=== PATIENT | female | born 1950 | race Caucasian/White ===

== ENCOUNTER 2019-07-09 11:56 | Emergency (ER) | payer MEDICARE, OTHER, SELFPAY ==
--- NOTE | ~2019-07-09 | XR_ITS ---
EXAMINATION: XR foot RT min 3V DATE: 07/09/2019 12:21 INDICATION: Injury to the dorsum of the right foot TECHNIQUE: Dorsoplantar, two oblique and lateral views of the right foot were obtained. COMPARISON: None. FINDINGS: Alignment is normal. No fracture. Mild to moderate polyarticular osteoarthritis most prominent at the second and third tarsal metatarsal joints, at the fourth proximal interphalangeal joint, first metat arsophalangeal joint and to lesser degree at the remaining joints in the mid and hindfoot. IMPRESSION: 1. Mild to moderate polyarticular osteoarthritis in the right fore and midfoot. No acute osseous abno rmality. Reviewed, dictated and finalized at location A. IMPRESSION: 1. Mild to moderate polyarticular osteoarthritis in the right fore and midfoot. No acute osseous abnormality.
--- NOTE | 2019-07-09 12:09 | ED.GENADULT ---
HPI - General Adult General Chief complaint: Extremity Injury, Lower Stated complaint: injury right foot Time Seen by Provider: 07/09/19 12:09 Source: patient Mode of arrival: ambulatory Limitations: no limitations History of Present Illness HPI narrative: 68-year-old female patient presents to the [facility] with complaints of right foot pain. Patient states about an hour prior to arrival she accidentally dropped a cast iron skillet onto her right foot. Patient states that she has had a burning pain to the toes. Patient states she is able to walk on it but does limp and states it hurts worse when applying pressure to the great toe. Patient denies taking anything for the pain prior to arrival. Related Data Home Medications Medication Instructions Recorded Confirmed celecoxib [Celebrex] 100 mg PO BID 07/09/19 07/09/19 losartan 25 mg PO DAILY 07/09/19 07/09/19 metformin [Glucophage] 500 mg PO TID 07/09/19 07/09/19 pantoprazole [Protonix] 40 mg PO DAILY 07/09/19 07/09/19 Allergies Allergy/AdvReac Type Severity Reaction Status Date / Time No Known Allergies Allergy Unknown Verified 07/09/19 12:13 Review of Systems Review of Systems: Narrative: CONSTITUTIONAL: Denies fever, chills, or sweats. EYES: Denies visual changes, redness, or discharge. ENT: Denies rhinorrhea, congestion, sore throat, or otalgia. CARDIOVASCULAR: Denies chest pain, palpitations, or edema. RESPIRATORY: Denies cough or dyspnea. GASTROINTESTINAL: Denies abdominal pain, nausea, vomiting, or diarrhea. GENITOURINARY: Denies dysuria or hematuria. SKIN: Denies rash or itching. MUSCULOSKELETAL: Denies back pain, joint pain, or myalgia. Positive right foot pain NEUROLOGIC: Denies headache, numbness, or weakness. PSYCHIATRIC: Denies anxiety or depression. PMFSH Social History Social History Gender identity (if verbalized by the patient): Female Comments At the time of my signature I agree with nursing past medical history, surgical, social, and family history. There is no relevant family history pertinent to the presenting complaint. Exam Narrative: Exam Narrative: GENERAL: Well-appearing, well-nourished, and in no acute distress. HEAD: Normocephalic, atraumatic. EYES: PERRLA and EOMI. ENT: Nares clear, no rhinorrhea or epistaxis. Mucous membranes moist. NECK: Supple. No lymphadenopathy CHEST: Clear to auscultation. No respiratory distress. HEART: Regular rate and rhythm. No murmur heard. Normal peripheral pulses. ABDOMEN: Soft, nontender, nondistended, normal active bowel sounds. EXTREMITIES: Patient able to bear weight and ambulate but has increase in pain to R foot. ecchymosis noted at the base of the first metatarsal, no erythema, lesions, ulcers or break in skin integrity. The R foot is without obvious asymmetry or deformity when compared to the L foot. No bony step-off, tender to palpation over the first metatarsal toes, denies pain to the midfoot or hindfoot or sole. Normal plantar/dorsiflexion, inversion/eversion. Distal motor and neurovascular status are intact SKIN: Warm, dry, no rash. NEURO: No focal deficits. Alert and oriented x3. Course Reevaluation(s) Reevaluation #1: Reevaluated patient after her x-ray had resulted. Notified her that the x-ray does not show any acute fractures of the foot at this time. Discussed with her that it does appear that she just has some soft tissue damage and a contusion to the right foot. Discussed with her that this is going to be painful to walk on for the next couple of days we are good to go ahead and put her in an Ortho shoe to see if this helps take a little bit of the pressure off of her foot while she walks. Discussed with patient she needs to be elevating the foot, applying ice may take Tylenol ibuprofen as needed for the pain. Patient verbalized understanding of this and denies any other questions or concerns at this time. Date: 07/09/19 Time: 12:39
[2019-07-09 12:11] VITALS: BP 156/82; PULSE 86; RESP 16; TEMP 36.9; O2SAT 100
== END 2019-07-09 12:45 | disposition home or self-care (01) ==
PROVIDERS: Emergency Provider Nurse Practitioner Family; PCP Nurse Practitioner Adult Health
DX: S90.111A Contusion of right great toe without damage to nail, initial encounter (principal); M19.071 Primary osteoarthritis, right ankle and foot; Z96.651 Presence of right artificial knee joint; E11.9 Type 2 diabetes mellitus without complications; R03.0 Elevated blood-pressure reading, without diagnosis of hypertension; W20.8XXA Other cause of strike by thrown, projected or falling object, initial encounter; Z79.84 Long term (current) use of oral hypoglycemic drugs
CPT/HCPCS: 73630; 99213; G0463

== ENCOUNTER → 2020-04-10 00:59 | Outpatient (CLI) | payer MEDICARE, SELFPAY ==
[2020-04-10 18:28] LABS: SARS-CoV-2 RNA PCR Negative
== END ==
PROVIDERS: Family Provider Nurse Practitioner Adult Health; PCP Nurse Practitioner Adult Health; Visit Provider Internal Medicine Gastroenterology
DX: Z01.812 Encounter for preprocedural laboratory examination (principal); Z20.822 Contact with and (suspected) exposure to COVID-19
CPT/HCPCS: C9803; U0003; U0005

== ENCOUNTER 2020-04-13 00:54 | Day surgery (SDC) | payer MEDICARE, SELFPAY ==
[2020-03-23 15:10] VITALS: BMI 26.6
--- NOTE | 2020-04-13 09:04 | WPDANESEPPF ---
Anes - Initial Pre Proc Eval Procedure: Operation Date: 04/13/20 10:30 Proposed Procedures p Screening Colonoscopy - Leonel Garcia DO Date/Time: 04/13/20 09:04 Surgeon: Leonel Garcia DO Pre Op Diagnosis: Neoplasm Screening Patient Data Age: 69 Gender: F Height: 1.65 m Weight: 72.7 kg Allergies Allergy/AdvReac Type Severity Reaction Status Date / Time doxycycline AdvReac Vomiting Verified 04/13/20 09:42 Home Medications Medication Instructions Recorded Confirmed Type losartan 25 mg PO DAILY 07/09/19 03/23/20 History metformin [Glucophage] 500 mg PO TID 07/09/19 03/23/20 History pantoprazole [Protonix] 40 mg PO DAILY 07/09/19 03/23/20 History Adult One Daily Multivitamin 1 tablet PO DAILY 03/23/20 03/23/20 History meloxicam [Mobic] 15 mg PO DAILY 03/23/20 03/23/20 History Patient hx anesthesia problems: none Family hx anesthesia problems: none [facility] Past Medical History Medical History (Updated 04/13/20 @ 09:05 by Marin Conner MD) Chronic GERD Diabetes HTN (hypertension) KULDEEP (obstructive sleep apnea) Osteoarthritis Overweight (BMI 25.0-29.9) Social History Social History Smoking status: Never smoker Alcohol use details: rarely Living arrangements: with family Gender identity (if verbalized by the patient): Female Spiritual care concerns: No Anes - Eval Final PreProcedure Day of Procedure 04/13/20 09:04 Patient weight: overweight Heart: regular rate and rhythm Lungs: clear to auscultation and normal air movement Airway: Mallampati scale class II Neurological: alert and oriented Last oral intake: >/= 8 hours ASA classification: III Emergent: no Anesthetic plan: proceed Anesthesia type and monitoring: general GIVS Informed Consent: The patient's anesthetic plan and its attendant risks and benefits were discussed with the patient/family/POA. Questions were solicited and answers provided to the satisfaction of the patient/family/POA.
[2020-04-13 09:43] VITALS: BP 169/65; PULSE 72; TEMP 36.9; O2SAT 99
[2020-04-13] MEDS: LACTATED RINGERS 1,000 ML 150 ML IV CONT (10:02)
--- NOTE | 2020-04-13 11:13 | WPDGICN ---
GI Consult Note Consult date/time: 04/13/20 11:13 HPI: Reason for visit is colonoscopy. This very pleasant lady seen at the request of the primary physician. Impression: Here very pleasant lady that is here for colonoscopy. She has a family history of colon cancer. She also had remote history of colon polyps. GERD well controlled on medication. DM. HTN. KULDEEP. Recommendation: Colonoscopy. History: This very pleasant lady's negative GI review of systems. She has a history reflux disease. She is status post fundoplication and takes pantoprazole. This controls her symptoms. She has a family history of colon cancer and remote history of colon polyps. She is here for colonoscopy. Physical examination: General: very pleasant patient in no acute distress. HEENT: Head was normocephalic sclerae is clear mouth without masses neck was supple. Heart: Rate rhythm regular without S3 or S4. Lungs: CTA. Abdomen: Soft with no guarding or rigidity. Bowel sounds were active. Neurologic: Cranial nerves 2 through 12 intact. No focal defects. No clonus. Musculoskeletal system: Revealed no joint tenderness or swelling no muscle atrophy. Extremities: Reveal no significant edema. Skin: Warm and dry with normal turgor. Mental status: intact. Patient is alert and oriented. Review of Systems Review of Systems: All systems reviewed & are unremarkable except as noted in HPI and below PMFSH Past Medical History Medical History (Updated 04/13/20 @ 09:05 by Marin Conner MD) Chronic GERD Diabetes HTN (hypertension) KULDEEP (obstructive sleep apnea) Osteoarthritis Overweight (BMI 25.0-29.9) Social History Social History Smoking status: Never smoker Alcohol use details: rarely Living arrangements: with family Gender identity (if verbalized by the patient): Female Spiritual care concerns: No Meds Home Medications and Allergies Home Medications Medication Instructions Recorded Confirmed Type losartan 25 mg PO DAILY 07/09/19 03/23/20 History metformin [Glucophage] 500 mg PO TID 07/09/19 03/23/20 History pantoprazole [Protonix] 40 mg PO DAILY 07/09/19 03/23/20 History Adult One Daily Multivitamin 1 tablet PO DAILY 03/23/20 03/23/20 History meloxicam [Mobic] 15 mg PO DAILY 03/23/20 03/23/20 History Allergies Allergy/AdvReac Type Severity Reaction Status Date / Time doxycycline AdvReac Vomiting Verified 04/13/20 09:42 Vital Signs Vital Signs - 24 hr 04/13/20 09:43 Temperature 36.9 C Pulse Rate 72 Blood Pressure 169/65 H Pulse Oximetry 99
[2020-04-13 11:31] VITALS: BP 122/56; PULSE 66; RESP 20; O2SAT 100
[2020-04-13 11:41] VITALS: BP 141/63; PULSE 62; RESP 20; O2SAT 100
[2020-04-13 11:51] VITALS: BP 162/69; PULSE 63; RESP 15; O2SAT 100
== END 2020-04-13 12:01 | disposition home or self-care (01) ==
PROVIDERS: Family Provider Nurse Practitioner Adult Health; PCP Nurse Practitioner Adult Health; Visit Provider Internal Medicine Gastroenterology
PROC: 0DJD8ZZ Inspection of Lower Intestinal Tract, Via Natural or Artificial Opening Endoscopic (ICD-10-PCS; CPT 45378; principal; 2020-04-13 10:30)
DX: Z12.11 Encounter for screening for malignant neoplasm of colon (principal); Z86.010 Personal history of colon polyps; Z80.0 Family history of malignant neoplasm of digestive organs; K21.9 Gastro-esophageal reflux disease without esophagitis; I10 Essential (primary) hypertension; E11.9 Type 2 diabetes mellitus without complications; G47.33 Obstructive sleep apnea (adult) (pediatric); Z79.84 Long term (current) use of oral hypoglycemic drugs
CPT/HCPCS: G0105; J2704; J7120

== ENCOUNTER → 2020-08-11 03:10 | Outpatient (CLI) | payer MEDICARE, SELFPAY ==
[2020-08-11 19:50] LABS: SARS-CoV-2 RNA PCR Negative
== END ==
PROVIDERS: PCP Nurse Practitioner Adult Health; Visit Provider Internal Medicine Gastroenterology
DX: Z01.812 Encounter for preprocedural laboratory examination (principal); Z20.822 Contact with and (suspected) exposure to COVID-19
CPT/HCPCS: C9803; U0003; U0005

== ENCOUNTER 2020-08-14 01:23 | Day surgery (SDC) | payer MEDICARE, SELFPAY ==
[2020-08-01 14:40] VITALS: BMI 25.7
[2020-08-14 07:31] LABS: Glucose Point of Care 131 mg/dl (65-105)
[2020-08-14] MEDS: LACTATED RINGERS 1,000 ML 150 ML IV CONT (07:31)
[2020-08-14 07:32] VITALS: BP 162/66; PULSE 71; RESP 18; TEMP 36.5; O2SAT 100; BMI 27.8
--- NOTE | 2020-08-14 07:58 | WPDANESEPPF ---
Anes - Initial Pre Proc Eval Procedure: Operation Date: 08/14/20 08:30 Proposed Procedures p Esophagogastroduodenoscopy - Leonel Smith MD Date/Time: 08/14/20 07:58 Surgeon: Leonel Smith MD Pre Op Diagnosis: melena Patient Data Age: 69 Gender: F Height: 1.65 m Weight: 75.9 kg Last Vital Signs Temp 36.5 C 08/14/20 07:32 Pulse 71 08/14/20 07:32 Resp 18 08/14/20 07:32 BP 162/66 H 08/14/20 07:32 Pulse Ox 100 08/14/20 07:32 Allergies Allergy/AdvReac Type Severity Reaction Status Date / Time doxycycline AdvReac Vomiting Verified 08/01/20 14:37 Home Medications Medication Instructions Recorded Confirmed Type losartan 25 mg PO DAILY 07/09/19 08/01/20 History metformin [Glucophage] 500 mg PO TID 07/09/19 08/01/20 History pantoprazole [Protonix] 40 mg PO DAILY 07/09/19 08/01/20 History Adult One Daily Multivitamin 1 tablet PO DAILY 03/23/20 08/01/20 History meloxicam [Mobic] 15 mg PO DAILY 03/23/20 08/01/20 History calcium carbonate 1,200 mg PO DAILY 08/01/20 08/01/20 History omega-3 fatty acids-vitamin E 1 cap PO DAILY 08/01/20 08/01/20 History [Fish Oil] Laboratory Tests 08/14/20 07:28 POC Capillary Glucose 131 mg/dl H mg/dl (65-105) Patient hx anesthesia problems: none Family hx anesthesia problems: none PMFSH Past Medical History Medical History (Updated 04/13/20 @ 09:05 by Marin Conner MD) Chronic GERD Diabetes HTN (hypertension) KULDEEP (obstructive sleep apnea) Osteoarthritis Overweight (BMI 25.0-29.9) Social History Social History Smoking status: Never smoker Alcohol use details: SELDOM Living arrangements: with family Gender identity (if verbalized by the patient): Female Spiritual care concerns: No Anes - Eval Final PreProcedure Day of Procedure 08/14/20 07:58 Patient weight: overweight Heart: regular rate and rhythm Lungs: clear to auscultation and normal air movement Airway: Mallampati scale class II Neurological: alert and oriented Last oral intake: >/= 8 hours ASA classification: III Emergent: no Anesthetic plan: proceed Anesthesia type and monitoring: general GIVS and standard monitoring Informed Consent: The patient's anesthetic plan and its attendant risks and benefits were discussed with the patient/family/POA. Questions were solicited and answers provided to the satisfaction of the patient/family/POA.
--- NOTE | 2020-08-14 07:59 | WPDGICN ---
Assessment and Plan Assessment and plan (1) Epigastric abdominal pain: Code(s): R10.13 - Epigastric pain Status: Acute Assessment and Plan: Patient with persistent epigastric pain. Somewhat improved on pantoprazole. Plan is to pursue EGD to evaluate for possible ulcer disease or other etiologies of pain. (2) Melena: Code(s): K92.1 - Melena Status: Acute Assessment and Plan: Patient with dark stools may be attributed to use of Pepto-Bismol. However because of epigastric pain this may represent bleeding will be evaluated at time of EGD. (3) Family history of colon cancer in mother: Code(s): Z80.0 - Family history of malignant neoplasm of digestive organs Status: Acute Assessment and Plan: Patient underwent screening colonoscopy 1 year ago in the 2019 period was unremarkable. Plan is for surveillance colonoscopy at 5 year intervals. GI Consult Note Consult date/time: 08/14/20 07:59 HPI: Diann Lao is a 69 year old female Presents for EGD. She has had upper abdominal pain for the last several months. She has had no help with antacid such as Tums or Rolaids. Recent Gary noted to have black stools. Her reports that she is taking a significant amount of Pepto-Bismol. No obvious bleeding has been encountered. Recently started on pantoprazole she has noticed some improvement in pain but is not improved over last 1 month. Her family history is significant for colon cancer. She underwent a colonoscopy 1 year ago that was unremarkable felt to be normal. Patient presents today for EGD because of abdominal pain history of recent black stools. Review of Systems Review of Systems: All systems reviewed & are unremarkable except as noted in HPI and below PMFSH Past Medical History Medical History Chronic GERD Diabetes HTN (hypertension) KULDEEP (obstructive sleep apnea) Osteoarthritis Overweight (BMI 25.0-29.9) Social History Social History Smoking status: Never smoker Alcohol use details: SELDOM Living arrangements: with family Gender identity (if verbalized by the patient): Female Spiritual care concerns: No Meds Home Medications and Allergies Home Medications Medication Instructions Recorded Confirmed Type losartan 25 mg PO DAILY 07/09/19 08/01/20 History metformin [Glucophage] 500 mg PO TID 07/09/19 08/01/20 History pantoprazole [Protonix] 40 mg PO DAILY 07/09/19 08/01/20 History Adult One Daily Multivitamin 1 tablet PO DAILY 03/23/20 08/01/20 History meloxicam [Mobic] 15 mg PO DAILY 03/23/20 08/01/20 History calcium carbonate 1,200 mg PO DAILY 08/01/20 08/01/20 History omega-3 fatty acids-vitamin E 1 cap PO DAILY 08/01/20 08/01/20 History [Fish Oil] Allergies Allergy/AdvReac Type Severity Reaction Status Date / Time doxycycline AdvReac Vomiting Verified 08/01/20 14:37 Vital Signs Vital Signs - 24 hr 08/14/20 07:32 Temperature 97.7 F Pulse Rate 71 Respiratory Rate 18 Blood Pressure 162/66 H Pulse Oximetry 100 Exam Narrative: Exam Narrative: Physical exam reveals patient be alert. Vital signs stable. HEENT exam is unremarkable. Lungs are clear to auscultation and percussion. Heart is without murmur or extra sounds. Abdominal exam bowel sounds are present soft she has mild epigastric tenderness no masses are encountered. Digital rectal exam is normal.
[2020-08-14] MEDS: SIMETHICONE ORAL SUSPENSION 20 MG/0.3 ML 30 ML BOTTLE 0.6 ML IRRIGATION (08:37)
[2020-08-14 08:43] VITALS: BP 108/52; PULSE 70; RESP 18; O2SAT 100
[2020-08-14 08:53] VITALS: BP 123/67; PULSE 77; RESP 22; O2SAT 99
[2020-08-14 09:03] VITALS: BP 164/76; PULSE 74; RESP 22; O2SAT 100
== END 2020-08-14 09:12 | disposition home or self-care (01) ==
PROVIDERS: PCP Nurse Practitioner Adult Health; Visit Provider Internal Medicine Gastroenterology
PROC: 0DJ08ZZ Inspection of Upper Intestinal Tract, Via Natural or Artificial Opening Endoscopic (ICD-10-PCS; CPT 43235; principal; 2020-08-14 08:30)
DX: R10.13 Epigastric pain (principal); K92.1 Melena; K29.50 Unspecified chronic gastritis without bleeding; Z79.84 Long term (current) use of oral hypoglycemic drugs; K21.9 Gastro-esophageal reflux disease without esophagitis; E11.9 Type 2 diabetes mellitus without complications; I10 Essential (primary) hypertension; G47.33 Obstructive sleep apnea (adult) (pediatric); M19.90 Unspecified osteoarthritis, unspecified site; Z80.0 Family history of malignant neoplasm of digestive organs
CPT/HCPCS: 43239; 82948; 88305; 88342; J2704; J7120

== ENCOUNTER 2020-08-25 18:37 | Emergency (ER) | payer MEDICARE, SELFPAY ==
[2020-08-25 18:46] VITALS: BP 151/67; PULSE 79; RESP 16; TEMP 36.8; O2SAT 99
--- NOTE | 2020-08-25 19:15 | ED.ABDPAIN ---
HPI - Abdominal Pain General Chief Complaint: Urogenital-Female Stated Complaint: UTI Time Seen by Provider: 08/25/20 19:04 Source: patient and RN notes reviewed Mode of arrival: ambulatory Limitations: no limitations History of Present Illness HPI narrative: Patient presents today complaining of periumbilical abdominal pain that radiates to the left flank since yesterday. She also complains of urinary frequency and urgency. Patient states, it feels like my insides are about to fall out. Denies fever, nausea, vomiting, diarrhea, constipation. Currently rates her pain 08/10 and has tried no medication for symptoms prior to arrival. She believes that she has a UTI and came here for evaluation. History of cholecystectomy and appendectomy. Patient had a negative colonoscopy in April, but continues to have some melena, sees GI. Patient had an EGD on 08/14/2020 for some ulcers. MD elicited complaint: abdominal pain and flank pain Related Data Home Medications Medication Instructions Recorded Confirmed losartan 25 mg PO DAILY 07/09/19 08/25/20 metformin [Glucophage] 500 mg PO TID 07/09/19 08/25/20 pantoprazole [Protonix] 40 mg PO DAILY 07/09/19 08/25/20 Adult One Daily Multivitamin 1 tablet PO DAILY 03/23/20 08/25/20 meloxicam [Mobic] 15 mg PO DAILY 03/23/20 08/25/20 calcium carbonate 1,200 mg PO DAILY 08/01/20 08/25/20 aspirin 81 mg PO DAILY 08/25/20 08/25/20 Allergies Allergy/AdvReac Type Severity Reaction Status Date / Time doxycycline AdvReac Vomiting Verified 08/01/20 14:37 Review of Systems Review of Systems: Narrative: CONSTITUTIONAL: Denies body aches, fever, chills, or sweats. EYES: Denies visual changes, redness, or discharge. ENT: Denies rhinorrhea, congestion, sore throat, or otalgia. CARDIOVASCULAR: Denies chest pain, palpitations, or edema. RESPIRATORY: Denies cough or dyspnea. GASTROINTESTINAL: Denies nausea, vomiting, or diarrhea. + Abdominal pain, left flank pain GENITOURINARY: Denies dysuria or hematuria. SKIN: Denies rash, itching, or wounds. MUSCULOSKELETAL: Denies back pain, joint pain, or myalgia. NEUROLOGIC: Denies headache, numbness, tingling, or weakness. PSYCH: Denies depression or anxiety. [facility] Past Medical History Medical History (Updated 08/25/20 @ 19:24 by Alena Ruiz, JARAD, ) Chronic GERD Diabetes HTN (hypertension) KULDEEP (obstructive sleep apnea) Osteoarthritis Overweight (BMI 25.0-29.9) Surgical History Surgical History (Updated 08/25/20 @ 19:24 by Alena Ruiz, JARAD, ) History of appendectomy History of cholecystectomy History of Fifi fundoplication Social History Social History Smoking status: Never smoker Gender identity (if verbalized by the patient): Female Spiritual care concerns: No Comments At time of signature, I have reviewed and agree with nursing past medical, surgical, social and family history unless otherwise noted. Please see nursing chart for further information. There is no relevant family history pertinent to the presenting complaint Exam Narrative: Exam Narrative: GENERAL: Well-appearing, well-nourished, and in no acute distress. Mild pain distress HEAD: Normocephalic, atraumatic. EYES: EOMI. No redness or drainage. Conjunctivae normal. ENT: Mucous membranes pink and moist. NECK: Normal AROM. Supple. No lymphadenopathy. CHEST: No respiratory distress. Clear to auscultation. HEART: Regular rate and rhythm. No murmur appreciated. Normal peripheral pulses. ABDOMEN: Soft, nondistended, normal active bowel sounds. Periumbilical abdominal tenderness without rebound or guarding. Left flank tenderness. No suprapubic tenderness. MUSCULOSKELETAL: No bony tenderness. EXTREMITIES: Normal range of motion. No edema. SKIN: Warm, dry, no rash. Capillary refill normal. Normal skin turgor. NEURO: No focal deficits. Alert and oriented x3. Gait steady. PSYCH: Normal affect. No si
== END 2020-08-25 19:25 | disposition short-term general hospital (02) ==
PROVIDERS: Emergency Provider Nurse Practitioner; PCP Nurse Practitioner Adult Health
DX: R10.33 Periumbilical pain (principal); K21.9 Gastro-esophageal reflux disease without esophagitis; E11.9 Type 2 diabetes mellitus without complications; I10 Essential (primary) hypertension; G47.33 Obstructive sleep apnea (adult) (pediatric); M19.90 Unspecified osteoarthritis, unspecified site; Z79.82 Long term (current) use of aspirin
CPT/HCPCS: 81003; 99212; G0463

== ENCOUNTER 2020-10-09 00:28 | Day surgery (SDC) | payer MEDICARE, SELFPAY ==
[2020-09-26 15:13] VITALS: BMI 27.5
--- NOTE | 2020-10-06 17:41 | WPDANESEPP ---
Anes - Eval Pre Procedure Procedure: Operation Date: 10/09/20 07:30 Proposed Procedures p Esophagogastroduodenoscopy - Leonel Smith MD Date/Time: 10/06/20 17:41 Pre Op Diagnosis: gastric ulcer Patient Data Age: 69 Gender: F Height: 1.65 m Weight: 75 kg Allergies Allergy/AdvReac Type Severity Reaction Status Date / Time doxycycline AdvReac Vomiting Verified 09/26/20 15:09 Home Medications Medication Instructions Recorded Confirmed Type losartan 25 mg PO DAILY 07/09/19 09/26/20 History metformin [Glucophage] 500 mg PO TID 07/09/19 09/26/20 History pantoprazole [Protonix] 40 mg PO DAILY 07/09/19 09/26/20 History Adult One Daily Multivitamin 1 tablet PO DAILY 03/23/20 09/26/20 History calcium carbonate 1,200 mg PO DAILY 08/01/20 09/26/20 History aspirin 81 mg PO DAILY 08/25/20 09/26/20 History Patient hx anesthesia problems: post op nausea/vomiting Family hx anesthesia problems: none PMFSH Past Medical History Medical History (Updated 08/26/20 @ 00:01 by Juan David Verma) Chronic GERD Diabetes HTN (hypertension) KULDEEP (obstructive sleep apnea) Osteoarthritis Overweight (BMI 25.0-29.9) Surgical History Surgical History (Updated 10/06/20 @ 17:41 by Price Simon DO) History of appendectomy History of cholecystectomy History of hysterectomy History of Fifi fundoplication History of total right knee replacement Social History Social History Smoking status: Never smoker Alcohol use details: Seldom Gender identity (if verbalized by the patient): Female Spiritual care concerns: No Exam Day of Procedure 10/06/20 17:41
[2020-10-09 06:25] VITALS: BP 172/67; PULSE 79; RESP 18; TEMP 36.1; O2SAT 99
[2020-10-09] MEDS: LACTATED RINGERS 1,000 ML 150 ML IV CONT (06:28)
--- NOTE | 2020-10-09 06:42 | WPDANESEFPP ---
Anes - Eval Final PreProcedure Day of Procedure 10/09/20 06:42 Patient weight: overweight Heart: regular rate and rhythm Lungs: clear to auscultation Airway: Mallampati scale class II Neurological: alert and oriented Last oral intake: >/= 8 hours ASA classification: III Emergent: no Anesthetic plan: proceed Anesthesia type and monitoring: general GIVS and standard monitoring Informed Consent: The patient's anesthetic plan and its attendant risks and benefits were discussed with the patient/family/POA. Questions were solicited and answers provided to the satisfaction of the patient/family/POA.
[2020-10-09 06:45] LABS: Glucose Point of Care 153 mg/dl (65-105)
--- NOTE | 2020-10-09 07:25 | WPDGICN ---
Assessment and Plan Assessment and plan (1) Gastric ulcer: Code(s): K25.9 - Gastric ulcer, unspecified as acute or chronic, without hemorrhage or perforation Status: Acute Assessment and Plan: Patient with gastric ulcer identified 2 months ago. Plan is for follow-up EGD at this time. Patient currently maintained on pantoprazole 40 mg p.o. daily. Plan to continue to avoid nonsteroidal anti-inflammatory agents. Further recommendations will be given after endoscopy. (2) Family history of colon cancer in mother: Code(s): Z80.0 - Family history of malignant neoplasm of digestive organs Status: Acute Assessment and Plan: Most recent colonoscopy 2019. Plan is for follow-up colonoscopy is a 5 year intervals. GI Consult Note Consult date/time: 10/09/20 07:25 HPI: Diann Lao is a 69 year old female Who was diagnosed with gastric ulcer 2 months ago. Patient has been maintained on pantoprazole 40 mg p.o. daily. She states she is much removed proved. She denies abdominal pain. She has had no bleeding. She eats her diet without any difficulty. She presents today for follow-up EGD. Review of Systems Review of Systems: All systems reviewed & are unremarkable except as noted in HPI and below PMFSH Past Medical History Medical History (Updated 10/09/20 @ 07:26 by Leonel Smith MD) Chronic GERD Diabetes HTN (hypertension) KULDEEP (obstructive sleep apnea) Osteoarthritis Overweight (BMI 25.0-29.9) Surgical History Surgical History (Updated 10/06/20 @ 17:41 by Price Simon DO) History of appendectomy History of cholecystectomy History of hysterectomy History of Fifi fundoplication History of total right knee replacement Social History Social History Smoking status: Never smoker Alcohol use details: Seldom Living arrangements: with family Gender identity (if verbalized by the patient): Female Spiritual care concerns: No Meds Home Medications and Allergies Home Medications Medication Instructions Recorded Confirmed Type losartan 25 mg PO DAILY 07/09/19 10/09/20 History metformin [Glucophage] 500 mg PO TID 07/09/19 10/09/20 History pantoprazole [Protonix] 40 mg PO DAILY 07/09/19 10/09/20 History Adult One Daily Multivitamin 1 tablet PO DAILY 03/23/20 10/09/20 History calcium carbonate 1,200 mg PO DAILY 08/01/20 10/09/20 History aspirin 81 mg PO DAILY 08/25/20 10/09/20 History Allergies Allergy/AdvReac Type Severity Reaction Status Date / Time doxycycline AdvReac Vomiting Verified 10/09/20 06:24 Vital Signs Vital Signs - 24 hr 10/09/20 06:25 Temperature 96.9 F L Pulse Rate 79 Respiratory Rate 18 Blood Pressure 172/67 H Pulse Oximetry 99 Exam Narrative: Physical exam reveals patient to be alert. Vital signs stable. HEENT exam is unremarkable. Patient is anicteric. Lungs are clear to auscultation and percussion. Heart is without murmur or extra sounds. Abdominal exam bowel sounds present soft nontender with no organomegaly.
[2020-10-09 07:36] VITALS: BP 100/49; PULSE 65; RESP 18; O2SAT 100
[2020-10-09 07:46] VITALS: BP 100/49; PULSE 65; RESP 20; O2SAT 99
[2020-10-09 07:56] VITALS: BP 151/72; PULSE 70; RESP 20; O2SAT 100
== END 2020-10-09 08:07 | disposition home or self-care (01) ==
PROVIDERS: PCP Nurse Practitioner Adult Health; Visit Provider Internal Medicine Gastroenterology
PROC: 0DJ08ZZ Inspection of Upper Intestinal Tract, Via Natural or Artificial Opening Endoscopic (ICD-10-PCS; CPT 43235; principal; 2020-10-09 07:30)
DX: K25.9 Gastric ulcer, unspecified as acute or chronic, without hemorrhage or perforation (principal); K21.9 Gastro-esophageal reflux disease without esophagitis; E11.9 Type 2 diabetes mellitus without complications; I10 Essential (primary) hypertension; G47.33 Obstructive sleep apnea (adult) (pediatric); M19.90 Unspecified osteoarthritis, unspecified site; Z80.0 Family history of malignant neoplasm of digestive organs; Z90.49 Acquired absence of other specified parts of digestive tract; Z96.651 Presence of right artificial knee joint
CPT/HCPCS: 43239; 82948; 87081; J2001; J2704; J7120

== ENCOUNTER → 2021-03-14 09:47 | Outpatient (CLI) | payer MEDICARE, SELFPAY ==
[2021-03-14 21:18] LABS: SARS-CoV-2 RNA PCR Negative
== END ==
PROVIDERS: PCP Nurse Practitioner Adult Health; Visit Provider Nurse Practitioner Adult Health
DX: J01.90 Acute sinusitis, unspecified (principal); Z20.822 Contact with and (suspected) exposure to COVID-19
CPT/HCPCS: C9803; U0003; U0005

== ENCOUNTER 2021-09-22 11:03 | Emergency (ER) | payer MEDICARE, SELFPAY ==
--- NOTE | 2021-09-22 11:06 | ED.URI ---
HPI - URI/Sore Throat General Chief Complaint: Ear Stated Complaint: Ear Pain,Sore Throat Time Seen by Provider: 09/22/21 11:06 Source: patient Mode of arrival: ambulatory Limitations: no limitations History of Present Illness HPI Narrative: Ms. Lao is a 70-year-old female patient presenting to the clinic today with complaints of ear pain sore throat, and sinus pressure/pain/congestion x2 weeks. She reports that she had finished azithromycin last week and this did not help her symptoms. She reports that her ear pain is getting worse. Denies any fever or chills. MD elicited complaint: sore throat and nasal congestion Related Data Home Medications Medication Instructions Recorded Confirmed losartan 25 mg tablet 25 mg PO DAILY 07/09/19 09/22/21 metformin 500 mg tablet 500 mg PO TID 07/09/19 09/22/21 (Glucophage) pantoprazole 40 mg tablet,delayed 40 mg PO DAILY 07/09/19 09/22/21 release (Protonix) Adult One Daily Multivitamin 1 tablet PO DAILY 03/23/20 09/22/21 calcium carbonate 600 mg calcium 1,200 mg PO DAILY 08/01/20 09/22/21 (1,500 mg) tablet aspirin 81 mg tablet 81 mg PO DAILY 08/25/20 09/22/21 Allergies Allergy/AdvReac Type Severity Reaction Status Date / Time doxycycline AdvReac Vomiting Verified 09/22/21 11:05 Review of Systems Review of Systems: Pertinent positives per HPI. Patient denies any fever, chills, rash, visual changes, dizziness, cough, shortness of breath, chest pain, palpitations, nausea, vomiting, diarrhea, constipation, abdominal pain, or any urinary issues. [facility] Past Medical History Medical History Chronic GERD Diabetes HTN (hypertension) KULDEEP (obstructive sleep apnea) Osteoarthritis Overweight (BMI 25.0-29.9) Surgical History Surgical History History of appendectomy History of cholecystectomy History of hysterectomy History of Fifi fundoplication History of total right knee replacement Social History Social History Smoking status: Never smoker Alcohol use details: Seldom Gender identity (if verbalized by the patient): Female Spiritual care concerns: No Comments At the time of my signature, I reviewed and agree with the nursing past medical, surgical, social, and family history. There is no relevant family history pertinent to the patient complaint. Exam Narrative: General: Well-developed, well nourished, in no apparent distress Head: Normocephalic, atraumatic Eyes: Pupils equally round and reactive to light bilaterally, EOM intact, sclera and conjunctive clear, no discharge, lids normal Ears: TMs intact, bulging, with mucoid fluid behind TM,ear canals clear, no drainage, grossly hearing normal. Nose: Nares patent, clear nasal discharge, severe inflammation to anterior and posterior turbinates, maxillary sinus tenderness. Mouth: Oral pharynx without lesions or masses, good dentition, MMM. Postnasal drip, oropharynx mildly red Neck: Supple, trachea midline, no enlargement of anterior or posterior cervical nodes, no thyroid masses or goiter palpable. Cardio: Regular rate and rhythm, s1 and s2 normal, no murmur appreciated. Resp: Clear to auscultation bilaterally, no rhonchi, rales, wheezing or rubs Course Course Emergency Course: Portions of this record may have been created with voice recognition software. Level of Care: Express Care Visit Vital Signs Vital signs: Vital Signs Temperature 36.6 C 09/22/21 11:28 Pulse Rate 96 09/22/21 11:28 Respiratory Rate 18 09/22/21 11:28 Blood Pressure 153/81 H 09/22/21 11:28 Pulse Oximetry 99 09/22/21 11:28 Oxygen Delivery Room Air 09/22/21 11:28 Temperature 36.6 C 09/22/21 11:28 Pulse Rate 96 09/22/21 11:28 Respiratory Rate 18 09/22/21 11:28 Blood Pressure 153/81 H 09/22/21 11:28 Pulse
[2021-09-22 11:28] VITALS: BP 153/81; PULSE 96; RESP 18; TEMP 36.6; O2SAT 99
== END 2021-09-22 11:40 | disposition home or self-care (01) ==
PROVIDERS: Emergency Provider Nurse Practitioner Family; PCP Nurse Practitioner Adult Health
DX: J00 Acute nasopharyngitis [common cold] (principal); H69.83 Other specified disorders of Eustachian tube, bilateral; H65.03 Acute serous otitis media, bilateral; E11.9 Type 2 diabetes mellitus without complications; I10 Essential (primary) hypertension; G47.33 Obstructive sleep apnea (adult) (pediatric); M19.90 Unspecified osteoarthritis, unspecified site; K21.9 Gastro-esophageal reflux disease without esophagitis; Z96.651 Presence of right artificial knee joint
CPT/HCPCS: 99213; G0463

== ENCOUNTER → 2021-10-02 00:15 | Outpatient (CLI) | payer MEDICARE, SELFPAY ==
[2021-10-02 11:18] LABS: SARS-CoV-2 RNA PCR Positive
== END ==
PROVIDERS: PCP Nurse Practitioner Adult Health; Visit Provider Nurse Practitioner Adult Health
DX: U07.1 COVID-19 (principal)
CPT/HCPCS: C9803; U0003; U0005

== ENCOUNTER 2022-03-07 13:39 | Outpatient (CLI) | payer MEDICARE, SELFPAY ==
[2022-03-07 14:05] LABS: Hematocrit 36.3 % (37.0-47.0); Hemoglobin 11.4 g/dL (12.0-15.0); Mean Corpuscular HGB Conc 31.4 g/dl (32-36); Mean Corpuscular Hemoglobin 24.7 pg (26-34); Mean Corpuscular Volume 78.6 fl (80-100); Platelet Count Result 384 k/mm3 (150-375); Red Blood Count 4.62 M/mm3 (4.2-5.4); Red Cell Distribution Width 14.3 % (11.5-14.5); White Blood Count 7.6 K/mm3 (4.5-10.0)
[2022-03-07 14:16] LABS: Alanine Aminotransferase 13 U/L (6-35); Albumin Level 4.2 g/dL (3.5-5.1); Alkaline Phosphatase 89 U/L (38-126); Amylase 50 U/L (30-110); Anion Gap 6 mmol/L (8-16); Aspartate Amino Transferase 17 U/L (14-36); Bilirubin,Total 0.2 mg/dL (0.2-1.3); Blood Urea Nitrogen 12 mg/dL (7-17); Calcium 9.2 mg/dL (8.4-10.2); Carbon Dioxide 31 mmol/L (22-30); Chloride 99 mmol/L (98-107); Estimated Glomerular Filt Rate > 60; Glucose 132 mg/dL (65-110); Lipase 57 U/L (23-300); Potassium 4.5 mmol/L (3.4-5.0); Sodium 136 mmol/L (137-145)
== END 2022-03-07 13:40 | disposition home or self-care (01) ==
PROVIDERS: PCP Nurse Practitioner Adult Health; Visit Provider Nurse Practitioner
DX: R10.13 Epigastric pain (principal); Z87.11 Personal history of peptic ulcer disease
CPT/HCPCS: 36415; 80053; 82150; 83690; 85027

== ENCOUNTER 2022-04-01 06:55 | Day surgery (SDC) | payer MEDICARE, SELFPAY ==
[2022-03-08 14:30] VITALS: BMI 26.3
--- NOTE | 2022-04-01 07:12 | P.PNAN_ITS ---
Anes - Initial Pre Proc Eval Procedure: Operation Date: 04/01/22 12:00 Proposed Procedures p Esophagogastroduodenoscopy - Leonel Smith MD Date/Time: 04/01/22 07:12 Surgeon: Leonel Smith MD Pre Op Diagnosis: Dysphagia Patient Data Age: 71 Gender: F Height: 1.65 m Weight: 71.668 kg Allergies Allergy/AdvReac Type Severity Reaction Status Date / Time doxycycline AdvReac Vomiting Verified 04/01/22 10:49 Home Medications Medication Instructions Recorded Confirmed Type losartan 25 mg tablet 25 mg PO DAILY 07/09/19 03/21/22 History metformin 500 mg tablet 500 mg PO TID 07/09/19 03/21/22 History (Glucophage) Adult One Daily Multivitamin 1 tablet PO DAILY 03/23/20 03/21/22 History calcium carbonate 600 mg calcium 1,200 mg PO DAILY 08/01/20 03/21/22 History (1,500 mg) tablet aspirin 81 mg tablet 81 mg PO DAILY 08/25/20 03/21/22 History omeprazole 40 mg capsule,delayed 40 mg PO BID #60 caps 03/07/22 03/21/22 Rx release sucralfate 1 gram tablet 1 g PO QID 03/07/22 03/21/22 History Patient hx anesthesia problems: none Family hx anesthesia problems: none Results Review: All pre-operative results and documents have been reviewed as part of the pre- operative evaluation. [facility] Past Medical History Medical History (Updated 03/07/22 @ 13:05 by Marilou Griffin APRN) Chronic GERD Diabetes HTN (hypertension) Hx of gastric ulcer KULDEEP (obstructive sleep apnea) Osteoarthritis Overweight (BMI 25.0-29.9) Surgical History Surgical History History of appendectomy History of cholecystectomy History of hysterectomy History of Fifi fundoplication History of total right knee replacement Social History Social History Smoking status: Never smoker Alcohol use details: Seldom Substance use type: does not use Living arrangements: with family Gender identity (if verbalized by the patient): Female Spiritual care concerns: No Anes - Eval Final PreProcedure Day of Procedure 04/01/22 07:12 Patient weight: overweight Heart: regular rate and rhythm Lungs: clear to auscultation Airway: Mallampati scale class II Neurological: alert and oriented Last oral intake: >/= 8 hours ASA classification: III Emergent: no Anesthetic plan: proceed Anesthesia type and monitoring: general GIVS and standard monitoring Results Review: All pre-operative results and documents have been reviewed as part of the pre- operative evaluation. Informed Consent: The patient's anesthetic plan and its attendant risks and benefits were discussed with the patient/family/POA. Questions were solicited and answers provided to the satisfaction of the patient/family/POA.
[2022-04-01 10:40] VITALS: BP 158/74; PULSE 90; RESP 20; TEMP 36.7; O2SAT 99
--- NOTE | 2022-04-01 10:55 | WPDHPUPDATE1 ---
History and Physical Update Update Date/Time: 04/01/22 10:55 History and Physical has been reviewed, including an updated exam of the patient. There are NO changes in the patient's condition. Risks, benefits, and alternatives have been discussed and questions answered. Patient agrees to proceed with procedure.
[2022-04-01] MEDS: LACTATED RINGERS 1,000 ML 150 ML IV CONT (10:56)
[2022-04-01 10:57] LABS: Glucose Point of Care 141 mg/dl (65-105)
[2022-04-01 11:47] VITALS: BP 92/53; PULSE 73; RESP 20; O2SAT 100
--- NOTE | 2022-04-01 11:58 | WPDANESPN ---
Anes - Prog Note Post-Op Date/Time: 04/01/22 11:58 Cardiovascular status: normal Respiratory status: normal Airway patency: baseline Mental status: baseline Post-Op hydration status: normal Vital Signs: Last Vital Signs Temp 36.7 C 04/01/22 10:40 Pulse 90 04/01/22 10:40 Resp 20 04/01/22 10:40 BP 158/74 H 04/01/22 10:40 Pulse Ox 99 04/01/22 10:40 O2 Del Method Room Air 04/01/22 10:40 Pain Score (VAS): 0 I/O: Intake & Output 03/31/22 04/01/22 04/01/22 23:59 07:59 15:59 Intake Total 200 Balance 200 04/01/22 10:51 POC Capillary Glucose 141 H Post-procedural complaints: none Patient Feedback: Patient satisfied with anesthetic care. Other Findings: Patient vital signs back to baseline. Patient denies nausea and vomiting. Patient's pain under control. Patient OK for discharge.
[2022-04-01 12:04] VITALS: BP 93/52; PULSE 76; RESP 16; O2SAT 100
[2022-04-01 12:14] VITALS: BP 120/71; PULSE 70; RESP 17; O2SAT 100
== END 2022-04-01 12:30 | disposition home or self-care (01) ==
PROVIDERS: Visit Provider Internal Medicine Gastroenterology
PROC: 0DJ08ZZ Inspection of Upper Intestinal Tract, Via Natural or Artificial Opening Endoscopic (ICD-10-PCS; CPT 43235; principal; 2022-04-01 12:00)
DX: K22.89 Other specified disease of esophagus (principal)
CPT/HCPCS: 43239

== ENCOUNTER 2022-09-16 11:43 | Outpatient (CLI) | payer OTHER, SELFPAY ==
[2022-09-16 13:01] LABS: Iron 19 ug/dL (37-170)
[2022-09-16 13:11] LABS: Percent Iron Saturation 4 % (20-50)
[2022-09-16 13:37] LABS: Ferritin 5.46 ng/mL (11.1-264)
[2022-09-16 13:54] LABS: Folic Acid 10.2 ng/mL (2.76->20)
== END 2022-09-16 11:44 | disposition home or self-care (01) ==
PROVIDERS: PCP Family Medicine; Visit Provider Nurse Practitioner
DX: D50.9 Iron deficiency anemia, unspecified (principal)
CPT/HCPCS: 36415; 82607; 82728; 82746; 83540; 83550

== ENCOUNTER 2022-09-23 13:31 | Outpatient (CLI) | payer OTHER, SELFPAY ==
--- NOTE | 2022-09-23 13:57 | ECG_ITS ---
Measurements Intervals [place] Rate: 74 P: 63 CA: 144 QRS: 76 QRSD: 129 T: 31 QT: 368 QTc: 409 Interpretive Statements SINUS RHYTHM VENTRICULAR COUPLET AND VENTRICULAR PREMATURE COMPLEX RIGHT BUNDLE BRANCH BLOCK ABNORMAL ECG NO PREVIOUS ECG AVAILABLE FOR COMPARISON Electronically Signed On 09-23-2022 14:43:11 CDT by Jason Montague D.O.
[2022-09-23 14:29] LABS: Hematocrit 29.5 % (37.0-47.0); Hemoglobin 8.6 g/dL (12.0-15.0); Mean Corpuscular HGB Conc 29.2 g/dl (32-36); Mean Corpuscular Hemoglobin 22.8 pg (26-34); Mean Platelet Volume 10.8 fl (7.4-10.4); Platelet Count Result 367 k/mm3 (150-375); Red Blood Count 3.78 M/mm3 (4.2-5.4); Red Cell Distribution Width 15.6 % (11.5-14.5); White Blood Count 5.5 K/mm3 (4.5-10.0)
[2022-09-23 14:34] LABS: Alanine Aminotransferase 16 U/L (6-35); Albumin Level 4.2 g/dL (3.5-5.1); Alkaline Phosphatase 86 U/L (38-126); Anion Gap 8 mmol/L (8-16); Aspartate Amino Transferase 21 U/L (14-36); Bilirubin,Total 0.2 mg/dL (0.2-1.3); Blood Urea Nitrogen 16 mg/dL (7-17); CRP < 0.5 mg/dL (<1.0); Calcium 8.9 mg/dL (8.4-10.2); Carbon Dioxide 27 mmol/L (22-30); Chloride 102 mmol/L (98-107); Estimated Glomerular Filt Rate > 60; Glucose 217 mg/dL (65-110); Sodium 137 mmol/L (137-145)
[2022-09-23 15:08] LABS: Erythrocyte Sedimentation Rate 22 mm/hr (0-20)
== END 2022-09-23 13:32 | disposition home or self-care (01) ==
LOC: ANHLAB 13:34
PROVIDERS: PCP Family Medicine; Visit Provider Nurse Practitioner
DX: D50.9 Iron deficiency anemia, unspecified (principal); M54.9 Dorsalgia, unspecified; R09.89 Other specified symptoms and signs involving the circulatory and respiratory systems; R10.13 Epigastric pain; R63.0 Anorexia; R68.81 Early satiety; I49.9 Cardiac arrhythmia, unspecified; I45.10 Unspecified right bundle-branch block
CPT/HCPCS: 36415; 80053; 85027; 85652; 86140; 93005

== ENCOUNTER 2022-10-02 08:47 | Outpatient (CLI) | payer OTHER, SELFPAY ==
--- NOTE | ~2022-10-02 | NM_ITS ---
EXAM: NM gastric emptying study DATE: 10/02/2022 13:19 INDICATION: Anorexia TECHNIQUE: A gastric emptying study was performed using the methodology of Zina ARTHUR, et al. J Nucl Med 2007; 48:568-572. The patient was given a meal consisting of 2 scrambled eggs labeled with 0.966 mCi Tc-99m sulfur colloid, 2 slices of toast, two packages of jam, and approximately 120 mL of water . Simultaneous anterior and posterior 1-min images of the abdomen were obtained with the patient supi ne at multiple time points over a total period of 4 hours. The geometric mean of anterior and posteri or views was determined, and the percentage retention was calculated for each time point. COMPARISON: None. FINDINGS: Gastric retention of the radiotracer-labeled meal was 32%, 10%, and 5% at the 1-hour, 2-hour, and 4-h our time points, respectively. With this technique, apparent rapid gastric emptying is suggested by < 30% gastric retention at 1 hour. Delayed gastric emptying is defined by gastric retention of >90% at 1 hour, >60% retention at 2 hours, or >10% retention at 4 hours. IMPRESSION: 1. Normal gastric emptying. Reviewed, dictated and finalized at location A. IMPRESSION: 1. Normal gastric emptying.
== END 2022-10-02 08:48 | disposition home or self-care (01) ==
LOC: ANHIMG 08:55
PROVIDERS: PCP Family Medicine; Visit Provider Nurse Practitioner
DX: M54.9 Dorsalgia, unspecified (principal); R10.13 Epigastric pain; R63.0 Anorexia; R68.81 Early satiety
CPT/HCPCS: 78264; A9541

== ENCOUNTER 2022-10-07 07:35 | Outpatient (CLI) | payer OTHER, SELFPAY ==
--- NOTE | ~2022-10-07 | CT_ITS ---
CT of the Abdomen: Indication: Postprandial pain Technique: 2.5 mm axial scans were obtained through the abdomen following intravenous administration of 100 cc of Omnipaque 350. Dose reduction technique was used on this scan by utilizing automated ex posure control and iterative reconstruction technique. The dose-length product (DLP) was 286.09 mGy-c m. COMPARISON: 12/23/2012 Findings: Scans through the lung bases are unremarkable. The liver, spleen, pancreas, adrenals and kidneys are within normal limits. Cholecystectomy clips are present. There are atherosclerotic calcifications of the aorta. Celiac axis, SMA, bilateral renal ar teries are widely patent. No lymphadenopathy. Visualized bowel loops are unremarkable. No ascites. Impression: No significant abnormalities seen. Reviewed, dictated and finalized at location . Impression: No significant abnormalities seen.
== END 2022-10-07 07:36 | disposition home or self-care (01) ==
LOC: ANHIMG 07:39
PROVIDERS: PCP Family Medicine; Visit Provider Nurse Practitioner
DX: R09.89 Other specified symptoms and signs involving the circulatory and respiratory systems (principal); R63.0 Anorexia; R68.81 Early satiety; M54.9 Dorsalgia, unspecified; R10.13 Epigastric pain
CPT/HCPCS: 74175; Q9967

== ENCOUNTER 2022-10-25 00:46 | Day surgery (SDC) | payer OTHER, SELFPAY ==
[2022-10-11 13:45] VITALS: BMI 27.0
[2022-10-25] MEDS: AMPICILLIN 2 GM/NS 100 ML 2 GM/100 ML BAG IVPB (07:02)
[2022-10-25] MEDS: LACTATED RINGERS 1,000 ML 150 ML IV CONT (07:07)
[2022-10-25 07:10] VITALS: BP 151/76; PULSE 69; RESP 20; TEMP 36.4; O2SAT 100; BMI 26.8
--- NOTE | 2022-10-25 07:10 | WPDANESEPPF ---
Anes - Initial Pre Proc Eval Procedure: Operation Date: 10/25/22 08:00 Proposed Procedures p Colonoscopy - Leonel Smith MD Date/Time: 10/25/22 07:10 Surgeon: Leonel Smith MD Pre Op Diagnosis: Iron Deficiency Anemia,family hx colon ca Patient Data Age: 72 Gender: F Height: 1.65 m Weight: 73.6 kg Allergies Allergy/AdvReac Type Severity Reaction Status Date / Time doxycycline AdvReac Vomiting Verified 10/25/22 06:45 Home Medications Medication Instructions Recorded Confirmed Type losartan 25 mg tablet 25 mg PO DAILY 07/09/19 10/11/22 History metformin 500 mg tablet 500 mg PO TID 07/09/19 10/11/22 History (Glucophage) Adult One Daily Multivitamin 1 tablet PO DAILY 03/23/20 10/11/22 History calcium carbonate 600 mg calcium 1,200 mg PO DAILY 08/01/20 10/11/22 History (1,500 mg) tablet aspirin 81 mg tablet 81 mg PO DAILY 08/25/20 10/11/22 History omeprazole 40 mg capsule,delayed See Rx Instructions .Route 09/11/22 10/11/22 Rx release .COMPLEX #180 caps ferrous sulfate 324 mg (65 mg 324 mg PO BID #60 tabs 09/17/22 10/25/22 Rx iron) tablet,delayed release dicyclomine 10 mg capsule See Rx Instructions .Route 10/16/22 10/25/22 Rx .COMPLEX #120 caps Patient hx anesthesia problems: none Family hx anesthesia problems: none Results Review: All pre-operative results and documents have been reviewed as part of the pre-operative evaluation. [facility] Past Medical History Medical History Abdominal bruit Chronic GERD Decrease in appetite Diabetes Early satiety Heart murmur HTN (hypertension) Hx of gastric ulcer NIC (iron deficiency anemia) Irregular heart rhythm Mid back pain KULDEEP (obstructive sleep apnea) Osteoarthritis Overweight (BMI 25.0-29.9) Postprandial epigastric pain Right bundle branch block Surgical History Surgical History History of appendectomy History of cholecystectomy History of hysterectomy History of Fifi fundoplication History of total right knee replacement Family History Family History Other Diabetes mellitus Heart disease Hypertension Social History Social History Social History: Smoking packs per day: 1 Smoking cigarettes per day: 20.0 Years smoked: 22 Smoking pack-years: 22.00 Smoking status: Former smoker Tobacco type: cigarettes Second hand tobacco smoke exposure: No Alcohol intake: current Alcohol use details: Occasionally Substance use: never Substance use type: does not use Lack of Transportation: No Lack of Food: Never True Current Housing: I Have Housing Concerned About Future Housing: No Difficulty Paying Gas/Electric Bills: No Difficulty Paying for Meds: No Currently Unemployed: YES Education: Decline to Answer Difficulty w/ Childcare or Family Care: No Living arrangements: with family Occupation/Education: retired Gender identity (if verbalized by the patient): Female Sexual Orientation (if Verbalized by the Patient): Straight or Heterosexual Spiritual care concerns: No Anes - Eval Final PreProcedure Day of Procedure 10/25/22 07:10 Patient weight: overweight Heart: regular rate and rhythm Lungs: clear to auscultation Airway: Mallampati scale class II Neurological: alert and oriented Last oral intake: >/= 8 hours ASA classification: III Emergent: no Anesthetic plan: proceed Anesthesia type and monitoring: general GIVS and standard monitoring Results Review: All pre-operative results and documents have been reviewed as part of the pre-operative evaluation. Informed Consent: The patient's anesthetic plan and its attendant risks and benefits were discussed with the patient/family/POA. Questions were solicited and answers provided to the satisfaction
[2022-10-25 07:11] LABS: Glucose Point of Care 123 mg/dl (65-105)
--- NOTE | 2022-10-25 07:21 | PM.HPGS ---
History of Present Illness History of Present Illness Consent: Risks, benefits, and alternatives have been discussed and questions answered. Patient agrees to proceed with procedure. Chief complaint: Iron Deficiency Anemia,family hx colon ca Narrative: Diann Lao is a 72 year old female Presents for colonoscopy. Patient has a history of epigastric pain. Recently found to have iron deficiency anemia with microcytic anemia. She presents today for colonoscopy. The past she has had peptic ulcer disease follow-up EGD in March 2022 revealed this to be healed. She has a history of Fifi fundoplication past. She also has a history of colon polyps. Most recent colonoscopy 2020. Patient's family history is significant for a maternal uncle having had colon cancer. Because of iron deficiency anemia follow-up he colonoscopy anticipated today. Patient denies any nose bleeds or bruises. She infrequently will have bright red blood per rectum with wiping. Review of Systems Review of Systems: Review of systems noncontributory. [facility] Past Medical History Medical History Abdominal bruit Chronic GERD Decrease in appetite Diabetes Early satiety Heart murmur HTN (hypertension) Hx of gastric ulcer NIC (iron deficiency anemia) Irregular heart rhythm Mid back pain KULDEEP (obstructive sleep apnea) Osteoarthritis Overweight (BMI 25.0-29.9) Postprandial epigastric pain Right bundle branch block Surgical History Surgical History History of appendectomy History of cholecystectomy History of hysterectomy History of Fifi fundoplication History of total right knee replacement Family History Family History Other Diabetes mellitus Heart disease Hypertension Social History Social History Social History: Smoking packs per day: 1 Smoking cigarettes per day: 20.0 Years smoked: 22 Smoking pack-years: 22.00 Smoking status: Former smoker Tobacco type: cigarettes Second hand tobacco smoke exposure: No Alcohol intake: current Alcohol use details: Occasionally Substance use: never Substance use type: does not use Lack of Transportation: No Lack of Food: Never True Current Housing: I Have Housing Concerned About Future Housing: No Difficulty Paying Gas/Electric Bills: No Difficulty Paying for Meds: No Currently Unemployed: YES Education: Decline to Answer Difficulty w/ Childcare or Family Care: No Living arrangements: with family Occupation/Education: retired Gender identity (if verbalized by the patient): Female Sexual Orientation (if Verbalized by the Patient): Straight or Heterosexual Spiritual care concerns: No Meds Home Medications and Allergies Home Medications Medication Instructions Recorded Confirmed Type losartan 25 mg tablet 25 mg PO DAILY 07/09/19 10/11/22 History metformin 500 mg tablet 500 mg PO TID 07/09/19 10/11/22 History (Glucophage) Adult One Daily Multivitamin 1 tablet PO DAILY 03/23/20 10/11/22 History calcium carbonate 600 mg calcium 1,200 mg PO DAILY 08/01/20 10/11/22 History (1,500 mg) tablet aspirin 81 mg tablet 81 mg PO DAILY 08/25/20 10/11/22 History omeprazole 40 mg capsule,delayed See Rx Instructions .Route 09/11/22 10/11/22 Rx release .COMPLEX #180 caps ferrous sulfate 324 mg (65 mg 324 mg PO BID #60 tabs 09/17/22 10/25/22 Rx iron) tablet,delayed release dicyclomine 10 mg capsule See Rx Instructions .Route 10/16/22 10/25/22 Rx .COMPLEX #120 caps Allergies Allergy/AdvReac Type Severity Reaction Status Date / Time doxycycline AdvReac Vomiting Verified 10/25/22 06:45 Vital Signs Vital Signs - 24 hr 10/25/22 07:10 Temperature 97.5 F L Pulse Rate 69 Respiratory Rate 20 Blood Pressure
[2022-10-25 08:17] VITALS: BP 126/57; PULSE 68; RESP 22; O2SAT 100
[2022-10-25 08:27] VITALS: BP 135/72; PULSE 75; RESP 16; O2SAT 100
== END 2022-10-25 08:41 | disposition home or self-care (01) ==
PROVIDERS: PCP Family Medicine; Visit Provider Internal Medicine Gastroenterology
PROC: 0DJD8ZZ Inspection of Lower Intestinal Tract, Via Natural or Artificial Opening Endoscopic (ICD-10-PCS; CPT 45378; principal; 2022-10-25 08:00)
DX: D50.9 Iron deficiency anemia, unspecified (principal); D12.2 Benign neoplasm of ascending colon; K57.30 Diverticulosis of large intestine without perforation or abscess without bleeding; K64.8 Other hemorrhoids; Z80.0 Family history of malignant neoplasm of digestive organs; K21.9 Gastro-esophageal reflux disease without esophagitis; I10 Essential (primary) hypertension; G47.33 Obstructive sleep apnea (adult) (pediatric); I45.10 Unspecified right bundle-branch block; E11.9 Type 2 diabetes mellitus without complications; Z87.11 Personal history of peptic ulcer disease; Z79.84 Long term (current) use of oral hypoglycemic drugs; Z79.82 Long term (current) use of aspirin; Z87.891 Personal history of nicotine dependence
CPT/HCPCS: 45385; 82948; 88305; J0290; J2704; J7120

== ENCOUNTER 2022-11-06 10:10 | Outpatient (CLI) | payer OTHER, SELFPAY ==
[2022-11-06 10:25] LABS: Basophils Absolute Auto 0.1 K/mm3 (0.0-0.1); Basophils Percent Auto 1.5 % (0.2-1.2); Eosinophils Absolute Auto 0.2 K/mm3 (0-0.3); Eosinophils Percent Auto 3.3 % (0-4.4); Hematocrit 36.2 % (37.0-47.0); Hemoglobin 10.8 g/dL (12.0-15.0); Immature Granulocyte Absolute 0.02 K/mm3 (0.00-0.031); Immature Granulocyte Percent A 0.3 % (0-0.5); Lymphocytes Absolute Auto 1.28 K/mm3 (0.9-3.2); Lymphocytes Percent Auto 21.1 % (18.3-44.2); Mean Corpuscular HGB Conc 29.8 g/dl (32-36); Mean Corpuscular Hemoglobin 22.9 pg (26-34); Mean Corpuscular Volume 76.7 fl (80-100); Mean Platelet Volume 10.2 fl (7.4-10.4); Monocytes Absolute Auto 0.5 K/mm3 (0.1-0.6); Monocytes Percent Auto 8.2 % (2.6-8.5); Neutrophils Percent Auto 65.6 % (45.5-73.1); Platelet Count Result 358 k/mm3 (150-375); Red Blood Count 4.72 M/mm3 (4.2-5.4); Red Cell Distribution Width 18.6 % (11.5-14.5); White Blood Count 6.1 K/mm3 (4.5-10.0)
[2022-11-06 10:31] LABS: Platelet Estimate Adequate (Adequate); Schistocytes None Seen (NORMAL)
[2022-11-06 10:32] LABS: Hypochromasia 1+ (NORMAL); Ovalocytes 1+ (NORMAL); Poikilocytosis 2+ (NORMAL); Tear Drop Cells 1+ (NORMAL)
[2022-11-06 12:43] LABS: Iron 60 ug/dL (37-170)
[2022-11-06 12:50] LABS: Alanine Aminotransferase 24 U/L (6-35); Albumin Level 4.5 g/dL (3.5-5.1); Alkaline Phosphatase 83 U/L (38-126); Anion Gap 5 mmol/L (8-16); Aspartate Amino Transferase 32 U/L (14-36); Bilirubin,Total 0.3 mg/dL (0.2-1.3); Blood Urea Nitrogen 14 mg/dL (7-17); Calcium 9.7 mg/dL (8.4-10.2); Carbon Dioxide 29 mmol/L (22-30); Chloride 103 mmol/L (98-107); Estimated Glomerular Filt Rate > 60; Glucose 138 mg/dL (65-110); Potassium 4.7 mmol/L (3.4-5.0); Sodium 137 mmol/L (137-145)
[2022-11-06 12:53] LABS: Percent Iron Saturation 12 % (20-50)
[2022-11-06 13:20] LABS: Ferritin 6.26 ng/mL (11.1-264)
[2022-11-06 13:58] LABS: Folic Acid > 20.0 ng/mL (2.76->20)
== END 2022-11-06 10:11 | disposition home or self-care (01) ==
LOC: ANHLAB 10:12
PROVIDERS: Internal Medicine; PCP Family Medicine; Visit Provider Internal Medicine Hematology & Oncology
DX: D64.9 Anemia, unspecified (principal)
CPT/HCPCS: 36415; 80053; 82607; 82728; 82746; 83540; 83550; 85025

== ENCOUNTER 2022-11-19 08:56 | Outpatient (CLI) | payer OTHER, SELFPAY ==
--- NOTE | ~2022-11-19 | XR_ITS ---
EXAMINATION: XR UGIAC w small bowel DATE: 11/19/2022 12:40 INDICATION: Iron deficiency anemia TECHNIQUE: The patient drank thick barium, gas-producing crystals, and thin barium. Conventional supi ne abdomen radiographs and fluoroscopic spot radiographs of the esophagus, stomach, and proximal smal l bowel were obtained. Additional overhead radiographs were obtained during the transit through the s mall bowel. Spot fluoroscopic images of the small bowel were obtained upon contrast reaching the cec um. A total of 663 fluoroscopic images and 8 overhead radiographs were obtained. Fluoroscopy exposure time was 2.2 minutes. COMPARISON: CT studies dated 10/07/2022, 04/08/2018 and 12/23/2012 FINDINGS: The esophagus is normal without mass or stricture. Esophageal motility is normal. There is no hiatal hernia. There is an abnormal contour at the cardia of the stomach. Review of prior CT suggests is rel ated to what appears to be a Fifi fundoplication. Correlate with surgical history. There was no gas troesophageal reflux with provocative maneuvers. There are couple duodenal diverticula arising from t he third portion of the duodenum which measure 2.3 cm and 2.9 cm. The stomach and proximal small parisa l are otherwise normal. Cholecystectomy clips in right upper quadrant. Transit time from the stomach to proximal colon was ap proximately 2.5 hours. There is normal caliber and mucosal fold pattern throughout the small bowel. Terminal ileum is normal. No tethering or abnormal mass effect observed upon the small bowel with re al-time fluoroscopy. IMPRESSION: 1. Abnormal contour to the gastric cardia with appearance on CT suggesting prior Fifi fundoplicatio n. Correlate with surgical history. 2. A couple duodenal diverticulum arising from the third portion of the duodenum. Otherwise unremarka ble small bowel follow-through. Reviewed, dictated and finalized at location A. IMPRESSION: 1. Abnormal contour to the gastric cardia with appearance on CT suggesting prio r Fifi fundoplication. Correlate with surgical history. 2. A couple duodenal diverticulum arising from the third portion of the duodenu m. Otherwise unremarkable small bowel follow-through.
== END 2022-11-19 08:57 | disposition home or self-care (01) ==
PROVIDERS: PCP Family Medicine; Visit Provider Internal Medicine Gastroenterology
DX: D50.9 Iron deficiency anemia, unspecified (principal); K57.10 Diverticulosis of small intestine without perforation or abscess without bleeding
CPT/HCPCS: 74246; 74248

== ENCOUNTER 2022-12-07 10:41 | Outpatient (CLI) | payer OTHER, SELFPAY ==
--- NOTE | 2022-12-07 10:54 | ECHO_ITS ---
Patient Info Name: Diann Lao Age: 72 years : 1950 Gender: Female Ht: 65 in Wt: 163 lbs BSA: 1.86 m2 HR: 79 bpm BP: 150 / 75 mmHg Heart Rhythm: Sinus Rhythm Technical Quality: Good Exam Date: 12/07/2022 11:11 AM Exam Location: 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 Summary 1. Complete two-dimensional, color flow and Doppler transthoracic echocardiogram is performed. 2. Left ventricular chamber dimension is normal. 3. Left ventricular systolic function is normal, estimated at 60-65%. 4. The left ventricular diastolic function is grade I diastolic dysfunction. 5. E/e' 12 is mildly elevated. 6. Left atrial chamber dimension is mildly enlarged. 7. There is trace tricuspid valve regurgitation. 8. No pulmonary hypertension, estimated pulmonary arterial systolic pressure is 22 mmHg. Left Ventricle E/e' 12 is mildly elevated. Left ventricular chamber dimension is normal. Left ventricular systolic function is normal, estimated at 60-65%. The left ventricular diastolic function is grade I diastolic dysfunction. Right Ventricle Right ventricular systolic function is normal and with normal TAPSE 2.0 cm. Right ventricular chamber dimension is normal. Left Atria Left atrial chamber dimension is mildly enlarged. Right Atria Right atrial chamber dimension is normal. Aortic Valve The aortic valve is trileaflet. There is no aortic valve stenosis. There is no aortic valve regurgitation. Pulmonic Valve There is no pulmonic regurgitation. Mitral Valve There is no mitral valve stenosis. There is no mitral valve regurgitation. Tricuspid Valve There is trace tricuspid valve regurgitation. No pulmonary hypertension, estimated pulmonary arterial systolic pressure is 22 mmHg. Pericardium/Pleural There is no pericardial effusion. Inferior Vena Cava Normal inferior vena cava with >50% collapse upon inspiration consistent with normal right atrial pressure, 5 mmHg. Aorta The aortic root size at the sinus of Valsalva is normal. Left Ventricular Outflow Tract Name Value Normal LVOT 2D LVOT Diameter 1.9 cm LVOT Doppler LVOT Peak Gradient 2 mmHg LVOT Mean Gradient 1 mmHg LVOT VTI 27 cm LVOT VTI/AV VTI Ratio 0.7 LVOT Stroke Volume 73 ml LVOT CO 3.7 l/min LVOT CI 2.0 l/min/m2 Pulmonic Valve Name Value Normal RVOT Doppler RVOT Peak Gradient 2 mmHg
== END 2022-12-07 10:42 | disposition home or self-care (01) ==
PROVIDERS: PCP Family Medicine; Visit Provider Internal Medicine Cardiovascular Disease
DX: I49.3 Ventricular premature depolarization (principal)
CPT/HCPCS: 93306

== ENCOUNTER 2023-02-28 12:28 | Outpatient (CLI) | payer OTHER, SELFPAY ==
[2023-02-28 12:55] LABS: Basophils Absolute Auto 0.1 K/mm3 (0.0-0.1); Basophils Percent Auto 1.5 % (0.2-1.2); Eosinophils Absolute Auto 0.2 K/mm3 (0-0.3); Eosinophils Percent Auto 2.8 % (0-4.4); Hematocrit 38.3 % (37.0-47.0); Hemoglobin 12.4 g/dL (12.0-15.0); Immature Granulocyte Absolute 0.02 K/mm3 (0.00-0.031); Immature Granulocyte Percent A 0.3 % (0-0.5); Lymphocytes Percent Auto 22.3 % (18.3-44.2); Mean Corpuscular HGB Conc 32.4 g/dl (32-36); Mean Corpuscular Hemoglobin 28.2 pg (26-34); Mean Corpuscular Volume 87.2 fl (80-100); Mean Platelet Volume 10.2 fl (7.4-10.4); Monocytes Absolute Auto 0.6 K/mm3 (0.1-0.6); Monocytes Percent Auto 8.2 % (2.6-8.5); Neutrophils Absolute Auto 4.6 K/mm3 (1.3-6.7); Neutrophils Percent Auto 64.9 % (45.5-73.1); Platelet Count Result 301 k/mm3 (150-375); Red Blood Count 4.39 M/mm3 (4.2-5.4); Red Cell Distribution Width 14.4 % (11.5-14.5); White Blood Count 7.2 K/mm3 (4.5-10.0)
[2023-02-28 16:36] LABS: Iron 110 ug/dL (37-170)
[2023-02-28 16:44] LABS: Percent Iron Saturation 27 % (20-50)
[2023-02-28 17:46] LABS: Folic Acid > 20.0 ng/mL (2.76->20)
== END 2023-02-28 12:29 | disposition home or self-care (01) ==
LOC: ANHLAB 12:31
PROVIDERS: PCP Family Medicine; Visit Provider Internal Medicine Hematology & Oncology
DX: D64.9 Anemia, unspecified (principal)
CPT/HCPCS: 36415; 82607; 82728; 82746; 83540; 83550; 85025

== ENCOUNTER 2023-04-29 09:06 | Outpatient (CLI) | payer OTHER, SELFPAY ==
--- NOTE | ~2023-04-29 | MM_ITS ---
EXAMINATION: MM screening zandra BI w fabian HISTORY: Screening TECHNIQUE: Craniocaudal and mediolateral oblique 3-D tomosynthesis images were obtained and synthetic 2-D images were generated. CAD analysis was submitted and interpreted. COMPARISON: 03/31/2014 BREAST PARENCHYMAL COMPOSITION: There are scattered areas of fibroglandular density. FINDINGS: There is no evidence of suspicious mass, calcification, or architectural distortion to sugg est malignancy in either breast. There has been no suspicious interval change. IMPRESSION: 1. No mammographic evidence of malignancy. 2. Recommend routine screening mammography in one year. BI-RADS Category 1: Negative Reviewed, dictated and finalized at location A. ESPONDENCE REPRESENTATIVE
--- NOTE | ~2023-04-29 | DEXA_ITS ---
Bone Density Report Name: GAUTAM DASILVA Age: 72 Sex: Female Ethnicity: White Date of : 1950 Indication: osteopenia; monitoring treatment; height loss; hysterectomy; Referring Provider: GÓMEZ OBRIEN Study: Bone densitometry was performed. Exam Date: April 29, 2023 Accession number: [id number] Bone Density: Region BMD T-score Z-score Classification AP Spine(L1, L2, L4) 0.872 -1.5 0.8 Osteopenia Femoral Neck (Left) 0.772 -0.7 1.3 Normal Total Hip (Left) 0.867 -0.6 1.1 Normal Femoral Neck (Right) 0.784 -0.6 1.4 Normal Total Hip (Right) 0.853 -0.7 1.0 Normal Total Hip Mean 0.860 -0.7 1.1 Normal World Health Organization criteria for BMD impression classify patients as: Normal (T-score at or above -1.0), Osteopenia (T-score between -1.0 and -2.5), or Osteoporosis (T-score at or below -2.5). 10-year Fracture Risk: FRAX not reported because: Treated for osteoporosis Previous Exams: Region Exam Age BMD T-score BMD Change BMD Change Date g/cm2 vs Baseline vs Previous AP Spine (L1-L2,L4) 04/29/2023 72 0.872 -1.5 -0.046 (-5.0%) 0.006 (0.6%)# 03/23/2015 64 0.867 -1.5 -0.051 (-5.6%) -0.051 (-5.6%) 04/15/2011 60 0.918 -1.1 Total Hip(Left) 04/29/2023 72 0.867 -0.6 -0.083 (-8.7%) -0.108 (-11.1% 03/23/2015 64 0.975 0.3 0.026 (2.7%)# 0.026 (2.7%)# 04/15/2011 60 0.950 0.1 Total Hip(Right) 04/29/2023 72 0.853 -0.7 0.000 (0.0%)# -0.079 (-8.5%) 03/23/2015 64 0.933 -0.1 0.079 (9.3%)# 0.079 (9.3%)# 04/15/2011 60 0.854 -0.7 *Denotes significance at 95% confidence level, LSC for AP Spine = 0.022 g/cm2, LSC for Total Hip = 0.027 g/cm2 # Denotes dissimilar scan types or analysis methods Clinical Information Provided by Patient: Is being treated for osteoporosis Has used the following medications: Vitamin D, Calcium Has the following medical conditions: Hysterectomy Patient maximum height was 67 Menopause Age: 39 Drinks caffeinated beverages Onset of menses at age 13 Number of children 3 Impression: The patient has low bone mass, based on the Total Spine T-score. The BMD for the Total Hip(Left) decreased, changing by -11.1% since the last DXA exam. The BMD for the Total Hip(Right) decreased, changing by -8.5% since the last DXA exam. Discussion: SIGNIFICANT BONE LOSS OBSERVED. Adherence to therapy (including calcium and vitamin D intake) should be assessed. If compliance is not a fa
== END 2023-04-29 09:07 | disposition home or self-care (01) ==
PROVIDERS: PCP Family Medicine; Visit Provider Family Medicine
DX: Z12.31 Encounter for screening mammogram for malignant neoplasm of breast (principal); Z78.0 Asymptomatic menopausal state; M85.88 Other specified disorders of bone density and structure, other site
CPT/HCPCS: 77063; 77067; 77080

== ENCOUNTER 2023-05-22 12:13 | Outpatient (CLI) | payer OTHER, SELFPAY ==
[2023-05-22 12:37] LABS: Basophils Absolute Auto 0.1 K/mm3 (0.0-0.1); Basophils Percent Auto 1.3 % (0.2-1.2); Eosinophils Absolute Auto 0.2 K/mm3 (0-0.3); Eosinophils Percent Auto 3.4 % (0-4.4); Hematocrit 38.9 % (37.0-47.0); Hemoglobin 12.7 g/dL (12.0-15.0); Immature Granulocyte Absolute 0.02 K/mm3 (0.00-0.031); Immature Granulocyte Percent A 0.3 % (0-0.5); Lymphocytes Absolute Auto 1.42 K/mm3 (0.9-3.2); Lymphocytes Percent Auto 22.2 % (18.3-44.2); Mean Corpuscular HGB Conc 32.6 g/dl (32-36); Mean Corpuscular Hemoglobin 29.4 pg (26-34); Mean Platelet Volume 10.3 fl (7.4-10.4); Monocytes Absolute Auto 0.6 K/mm3 (0.1-0.6); Monocytes Percent Auto 8.6 % (2.6-8.5); Neutrophils Absolute Auto 4.1 K/mm3 (1.3-6.7); Neutrophils Percent Auto 64.2 % (45.5-73.1); Platelet Count Result 315 k/mm3 (150-375); Red Blood Count 4.32 M/mm3 (4.2-5.4); Red Cell Distribution Width 13.2 % (11.5-14.5); White Blood Count 6.4 K/mm3 (4.5-10.0)
[2023-05-22 17:22] LABS: Iron 72 ug/dL (37-170)
[2023-05-22 17:35] LABS: Percent Iron Saturation 20 % (20-50)
[2023-05-23 00:29] LABS: Folic Acid > 20.0 ng/mL (2.76->20)
== END 2023-05-22 12:14 | disposition home or self-care (01) ==
LOC: ANHLAB 12:16
PROVIDERS: PCP Family Medicine; Visit Provider Internal Medicine Hematology & Oncology
DX: D64.9 Anemia, unspecified (principal)
CPT/HCPCS: 36415; 82607; 82728; 82746; 83540; 83550; 85025

== ENCOUNTER 2023-07-01 09:07 | Outpatient (CLI) | payer OTHER, SELFPAY ==
--- NOTE | ~2023-07-01 | CT_ITS ---
CT of the Abdomen and Pelvis: Indication: Diverticulitis Technique: 2.5 mm axial scans were obtained through the abdomen and pelvis following intravenous adm inistration of 100 cc of Omnipaque 350. Dose reduction technique was used on this scan by utilizing a utomated exposure control and iterative reconstruction technique. The dose-length product (DLP) was 4 99.93 mGy-cm. COMPARISON: 10/07/2022 Findings: Scans through the lung bases are unremarkable. The liver, spleen, pancreas, adrenals and kidneys are within normal limits. Cholecystectomy clips are present. There are atherosclerotic calcifications of the aorta. No lymphadenopathy. Questionable mild wall thickening of the sigmoid colon/rectum. No abscess or free air. No bowel obstr uction. Images through the pelvis were performed. Urinary bladder unremarkable. No adnexal mass seen. Patient status post hysterectomy. No ascites. Impression: Questionable mild wall thickening of the sigmoid colon/rectum. Correlate for infectious/inflammatory colitis versus underdistention. No abscess, free air, or bowel obstruction. Reviewed, dictated and finalized at [facility]. Impression: Questionable mild wall thickening of the sigmoid colon/rectum. Correlate for in fectious/inflammatory colitis versus underdistention. No abscess, free air, or bowel obstruction.
[2023-07-01 09:41] LABS: Estimated Glomerular Filt Rate > 60
== END 2023-07-01 09:08 | disposition home or self-care (01) ==
LOC: ANHIMG 09:09
PROVIDERS: PCP Family Medicine; Visit Provider Physician Assistant
DX: R10.32 Left lower quadrant pain (principal)
CPT/HCPCS: 74177; Q9967

== ENCOUNTER 2023-08-08 09:14 | Outpatient (CLI) | payer OTHER, SELFPAY ==
[2023-08-08 11:45] LABS: Toxigenic C. Diff NEGATIVE (NEGATIVE)
[2023-08-14 17:18] LABS: Pancreatic Elastase, Stool 49 mcg/g
[2023-08-15 19:38] LABS: Calprotectin, Stool 14 mcg/g
== END 2023-08-08 09:15 | disposition home or self-care (01) ==
LOC: ANHLAB 09:15
PROVIDERS: PCP Family Medicine; Visit Provider Nurse Practitioner
DX: K52.9 Noninfective gastroenteritis and colitis, unspecified (principal); R19.8 Other specified symptoms and signs involving the digestive system and abdomen
CPT/HCPCS: 82653; 83993; 87269; 87493

== ENCOUNTER 2023-08-29 01:19 | Day surgery (SDC) | payer OTHER, SELFPAY ==
[2023-08-18 13:22] VITALS: BMI 26.7
[2023-08-29 10:02] LABS: Glucose Point of Care 136 mg/dl (65-105)
[2023-08-29 10:03] VITALS: BP 134/52; PULSE 77; RESP 16; TEMP 36.1; O2SAT 100
[2023-08-29] MEDS: LACTATED RINGERS 1,000 ML 150 ML IV CONT (10:11)
--- NOTE | 2023-08-29 10:12 | WPDANESEPPF ---
Anes - Initial Pre Proc Eval Procedure: Operation Date: 08/29/23 11:00 Proposed Procedures p Flexible Sigmoidoscopy - Ezequiel Duke MD Date/Time: 08/29/23 10:12 Surgeon: Ezequiel Duke MD Pre Op Diagnosis: IBS-D, Diarrhea, Gastroenteritis/colitis, Patient Data Age: 72 Gender: F Height: 1.65 m Weight: 71.8 kg Last Vital Signs Temp 96.9 F L 08/29/23 10:03 Pulse 77 08/29/23 10:03 Resp 16 08/29/23 10:03 BP 134/52 L 08/29/23 10:03 Pulse Ox 100 08/29/23 10:03 O2 Del Method Room Air 08/29/23 10:03 Allergies Allergy/AdvReac Type Severity Reaction Status Date / Time doxycycline AdvReac Vomiting Verified 08/29/23 09:56 Home Medications Medication Instructions Recorded Confirmed Type Adult One Daily Multivitamin 1 tablet PO DAILY 03/23/20 08/29/23 History calcium carbonate 1,200 mg PO DAILY 08/01/20 08/29/23 History aspirin 81 mg tablet 81 mg PO DAILY 08/25/20 08/29/23 History ferrous sulfate 324 mg (65 mg See Rx Instructions .Route 02/14/23 08/29/23 Rx iron) tablet,delayed release .COMPLEX #180 tabs blood sugar diagnostic (OneTouch #100 ea 04/16/23 08/29/23 Rx Ultra Test strips) blood-glucose meter (OneTouch #1 ea 04/16/23 08/29/23 Rx Ultra2 Meter) pantoprazole 20 mg tablet,delayed See Rx Instructions .Route 06/16/23 08/29/23 Rx release .COMPLEX #90 tabs hyoscyamine sulfate 0.375 mg 0.375 mg PO Q12H #60 tabs 08/06/23 08/29/23 Rx tablet,extended release,12 hr (Levbid) [id number] See Rx Instructions PO BID #240 08/15/23 08/29/23 Rx 36,000-114,000-180,000 unit caps capsule,delay rel (Creon) metformin 500 mg tablet 500 mg PO BID 08/18/23 08/29/23 History azelastine 137 mcg (0.1 %) nasal See Rx Instructions .Route 08/22/23 08/29/23 Rx spray aerosol .COMPLEX #30 mL dicyclomine 10 mg capsule See Rx Instructions .Route 08/22/23 08/29/23 Rx .COMPLEX #360 caps irbesartan 150 mg tablet See Rx Instructions .Route 08/25/23 08/29/23 Rx .COMPLEX #90 tabs Laboratory Tests 08/29/23 10:00 POC Capillary Glucose 136 H mg/dl (65-105) Patient hx anesthesia problems: none Family hx anesthesia problems: none Results Review: All pre-operative results and documents have been reviewed as part of the pre-operative evaluation. [facility] Past Medical History Medical History Abdominal bruit Chronic GERD Decrease in appetite Diabetes Early satiety Heart murmur HTN (hypertension) Hx of gastric ulcer NIC (iron deficiency anemia) Irregular heart rhythm Mid back pain KULDEEP (obstructive sleep apnea) Osteoarthritis Overweight (BMI 25.0-29.9) Postprandial epigastric pain Right bundle branch block Surgical History Surgical History History of appendectomy History of cholecystectomy History of hysterectomy History of Fifi fundoplication History of total right knee replacement Family History Family History Other Diabetes mellitus Heart disease Hypertension Social History Social History Social History: Smoking packs per day: 1 Smoking cigarettes per day: 20.0 Years smoked: 22 Smoking pack-years: 22.00 Smoking status: Former smoker Tobacco type: cigarettes Second hand tobacco smoke exposure: No Alcohol intake: never Alcohol use details: Occasionally Substance use: never Substance use type: does not use Do You Feel Safe in your Home?: Yes Lack of Transportation: No Lack of Food: Never True Current Housing: I Have Housing Concerned About Future Housing: No Difficulty Paying Gas/Electric Bills: No Difficulty Paying for Meds: No Currently Unemployed: No Education: High School Diploma/GED Difficulty w/ Childcare or Family C
--- NOTE | 2023-08-29 10:19 | WPDHPUPDATE1 ---
History and Physical Update Update Date/Time: 08/29/23 10:19 History and Physical has been reviewed, including an updated exam of the patient. There are NO changes in the patient's condition. Risks, benefits, and alternatives have been discussed and questions answered. Patient agrees to proceed with procedure.
[2023-08-29 10:30] VITALS: BP 93/48; PULSE 63; RESP 17; O2SAT 100
[2023-08-29 10:40] VITALS: BP 129/61; PULSE 62; RESP 20; O2SAT 100
[2023-08-29 10:50] VITALS: BP 147/58; PULSE 60; RESP 19; O2SAT 100
== END 2023-08-29 11:02 | disposition home or self-care (01) ==
PROVIDERS: PCP Family Medicine; Referring Provider Nurse Practitioner; Visit Provider Internal Medicine Gastroenterology
PROC: 0DJD8ZZ Inspection of Lower Intestinal Tract, Via Natural or Artificial Opening Endoscopic (ICD-10-PCS; CPT 45330; principal; 2023-08-29 11:00)
DX: K57.30 Diverticulosis of large intestine without perforation or abscess without bleeding (principal); K64.8 Other hemorrhoids; R19.7 Diarrhea, unspecified; Z86.010 Personal history of colon polyps; R93.3 Abnormal findings on diagnostic imaging of other parts of digestive tract; K21.9 Gastro-esophageal reflux disease without esophagitis; I10 Essential (primary) hypertension; G47.33 Obstructive sleep apnea (adult) (pediatric)
CPT/HCPCS: 45380; 82948; 88305; J2704; J7120

== ENCOUNTER 2023-12-19 15:28 | Outpatient (CLI) | payer OTHER, SELFPAY ==
[2023-12-19 15:57] LABS: Basophils Absolute Auto 0.1 K/mm3 (0.0-0.1); Basophils Percent Auto 0.6 % (0.2-1.2); Eosinophils Absolute Auto 0.2 K/mm3 (0-0.3); Eosinophils Percent Auto 2.2 % (0-4.4); Hematocrit 41.9 % (37.0-47.0); Hemoglobin 13.6 g/dL (12.0-15.0); Immature Granulocyte Absolute 0.02 K/mm3 (0.00-0.031); Immature Granulocyte Percent A 0.2 % (0-0.5); Lymphocytes Absolute Auto 1.71 K/mm3 (0.9-3.2); Lymphocytes Percent Auto 20.9 % (18.3-44.2); Mean Corpuscular HGB Conc 32.5 g/dl (32-36); Mean Corpuscular Hemoglobin 29.6 pg (26-34); Mean Corpuscular Volume 91.1 fl (80-100); Monocytes Absolute Auto 0.7 K/mm3 (0.1-0.6); Neutrophils Absolute Auto 5.5 K/mm3 (1.3-6.7); Neutrophils Percent Auto 67.1 % (45.5-73.1); Platelet Count Result 291 k/mm3 (150-375); Red Cell Distribution Width 12.2 % (11.5-14.5); White Blood Count 8.2 K/mm3 (4.5-10.0)
[2023-12-19 16:13] LABS: Alanine Aminotransferase 18 U/L (6-35); Albumin Level 4.5 g/dL (3.5-5.1); Alkaline Phosphatase 95 U/L (38-126); Anion Gap 10 mmol/L (4-12); Aspartate Amino Transferase 27 U/L (14-36); Bilirubin,Total 0.4 mg/dL (0.2-1.3); Blood Urea Nitrogen 14 mg/dL (7-17); Calcium 9.9 mg/dL (8.4-10.2); Carbon Dioxide 25 mmol/L (22-30); Chloride 103 mmol/L (98-107); Estimated Glomerular Filt Rate 49; Glucose 137 mg/dL (65-110); Potassium 4.5 mmol/L (3.4-5.0); Sodium 138 mmol/L (137-145)
[2023-12-19 16:32] LABS: Add Urine Microscopic? YES; Appearance Urine Clear (Clear); Bacteria Urine Rare /hpf; Bilirubin Urine Negative (Negative); Blood Urine Negative (Negative); Color Urine Yellow (Yellow); Glucose Urine UA Negative (Negative); Hyaline Casts Urine Present /lpf; Ketones Urine Trace mg/dL (Negative); Leukocyte Esterase Ur Trace LEU/UL (Negative); Nitrate Urine Negative (Negative); Protein Urine Trace mg/dL (Negative); RBC Urine 0-2 /hpf (0-2); Specific Grav Ur 1.016 (1.001-1.035); Squamous Epithelial Cell Urine Occasional /hpf (Few); Urobilinogen Urine 0.2 mg/dL (<2.0); WBC Urine 0-5 /hpf (0-3)
== END 2023-12-19 15:29 | disposition home or self-care (01) ==
PROVIDERS: PCP Family Medicine; Visit Provider Physician Assistant
DX: R53.81 Other malaise (principal); R10.9 Unspecified abdominal pain; R19.7 Diarrhea, unspecified; K25.9 Gastric ulcer, unspecified as acute or chronic, without hemorrhage or perforation
CPT/HCPCS: 36415; 80053; 81001; 85025

== ENCOUNTER 2023-12-22 09:12 | Outpatient (CLI) | payer OTHER, SELFPAY ==
[2023-12-22 10:28] LABS: Toxigenic C. Diff NEGATIVE (NEGATIVE)
== END 2023-12-22 09:13 | disposition home or self-care (01) ==
PROVIDERS: PCP Family Medicine; Visit Provider Family Medicine
DX: R19.7 Diarrhea, unspecified (principal); R53.81 Other malaise
CPT/HCPCS: 87045; 87427; 87449; 87493

== ENCOUNTER 2024-04-19 12:12 | Outpatient (CLI) | payer OTHER, SELFPAY ==
[2024-04-19 13:02] LABS: Influenza A QL RT-PCR Positive (Negative); Influenza B QL RT-PCR Negative (Negative); RSV RNA, RT-PCR Negative (Negative); SARS-CoV-2 RNA PCR Negative (Negative)
--- OUTSIDE RECORDS SUMMARY | 2024-04-19 14:41 | XMS_ITS | Clinical Summary ---
Author Organization [facility] Address [address] [address] [place] [address] Phone Care Team Providers Care Cable Placer Name Role Phone Maty Valladares MD Primary Care Provider [phone] Allergies Active Allergy Reactions Criticality Noted Date Comments Diclofenac-Misoprostol Nausea and Vomiting Low 05/2018 Medications metFORMIN (GLUCOPHAGE) 500 mg tablet Take 500 mg by mouth every 12 hours. Active pantoprazole (PROTONIX) 40 mg Tablet, Delayed Release (E.C.) Take 20 mg by mouth daily. 09/05/2017 Active irbesartan (AVAPRO) 150 mg tablet 300 mg. 02/16/2023 Active hydrALAZINE (APRESOLINE) 10 mg tablet Take 10 mg by mouth daily. 04/10/2023 Active ferrous sulfate 325 mg (65 mg iron) tablet TAKE 1 TABLET BY MOUTH EVERY DAY 90 Tablet 3 02/17/2024 Active Active Problems Problem Noted Date Diagnosed Date Gastroesophageal reflux disease without esophagi tis 12/09/2017 HTN (hypertension), benign 12/09/2017 Mass of upper lobe of left lung 12/09/2017 Encounters Date Type Department Care Team Description 03/25/2024 External Device Data [facility] Provider, Abstract 03/23/2024 External Device Data [facility] Provider, Abstract 03/16/2024 External Device Data [facility] Provider, Abstract 02/17/2024 [facility] [place] [address] [place] [address] Niall Antoine MD from Last 3 Months Family History Medical History Relation Name Comments Heart Disease Brother 1 Diabetes Brother 2 No Known Problems Daughter 1 Cervical Cancer Daughter 2 Diabetes Father Heart Disease Father Other Father Cancer Mother Diabetes Mother Heart Disease Mother Other Mother Breast Cancer Sister 1 Diabetes Sister 1 Heart Disease Sister 2 No Known Problems Son Relation Name Status Comments Brother 1 Alive Brother 2 Alive Daughter 1 Alive Daughter 2 Alive Father Mother Sister 1 Alive Sister 2 Alive Son Alive Social History Tobacco Use Types Packs/Day Years Used Date Smoking Tobacco: Former Cigarettes 1.5 15 1 - 12/10/1999 Smokeless Tobacco: Never Tobacco Cessation:Counseling Given: Not Answered Alcohol Use Standard Drinks/Week Comments No 0 (1 standard drink = 0.6 oz pur e alcohol) Comments Unknown Sex and Gender Information Value Date Recorded Sex Assigned at Not on file Legal Sex Female 12:18 PM CDT Gender Identity Not on file Sexual Orientation Not on file Last Filed Vital Signs Vital Sign Reading Time Taken Comments Blood Pressure 127/68 06/02/2023 10:28 AM CDT Pulse 75 06/02/2023 10:28 AM CDT Temperature 36.7 C (98.1 F) 06/02/2023 10:28 AM CDT Respiratory Rate 18 06/02/2023 10:28 AM CDT Oxygen Saturation 94% 06/02/2023 10:28 AM CDT Inhaled Oxygen Concentration - - Weight 75.9 kg (167 lb 6.4 oz) 06/02/2023 10:28 AM CDT Height 165.1 cm (5' 5 ) 11/06/2022 9:11 AM CDT Body Mass Index 27.86 11/06/2022 9:11 AM CDT Plan of Treatment Health Maintenance Due Date Last Done Comments DIABETES ANNUAL FOOT EXAM 10/21/1967 DIABETES ANNUAL RETINAL EXAM 10/21/1967 DIABETES MICROALBUMIN ANNUAL SCREEN 10/21/1967 LDL CHOLESTEROL ANNUAL 10/21/1967 DTAP/TDAP/TD VACCINES (1 - Tdap) 1968 PNEUMOCOCCAL VACCINE 65+ YEA RS (1 of 2 - PCV) 1968 BREAST CANCER SCREENING 1989 COLORECTAL SCREENING 1994 Colorectal Cancer Screening 1994 FIT-DNA Q 3 years 1994 FIT/FOBT Q 1 year 1994 Flex Sig/CT Colonography Q 5 years 1994 ZOSTER VACCINE (1 of 2) 10/21/1999 DIABETES HBA1C Q 6 MONTHS 06/08/20202019, 08/12/2019, 03/26/2019, Additional history exists INFLUENZA VACCINE (#1) 2023 04/01/2019 COVID-19 Vaccine (3 - 2023-2 5 season) 2023 06/18/2020, 05/21/2020 RSV VACCINE (60+ or ) (1 - 1-dose 75+ series) 2024 OSTEOPOROSIS SCREENING Completed 09/20/2019 Insurance Care Teams Cable Placer Relationship Specialty Start Date End Date Maty Valladares MD PCP - General Family Practice 11/06/22
--- OUTSIDE RECORDS SUMMARY | 2024-04-19 14:41 | XMS_ITS | Clinical Summary ---
Author Organization [facility] Address [address] [place] [address] Care Team Providers Care Press Secretary Name Role Phone Unavailable Primary Care Provider Unavailabl e Social History Tobacco Use Types Packs/Day Years Used Date Smoking Tobacco: Never Assessed Comments Unknown Sex and Gender Information Value Date Recorded Sex Assigned at Not on file Legal Sex Female 7:17 PM CDT Gender Identity Not on file Sexual Orientation Not on file Plan of Treatment Health Maintenance Due Date Last Done Comments Colorectal Cancer Screening Colonoscopy (10 Years) 1950 Hepatitis C 10/21/1967 DTaP, Tdap and Td Vaccines ( 1 - Tdap) 1968 Mammogram Screening 1989 Zoster Vaccines (1 of 2) 10/21/1999 Dexa Scan (General) 2014 Pneumococcal Vaccine: 65+ Ye ars (1 of 1 - PCV) 2014 COVID-19 Vaccine (2023-2 5 season) 2023 Influenza Adult (#1) 2023 RSV Immunization or 60+ Years (1 - 1-dose 75+ series) 2024 Meningococcal B Vaccine Aged Out No l onger eligible based on patient's age to complete this topic Meningococcal Vaccine Aged Out No ludwin renata eligible based on patient's age to complete this topic RSV Immunizations Under 20 Months Aged Out No longer eligible based on patient's age to complete this topic
--- OUTSIDE RECORDS SUMMARY | 2024-04-19 14:42 | XMS_ITS | Clinical Summary ---
Author Organization [facility] Address [address] [place] [address] Care Team Providers Care Asset Protection Assistant Name Role Phone Sylvie Olea NP Primary Care Provider [phone] Allergies Active Allergy Reactions Criticality Noted Date Comments Diclofenac-Misoprostol Nausea only Low 12/03/2018 Medications VITAMIN D2 50,000 unit capsule 8 Active losartan (COZAAR) 25 mg tablet Take 25 mg by mouth. Active metFORMIN (GLUCOPHAGE) 500 mg tablet Take 500 mg by mouth. Active montelukast (SINGULAIR) 10 mg tablet Take 10 mg by mouth. Active pantoprazole DR (PROTONIX) 40 mg EC tablet Take 40 mg by mouth. Active raloxifene (EVISTA) 60 mg tablet Take 60 mg by mouth. Active calcium carbonate (CALCIUM 600) 1,500 mg (600 mg of elemental calcium) tablet Take 1,200 mg by mouth. Active azithromycin (ZITHROMAX) 250 mg tablet azithromycin 250 mg tablet Active fluticasone propionate (FLONASE) 50 mcg/actuation nasal spray daily Active sertraline (ZOLOFT) 50 mg tablet sertraline 50 mg tablet Take 1/2 tablet po daily at bedtime for 1 week, then increase to 1 tablet po daily. Active silver sulfadiazine (SSD) 1 % cream SSD 1 % topical cream APPLY AA BID Active Active Problems Problem Noted Date Diagnosed Date Abdominal distension, gaseous 12/03/2018 Abdominal pain 12/03/2018 Depressive disorder 12/03/2018 Disorder of shoulder 12/03/2018 Epigastric pain 12/03/2018 Fatigue 12/03/2018 Foot pain 12/03/2018 Incomplete tear of rotator cuff 12/03/2018 Lesion of ulnar nerve 12/03/2018 Loose stools 12/03/2018 Arthritis 12/03/2018 Pain in throat 12/03/2018 Posterior rhinorrhea 12/03/2018 Seasonal allergies 12/03/2018 Tenderness over frontal sinus 12/03/2018 Type 2 diabetes mellitus 12/03/2018 Vitamin D deficiency 12/03/2018 Weight gain 12/03/2018 Carpal tunnel syndrome of left wrist 06/09/2018 Gastroesophageal reflux disease without esophagi tis 12/09/2017 HTN (hypertension), benign 12/09/2017 Pulmonary nodule, left 11/06/2017 Pain in wrist 04/26/2015 Chronic infection of sinus 09/11/2010 Surgical History Surgery Date Site/Laterality Comments APPENDECTOMY CARPAL TUNNEL RELEASE PARTIAL HYSTERECTOMY 03/03/1989 - 03/02/1990 TONSILLECTOMY Medical History Medical History Date Comments Type 2 diabetes mellitus (HCC) Vitamin D deficiency Depressive disorder Carpal tunnel syndrome Essential hypertension Pain in throat Sinusitis Seasonal allergies Posterior rhinorrhea Arthritis Back spasm Foot pain Fatigue Abdominal distension (gaseous) Loose stools Abdominal pain Epigastric pain Weight gain History of colonoscopy Pneumonia Osteoporosis Family History Medical History Relation Name Comments Arthritis Father Family history of arthritis - (Added by TW Conv) Diabetes Father Family history of diabetes mellitus - (Added by TW Conv) Heart disease Father Family history of cardiac disorder - (Added by TW Conv) Lung disease Father Family history of lung disease - (Added by TW Conv) Arthritis Mother Family history of arthritis - (Added by TW Conv) Cancer Mother Family history of malignant neoplasm - (Added by TW Conv) Diabetes Mother Family history of diabetes mellitus - (Added by TW Conv) Heart disease Mother Family history of cardiac disorder - (Added by TW Conv) Lung disease Mother Family history of lung disease - (Added by TW Conv) Stroke Mother Family history of cerebrovascular accident (CVA) - (Added by TW Conv) Relation Name Status Comments Father Mother Social History Tobacco Use Types Packs/Day Years Used Date Smoking Tobacco: Former Cigarettes 1 16 0 03/03/1988 - 03/03/2004 Smokeless Tobacco: Former Alcohol Use Standard Drinks/Week Comments Yes 0 (1 standard drink = 0.6 oz pur e alcohol) Rare social Personal Safety Answer Date Recorded Getting School Help Needed Not on file 02/12 Comments Unknown Sex and Gender Information Value Date Recorded Sex Assigned at Not on file Legal Sex Female 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 Gender Identity Female 11/07/2017 10:37 AM CDT Sexual Orientation Straight 07/29/2019 7: 56 AM CDT Obstetrics History Last Filed Vital Signs Vital Sign Reading Time Taken Comments Blood Pressure 158/77 11/25/2018 11:55 AM CDT Pulse 66 11/25/2018 11:55 AM CDT Temperature 36.1 C (97 F) 11/09/2019 9:30 AM CDT Respiratory Rate 18 11/14/2017 9:30 AM CDT Oxygen Saturation 96% 11/25/2018 11:55 AM CDT Inhaled Oxygen Concentration - - Weight 82.6 kg (182 lb) 11/14/2017 9:30 AM CDT Height 165.1 cm (5' 5 ) 11/14/2017 9:30 AM CDT Body Mass Index 30.29 11/14/2017 9:30 AM CDT Plan of Treatment Health Maintenance Due Date Last Done Comments Albumin Creatinine Ratio, Urine 1950 Breast Cancer Screening-Mammogram 1950 Colon Cancer Screening-Colonoscopy 1950 Depression Screening 1950 Fall Risk Assessment 1950 Hemoglobin A1C 1950 Hepatitis C Screening 1950 Osteoporosis Screening-Bone Density Scan 1950 eGFR 1950 Dilated Eye Exam 1950 Foot Exam 1950 Lipid Panel 1950 Pneumococcal vaccine 65+ (1 of 2 - PCV) 10/21/1955 1 04/03/2007 Hepatitis B Screening 10/21/1967 Zoster Vaccine (2 of 3) 11/18/2013 09/23/2013 Well Visit 65+ 2014 Covid-19 Vaccine (3 - 2023- season) 2023, 05/21/2020 Influenza Vaccine (#1) 2023 DTaP/Tdap/Td Vaccine (2 - Td or Tdap) 06/07/202509/[address] [place] [place] [address] CHOICE PLUS MEDICARE MEDICARE [employer] S[employer]IOR SU[employer]MENT Care Teams Asset Protection Assistant Relationship Specialty Start Date End Date Sylvie Olea NP PCP - General Nurse Practitioner 10/31/17
--- OUTSIDE RECORDS SUMMARY | 2024-04-19 14:42 | XMS_ITS | Data Portability ---
Author Organization [place] - [facility] [employer], Main Office Address [address] [place] [address] Care Team Providers Care Litigation Claim Representative Name Role Phone GÓMEZ OBRIEN Primary Care Provider GÓMEZ OBRIEN Referring Provider [phone] Assessment Encounter Date Assessment Date Assessment LastModified by Organization Details LastModified Time 12/09/2022 12/09/2022 HPI: Patient returns. She is here for 1 year follow-up of her left total knee arthroplasty. Overall it is doing well. She states last 4 months she has been getting a little bit of soreness in the knee. And occasionally she will get a crunching type sensation in it. otherwise she has been very happy with her results. Physical exam: 72-year-old female alert pleasant. She has a mild effusion left knee. No redness or warmth. No tenderness. Range motion is from 0-145 degrees. I ranged her knee multiple times and 2 times there was a crunch at the medial border of the patella. Patient did not feel that it was painful. He was audible but I could not feel the crepitus. The patella went smooth through the arc but again to times there was a patella crunch. This happened at about 135 of flexion. Impression: Patient is 1 year out from left total knee arthroplasty. She does have a slight patellar crunch. It is not happening every time and this may have been recently aggravated from daily activities. I advised her to limit the stairs for while as well as bending and squatting to see if this quiets down. This may just be some irritated synovial tissue around the patella since it is not happening every time she flexes and extends the knee. I advised her it is not something that is going to harm her knee replacement. If it does get worse she should call, this may need to be addressed. Hopefully with some rest and avoidance of go away on its own. Otherwise this point plan on seeing her back in 5 years with a routine x-ray surveillance or sooner if she has problems. 20 minutes was spent in treatment the patient more than half of this in eebf-ei-paln conversation Not available 12/09/2022 15:00:01 Plan of Treatment Reminders Order Date Submit Date Provider Last Modified By Organization Details Last Modified Time Details Appointments None record ed. Lab None record ed. Referral None record ed. Procedures None record ed. Surgeries None record ed. Imaging XR, knee 023 12/10/19 23 [email or web address] [facility], [facility] [facility] [address], [place], [address], 15:04:57 Medication Orders None record ed. Patient TargetsNo targets recorded. Patient InstructionsNo instructions recorded. Reason for Referral None Reported. Results Created Date Observation Date Name Description Value Unit Range Abnormal Flag Note LastModifiedBy Organization Detail LastModifiedTime 12/01/19 22 11/30/2021 TYPE AND SCREE N patient ABO group and Rh O positi ve Not Available [facility] (Lab) [address] [place], [address], 11/30/2021 12:39:01 12/01/19 22 11/30/2021 TYPE AND SCREE N patient antibody screen negati ve Not Available [facility] (Lab) [address] [place], [address], 11/30/2021 12:39:01 12/01/19 22 11/30/2021 HEMOG LOBIN A1C HA1C 6.3 % 4.0-6. 0 high Diabe charles Scree tiffany Crite humza: <5.7% Consi stent with absen ce of diabe charles 5.7-6 .4% Consi stent with incre ased risk for diabe charles (pred iabet es) >OR=6 .5% Consi stent with diabe charles REFER ENCE: Diabe charles Care 2016, 39(Foss ppl.1 ):s13 -s22 Not Available [facility] (Lab) [address] [place], [address], 11/30/2021 11:08:52 12/01/1911/30/2021 BASIC METAB OLIC PANEL carbon dioxide 29 mmol/ L - Not Available [facility] (Lab) [address] [place], [address], 11/30/2021 09:58:53 12/01/1911/30/2021 BASIC METAB OLIC PANEL GFR >60 Refer ence Range : [place] ge GFR Healt hy Adult : >60 mL/mi n/1.7 3 m2 Chron ic Kidne y Disea se: 15-60 mL/mi n/1.7 3 m2 Kidne y Failu re: <15/m L/min /1.73 m2 www.n iddk. nih.g ov The MDRD study equat ion has not been valid ated in child cesar <18 years of age; pregn ant women ; the elder ly >85 years of age; or in some racia l or ethni c subgr oups, such as Hispa nics. Outsi de the valid ated crystal eters , estim ated GFR is less accur ate, requi ring clini gulshan judgm ent on a case- by-ca se basis . Clini gulshan inter preta tion for other races and ages must be made by the clini randa. The MDRD study equat ion has not been valid ated for the evalu ation of serum creat inine relat ed to nutri tu l statu s or medic ation usage . For perso ns <18 years of age, a pedia tric GFR calcu lator is avail able on the NK[employer] websi te: https ://jose black.kadie saldana/pr ofess ional s/kdo qi/gf r_cal culat or Not Available [facility] (Lab) [address] [place], [address], 11/30/2021 09:58:53 12/01/192022 BASIC METAB OLIC PANEL calcium 9.9 mg/dL 8.4-10 .2 Not Available [facility] (Lab) [address] [place], [address], 11/30/2021 09:58:53 12/01/19 22 11/30/2021 BASIC METAB OLIC PANEL sodium 137 mmol/ L 137-14 5 Not Available [facility] (Lab) [address] [place], [address], 11/30/2021 09:58:53 12/01/19 22 11/30/2021 BASIC METAB OLIC PANEL potassium 5.1 mmol/ L 3.5-5. 1 Not Available [facility] (Lab) [address] [place], [address], 11/30/2021 09:58:53 12/01/19 22 11/30/2021 BASIC METAB OLIC PANEL chloride 101 mmol/ L 98-107 Not Available [facility] (Lab) [address] [place], [address], 11/30/2021 09:58:53 12/01/19 22 11/30/2021 BASIC METAB OLIC PANEL anion gap 12.1 mmol/ L 14-22 low Not Available [facility] (Lab) [address] [place], [address], 11/30/2021 09:58:53 12/01/19 22 11/30/2021 BASIC METAB OLIC PANEL glucose 154 mg/dL 70-99 high Not Available [facility] (Lab) [address] [place], [address], 11/30/2021 09:58:53 12/01/19 22 11/30/2021 BASIC METAB OLIC PANEL BUN 20 mg/dL 8-19 high Not Available [facility] (Lab) [address] [place], [address], 11/30/2021 09:58:53 09/30/20 22 11/30/2021 BASIC METAB OLIC PANEL creatinine 0.87 mg/dL 0.66-1 .25 Not Available [facility] (Lab) [address] [place], [address], 11/30/2021 09:58:53 12/01/19 22 11/30/2021 CBC/C OMPLE TE BLD COUNT W/DIF F mean red cell volume 88.1 fL 82.0-9 9.0 Not Available [facility] (Lab) [address] [place], [address], 11/30/2021 09:40:37 12/01/19 22 11/30/2021 CBC/C OMPLE TE BLD COUNT W/DIF F white blood cells 5.5 x10'3 /uL 4.2-10 .8 Not Available [facility] (Lab) [address] [place], [address], 11/30/2021 09:40:37 12/01/19 22 11/30/2021 CBC/C OMPLE TE BLD COUNT W/DIF F red blood cells 4.55 x10'6 /uL 3.80-5 .20 Not Available [facility] (Lab) [address] [place], [address], 11/30/2021 09:40:37 12/01/19 22 11/30/2021 CBC/C OMPLE TE BLD COUNT W/DIF F hemoglobin 12.6 g/dL 12.0-1 5.6 Not Available [facility] (Lab) [address] [place], [address], 11/30/2021 09:40:37 12/01/19 22 11/30/2021 CBC/C OMPLE TE BLD COUNT W/DIF F hematocrit 40.1 % 35.7-4 5.7 Not Available [facility] (Lab) [address] [place], [address], 11/30/2021 09:40:37 12/01/19 22 11/30/2021 CBC/C OMPLE TE BLD COUNT W/DIF F mean red cell hemoglobin 27.7 pg 27.0-3 3.0 Not Available [facility] (Lab) [address] [place], [address], 11/30/2021 09:40:37 12/01/19 22 11/30/2021 CBC/C OMPLE TE BLD COUNT W/DIF F mean RBC HGB concentratio n 31.4 g/dL 31.0-3 6.0 Not Available [facility] (Lab) [address] [place], [address], 11/30/2021 09:40:37 12/01/19 22 11/30/2021 CBC/C OMPLE TE BLD COUNT W/DIF F red cell distribution width 13.4 % 11.8-1 5.5 Not Available [facility] (Lab) [address] [place], [address], 11/30/2021 09:40:37 12/01/19 22 11/30/2021 CBC/C OMPLE TE BLD COUNT W/DIF F platelets 318 x10'3 /uL 150-40 0 Not Available [facility] (Lab) [address] [place], [address], 11/30/2021 09:40:37 12/01/19 22 11/30/2021 CBC/C OMPLE TE BLD COUNT W/DIF F mean platelet volume 10.3 fL 9.0-12 .4 Not Available [facility] (Lab) [address] [place], [address], 11/30/2021 09:40:37 12/01/19 22 11/30/2021 CBC/C OMPLE TE BLD COUNT W/DIF F neutrophils 60.6 % 39.0-7 2.0 Not Available [facility] (Lab) [address] [place], [address], 11/30/2021 09:40:37 12/01/19 22 11/30/2021 CBC/C OMPLE TE BLD COUNT W/DIF F lymphocytes 25.7 % 16.0-4 7.0 Not Available [facility] (Lab) [address] [place], [address], 11/30/2021 09:40:37 12/01/19 22 11/30/2021 CBC/C OMPLE TE BLD COUNT W/DIF F immature granulocytes 0.2 % 0.00-0 .50 Not Available [facility] (Lab) [address] [place], [address], 11/30/2021 09:40:37 12/01/19 22 11/30/2021 CBC/C OMPLE TE BLD COUNT W/DIF F monocytes 8.2 % 5.0-12 .0 Not Available [facility] (Lab) [address] [place], [address], 11/30/2021 09:40:37 12/01/19 22 11/30/2021 CBC/C OMPLE TE BLD COUNT W/DIF F eosinophils 4.0 % 1.0-7. 0 Not Available [facility] (Lab) [address] [place], [address], 11/30/2021 09:40:37 12/01/19 22 11/30/2021 CBC/C OMPLE TE BLD COUNT W/DIF F basophils 1.3 % 0.0-2. 0 Not Available [facility] (Lab) [address] [place], [address], 11/30/2021 09:40:37 12/01/19 22 11/30/2021 CBC/C OMPLE TE BLD COUNT W/DIF F neutrophils, absolute count 3.35 x10'3 /uL 1.5-8. 0 Not Available [facility] (Lab) [address] [place], [address], 11/30/2021 09:40:37 12/01/19 22 11/30/2021 CBC/C OMPLE TE BLD COUNT W/DIF F lymphocytes, absolute count 1.42 x10'3 /uL 1.07-3 .43 Not Available [facility] (Lab) [address] [facility] [place], [address], 11/30/2021 09:40:37 12/01/19 22 11/30/2021 CBC/C OMPLE TE BLD COUNT W/DIF F monocytes, absolute count 0.45 x10'3 /uL 0.29-0 .99 Not Available [facility] (Lab) [address] [place], [address], 11/30/2021 09:40:37 12/01/19 22 11/30/2021 CBC/C OMPLE TE BLD COUNT W/DIF F eosinophils, absolute count 0.22 x10'3 /uL 0.02-0 .53 Not Available [facility] (Lab) [address] [place], [address], 11/30/2021 09:40:37 12/01/19 22 11/30/2021 CBC/C OMPLE TE BLD COUNT W/DIF F basophils, absolute count 0.07 x10'3 /uL 0.01-0 .08 Not Available [facility] (Lab) [address] [place], [address], 11/30/2021 09:40:37 12/01/19 22 11/30/2021 CBC/C OMPLE TE BLD COUNT W/DIF F immature granulocytes ,absolute 0.01 x10'3 /uL 0.00-0 .05 Not Available [facility] (Lab) [address] [place], [address], 11/30/2021 09:40:37 12/01/19 22 11/30/2021 CBC/C OMPLE TE BLD COUNT W/DIF F nucleated red blood cells 0.0 % -0 Not Available [facility] (Lab) [address] [place], [address], 11/30/2021 09:40:37 12/01/19 22 11/30/2021 CBC/C OMPLE TE BLD COUNT W/DIF F NRBC# 0.00 x10'3 /uL Not Available [facility] (Lab) [address] [place], [address], 11/30/2021 09:40:37 12/11/19 22 12/10/2021 SARS- COV-2 RNA(C OVID1 9),RT -PCR sars-cov-2 RNA(covid19) ,RT-PCR negati ve This test has been autho rized by the FDA under an Emerg ency Use Autho rizat ion (EUA) for use by autho rized labor atori es. Negat rach resul ts do not precl ude SARS- CoV-2 and shoul d not be used as the sole basis for treat ment or other patie nt manag ement decis ions. Test resul ts shoul d be corre lated with the clini gulshan histo ry, epide miolo gical data, and other data avail able to the clini randa evalu ating the patie nt. Keli mota w the Fact Sheet s for healt h care provi ders and patie nts at the [facility] charles: https ://ww w.fda .gov/ media /1363 12/do wnloa d https ://ww w.fda .gov/ media /1363 13/do wnloa d https ://ww w.fda .gov/ media /1421 92/do wnloa d https ://ww w.fda .gov/ media /1421 91/do wnloa d Metho dolog y: Real- Time RT-PC R Not Available [facility] (Lab) [address] [place], [address], 12/10/2021 11:35:31 10/1112/11/2021 GLUCO SE (POIN T OF CARE) glucose (point of care) 103 mg/dL 74-99 high Not Available [facility] (Lab) [address] [place], [address], 12/11/2021 16:08:49 12/12/19 22 12/11/2021 GLUCO SE (POIN T OF CARE) glucose (point of care) 138 mg/dL 74-99 high Not Available [facility] (Lab) [address] [place], [address], 12/11/2021 09:35:04 12/13/1912/12/2021 BASIC METAB OLIC PANEL chloride 104 mmol/ L 98-107 Not Available [facility] (Lab) [address] [place], [address], 12/12/2021 08:27:46 12/13/1912/12/2021 BASIC METAB OLIC PANEL creatinine 0.71 mg/dL 0.66-1 .25 Not Available [facility] (Lab) [address] [place], [address], 12/12/2021 08:27:46 12/13/1912/12/2021 BASIC METAB OLIC PANEL GFR >60 Refer ence Range : [place] ge GFR Healt hy Adult : >60 mL/mi n/1.7 3 m2 Chron ic Kidne y Disea se: 15-60 mL/mi n/1.7 3 m2 Kidne y Failu re: <15/m L/min /1.73 m2 www.n iddk. nih.g ov The MDRD study equat ion has not been valid ated in child cesar <18 years of age; pregn ant women ; the elder ly >85 years of age; or in some racia l or ethni c subgr oups, such as Hispa nics. Outsi de the valid ated crystal eters , estim ated GFR is less accur ate, requi ring clini gulshan judgm ent on a case- by-ca se basis . Clini gulshan inter preta tion for other races and ages must be made by the clini randa. The MDRD study equat ion has not been valid ated for the evalu ation of serum creat inine relat ed to nutri tu l statu s or medic ation usage . For perso ns <18 years of age, a pedia tric GFR calcu lator is avail able on the F websi te: https ://jose w.no black.o rg/pr ofess ional s/kdo qi/gf r_cal culat or Not Available [facility] (Lab) [address] [place], [address], 12/12/2021 08:27:46 12/13/1912/12/2021 BASIC METAB OLIC PANEL calcium 8.4 mg/dL 8.4-10 .2 Not Available [facility] (Lab) [address] [place], [address], 12/12/2021 08:27:46 12/13/19 22 12/12/2021 BASIC METAB OLIC PANEL sodium 132 mmol/ L 137-14 5 low Not Available [facility] (Lab) [address] [place], [address], 12/12/2021 08:27:46 12/13/19 22 12/12/2021 BASIC METAB OLIC PANEL potassium 4.6 mmol/ L 3.5-5. 1 Not Available [facility] (Lab) [address] [place], [address], 12/12/2021 08:27:46 12/13/19 22 12/12/2021 BASIC METAB OLIC PANEL carbon dioxide 28 mmol/ L 22-30 Not Available [facility] (Lab) [address] [place], [address], 12/12/2021 08:27:46 12/13/19 22 12/12/2021 BASIC METAB OLIC PANEL anion gap 4.6 mmol/ L 14-22 low Not Available [facility] (Lab) [address] [place], [address], 12/12/2021 08:27:46 12/13/1912/12/2021 BASIC METAB OLIC PANEL glucose 198 mg/dL 70-99 high Not Available [facility] (Lab) [address] [place], [address], 12/12/2021 08:27:46 12/13/1912/12/2021 BASIC METAB OLIC PANEL BUN 15 mg/dL 8-19 Not Available [facility] (Lab) [address] [place], [address], 12/12/2021 08:27:46 12/13/1912/12/2021 CBC W/O DIFFE RENTI AL platelets 235 x10'3 /uL 150-40 0 Not Available [facility] (Lab) [address] [place], [address], 12/12/2021 07:51:59 12/13/1912/12/2021 CBC W/O DIFFE RENTI AL white blood cells 6.4 x10'3 /uL 4.2-10 .8 Not Available [facility] (Lab) [address] [place], [address], 12/12/2021 07:51:59 12/13/1912/12/2021 CBC W/O DIFFE RENTI AL red blood cells 3.40 x10'6 /uL 3.80-5 .20 low Not Available [facility] (Lab) [address] [place], [address], 12/12/2021 07:51:59 12/13/1912/12/2021 CBC W/O DIFFE RENTI AL hemoglobin 9.3 g/dL 12.0-1 5.6 low Not Available [facility] (Lab) [address] [place], [address], 12/12/2021 07:51:59 12/13/1912/12/2021 CBC W/O DIFFE RENTI AL hematocrit 30.2 % 35.7-4 5.7 low Not Available [facility] (Lab) [address] [place], [address], 12/12/2021 07:51:59 12/13/1912/12/2021 CBC W/O DIFFE RENTI AL mean red cell volume 88.8 fL 82.0-9 9.0 Not Available [facility] (Lab) [address] [place], [address], 12/12/2021 07:51:59 12/13/1912/12/2021 CBC W/O DIFFE RENTI AL mean red cell hemoglobin 27.4 pg 27.0-3 3.0 Not Available [facility] (Lab) [address] [place], [address], 12/12/2021 07:51:59 12/13/1912/12/2021 CBC W/O DIFFE RENTI AL mean RBC HGB concentratio n 30.8 g/dL 31.0-3 6.0 low Not Available [facility] (Lab) [address] [place], [address], 12/12/2021 07:51:59 12/13/1912/12/2021 CBC W/O DIFFE RENTI AL red cell distribution width 13.3 % 11.8-1 5.5 Not Available [facility] (Lab) [address] [place], [address], 12/12/2021 07:51:59 12/13/1912/12/2021 CBC W/O DIFFE RENTI AL mean platelet volume 11.5 fL 9.0-12 .4 Not Available [facility] (Lab) [address] [place], [address], 12/12/2021 07:51:59 09/30/20 22 11/30/2021 XR, chest , 2 view [facility] [address], [place] [address] Araceli esteban Name: GAUTAM GEORGE Access ion #: [id number] Sex: F : 1950 0 Locati on: PAT Attend ing Physic tee: DEBBIE MARTIN Orderi ng Physic tee: DEBBIE MARTIN Exam Date: 022 8:17 AM Exam Name: XR CHEST 2V Admitt ing Diagno sis(es ): RADIOL OGY REPORT - FINAL EXAM: XR CHEST 2V HISTOR Y: PREOP/ L TKA 71-yea r-old female with preope rative chest x-ray prior to total knee arthro plasty , former smoker . COMPAR MOUNA: Chest x-ray dated 2019; chest CT dated 2017. TECHNI QUE: 2 views of the chest were perfor med. FINDIN GS: There is a stable left suprah ilar noncal cified pulmon wero nodule , which measur ed up to 2 cm axiall y on CT scan from October 2017. No pneumo thorax , pulmon wero edema, or consol idativ e infilt rates. The heart is not enlarg ed. No fractu res are identi fied about the bony thorax . Page 1 of 2 [facility] Araceli t Name: GAUTAM GEORGE Access ion #: [id number] Sex: F : 1950 0 Exam Date: 022 8:17 AM Exam Name: XR CHEST 2V Admitt ing Diagno sis(es ): IMPRES TERI: 1. Left suprah ilar 2 cm noncal cified pulmon wero nodule is simila r to that seen on chest x-ray dated [address] dated 2017, sugges tive of benign ity. Please correl ate with outsid e report of PET-CT report edly perfor med follow ing CT scan of the chest from October 2017. 2. No acute intrat horaci c proces s is otherw ise identi fied here. Create d and electr onical ly signed by: Lev cali MD Signed Date: 8:50 AM (CT) Dictat ed by: Lev cali MD DD: 8:50 AM (CT) DT: 8:50 AM (CT) Page 2 of 2 [id number] [facility] (Imaging) [address] [place], [address], 05/01/2022 03:10:56 12/12/19 22 12/11/2021 XR, knee, 1 or 2 view [facility] [address] [place] [address] [phone] Patien t Name: GAUTAM GEORGE Access ion #: [id number] Sex: F : 1950 8 Locati on: Attend ing Physic tee: DEBBIE MARTIN Orderi Physic tee: DEBBIE MARTIN Exam Date: 2021 8:56 AM Exam Name: XR KNEE LT 2V Admitt ing Diagno sis(es ): RADIOL OGY REPORT - FINAL EXAM: XR KNEE LT 2V HISTOR Y: Lt total knee arthro plasty 71-yea r-old female status post left total knee arthro plasty . COMPAR MOUNA: Radiog raphs dated 2020. TECHNI QUE: AP and latera l views of the left knee were perfor med. FINDIN GS: See below. IMPRES TERI: Postop erativ e change s of left total knee arthro plasty withou t eviden ce of peripr osthet ic fractu re or other compli cation . Page 1 of 2 [facility] Patien t Name: GAUTAM GEORGE Access ion #: [id number] Sex: F : 1950 8 Exam Date: 2021 8:56 AM Exam Name: XR KNEE LT 2V Admitt ing Diagno sis(es ): Create d and electr onical ly signed by: Lev cali MD Signed Date: 2021 4:05 PM (CT) Dictat ed by: Lev cali MD DD: 2021 4:05 PM (CT) DT: 2021 4:05 PM (CT) Page 2 of 2 [id number] [facility] (Imaging) [address] [place], [address], 05/01/2022 03:10:56 12/12/1912/11/2021 XR, knee, 3 view No observ ation record ed. [id number] [facility] Add On Lab Orders [address] [place], [address], 05/01/2022 03:10:56 01/24/20 XR, knee No observ ation record ed. [id number] [facility] [address], [place], [address], 05/01/2022 03:10:56 12/10/19 XR, knee No observ ation record ed. [facility] [address] [facility] [address], [place], [address], 12/09/2022 14:55:58 Result Notes None recorded. Problems Name Problem SNOMED Code Status Onset Date Resolution Date Notes Provider Name and Address Organization Details Recorded Time Acute abdominal pain 581471641 Completed Not Available [facility] 3 02:56:57 Disorder of shoulder 792650273 Completed Not Available [facility] 3 02:56:57 Pain in throat 378266770 Completed Not Available [facility] 3 02:56:58 Partial thickness rotator cuff tear 803392420 Active Not Available [facility] 3 02:56:58 Spasm of back muscles 876090690 Completed Not Available [facility] 3 02:56:58 Abdominal pain 11290550 Completed Not Available [facility] 3 02:56:58 Abdominal distensio n, gaseous 328751746 Completed Not Available [facility] 3 02:56:58 Tendernes s over frontal sinus 167359426 Completed Not Available [facility] 3 02:56:58 Vitamin D deficienc y 29322450 Active Not Available [facility] 3 02:56:58 Depressiv e disorder 05007044 Active Not Available [facility] 3 02:56:58 Lesion of ulnar nerve 068378203 Active Not Available [facility] 3 02:56:58 Sinusitis 83772249 Completed Not Available [facility] 3 02:56:58 Arthritis 0676742 Active Not Available [facility] 3 02:56:59 Disorder of vitamin D 816228099 Completed Not Available [facility] 3 02:56:59 Osteoarth ritis 352270261 Active Not Available [facility] 3 02:56:59 Loose stool 958340573 Completed Not Available [facility] 3 02:56:59 Type 2 diabetes mellitus 38978942 Active Not Available [facility] 3 02:56:59 Seasonal allergy 824462872 Active Not Available [facility] 3 02:56:59 Pain of left knee joint 82516551812 4107 Active 2021 Not Available [facility] 3 02:56:59 Foot pain 55484906 Completed Not Available [facility] 3 02:57:00 Upper respirato ry infection 39551280 Completed Not Available [facility] 3 02:57:00 Carpal tunnel syndrome 80470785 Active Not Available [facility] 3 02:57:00 Essential hypertens ion 87725073 Active Not Available [facility] 3 02:57:00 Diabetes mellitus 52468978 Completed 201608/28/2020 Not Available [facility] 3 02:57:00 Sleep apnea 88432507 Active 2019 Not Available [facility] 3 02:57:00 Posterior rhinorrhe a 70696861 Completed Not Available [facility] 3 02:57:00 Epigastri c pain 38900701 Completed Not Available [facility] 3 02:57:01 Fatigue 14471801 Active Not Available [facility] 3 02:57:01 Weight gain 9901629 Completed Not Available [facility] 3 02:57:01 Problem Notes None recorded. Procedures Surgical History Date Name Laterality Status Provider Name and Address Organization Details Recorded Time 09/18/19 22 bone density scan completed Not Available [facility] 05/01/2022 02:46:36 04/13/19 21 Date of Last Colonoscopy completed Not Available [facility] 05/01/2022 02:46:31 04/13/19 21 Colonoscopy completed Not Available [facility] 05/02/19 23 02:46:36 09/20/19 20 Most Recent Mammogram completed Not Available [facility] 05/01/2022 02:46:31 01/21/20 14 Date of Last Pap Smear completed Not Available [facility] 05/01/2022 02:46:31 03/03/18 90 GEMOLOGIST Surgery completed Not Available [facility] 05/02/19 02:46:36 Imaging Results Imaging Date Name Status LastModified by Organiz ation Details LastModified Time 01/23/2022 XR, knee completed [id number] [id number] [address], [place], [address], 05/01/2022 03:10:56 11/30/2021 XR, chest, 2 view completed [id number] [facility] (Imaging) [address] [place], [address], 05/01/2022 03:10:56 12/11/2021 XR, knee, 1 or 2 view completed [id number] [facility] (Imaging) [address] [place], [address], 05/01/2022 03:10:56 12/11/2021 XR, knee, 3 view completed [id number] [facility] [address], [place], [address], 05/01/2022 03:10:56 12/09/2022 XR, knee completed [facility] [address], [place], [address], 12/09/2022 14:55:58 Procedure Notes None recorded. Medical Equipment None Reported. Allergies Allergen ID Allergen Name Allergen Category Reaction Reaction Severity Criticality Documentation Date Start Date Code Code System Note Provider Name and Address Organization Details Recorded Time 5367 [employer] medicatio n nausea Not available Not available 05/01/2022 64798 UNK Not Available [facility] 03:10:22 Medications Name Sig Start Date Stop Date Status Note LastModified by Organization Details LastModified Time celecoxib 200 mg capsule TAKE 1 CAPSULE BY MOUTH ONCE DAILY active Not Available Not Available No t Available cyclobenz aprine 10 mg tablet Take1/2 or 1 TABLET 3TIMES A DAY by oral route as needed for muscle spasms active Not Available Not Available No t Available metformin 500 mg tablet TAKE 2 TABLETS BY MOUTH EVERY DAY IN THE MORNING AND TAKE 1 TABLET IN THE EVENING active Not Available Not Available No t Available doxycycli ne hyclate 100 mg capsule Take 1 capsule twice a day by oral route for 10 days. active Not Available Not Available No t Available Carafate 100 mg/mL oral suspensio n Take 10 mL 4 times a day by oral route. 02/14 completed Not Available Not Available Not Available ibuprofen 800 mg tablet 02/08 completed Not Available Not Available Not Available Lidocaine Viscous 2 % mucosal solution active Not Available Not Available Not Available meloxicam 15 mg tablet TAKE 1 TABLET BY MOUTH EVERY DAY 10/24 completed Not Available Not Available Not Available sucralfat e 1 gram tablet TAKE 1 TABLET BY MOUTH FOUR TIMES A DAY active Not Available Not Available No t Available bupivacai ne HCl 0.5 % (5 mg/mL) injection solution In office injectio n administ ered by the provider 10/24 completed Not Available Not Available Not Available prednison e 20 mg tablet 10/24 completed Not Available Not Available Not Available Zithromax Z-Braydon 250 mg tablet TAKE 2 TABLETS (500 MG) BY ORAL ROUTE ONCE DAILY FOR 1 DAY THEN 1 TABLET (250 MG) BY ORAL ROUTE ONCE DAILY FOR 4 DAYS active Not Available Not Available No t Available omeprazol e 40 mg capsule,d elayed release TAKE 1 CAPSULE BY MOUTH TWICE A DAY 12/09 completed Not Available Not Available Not Available tramadol 50 mg tablet TAKE 1 TABLET BY MOUTH TWICE A DAY NEEDED KNEE PAIN 02/14 completed Not Available Not Available Not Available acetamino phen 500 mg tablet TAKE 2 TABLETS BY MOUTH EVERY 6 HOURS (MAX 4000 MG APAP PER 24 HOURS) 01/09 completed Not Available Not Available Not Available pantopraz ole 20 mg tablet,de layed release 20 MG ORALLY EVERY MORNING active Not Available Not Available No t Available meloxicam 7.5 mg tablet TAKE ONE TABLET BY MOUTH TWICE DAILY 01/20 completed Not Available Not Available Not Available amoxicill in 875 mg tablet Take 1 tablet every 12 hours by oral route with meals for 10 days. active Not Available Not Available No t Available Kenalog 10 mg/mL suspensio n for injection In office injectio n administ ered by the provider 09/05 completed [facility]: [id number] 06-20 Not Available Not Available Not Available hydrocodo ne 7.5 mg-acetam inophen 325 mg tablet 02/08 completed Not Available Not Available Not Available cephalexi n 500 mg capsule TAKE 1 CAPSULE BY MOUTH EVERY 6 HOURS 01/09 completed Not Available Not Available Not Available pantopraz ole 40 mg tablet,de layed release TAKE 1 TABLET BY MOUTH EVERY DAY active Not Available Not Available No t Available losartan 25 mg tablet TAKE 1 TABLET BY MOUTH EVERY DAY 12/09 completed Not Available Not Available Not Available omeprazol e 20 mg capsule,d elayed release Take 1 capsule every day by oral route for 30 days. active Not Available Not Available No t Available raloxifen e 60 mg tablet Take 1 po daily active Not Available Not Available No t Available simethico ne 125 mg chewable tablet Take 1 tablet as needed by oral route for 30 days. 11/03 completed Not Available Not Available Not Available monteluka st 10 mg tablet TAKE 1 TABLET BY MOUTH EVERY EVENING active Not Available Not Available No t Available irbesarta n 150 mg tablet 150 MG ORALLY DAILY active Not Available Not Available No t Available azelastin e 137 mcg (0.1 %) nasal spray 137 MCG (0.137 ML) INTRANAS ALLY EVERY 12 HOURS ADMINIST ER INTO EACH NOSTRIL active Not Available Not Available No t Available methylpre dnisolone 4 mg tablets in a dose pack TAKE 6 TABLETS ON DAY 1 DIRECTED ON PACKAGE AND DECREASE BY 1 TAB EACH DAY FOR A TOTAL OF 6 DAYS 10/24 completed Not Available Not Available Not Available SSD 1 % topical cream APPLY AA BID active Not Available Not Available No t Available Vitamin D2 1,250 mcg (50,000 unit) capsule TAKE 1 CAPSULE BY MOUTH ONCE A WEEK 12/04 completed Not Available Not Available Not Available celecoxib 100 mg capsule Take 1 capsule twice a day by oral route for 90 days. 09/05 completed Not Available Not Available Not Available cefdinir 300 mg capsule Take 1 capsule every 12 hours by oral route for 10 days. active Not Available Not Available No t Available fluticaso ne propionat e 50 mcg/actua tion nasal spray,carlos pension Inhale 2 sprays every day by intranas al route in the morning for 30 days. active Not Available Not Available No t Available sertralin e 50 mg tablet Take 1/2 tablet po daily at bedtime for 1 week, then increase to 1 tablet po daily. active Not Available Not Available No t Available dicyclomi ne 10 mg capsule TAKE 1 CAPSULE BY MOUTH 4 TIMES A DAY active Not Available Not Available No t Available amoxicill in 875 mg-potass ium clavulana te 125 mg tablet Take 1 tablet every 12 hours by oral route for 10 days. 10/24 completed Not Available Not Available Not Available oxycodone 5 mg tablet TAKE 1 TABLET BY MOUTH EVERY 4 HOURS 01/09 completed Not Available Not Available Not Available aspirin active Not Available Not Avail able Not Available multivita min 1 po qd 12/02 completed Not Available Not Available Not Available [employer] ([employer])Touch Ultra2 Meter kit USE DIRECTED 12/02 completed Not Available Not Available Not Available lidocaine (PF) 10 mg/mL (1 %) injection solution In office injectio n administ ered by the provider 07/12 completed [facility]: 0409-427 6-17 Not Available Not Available Not Available metformin ER 500 mg 24 hr tablet,ex tended release (gastric retention ) take 1 tablet by mouth BID 04/15 completed Not Available Not Available Not Available ferrous sulfate 324 mg (65 mg iron) tablet,de layed release TAKE 1 TABLET BY MOUTH TWICE A DAY active Not Available Not Available No t Available Cholestyr amine Light 4 gram oral powder 4 G ORALLY TWICE A DAY ADMINIST ER W/MEAL AVOID OTHER MEDS WITHIN 1HR BEFORE OR 4-6HR AFTER DOSE active Not Available Not Available No t Available Senexon-S 8.6 mg-50 mg tablet TAKE 2 TABLETS BY MOUTH TWICE A DAY TO PREVENT CONSTIPA TION. HOLD FOR LOOSE STOOLS 01/09 completed Not Available Not Available Not Available OneTouch Delica Lancets 33 gauge TEST D DIRECTED 01/19 completed Not Available Not Available Not Available Vimovo 375 mg-20 mg tablet,im mediate and delay release Take 1 tablet twice a day by oral route as needed. active arthrits in bilatera l feet Not Available Not Available Not Available Purelax 17 gram oral powder packet USE 1 PACKET BY MOUTH ONCE A DAY MIX IN 8 OUNCES OF FLUID HOLD FOR LOOSE STOOLS. 01/09 completed Not Available Not Available Not Available sodium,po tassium,m ag sulfates 17.5 gram-3.13 gram-1.6 gram oral soln TAKE DIRECTED active Not Available Not Available No t Available OneTouch Verio test strips USE DIRECTED . E11.9 10/24 completed Not Available Not Available Not Available Vicodin 5 mg-300 mg tablet TK 1 T PO Q 6 TO 8 H PRN active Not Available Not Available No t Available Eliquis 2.5 mg tablet PLEASE SEE ATTACHED FOR DETAILED DIRECTIO NS 01/09 completed Not Available Not Available Not Available Virtussin AC 10 mg-100 mg/5 mL oral liquid Take 10 mL every 4 hours by oral route as needed. 06/23 completed Not Available Not Available Not Available OneTouch Ultra Blue Test Strip 2020 active Not Available Not Available Not Avai lable OneTouch Verio Reflect Meter 10/24 completed Not Available Not Available Not Available Vitals Date Recorded Body height Body mass index (BMI) Body weight Provider Name and Address Organization Details Last Updated DateTime 12/09/2022 163.83 cm 27.9 kg/m2 23654.74 g Violeta SUJEY [place] 12/09/2022 14:28:20 Date Recorded Body mass index (BMI) Body height Body height Body height Body height Oxygen saturation Oxygen saturation in Arterial blood by Pulse oximetry Heart rate Body temperature Body weight Systolic blood pressure Diastolic blood pressure Provider Name and Address Organization Details Last Updated DateTime 3 27.1 kg/m2 162.56 cm 162.56 cm 162.56 cm 162.56 cm 98 % 98 % 101 /min 97.1 [degF] 75551.5 9 g 148 mm[Hg] 86 mm[Hg] Not Available [facility] 02:52:47 Social History Question Answer Notes LastModified by Organizat ion Details LastModified Time Tobacco Smoking Status Former Smoker [place] Errund [facility] [employer] 12/09/2022 14:09:15 Do You Have An Advance Directive? No [id number] Information not available 05/01/2022 What Is Your Level Of Alcohol Consumption? Occasional [id number] Information not available 05/01/2022 Are You Blind Or Do You Have Difficulty Seeing? No [email or web address] Information not available 12/09/2022 What Is Your Level Of Caffeine Consumption? Moderate [id number] Information not available 05/01/2022 In The 14 Days Before Symptom Onset, Have You Had Close Contact With A Laboratory-confir med COVID-19 While That Case Was Ill? No [email or web address] Information not available 12/09/2022 In The 14 Days Before Symptom Onset, Have You Had Close Contact With A Person Who Is Under Investigation For COVID-19 While That Person Was Ill? No [email or web address] Information not available 12/09/2022 Are You Deaf Or Do You Have Serious Difficulty Hearing? No [email or web address] Information not available 12/09/2022 What Type Of Diet Are You Following? REGULAR [id number] Information not available 05/01/2022 Which Illicit Or Recreational Drugs Have You Used? 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 No [email or web address] Information no t available 12/09/2022 What Is The Fluoride Status Of Your Home? Unknown [email or web address] Information not available 12/09/2022 Do You Use Insect Repellent Routinely? Yes [email or web address] Information not available 12/09/2022 Where Do You Live? SingleLevelHouse [email or web address] Information not available 12/09/2022 Do You Have A Medical Power Of Calliope Player? No [email or web address] Information not available 12/09/2022 What Was The Date Of Your Most Recent Tobacco Screening? 09/04/2021 [email or web address] Information not available 12/09/2022 Do You Use Your Seat Belt Or Car Seat Routinely? Yes [email or web address] Information not available 12/09/2022 Do You Have Smoke And Carbon Monoxide Detectors In Your Home? Yes [email or web address] Information not available 12/09/2022 Do You Feel Stressed (tense, Restless, Nervous, Or Anxious, Or Unable To Sleep At Night)? [id number] [email or web address] Information not available 12/09/2022 Do You Use Sunscreen Routinely? Yes [email or web address] Information not available 12/09/2022 Has Tobacco Cessation Counseling Been Provided? No [email or web address] Information not available 12/09/2022 Do You Have Any Dietary Restrictions? No [email or web address] Information not available 12/09/2022 Do You Or Have You Ever Used Any Other Forms Of Tobacco Or Nicotine? No [email or web address] Information not available 12/09/2022 Sex: Unknown Functional Status Question Answer Note LastModified by Organizat ion Details LastModified Time Do you have difficulty walking or climbing stairs? No [email or web address] Information not available 12/09/2022 Do you have transportation difficulties? No [email or web address] Information not available 12/09/2022 Are you able to walk? YESWOREST [email or web address] Information not available 12/09/2022 Do you have difficulty doing errands alone? No [email or web address] Information not available 12/09/2022 Are you able to care for yourself? Yes [email or web address] Information n ot available 12/09/2022 Do you have difficulty dressing or bathing? No [email or web address] Information not available 12/09/2022 What is your exercise level? Moderate walks [id number] Information not available 05/01/2022 Mental Status Question Answer Note LastModified by Organization D etails LastModified Time Do you have difficulty concentrating, remembering or making decisions? No [email or web address] Information no t available 12/09/2022 Family History Relationship Description Onset Age of this Age Resolved Age Notes LastModified by Organization Details LastModified Time Mother Malignant tumor of cervix [email or web address] Not available 12/09 14:09:14 Mother Heart disease [id number] Not available 05/01/2022 02:46:43 Mother Hypertensive disorder [id number] Not available 05/01/2022 02:46:43 Mother Diabetes mellitus [id number] Not available 05/01/2022 02:46:43 Daughter Malignant tumor of cervix [email or web address] Not available 12/09 14:09:14 Sister Malignant tumor of breast [email or web address] Not available 12/09 14:09:14 Father Heart disease [id number] Not available 05/01/2022 02:46:43 Father Diabetes mellitus [id number] Not available 05/01/2022 02:46:43 Notes:no new Medical History Condition Response BLINDNESS N KIDNEY STONES N MRSA N CARPAL TUNNEL SYNDROME N LUNG DISEASE/DISORDER N HISTORY OF DRUG ABUSE N RADIATION / CHEMOTHERAPY N COPD N SPORTS INJURY N ANKLE PAIN N BLOOD DISEASES N SCHIZOPHRENIA N SHINGLES N BOWEL PROBLEMS N SHOULDER PAIN N DEPRESSION (INCLUDING POST ) N STROKE/TIA N KNEE PAIN N ULCERS Y BENIGN PROSTATIC HYPERPLASIA N OBESITY N GERD/NAUSEA N ANEURYSM N URINARY/BLADDER/KIDNEY PROBLEMS N CORONARY ARTERY DISEASE (CAD) N ADDICTION CONCERNS N USE OF BLOOD THINNERS N SKIN PROBLEMS N EMPHYSEMA N MUSCLE,JOINT OR BONE PROBLEMS N DVT N STOMACH ULCERS N BLOOD CLOTS N USE OF NSAIDS N CONCUSSION OR SPINAL TRAUMA N NEUROPATHY N AIDS/HIV N FRACTURES N ELBOW PAIN N HYPERTENSION Y TOURETTE'S N ANXIETY DISORDER N Metal allergy N BLOOD TRANSFUSION N ANEMIA/BLOOD DISORDER N BIPOLAR DISORDER N BRONCHITIS N OSTEOARTHRITIS N TUBERCULOSIS N FOOT PROBLEM N HEART VALVE DISORDERS N ALLERGIES/HAYFEVER N SOFT TISSUE INJURY N INFECTIOUS DISEASE N HEART ARRHYTHMIA N INSOMNIA N RHEUMATOID ARTHRITIS N HIGH CHOLESTEROL / HYPERLIPIDEMIA N EDEMA N CHRONIC PAIN SYNDROME N CAROTID BLOCKAGE N BACK / NECK PROBLEMS N HAVE YOU BEEN HOSPITALIZED OR SEEN IN [facility] ER IN THE PAST YEAR ? N BURSITIS N HERNIATED DISC N DIALYSIS N FIBROMYALGIA N OSTEOPOROSIS Y ARTHRITIS Y NO SIGNIFICANT PAST MEDICAL HISTORY N PERIPHERAL NEUROPATHY N DIABETES, TYPE Y HEARTBURN / REFLUX N HEPATITIS / LIVER DISEASE N GOUT N SLEEP DISORDER N ALZHEIMER'S DISEASE N HERPES N SEIZURES/EPILEPSY N HEADACHES/MIGRAINES N VASCULAR DISEASE N HIP PAIN N Blood Disorder N DIZZINESS N HEAD TRAUMA OR INJURY N HEART DISEASE/HEART PROBLEMS N MULTIPLE SCLEROSIS N CARDIAC ARRHYTHMIA N CANCER: SPECIFY N ANESTHESIA COMPLICATIONS N ATRIAL FIBRILLATION N AUTOIMMUNE DISEASE N Gynecological History Statement/Question Response Abnormal Pap N Date of Last Mammogram 09/28/2020 Date of Last Colonoscopy 04/13/2020 Date of Last Pap 01/20/2014 Date of Last Pap Smear 01/20/2014 Current Control Method Hysterectom y Age at Menarche 12 Most Recent Mammogram 09/20/2019 Obstetrics History GPAL:G 0 P 0 0 0 0 Immunizations Vaccine Type Date Status Note Provider Nam e and Address Organization Details Recorded Time COVID-19, mRNA, LNP-S, PF, 100 mcg/0.5mL dose or 50 mcg/0.25mL dose 1 completed Not Available [facility] 05/01/2022 03:10:01 COVID-19, mRNA, LNP-S, PF, 100 mcg/0.5mL dose or 50 mcg/0.25mL dose 2 completed Not Available [facility] 05/01/2022 03:10:01 Tdap 9 completed Not Available [facility] 05/01/2022 03:10:01 pneumococcal, unspecified formulation 8 completed Not Available [facility] 05/01/2022 03:10:01 Influenza, high-dose, quadrivalent, PF 1 completed Not Available [facility] 05/01/2022 03:10:01 Influenza, high-dose, trivalent, PF 0 completed Not Available [facility] 05/01/2022 03:10:01 Pneumococcal conjugate PCV 13 0 completed Not Available [facility] 05/01/2022 03:10:02 zoster live 4 completed Not Available [facility] 05/01/2022 03:10:02 Past Encounters Encounter ID Performer Location Encounter Start Date Encounter Closed Date Diagnosis/Indication Diagnosis SNOMED-CT Code Diagnosis ICD10 Code Diagnosis Note [id number] _DANIEL_M IGRATION_ DEFAULT_1 _1 , 05/30/2020 00:00:00 05/30/2020 10:54:49 [id number] [facility] [place] [address] [place] [address] 06/20/2020 00:00:00 06/20/2020 13:49:30 [id number] [facility] [facility] [address] , [place] [address] 09/12/2020 00:00:00 09/12/2020 10:15:47 [id number] [facility] [address] [facility] [address] [place] [address] 09/22/2020 00:00:00 09/22/2020 16:27:24 [id number] [facility] [place] [place] [address], [place] [address] 12/20/2020 00:00:00 12/21/2020 12:54:23 [id number] [facility] [address] [facility] [address] [place] [address] 02/14/2021 00:00:00 02/14/2021 10:16:24 [id number] [facility] [place] [address], [place] [address] 03/12/2021 00:00:00 03/12/2021 08:19:14 [id number] [facility] [address] [address] 07/12/2021 00:00:00 07/12/2021 10:35:49 [id number] [facility] [place] [place] [address], [place] [address] 09/05/2021 00:00:00 09/05/2021 15:14:47 [id number] [facility] [address] [place] [address] 10/24/2021 00:00:00 10/30/2021 16:41:50 [id number] [facility] [address] [place] [address] 12/24/2021 00:00:00 12/24/2021 14:51:46 [id number] [facility] [address] [place] [address] 01/09/2022 00:00:00 01/09/2022 11:39:55 [id number] [facility] [address] [place] [address] 01/23/2022 00:00:00 01/23/2022 12:43:57 [id number] [facility] [address] [place] [address] 03/15/2022 00:00:00 03/15/2022 09:40:53 [id number] MIKHAIL Montez [facility] [address] [place] [address] 12/09/2022 14:06:53 12/09/2022 15:04:56 History of left total knee replacement [id number] Z96.652 Health Concerns Section Related Observation LastModified by Organization Detai ls LastModified Time None Recorded Concern Status LastModified by Organization Details LastModified Time None Recorded Advance Directives Directive N: Payers Encounter Date Sequence Insurance Name Policy Number Policy Deal Covered Member ID Deal Member ID Guarantor Name 12/09/2022 1 [employer] (MEDICARE REPLACEMENT HMO) [id number] Gautam Lao [id number] Gautam Lao OBGyn Episode No OBEpisode recorded.
--- OUTSIDE RECORDS SUMMARY | 2024-04-19 14:42 | XMS_ITS | Referral Summary ---
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
--- OUTSIDE RECORDS SUMMARY | 2024-04-19 14:42 | XMS_ITS | Clinical Summary ---
Author Organization [facility] Address [address] [address] Phone Care Team Providers Care Asset Management Analyst Name Role Phone Sylvie Olea Radha CHRISTENSEN Primary Care Provider [phone] Leonel Garcia DO Unavailable [phone] Allergies No known active allergies Medications losartan (COZAAR) 25 MG Tablet Take 25 mg by mouth daily. Active Multiple Vitamin (MULTI VITAMIN DAILY PO) Take 1 Tab by mouth daily. Active metFORMIN (GLUCOPHAGE) 500 MG Tablet Take 500 mg by mouth 2 times daily (with meals). Active pantoprazole (PROTONIX) 40 MG Tablet Delayed Response Take 40 mg by mouth 2 times daily. Active raloxifene (EVISTA) 60 MG Tablet Take 60 mg by mouth daily. Active meloxicam (MOBIC) 7.5 MG Tablet Take 7.5 mg by mouth daily. Active montelukast (SINGULAIR) 10 MG Tablet Take 10 mg by mouth every evening. Active [place]-3 Fatty Acids (OMEGA-3 FISH OIL PO) Take 1 Tab by mouth 2 times daily. Active calcium 600 MG Tablet Take 1,200 mg by mouth daily. Active Immunizations Immunization Administration Dates Next Due Covid-19, Mrna, Lnp-s, PF, 1 00 mcg/0.5 mL Dose (Moderna) 06/18/2020,05/21/2020,05/14/2020 Family History Medical History Relation Name Comments Cervical Cancer Mother Colon Cancer Other Uncle Breast Cancer Sister Relation Name Status Comments Mother Other Sister Social History Tobacco Use Types Packs/Day Years Used Date Smoking Tobacco: Former Cigarettes 1.5 20 1 04/07/1979 - 02/05/2000 Smokeless Tobacco: Never Alcohol Use Standard Drinks/Week Comments Yes 0 (1 standard drink = 0.6 oz pur e alcohol) Comments Unknown Sex and Gender Information Value Date Recorded Sex Assigned at Not on file Legal Sex Female 10:32 PM CDT Gender Identity Not on file Sexual Orientation Not on file Plan of Treatment Health Maintenance Due Date Last Done Comments DEXA Bone Density 1950 Hepatitis C Virus (HCV) Screening 1950 Mammogram 1989 Cologuard 10/21/1999 Immunochemical Fecal Occult Blood 10/21/1999 Zoster Immunization (2 of 3) 11/18/2013 09/23/2013 Pneumococcal Immunization (50+ years) (2 of 2 - PPSV23) 03/25/2020 03/25/2019, 02/01/2008 Influenza Immunization (#1) 2023 03/25/2019 SARS-COV-2 Immunization ( season) 2023 03/12/2021, 06/18/2020, 05/21/2020, Additional history exists Respiratory Syncytial Virus (RSV) Immunization (Adult) (1 - 1-dose 75+ series) 2024 Colonoscopy 04/13/2025 04/13/2020, 12/26/2011 Colorectal Cancer Screening 04/13/2025 04/13/2020, 12/26/2011 DTaP/Tdap/Td Immunization Discontinued 03/11/2018, 09/2015 TdaP Immunization Completed 03/11/2018, 06/08/2015 Pneumococcal Immunization Combined Discontinued 03/25/2019, 02/01/2008 Hepatitis B Immunization Aged Out No longer eligible based on patient's age to complete this topic Meningococcal Immunization (ACWY) Aged Out No longer eligible based on patient's age to complete this topic Rotavirus Immunization Aged Out No lo nger eligible based on patient's age to complete this topic Procedures Procedure Name Priority Date/Time Associated Diagnosis Comments COLONOSCOPY Routine 04/13/2020 from Last 3 Months or Most Recently Relevant to Health Maintenance Results * COLONOSCOPY (04/13/2020) Leonel Garcia DO PROCEDURE/MINOR SURGICAL ORDERA BLES Final Result from Last 3 Months or Most Recently Relevant to Health Maintenance Insurance MEDICARE [facility] Care Teams Asset Management Analyst Relationship Specialty Start Date End Date Sylvie Olea APRN PCP - General Advanced Practice Nurse 01/22/16 Leonel Garcia DO Gastroenterology 02/05/16
== END 2024-04-19 12:13 | disposition home or self-care (01) ==
LOC: ANHLAB 12:13
PROVIDERS: PCP Family Medicine; Visit Provider Physician Assistant Medical
DX: R53.83 Other fatigue (principal); Z20.822 Contact with and (suspected) exposure to COVID-19
CPT/HCPCS: 87637

== ENCOUNTER 2024-04-28 12:23 | Outpatient (CLI) | payer OTHER, SELFPAY ==
--- NOTE | ~2024-04-28 | XR_ITS ---
CHEST RADIOGRAPH, PA AND LATERAL CLINICAL HISTORY: R05.9 - Cough, unspecified . COMPARISON: Reference is made to a CT examination of the chest dated 04/08/2018 TECHNIQUE: PA and lateral views of the chest. FINDINGS The cardiomediastinal silhouette is unremarkable. Redemonstration of a left upper lobe nodule measuring 17.5 x 16 mm. As per prior history this nodule was previously biopsied yielding benign results. The remainder of the lungs are clear. IMPRESSION: No focal infiltrate or effusion, as detailed above. If clinical suspicion persists, cross-sectional imaging (noncontrast enhanced CT examination of the c hest) is suggested for further evaluation. Reviewed, dictated and finalized at location A. ATOR CONTROL TRAPPER IMPRESSION: No focal infiltrate or effusion, as detailed above. If clinical suspicion persists, cross-sectional imaging (noncontrast enhanced C T examination of the chest) is suggested for further evaluation.
== END 2024-04-28 12:24 | disposition home or self-care (01) ==
PROVIDERS: PCP Family Medicine; Visit Provider Physician Assistant Medical
DX: J10.1 Influenza due to other identified influenza virus with other respiratory manifestations (principal)
CPT/HCPCS: 71046

== ENCOUNTER 2024-06-10 08:27 | Outpatient (CLI) | payer MEDICARE, SELFPAY ==
--- OUTSIDE RECORDS SUMMARY | 2024-06-10 08:31 | XMS_ITS | Clinical Summary ---
Author Organization [facility] Address [address] [facility] [place] [address] Phone Care Team Providers Care Redye Hand Name Role Phone Maty Valladares MD Primary Care Provider [phone] Allergies Active Allergy Reactions Criticality Noted Date [...] Encounters Date Type Department Care Team Description 05/19/2024 External Device Data [facility] ABSTRACTION Provider, Abstract 05/08/2024 External Device Data [facility] ABSTRACTION Provider, Abstract 05/07/2024 External Device Data [facility] ABSTRACTION Provider, Abstract 05/04/2024 External Device Data [facility] ABSTRACTION Provider, Abstract 04/20/2024 External Device Data [facility] AB[facility]CTION Provider, Abstract 03/25/2024 External Device Data [facility] ABSTRACTION Provider, Abstract 03/23/2024 External Device Data [facility] AB[facility]CTION Provider, Abstract 03/16/2024 External Device Data [facility] ABSTRACTION Provider, Abstract from Last 3 Months Family History Medical [...] VACCINES (1 - Tdap) 1968 PNEUMOCOCCAL VACCINE 50+ YEA RS (1 of 2 - PCV) 1968 COLORECTAL SCREENING 1994 Colorectal Cancer Screening 1994 FIT-DNA Q 3 years 1994 FIT/FOBT Q 1 year 1994 Flex Sig/CT Colonography Q 5 years 1994 ZOSTER VACCINE (1 of 2) 10/21/1999 DIABETES HBA1C Q 6 MONTHS 06/08/20202019, 08/12/2019, 03/26/2019, Additional history exists BREAST CANCER SCREENING 09/19/2020 09/20/2019 INFLUENZA VACCINE (#1) 2023 04/01/2019 COVID-19 Vaccine (3 - 2023-2 5 season) 2023 06/18/2020, 05/21/2020 RSV VACCINE (60+ or ) (1 - 1-dose 75+ series) 2024 OSTEOPOROSIS SCREENING Completed 09/20/2019 Insurance Care Teams Redye Hand Relationship Specialty Start Date End Date Maty Valladares MD PCP - General Family Practice 11/06/22
--- OUTSIDE RECORDS SUMMARY | 2024-06-10 08:31 | XMS_ITS | Clinical Summary ---
Author Organization [facility] Address [address] [place] [id number] Care Team Providers Care Grey Goods Marker Name Role Phone Unavailable Primary Care Provider [...] of 1 - PCV) 2014 COVID-19 Vaccine ( - 2023-2 5 season) 2023 RSV Immunization or 60+ Years (1 [...]
--- OUTSIDE RECORDS SUMMARY | 2024-06-10 08:32 | XMS_ITS | CONTINUITY OF CARE DOCUMENT ---
Author Name gustavo gustavo Address Unknown Organization [facility] Address [id number] [place] [address] [address] [place] [address] Phone [phone] Care Team Providers Care Retail Sales Professional Name Role Phone Angy KING, Kenan Unavailable DEBBIE MARCIAL MD Unavailable [phone] DEBBIE MARCIAL MD Unavailable INSURANCE PROVIDERS Payer name Policy type / Coverage type [place] red democrat ID [employer] Commercial insurance compan y [place] MED[place] Medicare [id number]
--- OUTSIDE RECORDS SUMMARY | 2024-06-10 08:32 | XMS_ITS | Clinical Summary ---
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
--- OUTSIDE RECORDS SUMMARY | 2024-06-10 08:32 | XMS_ITS | Referral Summary ---
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 HMO/PPO Address: [address] [address] [place] [address] MEDICARE MEDICARE [employer] SENIOR SUPPLEMENT Care Teams Rn Community Health Relationship Specialty Start Date End Date Sylvie Olea NP PCP - General Nurse Practitioner 10/31/17
--- OUTSIDE RECORDS SUMMARY | 2024-06-10 08:32 | XMS_ITS | Clinical Summary ---
Author Organization [facility] Address [address] [address] Phone Care Team Providers Care Statistical Typist Name Role Phone Sylvie Olea Radha CHRISTENSEN Primary Care Provider [phone] Leonel Garcia DO Unavailable [phone] Allergies No known active allergies Medications [...] 10 mg by mouth every evening. Active [place]-3 Fatty Acids (OMEGA-3 FISH OIL PO) Take [...] Recently Relevant to Health Maintenance Insurance MEDICARE [facility] Care Teams Statistical Typist Relationship Specialty Start Date End Date Sylvie Olea APRN PCP - General Advanced Practice Nurse 01/22/16 Leonel Garcia DO Gastroenterology 02/05/16
--- OUTSIDE RECORDS SUMMARY | 2024-06-10 08:32 | XMS_ITS | Data Portability ---
Author Organization [place] - [facility] [place], Main Office Address [address] [place] [address] Care Team Providers Care Student Services Advisor Name Role Phone GÓMEZ OBRIEN Primary Care Provider GÓMEZ OBRIEN Referring Provider [phone] Assessment Encounter Date Assessment Date Assessment LastModified [...] patient more than half of this in [id number] conversation Not available 12/09/2022 15:00:01 Plan of Treatment Reminders Order Date Submit Date Provider Last Modified By Organization Details Last Modified Time Details Appointments None record ed. Lab None record ed. Referral None record ed. Procedures None record ed. Surgeries None record ed. Imaging XR, knee 023 12/10/19 23 [email or web address] [facility] [place], [facility] [facility] [address], [place], [address], 15:04:57 Medication Orders None record ed. Patient TargetsNo targets recorded. Patient InstructionsNo instructions recorded. Reason for Referral None Reported. Results Created Date Observation Date Name Description Value Unit Range Abnormal Flag Note LastModifiedBy Organization Detail LastModifiedTime 12/01/19 22 11/30/2021 TYPE AND SCREE N patient ABO group and Rh O positi ve Not Available [facility] (Lab) [address] [place], [address], 11/30/2021 12:39:01 12/01/19 22 11/30/2021 TYPE AND SCREE N patient antibody screen negati ve Not Available [facility] (Lab) [address] [place], [address], 11/30/2021 12:39:01 12/01/19 22 11/30/2021 HEMOG LOBIN A1C HA1C 6.3 % 4.0-6. 0 high Diabe charles Scree tiffany Crite humza: <5.7% Consi stent with absen ce of diabe charles 5.7-6 .4% Consi stent with incre ased risk for diabe charles (pred iabet es) >OR=6 .5% Consi stent with diabe charles REFER ENCE: Diabe charles Care 2016, 39(Foss ppl.1 ):s13 -s22 Not Available [facility] (Lab) [address] [place], [address], 11/30/2021 11:08:52 12/01/1911/30/2021 BASIC METAB OLIC PANEL carbon dioxide 29 mmol/ L - Not Available [facility] (Lab) [address] [place], [address], 11/30/2021 09:58:53 12/01/1911/30/2021 BASIC METAB OLIC PANEL GFR >60 Refer ence Range : [place] ge GFR Healt hy Adult : >60 [...] s/kdo qi/gf r_cal culat or Not Available [facility] (Lab) [address] [place], [address], 11/30/2021 09:58:53 12/01/192022 BASIC METAB OLIC PANEL calcium 9.9 mg/dL 8.4-10 .2 Not Available [facility] (Lab) [address] [place], [address], 11/30/2021 09:58:53 12/01/19 22 11/30/2021 BASIC METAB OLIC PANEL sodium 137 mmol/ L 137-14 5 Not Available [facility] (Lab) [address] [place], [address], 11/30/2021 09:58:53 12/01/19 22 11/30/2021 BASIC METAB OLIC PANEL potassium 5.1 mmol/ L 3.5-5. 1 Not Available [facility] (Lab) [address] [place], [address], 11/30/2021 09:58:53 12/01/19 22 11/30/2021 BASIC METAB OLIC PANEL chloride 101 mmol/ L 98-107 Not Available [facility] (Lab) [address] [place], [address], 11/30/2021 09:58:53 12/01/19 22 11/30/2021 BASIC METAB OLIC PANEL anion gap 12.1 mmol/ L 14-22 low Not Available [facility] (Lab) [address] [place], [address], 11/30/2021 09:58:53 12/01/19 22 11/30/2021 BASIC METAB OLIC PANEL glucose 154 mg/dL 70-99 high Not Available [facility] (Lab) [address] [place], [address], 11/30/2021 09:58:53 12/01/19 22 11/30/2021 BASIC METAB OLIC PANEL BUN 20 mg/dL 8-19 high Not Available [facility] (Lab) [address] [place], [address], 11/30/2021 09:58:53 09/30/20 22 11/30/2021 BASIC METAB OLIC PANEL creatinine 0.87 mg/dL 0.66-1 .25 Not Available [facility] (Lab) [address] [place], [address], 11/30/2021 09:58:53 12/01/19 22 11/30/2021 CBC/C OMPLE TE BLD COUNT W/DIF F mean red cell volume 88.1 fL 82.0-9 9.0 Not Available [facility] (Lab) [address] [place], [address], 11/30/2021 09:40:37 12/01/19 22 11/30/2021 CBC/C OMPLE TE BLD COUNT W/DIF F white blood cells 5.5 x10'3 /uL 4.2-10 .8 Not Available [facility] (Lab) [address] [place], [address], 11/30/2021 09:40:37 12/01/19 22 11/30/2021 CBC/C OMPLE TE BLD COUNT W/DIF F red blood cells 4.55 x10'6 /uL 3.80-5 .20 Not Available [facility] (Lab) [address] [place], [address], 11/30/2021 09:40:37 12/01/19 22 11/30/2021 CBC/C OMPLE TE BLD COUNT W/DIF F hemoglobin 12.6 g/dL 12.0-1 5.6 Not Available [facility] (Lab) [address] [place], [address], 11/30/2021 09:40:37 12/01/19 22 11/30/2021 CBC/C OMPLE TE BLD COUNT W/DIF F hematocrit 40.1 % 35.7-4 5.7 Not Available [facility] (Lab) [address] [place], [address], 11/30/2021 09:40:37 12/01/19 22 11/30/2021 CBC/C OMPLE TE BLD COUNT W/DIF F mean red cell hemoglobin 27.7 pg 27.0-3 3.0 Not Available [facility] (Lab) [address] [place], [address], 11/30/2021 09:40:37 12/01/19 22 11/30/2021 CBC/C OMPLE TE BLD COUNT W/DIF F mean RBC HGB concentratio n 31.4 g/dL 31.0-3 6.0 Not Available [facility] (Lab) [address] [place], [address], 11/30/2021 09:40:37 12/01/19 22 11/30/2021 CBC/C OMPLE TE BLD COUNT W/DIF F red cell distribution width 13.4 % 11.8-1 5.5 Not Available [facility] (Lab) [address] [place], [address], 11/30/2021 09:40:37 12/01/19 22 11/30/2021 CBC/C OMPLE TE BLD COUNT W/DIF F platelets 318 x10'3 /uL 150-40 0 Not Available [facility] (Lab) [address] [place], [address], 11/30/2021 09:40:37 12/01/19 22 11/30/2021 CBC/C OMPLE TE BLD COUNT W/DIF F mean platelet volume 10.3 fL 9.0-12 .4 Not Available [facility] (Lab) [address] [place], [address], 11/30/2021 09:40:37 12/01/19 22 11/30/2021 CBC/C OMPLE TE BLD COUNT W/DIF F neutrophils 60.6 % 39.0-7 2.0 Not Available [facility] (Lab) [address] [place], [address], 11/30/2021 09:40:37 12/01/19 22 11/30/2021 CBC/C OMPLE TE BLD COUNT W/DIF F lymphocytes 25.7 % 16.0-4 7.0 Not Available [facility] (Lab) [address] [place], [address], 11/30/2021 09:40:37 12/01/19 22 11/30/2021 CBC/C OMPLE TE BLD COUNT W/DIF F immature granulocytes 0.2 % 0.00-0 .50 Not Available [facility] (Lab) [address] [place], [address], 11/30/2021 09:40:37 12/01/19 22 11/30/2021 CBC/C OMPLE TE BLD COUNT W/DIF F monocytes 8.2 % 5.0-12 .0 Not Available [facility] (Lab) [address] [place], [address], 11/30/2021 09:40:37 12/01/19 22 11/30/2021 CBC/C OMPLE TE BLD COUNT W/DIF F eosinophils 4.0 % 1.0-7. 0 Not Available [facility] (Lab) [address] [place], [address], 11/30/2021 09:40:37 12/01/19 22 11/30/2021 CBC/C OMPLE TE BLD COUNT W/DIF F basophils 1.3 % 0.0-2. 0 Not Available [facility] (Lab) [address] [place], [address], 11/30/2021 09:40:37 12/01/19 22 11/30/2021 CBC/C OMPLE TE BLD COUNT W/DIF F neutrophils, absolute count 3.35 x10'3 /uL 1.5-8. 0 Not Available [facility] (Lab) [address] [place], [address], 11/30/2021 09:40:37 12/01/19 22 11/30/2021 CBC/C OMPLE TE BLD COUNT W/DIF F lymphocytes, absolute count 1.42 x10'3 /uL 1.07-3 .43 Not Available [facility] (Lab) [address] [place], [address], 11/30/2021 09:40:37 12/01/19 22 11/30/2021 CBC/C OMPLE TE BLD COUNT W/DIF F monocytes, absolute count 0.45 x10'3 /uL 0.29-0 .99 Not Available [facility] (Lab) [address] [place], [address], 11/30/2021 09:40:37 12/01/19 22 11/30/2021 CBC/C OMPLE TE BLD COUNT W/DIF F eosinophils, absolute count 0.22 x10'3 /uL 0.02-0 .53 Not Available [facility] (Lab) [address] [place], [address], 11/30/2021 09:40:37 12/01/19 22 11/30/2021 CBC/C OMPLE TE BLD COUNT W/DIF F basophils, absolute count 0.07 x10'3 /uL 0.01-0 .08 Not Available [facility] (Lab) [address] [place], [address], 11/30/2021 09:40:37 12/01/19 22 11/30/2021 CBC/C OMPLE TE BLD COUNT W/DIF F immature granulocytes ,absolute 0.01 x10'3 /uL 0.00-0 .05 Not Available [facility] (Lab) [address] [place], [address], 11/30/2021 09:40:37 12/01/19 22 11/30/2021 CBC/C OMPLE TE BLD COUNT W/DIF F nucleated red blood cells 0.0 % -0 Not Available [facility] (Lab) [address] [place], [address], 11/30/2021 09:40:37 12/01/19 22 11/30/2021 CBC/C OMPLE TE BLD COUNT W/DIF F NRBC# 0.00 x10'3 /uL Not Available [facility] (Lab) [address] [place], [address], 11/30/2021 09:40:37 12/11/19 22 12/10/2021 SARS- COV-2 [...] y: Real- Time RT-PC R Not Available [facility] (Lab) [address] [place], [address], 12/10/2021 11:35:31 10/1112/11/2021 GLUCO SE (POIN T OF CARE) glucose (point of care) 103 mg/dL 74-99 high Not Available [facility] (Lab) [address] [place], [address], 12/11/2021 16:08:49 12/12/19 22 12/11/2021 GLUCO SE (POIN T OF CARE) glucose (point of care) 138 mg/dL 74-99 high Not Available [facility] (Lab) [address] [place], [address], 12/11/2021 09:35:04 12/13/1912/12/2021 BASIC METAB OLIC PANEL chloride 104 mmol/ L 98-107 Not Available [facility] (Lab) [address] [place], [address], 12/12/2021 08:27:46 12/13/1912/12/2021 BASIC METAB OLIC PANEL creatinine 0.71 mg/dL 0.66-1 .25 Not Available [facility] (Lab) [address] [place], [address], 12/12/2021 08:27:46 12/13/1912/12/2021 BASIC METAB OLIC PANEL GFR >60 Refer ence Range : [place] ge GFR Healt hy Adult : >60 [...] s/kdo qi/gf r_cal culat or Not Available [facility] (Lab) [address] [place], [address], 12/12/2021 08:27:46 12/13/1912/12/2021 BASIC METAB OLIC PANEL calcium 8.4 mg/dL 8.4-10 .2 Not Available [facility] (Lab) [address] [place], [address], 12/12/2021 08:27:46 12/13/19 22 12/12/2021 BASIC METAB OLIC PANEL sodium 132 mmol/ L 137-14 5 low Not Available [facility] (Lab) [address] [place], [address], 12/12/2021 08:27:46 12/13/19 22 12/12/2021 BASIC METAB OLIC PANEL potassium 4.6 mmol/ L 3.5-5. 1 Not Available [facility] (Lab) [address] [place], [address], 12/12/2021 08:27:46 12/13/19 22 12/12/2021 BASIC METAB OLIC PANEL carbon dioxide 28 mmol/ L 22-30 Not Available [facility] (Lab) [address] [place], [address], 12/12/2021 08:27:46 12/13/19 22 12/12/2021 BASIC METAB OLIC PANEL anion gap 4.6 mmol/ L 14-22 low Not Available [facility] (Lab) [address] [place], [address], 12/12/2021 08:27:46 12/13/1912/12/2021 BASIC METAB OLIC PANEL glucose 198 mg/dL 70-99 high Not Available [facility] (Lab) [address] [place], [address], 12/12/2021 08:27:46 12/13/1912/12/2021 BASIC METAB OLIC PANEL BUN 15 mg/dL 8-19 Not Available [facility] (Lab) [address] [place], [address], 12/12/2021 08:27:46 12/13/1912/12/2021 CBC W/O DIFFE RENTI AL platelets 235 x10'3 /uL 150-40 0 Not Available [facility] (Lab) [address] [place], [address], 12/12/2021 07:51:59 12/13/1912/12/2021 CBC W/O DIFFE RENTI AL white blood cells 6.4 x10'3 /uL 4.2-10 .8 Not Available [facility] (Lab) [address] [place], [address], 12/12/2021 07:51:59 12/13/1912/12/2021 CBC W/O DIFFE RENTI AL red blood cells 3.40 x10'6 /uL 3.80-5 .20 low Not Available [facility] (Lab) [address] [place], [address], 12/12/2021 07:51:59 12/13/1912/12/2021 CBC W/O DIFFE RENTI AL hemoglobin 9.3 g/dL 12.0-1 5.6 low Not Available [facility] (Lab) [address] [place], [address], 12/12/2021 07:51:59 12/13/1912/12/2021 CBC W/O DIFFE RENTI AL hematocrit 30.2 % 35.7-4 5.7 low Not Available [facility] (Lab) [address] [place], [address], 12/12/2021 07:51:59 12/13/1912/12/2021 CBC W/O DIFFE RENTI AL mean red cell volume 88.8 fL 82.0-9 9.0 Not Available [facility] (Lab) [address] [place], [address], 12/12/2021 07:51:59 12/13/1912/12/2021 CBC W/O DIFFE RENTI AL mean red cell hemoglobin 27.4 pg 27.0-3 3.0 Not Available [facility] (Lab) [address] [place], [address], 12/12/2021 07:51:59 12/13/1912/12/2021 CBC W/O DIFFE RENTI AL mean RBC HGB concentratio n 30.8 g/dL 31.0-3 6.0 low Not Available [facility] (Lab) [address] [place], [address], 12/12/2021 07:51:59 12/13/1912/12/2021 CBC W/O DIFFE RENTI AL red cell distribution width 13.3 % 11.8-1 5.5 Not Available [facility] (Lab) [address] [place], [address], 12/12/2021 07:51:59 12/13/1912/12/2021 CBC W/O DIFFE RENTI AL mean platelet volume 11.5 fL 9.0-12 .4 Not Available [facility] (Lab) [address] [place], [address], 12/12/2021 07:51:59 09/30/20 22 11/30/2021 XR, chest , [facility] [address], [place] [address] Araceli esteban Name: GAUTAM GEOREG Access ion #: [id number] Sex: F : 1950 0 Locati [...] bony thorax . Page 1 of 2 [facility] Araceli t Name: GAUTAM GEORGE Access ion #: [id number] Sex: F : 1950 0 Exam [...] 8:50 AM (CT) Page 2 of 2 [id number] [facility] (Imaging) [address] [place], [address], 05/01/2022 03:10:56 12/12/19 22 12/11/2021 XR, knee, 1 or 2 view [facility] [address] [place] [address] [phone] Patien t Name: GAUTAM GEORGE Access ion #: [id number] Sex: F : 1950 8 Locati [...] compli cation . Page 1 of 2 [facility] Patien t Name: GAUTAM GEORGE Access ion #: [id number] Sex: F : 1950 8 Exam Date: 2021 8:56 AM Exam Name: XR KNEE LT 2V Admitt ing Diagno sis(es ): Create d and electr onical ly signed by: Lev cali MD Signed Date: 2021 4:05 PM (CT) Dictat ed by: Lev cali MD DD: 2021 4:05 PM (CT) DT: 2021 4:05 PM (CT) Page 2 of 2 [id number] [facility] (Imaging) [address] [place], [address], 05/01/2022 03:10:56 12/12/1912/11/2021 XR, knee, 3 view No observ ation record ed. [id number] [facility] Add On Lab Orders [address] [place], [address], 05/01/2022 03:10:56 01/24/20 XR, knee No observ ation record ed. [id number] [facility] [place] [address], [place], [address], 05/01/2022 03:10:56 12/10/19 XR, knee No observ ation record ed. [facility] [place] [address] [facility] [address], [place], [address], 12/09/2022 14:55:58 Result Notes None recorded. Problems Name Problem SNOMED Code Status Onset Date Resolution Date Notes Provider Name and Address Organization Details Recorded Time Acute abdominal pain 845324751 Completed Not Available [facility] 3 02:56:57 Disorder of shoulder 361862710 Completed Not Available [facility] 3 02:56:57 Pain in throat 479281747 Completed Not Available [facility] 3 02:56:58 Partial thickness rotator cuff tear 307395268 Active Not Available [facility] 3 02:56:58 Spasm of back muscles 210984679 Completed Not Available [facility] 3 02:56:58 Abdominal pain 77683354 Completed Not Available [facility] 3 02:56:58 Abdominal distensio n, gaseous 703501857 Completed Not Available [facility] 3 02:56:58 Tendernes s over frontal sinus 025185009 Completed Not Available [facility] 3 02:56:58 Vitamin D deficienc y 84712340 Active Not Available [facility] 3 02:56:58 Depressiv e disorder 25914870 Active Not Available [facility] 3 02:56:58 Lesion of ulnar nerve 765266237 Active Not Available [facility] 3 02:56:58 Sinusitis 84405265 Completed Not Available [facility] 3 02:56:58 Arthritis 5403626 Active Not Available [facility] 3 02:56:59 Disorder of vitamin D 699538786 Completed Not Available [facility] 3 02:56:59 Osteoarth ritis 399015740 Active Not Available [facility] 3 02:56:59 Loose stool 709449578 Completed Not Available [facility] 3 02:56:59 Type 2 diabetes mellitus 43249539 Active Not Available [facility] 3 02:56:59 Seasonal allergy 164121642 Active Not Available [facility] 3 02:56:59 Pain of left knee joint 88197634079 4107 Active 2021 Not Available [facility] 3 02:56:59 Foot pain 47896142 Completed Not Available [facility] 3 02:57:00 Upper respirato ry infection 96681748 Completed Not Available [facility] 3 02:57:00 Carpal tunnel syndrome 85269770 Active Not Available [facility] 3 02:57:00 Essential hypertens ion 28599198 Active Not Available [facility] 3 02:57:00 Diabetes mellitus 91479886 Completed 201608/28/2020 Not Available [facility] 3 02:57:00 Sleep apnea 10240388 Active [address] [facility] 3 02:57:00 Posterior rhinorrhe a 61673618 Completed Not Available [facility] 3 02:57:00 Epigastri c pain 97793112 Completed Not Available [facility] 3 02:57:01 Fatigue 64442580 Active Not Available [facility] 3 02:57:01 Weight gain 4869670 Completed Not Available [facility] 3 02:57:01 Problem Notes None recorded. Procedures Surgical History Date Name Laterality Status Provider Name and Address Organization Details Recorded Time 09/18/19 22 bone density scan completed Not Available [facility] 05/01/2022 02:46:36 04/13/19 21 Date of Last Colonoscopy completed Not Available [facility] 05/01/2022 02:46:31 04/13/19 21 Colonoscopy completed Not Available [facility] 05/02/19 23 02:46:36 09/20/19 20 Most Recent Mammogram completed Not Available [facility] 05/01/2022 02:46:31 01/21/20 14 Date of Last Pap Smear completed Not Available [facility] 05/01/2022 02:46:31 03/03/18 90 BOW MAKER Surgery completed Not Available [facility] 05/02/19 02:46:36 Imaging Results Imaging Date Name Status LastModified by Organiz ation Details LastModified Time 01/23/2022 XR, knee completed [id number] 26 [facility] [place] [address], [place], [address], 05/01/2022 03:10:56 11/30/2021 XR, chest, 2 view completed [id number] [address] [facility] (Imaging) [address] [place], [address], 05/01/2022 03:10:56 12/11/2021 XR, knee, 1 or 2 view completed [id number] [address] [facility] (Imaging) [address] [place], [address], 05/01/2022 03:10:56 12/11/2021 XR, knee, 3 view completed [id number] 26 [facility] Add On Lab Orders [address], [place], [address], 05/01/2022 03:10:56 12/09/2022 XR, knee completed [facility] [address], [place], [address], 12/09/2022 14:55:58 Procedure Notes None recorded. Medical Equipment None Reported. Allergies Allergen ID Allergen Name Allergen Category Reaction Reaction Severity Criticality Documentation Date Start Date Code Code System Note Provider Name and Address Organization Details Recorded Time 5367 Arthrotec medicatio n nausea Not available Not available 05/01/2022 46620 UNK [facility] Available [facility] 03:10:22 Medications Name Sig Start [...] administ ered by the provider 09/05 completed [facility]: [id number] 06-20 Not Available Not Available Not [...] completed Not Available Not Available Not Available Patient Education SystemsTouch Ultra2 Meter kit USE DIRECTED 12/02 completed [...] Updated DateTime 12/09/2022 163.83 cm 27.9 kg/m2 22086.74 g Violeta SUJEY Ibrahim [facility] 12/09/2022 14:28:20 Date Recorded Body mass index (BMI) Body height Oxygen saturation Oxygen saturation in Arterial blood by Pulse oximetry Heart rate Body temperature Body weight Systolic blood pressure Diastolic blood pressure Provider Name and Address Organization Details Last Updated DateTime 3 27.1 kg/m2 162.56 cm 98 % 98 % 101 /min 97.1 [degF] 17214.5 9 g 148 mm[Hg] 86 mm[Hg] Not Available [facility] 3 02:52:47 Date Recorded Body height Provider Name an d Address Organization Details Last Updated DateTime 12/24/2021 162.56 cm Not Available [facility] 3 02:52:50 Date Recorded Body height Provider Name an d Address Organization Details Last Updated DateTime 01/09/2022 162.56 cm Not Available [facility] 3 02:52:50 Date Recorded Body height Provider Name an d Address Organization Details Last Updated DateTime 01/23/2022 162.56 cm Not Available [facility] 3 02:52:50 Social History Question Answer Notes LastModified by Organizat ion Details LastModified Time Tobacco Smoking Status Former [facility] 12/09/2022 14:09:15 Do You Have An Advance Directive? No [id number] Information not available 05/01/2022 What Is Your Level Of Alcohol Consumption? Occasional [id number] Information not available 05/01/2022 Are You Blind Or Do You Have Difficulty Seeing? No [email or web address] Information not available 12/09/2022 What Is Your Level Of Caffeine Consumption? Moderate [id number] Information not available 05/01/2022 In The 14 Days Before Symptom Onset, Have You Had Close Contact With A Laboratory-confir med COVID-19 While That Case Was Ill? No [email or web address] Information not available 12/09/2022 In The 14 Days Before Symptom Onset, Have You Had Close Contact With A Person Who Is Under Investigation For COVID-19 While That Person Was Ill? No Information not available 12/09/2022 Are You Deaf Or Do You Have Serious Difficulty Hearing? No Information not available 12/09/2022 What Type Of Diet Are You Following? REGULAR [id number] Information not available 05/01/2022 Which Illicit Or Recreational Drugs Have You Used? 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 No [email or web address] Information no t available 12/09/2022 What Is The Fluoride Status Of Your Home? Unknown [email or web address] Information not available 12/09/2022 Do You Use Insect Repellent Routinely? Yes [email or web address] Information not available 12/09/2022 Where Do You Live? SingleLevelHouse [email or web address] Information not available 12/09/2022 Do You Have A Medical Power Of Director Of Government Sales? No [email or web address] Information not available 12/09/2022 What Was The Date Of Your Most Recent Tobacco Screening? 09/04/2021 [email or web address] Information not available 12/09/2022 Do You Use Your Seat Belt Or Car Seat Routinely? Yes [email or web address] Information not available 12/09/2022 Do You Have Smoke And Carbon Monoxide Detectors In Your Home? Yes Information not available 12/09/2022 Do You Feel Stressed (tense, Restless, Nervous, Or Anxious, Or Unable To Sleep At Night)? [id number] [email or web address] Information not available 12/09/2022 Do You Use Sunscreen Routinely? Yes [email or web address] Information not available 12/09/2022 Has Tobacco Cessation Counseling Been Provided? No [email or web address] Information not available 12/09/2022 Do You Have Any Dietary Restrictions? No [email or web address] Information not available 12/09/2022 Do You Or Have You Ever Used Any Other Forms Of Tobacco Or Nicotine? No [email or web address] Information not available 12/09/2022 Sex: Unknown Functional Status Question Answer Note LastModified by Organizat ion Details LastModified Time Do you have difficulty walking or climbing stairs? No Information not available 12/09/2022 Do you have transportation difficulties? No [email or web address] Information not available 12/09/2022 Are you able to walk? YESWOREST [email or web address] Information not available 12/09/2022 Do you have difficulty doing errands alone? No [email or web address] Information not available 12/09/2022 Are you able to care for yourself? Yes [email or web address] Information n ot available 12/09/2022 Do you have difficulty dressing or bathing? No [email or web address] Information not available 12/09/2022 What is your exercise level? Moderate walks [id number] Information not available 05/01/2022 Mental Status Question Answer Note LastModified by Organization D etails LastModified Time Do you have difficulty concentrating, remembering or making decisions? No [email or web address] Information no t available 12/09/2022 Family History Relationship Description Onset Age of this Age Resolved Age Notes LastModified by Organization Details LastModified Time Mother Malignant tumor of cervix [email or web address] Not available 12/09 14:09:14 Mother Heart disease [email or web address] [id number] Not available 05/01/2022 02:46:43 Mother Hypertensive disorder [email or web address] [id number] Not available 05/01/2022 02:46:43 Mother Diabetes mellitus [email or web address] [id number] Not available 05/01/2022 02:46:43 Daughter Malignant tumor of cervix [email or web address] Not available 12/09 14:09:14 Sister Malignant tumor of breast [email or web address] Not available 12/09 14:09:14 Father Heart disease [id number] Not available 05/01/2022 02:46:43 Father Diabetes mellitus [email or web address] [id number] Not available 05/01/2022 02:46:43 Notes:no new Medical History Condition Response BLINDNESS N KIDNEY STONES N MRSA N CARPAL TUNNEL SYNDROME N LUNG DISEASE/DISORDER N HISTORY OF DRUG ABUSE N RADIATION / CHEMOTHERAPY N COPD N SPORTS INJURY N ANKLE PAIN N BLOOD DISEASES N SCHIZOPHRENIA N SHINGLES N SHOULDER PAIN N DEPRESSION (INCLUDING POST ) N BOWEL PROBLEMS N STROKE/TIA N ULCERS Y KNEE PAIN N BENIGN PROSTATIC HYPERPLASIA N OBESITY N GERD/NAUSEA N ANEURYSM N URINARY/BLADDER/KIDNEY PROBLEMS N CORONARY ARTERY DISEASE (CAD) N ADDICTION CONCERNS N USE OF BLOOD THINNERS N SKIN PROBLEMS N EMPHYSEMA N MUSCLE,JOINT OR BONE PROBLEMS N DVT N STOMACH ULCERS N BLOOD CLOTS N USE OF NSAIDS N CONCUSSION OR SPINAL TRAUMA N NEUROPATHY N AIDS/HIV N FRACTURES N HYPERTENSION Y ELBOW PAIN N TOURETTE'S N Metal allergy N ANXIETY DISORDER N BLOOD TRANSFUSION N ANEMIA/BLOOD DISORDER N BIPOLAR DISORDER N BRONCHITIS N OSTEOARTHRITIS N TUBERCULOSIS N FOOT PROBLEM N HEART VALVE DISORDERS N ALLERGIES/HAYFEVER N SOFT TISSUE INJURY N INFECTIOUS DISEASE N HEART ARRHYTHMIA N INSOMNIA N HIGH CHOLESTEROL / HYPERLIPIDEMIA N RHEUMATOID ARTHRITIS N EDEMA N CHRONIC PAIN SYNDROME N CAROTID BLOCKAGE N BACK / NECK PROBLEMS N HAVE YOU BEEN HOSPITALIZED OR SEEN IN [facility] IN THE PAST YEAR ? N BURSITIS N HERNIATED DISC N DIALYSIS N FIBROMYALGIA N OSTEOPOROSIS Y ARTHRITIS Y NO SIGNIFICANT PAST MEDICAL HISTORY N PERIPHERAL NEUROPATHY N DIABETES, TYPE Y HEARTBURN / REFLUX N HEPATITIS / LIVER DISEASE N GOUT N ALZHEIMER'S DISEASE N SLEEP DISORDER N HERPES N HEADACHES/MIGRAINES N SEIZURES/EPILEPSY N VASCULAR DISEASE N Blood Disorder N HIP PAIN N DIZZINESS N HEAD TRAUMA OR INJURY N HEART DISEASE/HEART PROBLEMS N MULTIPLE SCLEROSIS N CANCER: SPECIFY N CARDIAC ARRHYTHMIA N ANESTHESIA COMPLICATIONS N ATRIAL FIBRILLATION N [...] 50 mcg/0.25mL dose [address] [facility] 05/01/2022 03:10:01 COVID-19, mRNA, LNP-S, PF, 100 mcg/0.5mL dose or 50 mcg/0.25mL dose [address] [facility] 05/01/2022 03:10:01 Tdap [address] [facility] 05/01/2022 03:10:01 pneumococcal, unspecified formulation [address] [facility] 05/01/2022 03:10:01 Influenza, high-dose, quadrivalent, PF [address] [facility] 05/01/2022 03:10:01 Influenza, high-dose, trivalent, PF [address] [facility] 05/01/2022 03:10:01 Pneumococcal conjugate PCV [address] [facility] 05/01/2022 03:10:02 zoster live [address] [facility] 05/01/2022 03:10:02 Past Encounters Encounter ID Performer Location Encounter Start Date Encounter Closed Date Diagnosis/Indication Diagnosis SNOMED-CT Code Diagnosis ICD10 Code Diagnosis Note [id number] _DANIEL_M IGRATION_ DEFAULT_1 _1 , 05/30/2020 00:00:00 05/30/2020 10:54:49 [id number] [facility] Jose fish [facility] [place] [address] 06/20/2020 00:00:00 06/20/2020 13:49:30 [id number] [facility] Grover abe [facility] [place] [address] [address] 09/12/2020 00:00:00 09/12/2020 10:15:47 [id number] [facility] [address] [place] [address] 09/22/2020 00:00:00 09/22/2020 16:27:24 [id number] [facility] [place] [address] [address] 12/20/2020 00:00:00 12/21/2020 12:54:23 [id number] [facility] [address] [place] [address] 02/14/2021 00:00:00 02/14/2021 10:16:24 [id number] [facility] Jose llkarely [facility] [place] [address] [address] 03/12/2021 00:00:00 03/12/2021 08:19:14 [id number] [facility] [place] [address] [place] [place] [address] 07/12/2021 00:00:00 07/12/2021 10:35:49 [id number] [facility] [address] [facility] y Rojas Sorensen [facility] [address] 09/05/2021 00:00:00 09/05/2021 15:14:47 [id number] [facility] [address] [place] [address] 10/24/2021 00:00:00 10/30/2021 16:41:50 [id number] [facility] [address] [place] [address] 12/24/2021 00:00:00 12/24/2021 14:51:46 [id number] [facility] [place] [address] [facility] [address] [place] [address] 01/09/2022 00:00:00 01/09/2022 11:39:55 [id number] [facility] [place] [address] [facility] [address] [place] [address] 01/23/2022 00:00:00 01/23/2022 12:43:57 [id number] [facility] Primary Care [facility] [address] [place] [address] 03/15/2022 00:00:00 03/15/2022 09:40:53 [id number] MIKHAIL Montez [facility] [address] [facility] [address] [place] [address] 12/09/2022 14:06:53 12/09/2022 15:04:56 History of left total knee replacement [id number] Z96.652 Health Concerns Section Related Observation LastModified by Organization Detai ls LastModified Time None Recorded Concern Status LastModified by Organization Details LastModified Time None Recorded Advance Directives Directive N: Payers Encounter Date Sequence Insurance Name Policy Number Policy Deal Covered Member ID Deal Member ID Guarantor Name 12/09/2022 1 [facility] (MEDICARE REPLACEMENT HMO) [id number] Gautam Lao [id number] Gautam Lao OBGyn Episode No OBEpisode recorded.
--- NOTE | 2024-06-10 08:44 | ECG_ITS ---
Test Date: 2024-06-10 08:53:48 Measurements Intervals [place] Rate: 68 P: 64 ID: [id number] QRS: 68 QRSD: 100 T: 70 QT: 390 QTc: 418 Interpretive Statements SINUS RHYTHM POSSIBLE LEFT ATRIAL ENLARGEMENT INCOMPLETE RIGHT BUNDLE BRANCH BLOCK MINIMAL Q WAVES- ANTEROLATERAL LEADS BASELINE ARTIFACT- V5 BORDERLINE ECG No previous ECG available for comparison Electronically Signed On 06-10-2024 09:51:00 CDT by Jason Montague D.O.
[2024-06-10 09:03] LABS: Hematocrit 42.5 % (37.0-47.0); Hemoglobin 13.6 g/dL (12.0-15.0); Mean Corpuscular Hemoglobin 29.2 pg (26-34); Mean Corpuscular Volume 91.4 fl (80-100); Mean Platelet Volume 10.3 fl (7.4-10.4); Platelet Count Result 334 k/mm3 (150-375); Red Blood Count 4.65 M/mm3 (4.2-5.4); Red Cell Distribution Width 13.2 % (11.5-14.5); White Blood Count 6.4 K/mm3 (4.5-10.0)
[2024-06-10 10:50] LABS: LDL Cholesterol Direct 81 mg/dL
[2024-06-10 11:20] LABS: Alanine Aminotransferase 22 U/L (6-35); Albumin Level 4.4 g/dL (3.5-5.1); Alkaline Phosphatase 80 U/L (38-126); Anion Gap 10 mmol/L (4-12); Aspartate Amino Transferase 24 U/L (14-36); Bilirubin,Total 0.3 mg/dL (0.2-1.3); Blood Urea Nitrogen 16 mg/dL (7-17); Calcium 9.3 mg/dL (8.4-10.2); Carbon Dioxide 27 mmol/L (22-30); Chloride 104 mmol/L (98-107); Cholesterol 185 mg/dL (0-200); Estimated Glomerular Filt Rate > 60; Glucose 149 mg/dL (65-110); HDL Direct 68 mg/dL; Potassium 4.7 mmol/L (3.4-5.0); Sodium 141 mmol/L (137-145); Triglycerides 79 mg/dL (<150)
[2024-06-10 17:52] LABS: Hemoglobin A1C 6.6 % (<5.7)
== END 2024-06-10 08:28 | disposition home or self-care (01) ==
PROVIDERS: PCP Family Medicine; Referring Provider Anesthesiology; Visit Provider Family Medicine
DX: Z01.818 Encounter for other preprocedural examination (principal); I45.10 Unspecified right bundle-branch block; I49.9 Cardiac arrhythmia, unspecified; I10 Essential (primary) hypertension; E11.9 Type 2 diabetes mellitus without complications; K58.0 Irritable bowel syndrome with diarrhea; Z87.891 Personal history of nicotine dependence
CPT/HCPCS: 36415; 80053; 80061; 83036; 84443; 85027; 93005

== ENCOUNTER 2024-06-11 00:51 | Day surgery (SDC) | payer MEDICARE, SELFPAY ==
[2024-06-09 10:17] VITALS: BMI 27.1
--- NOTE | 2024-06-09 10:31 | PC.NURSE ---
Report to the Outpatient Waiting Room, entrance under the green pavilion located off [facility], at time __0600am on date __06/11/24 . Planned Procedure Time: __0730am .? Time changes happen often and if your time is changed the preop area will call you the afternoon before. - You and your visitor will be asked to self-screen and do not enter if you have any COVID symptoms. Please call surgeon if you need to reschedule. - A mask is optional within the hospital at this time. - No food & Liquids after midnight until time of surgery and no smoking, or chewing tobacco (or any form of nicotine). No chewing gum, candy or mints. Take only the following medications with a SIP of water on the morning of surgery: ____Tylenol if needed. DO NOT STOP ANY OF YOUR OTHER PRESCRIPTION MEDICATIONS PRIOR TO SURGERY EXCEPT THE FOLLOWING Hold all vitamins and supplements for 3 days per anesthesiologist. Date to take dose 06/07/24 Medications to discontinue per physician None Date to take last dose None Please no make-up, nail chinese, hairspray, perfume, deodorant, or body powder the day of surgery.? No jewelry (including any body piercings) or valuables the day of surgery, leave them at home.? Please take a shower or bath the night before, or the morning of, surgery with an antibacterial soap.? Wear comfortable, loose fitting clothing.? Children are encouraged to wear pajamas. - Jewelry must be removed prior to entering the operating room.? Rings and piercings that are not removed may be cut off. - The hospital will not accept responsibility for valuables.? - Please leave all valuables, including medications, at home the day of surgery. If you are going home after surgery, a licensed septic pump truck driver must drive you home.? - NO public transportation without another adult if you receive anesthesia. - We recommend that an adult stay with you for 24 hours following discharge. - We also recommend that you do not drive, make important decision, drink alcoholic beverages, or take any drugs that were not prescribed by your health care provider for at least 24 hours after your discharge time. Follow any additional instructions given to you from your surgeon. Telephone instructions given to __Patient and asked if any additional questions and then verbalized understanding. Patient advised to call surgeon office or pre surgery nurse liaison [phone] if any additional questions.
[2024-06-11] VITALS (7 sets, daily range): BP systolic 151–170; BP diastolic 51–65; PULSE 58–74; RESP 16–18; TEMP 36.6–36.8; O2SAT 98–100
--- NOTE | ~2024-06-11 | XR_ITS ---
EXAMINATION: XR surgery orthopedic DATE: 06/11/2024 08:08 INDICATION: Left fifth digit fracture closed reduction and pinning TECHNIQUE: 3 fluoroscopic images of the left fifth digit were obtained during procedure performed by Dr. Booker. Radiologist was not present for the imaging or procedure. The amount of fluoroscopy t milton used during this procedure was 0.8 minutes. Total DAP was 3.37 cGycm^2. COMPARISON: 06/04/2024 FINDINGS: Interval reduction and percutaneous pin fixation of an oblique extra articular diaphyseal fracture of the fifth proximal phalanx which is now in near-anatomic alignment. Fractures fixed with an axially directed pin extending across the head of the fifth metacarpal and through the length of the proximal phalanx. There is a second transversely oriented pin extending across the distal diaphysis. No new f ractures identified. Mild osteoarthritis at the visualized interphalangeal joints. IMPRESSION: 1. Anatomic alignment post reduction and percutaneous pin fixation Reviewed, dictated and finalized at location B.
--- OUTSIDE RECORDS SUMMARY | 2024-06-11 01:02 | XMS_ITS | CONTINUITY OF CARE DOCUMENT ---
Author Name gustavo gustavo Address Unknown Organization [facility] Address [address] [place] [address] [address] [place] [address] Phone [phone] Care Team Providers Care Sports Agent Name Role Phone Angy KNIG, Kenan Unavailable DEBBIE MARCIAL MD Unavailable DEBBIE MARCIAL MD Unavailable INSURANCE PROVIDERS Payer name Policy type / Coverage type [place] red republican ID [id number] Commercial insurance compan y [place] MED[place] [id number]
--- OUTSIDE RECORDS SUMMARY | 2024-06-11 01:02 | XMS_ITS | Clinical Summary ---
Author Organization [facility] Address [address] [facility] [place] [address] Phone Care Team Providers Care Scorer Helper Name Role Phone Maty Valladares MD Primary Care Provider [phone] Allergies Active Allergy Reactions Criticality Noted Date [...] OSTEOPOROSIS SCREENING Completed 09/20/2019 Insurance Care Teams Scorer Helper Relationship Specialty Start Date End Date Maty Valladares MD PCP - General Family Practice 11/06/22
--- OUTSIDE RECORDS SUMMARY | 2024-06-11 01:02 | XMS_ITS | Clinical Summary ---
Author Organization [facility] Address [address] [place] [address] Care Team Providers Care Autographer Name Role Phone Unavailable Primary Care Provider [...]
--- OUTSIDE RECORDS SUMMARY | 2024-06-11 01:02 | XMS_ITS | Clinical Summary ---
Author Organization [facility] Address [address] [address] Phone Care Team Providers Care Senior Credit Officer Name Role Phone Sylvie Olea Radha CHRISTENSEN Primary Care Provider [phone] Leonel Garcia DO Unavailable [phone] Allergies No known active allergies Medications [...] 10 mg by mouth every evening. Active [place]-3 Fatty Acids (OMEGA-3 FISH OIL PO) Take [...] Recently Relevant to Health Maintenance Insurance MEDICARE [facility] Care Teams Senior Credit Officer Relationship Specialty Start Date End Date Sylvie Olea APRN PCP - General Advanced Practice Nurse 01/22/16 Leonel Garcia DO Gastroenterology 02/05/16
--- OUTSIDE RECORDS SUMMARY | 2024-06-11 01:02 | XMS_ITS | Clinical Summary ---
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
--- OUTSIDE RECORDS SUMMARY | 2024-06-11 01:02 | XMS_ITS | Referral Summary ---
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
[2024-06-11] MEDS: LACTATED RINGERS 1,000 ML 30 ML IV CONT (06:25)
[2024-06-11 06:35] LABS: Glucose Point of Care 130 mg/dl (65-105)
--- NOTE | 2024-06-11 07:06 | P.PNAN_ITS ---
Anes - Initial Pre Proc Eval Procedure: Operation Date: 06/11/24 07:30 Proposed Procedures p Left Small Finger Proximal Phalanx Closed Reduction and Pinning - Abdulaziz Booker MD Date/Time: 06/11/24 07:06 Surgeon: Abdulaziz Booker MD Pre Op Diagnosis: Fx proximal phalanx left little finger Patient Data Age: 73 Gender: F Height: 1.65 m Weight: 72.5 kg Last Vital Signs Temp 36.6 C 06/11/24 06:05 Pulse 73 06/11/24 06:05 Resp 18 06/11/24 06:05 BP 152/58 H 06/11/24 06:05 Pulse Ox 98 06/11/24 06:05 O2 Del Method Room Air 06/11/24 06:05 Allergies Allergy/AdvReac Type Severity Reaction Status Date / Time doxycycline AdvReac Vomiting Verified 06/11/24 06:10 Home Medications ?Medication ?Instructions ?Recorded ?Confirmed ?Type Adult One Daily Multivitamin 1 tablet PO DAILY 03/23/20 06/11/24 History calcium carbonate 1,200 mg PO DAILY 08/01/20 06/11/24 History aspirin 81 mg tablet 81 mg PO DAILY 08/25/20 06/11/24 History ferrous sulfate 324 mg (65 mg See Rx Instructions .Route 02/14/23 06/11/24 Rx iron) tablet,delayed release .COMPLEX #180 tabs blood sugar diagnostic (OneTouch #100 ea 04/16/23 06/09/24 Rx Ultra Test strips) blood-glucose meter (OneTouch #1 ea 04/16/23 06/09/24 Rx Ultra2 Meter) metformin 500 mg tablet 500 mg PO BID 08/18/23 06/11/24 History pantoprazole 40 mg tablet,delayed 40 mg PO QAM #90 tabs 10/01/23 06/11/24 Rx release colestipol 1 gram tablet See Rx Instructions .Route 01/30/24 06/11/24 Rx .COMPLEX #180 tabs azelastine 137 mcg (0.1 %) nasal See Rx Instructions .Route 04/20/24 06/11/24 Rx spray .COMPLEX #30 mL irbesartan 300 mg tablet See Rx Instructions .Route 05/25/24 06/11/24 Rx .COMPLEX #90 tabs acetaminophen 500 mg tablet 1,000 mg PO Q6H PRN pain 06/09/24 06/09/24 History (Tylenol Extra Strength) Laboratory Tests 06/11/24 06:28 POC Capillary Glucose 130 H mg/dl (65-105) Patient hx anesthesia problems: none Family hx anesthesia problems: none Results Review: All pre-operative results and documents have been reviewed as part of the pre- operative evaluation. [facility] Past Medical History Medical History Right bundle branch block Heart murmur Abdominal bruit Decrease in appetite Early satiety Mid back pain Postprandial epigastric pain NIC (iron deficiency anemia) Irregular heart rhythm Hx of gastric ulcer Overweight (BMI 25.0-29.9) Diabetes Osteoarthritis Chronic GERD KULDEEP (obstructive sleep apnea) HTN (hypertension) Surgical History Surgical History History of hysterectomy History of total right knee replacement History of Fifi fundoplication History of appendectomy History of cholecystectomy Family History Family History Other Diabetes mellitus Heart disease Hypertension Social History Social History Social History: Smoking packs per day: 1 Smoking cigarettes per day: 20.0 Years smoked: 22 Smoking pack-years: 22.00 Smoking status: Former smoker Tobacco type: cigarettes Second hand tobacco smoke exposure: No Smoking end date: 03/03/99 Alcohol intake: current Alcohol use details: 1 per few months Substance use: never Substance use type: does not use Do You Feel Safe in your Home?: Yes Lack of Transportation: No Lack of Food: Never True Current Housing: I Have Housing Concerned About Future Housing: No Difficulty Paying Gas/Electric Bills: No Difficulty Paying for Meds: No Currently Unemployed: No Education: High School Diploma/GED Difficulty w/ Childcare or Family Care: No Living arrangements: with family Additional living arrangements comments: Occupation/Education: retired Gender identity (if verbalized by the patient): Female Sexual Orientation (if Verbalized by the Patient): Straight or Heterosexual Spiritual care concerns: No Anes - Eval Final PreProcedure Day of Procedure 04/11/25 07:06 Patient weight: overweight Heart: regular rate and rhythm Lungs: clear to auscultation Airway: Mallampati scale class II Neurological: alert and oriented Last oral intake: >/= 8 hours ASA classification: III Emergent: no Anesthetic plan: proceed Anesthesia type and monitoring: general LMA and standard monitoring Results Review: All pre-operative results and documents have been reviewed as part of the pre- operative evaluation. Informed Consent: The patient's anesthetic plan and its attendant risks and benefits were discussed with the patient/family/POA. Questions were solicited and answers provided to the satisfaction of the patient/family/POA.
--- NOTE | 2024-06-11 07:06 | P.HPUP_ITS ---
History and Physical Update Update Date/Time: 06/11/24 07:06 Patient seen and examined in pre-operative holding area. No interval change in medical history or symptoms. Patient recalls previous discussion of benefits and alternatives to procedure. Continues to desire to proceed with left small finger proximal finger closed reduction and pinning . Reviewed procedure, post- op expectations and risks including but not limited to bleeding, infection, injury to tendon/nerve/vessel, decreased hand function, stiffness, RSD, no change or worsening of symptoms, maluniion, nonunion. I discussed the possible use of assistants and their participation in the case. Patient stated understa nding and signed the consent form wishing to proceed.
--- NOTE | 2024-06-11 07:07 | W.PM.PROC2 ---
Procedure Note - Detailed Date of Procedure 06/11/24 Pre-op Diagnosis Fx proximal phalanx left little finger Post-op Diagnosis Same Procedure Performed INFORMED CONSENT: The patient was seen and examined and marked in the pre-op area.? The patient signed the consent form. PROCEDURE IN DETAIL:The patient taken back to OR on the stretcher in supine position. Time out performed with anesthesia, surgeon and staff agreeing on patient's name site and surgery to be performed SCDs were placed on the lower extremities and inflated. A tourniquet was placed on {left} upper extremity and antibiotics given IV After anesthesia administered sedation I injected {7}cc 1%lido and 0.5% marcaine plain at the operative site The?{left upper extremity}?was prepped and draped in sterile fashion the??{left upper extremity} was? exsanguinated with Esmarch bandage and tourniquet inflated to 250mmHg The mini c-arm was draped and brought into the field and fracture evalauted on multiple views. I was able to achieve improved reduction of the proximal phalanx fracture and proceeded with place a 0.045 k-wire inanterograde fashion down the fracture site and then a 0.035 k-wire in a radial to ulnar direction across the two fragements. This second k-wire was brought out of the skin on the ulnar aspect. Multiple views of fluoro verified pin placement and reasonable reduction of the fracture. There was no scissoring of the digit and normal resting cascade. the extensor tendons were not restricted on range of motion. The pins were shortened appropriately. A betadine soaked alcohol swab was placed around pins followed by 4x4, desirae, and ulnar gutter splint secured with an christine bandage after the tourniquet was let down noting the hand was warm and well perfused. The patient was then awaken from anesthesia and transferred to the recovery room in stable condition.? Complications - none EBL- 0cc Disposition - home in stable conditions Surgeon Abdulaziz Booker MD Anesthesia MAC Description of Procedure crpp left small finger p1 fx [facility]G Billing Surgery - Charge Forward: Surgery Billing ([id number])
[2024-06-11] MEDS: ceFAZolin 2 GM/D5W 50 ML 2 GM/50 ML BAG IVPB (07:28)
[2024-06-11] MEDS: BUPivacaine HCL 0.5% 10 ML AMP INFILTRATE (07:45)
[2024-06-11] MEDS: LIDOCAINE 1% LOCAL INJ 10 ML VIAL INFILTRATE (07:46)
[2024-06-11 08:33] LABS: Glucose Point of Care 138 mg/dl (65-105)
== END 2024-06-11 09:33 | disposition home or self-care (01) ==
PROVIDERS: PCP Family Medicine; Visit Provider Plastic Surgery
PROC: (CPT 26608; principal; 2024-06-11 07:30)
DX: S62.617A Displaced fracture of proximal phalanx of left little finger, initial encounter for closed fracture (principal); I10 Essential (primary) hypertension; E11.9 Type 2 diabetes mellitus without complications; D50.9 Iron deficiency anemia, unspecified; K21.9 Gastro-esophageal reflux disease without esophagitis; G47.33 Obstructive sleep apnea (adult) (pediatric); R01.1 Cardiac murmur, unspecified; I45.10 Unspecified right bundle-branch block; I49.9 Cardiac arrhythmia, unspecified; M19.90 Unspecified osteoarthritis, unspecified site; W22.8XXA Striking against or struck by other objects, initial encounter; Z79.82 Long term (current) use of aspirin; Z79.84 Long term (current) use of oral hypoglycemic drugs; Z98.890 Other specified postprocedural states; Z90.49 Acquired absence of other specified parts of digestive tract; Z87.891 Personal history of nicotine dependence; Z87.11 Personal history of peptic ulcer disease; Z82.49 Family history of ischemic heart disease and other diseases of the circulatory system
CPT/HCPCS: 26608; 82948; 99199; A9270; C1713; J0690; J1100; J2003; J2004; J2405; J2704; J3010; J7120

== ENCOUNTER 2024-06-14 08:45 | Outpatient (CLI) | payer MEDICARE, SELFPAY ==
--- NOTE | ~2024-06-14 | MM_ITS ---
EXAMINATION: MM screening zandra BI w fabian HISTORY: Screening TECHNIQUE: Craniocaudal and mediolateral oblique 3-D tomosynthesis images were obtained and synthetic 2-D images were generated. CAD analysis was submitted and interpreted. COMPARISON: Comparison to multiple prior studies sequentially, with oldest reviewed study dated 03/31. BREAST PARENCHYMAL COMPOSITION: Not dense: There are scattered areas of fibroglandular density. FINDINGS: There is no evidence of suspicious mass, calcification, or architectural distortion to sugg est malignancy in either breast. There has been no suspicious interval change. IMPRESSION: 1. No mammographic evidence of malignancy. 2. Recommend routine screening mammography in one year. BI-RADS Category 1: Negative Reviewed, dictated and finalized at location B.
--- OUTSIDE RECORDS SUMMARY | 2024-06-14 09:06 | XMS_ITS | Clinical Summary ---
Author Organization [facility] Address [address] [place] [address] Care Team Providers Care Ear Flap Binder Name Role Phone Unavailable Primary Care Provider [...] 10/21/1999 Dexa Scan (General) 2014 Pneumococcal Vaccine: 50+ Ye ars (1 of 1 - PCV) [...]
--- OUTSIDE RECORDS SUMMARY | 2024-06-14 09:07 | XMS_ITS | CONTINUITY OF CARE DOCUMENT ---
Author Name gustavo gustavo Address Unknown Organization [facility] Address [address] [place] [address] [address] [place] [address] Phone [phone] Care Team Providers Care Plisse Machine Operator Helper Name Role Phone Angy KING, Kenan Unavailable DEBBIE MARCIAL MD Unavailable DEBBIE MARCIAL MD Unavailable INSURANCE PROVIDERS Payer name Policy type / Coverage type [place] red green party ID [employer] [employer] Commercial insurance compan y [place] MED[place] [id number]
--- OUTSIDE RECORDS SUMMARY | 2024-06-14 09:07 | XMS_ITS | Data Portability ---
Author Organization [place] [facility] [employer], Main Office Address [address] [place] [address] Care Team Providers Care Cable Engineer Name Role Phone GÓMEZ OBRIEN Primary Care Provider GÓMEZ OBRIEN Referring Provider Assessment Encounter Date Assessment Date Assessment LastModified [...] patient more than half of this in elgu-ox-keuf conversation Not available 12/09/2022 15:00:01 Plan of Treatment Reminders Order Date Submit Date Provider Last Modified By Organization Details Last Modified Time Details Appointments None record ed. Lab None record ed. Referral None record ed. Procedures None record ed. Surgeries None record ed. Imaging XR, knee 023 12/10/19 23 [email or web address] [facility] [place] [facility] [address], [place], [address], 15:04:57 Medication Orders None record ed. Patient TargetsNo targets recorded. Patient InstructionsNo instructions recorded. Reason for Referral None Reported. Results Created Date Observation Date Name Description Value Unit Range Abnormal Flag Note LastModifiedBy Organization Detail LastModifiedTime 12/01/19 22 11/30/2021 TYPE AND SCREE N patient ABO group and Rh O positi ve Not Available [facility] (Lab) [address] [place], [address], 11/30/2021 12:39:01 12/01/19 22 11/30/2021 TYPE AND SCREE N patient antibody screen negati ve Not Available [facility] (Lab) [address] [place], [address], 11/30/2021 12:39:01 12/01/19 22 11/30/2021 HEMOG LOBIN A1C HA1C 6.3 % 4.0-6. 0 high Diabe charles Scree tiffany Crite humza: <5.7% Consi stent with absen ce of diabe charles 5.7-6 .4% Consi stent with incre ased risk for diabe charles (pred iabet es) >OR=6 .5% Consi stent with diabe charles REFER ENCE: Diabe charles Care 2016, 39(Foss ppl.1 ):s13 -s22 Not Available [facility] (Lab) [address] [place], [address], 11/30/2021 11:08:52 12/01/1911/30/2021 BASIC METAB OLIC PANEL carbon dioxide 29 mmol/ L - Not Available [facility] (Lab) [address] [place], [address], 11/30/2021 09:58:53 12/01/1911/30/2021 BASIC METAB OLIC PANEL GFR >60 Refer ence Range : Downey ge GFR Healt hy Adult : >60 [...] s/kdo qi/gf r_cal culat or Not Available [facility] (Lab) [address] [place], [address], 11/30/2021 09:58:53 12/01/192022 BASIC METAB OLIC PANEL calcium 9.9 mg/dL 8.4-10 .2 Not Available [facility] (Lab) [address] [place], [address], 11/30/2021 09:58:53 12/01/19 22 11/30/2021 BASIC METAB OLIC PANEL sodium 137 mmol/ L 137-14 5 Not Available [facility] (Lab) [address] [place], [address], 11/30/2021 09:58:53 12/01/19 22 11/30/2021 BASIC METAB OLIC PANEL potassium 5.1 mmol/ L 3.5-5. 1 Not Available [facility] (Lab) [address] [place], [address], 11/30/2021 09:58:53 12/01/19 22 11/30/2021 BASIC METAB OLIC PANEL chloride 101 mmol/ L 98-107 Not Available [facility] (Lab) [address] [place], [address], 11/30/2021 09:58:53 12/01/19 22 11/30/2021 BASIC METAB OLIC PANEL anion gap 12.1 mmol/ L 14-22 low Not Available [facility] (Lab) [address] [place], [address], 11/30/2021 09:58:53 12/01/19 22 11/30/2021 BASIC METAB OLIC PANEL glucose 154 mg/dL 70-99 high Not Available [facility] (Lab) [address] [place], [address], 11/30/2021 09:58:53 12/01/19 22 11/30/2021 BASIC METAB OLIC PANEL BUN 20 mg/dL 8-19 high Not Available [facility] (Lab) [address] [place], [address], 11/30/2021 09:58:53 09/30/20 22 11/30/2021 BASIC METAB OLIC PANEL creatinine 0.87 mg/dL 0.66-1 .25 Not Available [facility] (Lab) [address] [place], [address], 11/30/2021 09:58:53 12/01/19 22 11/30/2021 CBC/C OMPLE TE BLD COUNT W/DIF F mean red cell volume 88.1 fL 82.0-9 9.0 Not Available [facility] (Lab) [address] [place], [address], 11/30/2021 09:40:37 12/01/19 22 11/30/2021 CBC/C OMPLE TE BLD COUNT W/DIF F white blood cells 5.5 x10'3 /uL 4.2-10 .8 Not Available [facility] (Lab) [address] [place], [address], 11/30/2021 09:40:37 12/01/19 22 11/30/2021 CBC/C OMPLE TE BLD COUNT W/DIF F red blood cells 4.55 x10'6 /uL 3.80-5 .20 Not Available [facility] (Lab) [address] [place], [address], 11/30/2021 09:40:37 12/01/19 22 11/30/2021 CBC/C OMPLE TE BLD COUNT W/DIF F hemoglobin 12.6 g/dL 12.0-1 5.6 Not Available [facility] (Lab) [address] [place], [address], 11/30/2021 09:40:37 12/01/19 22 11/30/2021 CBC/C OMPLE TE BLD COUNT W/DIF F hematocrit 40.1 % 35.7-4 5.7 Not Available [facility] (Lab) [address] [place], [address], 11/30/2021 09:40:37 12/01/19 22 11/30/2021 CBC/C OMPLE TE BLD COUNT W/DIF F mean red cell hemoglobin 27.7 pg 27.0-3 3.0 Not Available [facility] (Lab) [address] [place], [address], 11/30/2021 09:40:37 12/01/19 22 11/30/2021 CBC/C OMPLE TE BLD COUNT W/DIF F mean RBC HGB concentratio n 31.4 g/dL 31.0-3 6.0 Not Available [facility] (Lab) [address] [place], [address], 11/30/2021 09:40:37 12/01/19 22 11/30/2021 CBC/C OMPLE TE BLD COUNT W/DIF F red cell distribution width 13.4 % 11.8-1 5.5 Not Available [facility] (Lab) [address] [place], [address], 11/30/2021 09:40:37 12/01/19 22 11/30/2021 CBC/C OMPLE TE BLD COUNT W/DIF F platelets 318 x10'3 /uL 150-40 0 Not Available [facility] (Lab) [address] [place], [address], 11/30/2021 09:40:37 12/01/19 22 11/30/2021 CBC/C OMPLE TE BLD COUNT W/DIF F mean platelet volume 10.3 fL 9.0-12 .4 Not Available [facility] (Lab) [address] [place], [address], 11/30/2021 09:40:37 12/01/19 22 11/30/2021 CBC/C OMPLE TE BLD COUNT W/DIF F neutrophils 60.6 % 39.0-7 2.0 Not Available [facility] (Lab) [address] [place], [address], 11/30/2021 09:40:37 12/01/19 22 11/30/2021 CBC/C OMPLE TE BLD COUNT W/DIF F lymphocytes 25.7 % 16.0-4 7.0 Not Available [facility] (Lab) [address] [place], [address], 11/30/2021 09:40:37 12/01/19 22 11/30/2021 CBC/C OMPLE TE BLD COUNT W/DIF F immature granulocytes 0.2 % 0.00-0 .50 Not Available [facility] (Lab) [address] [place], [address], 11/30/2021 09:40:37 12/01/19 22 11/30/2021 CBC/C OMPLE TE BLD COUNT W/DIF F monocytes 8.2 % 5.0-12 .0 Not Available [facility] (Lab) [address] [place], [address], 11/30/2021 09:40:37 12/01/19 22 11/30/2021 CBC/C OMPLE TE BLD COUNT W/DIF F eosinophils 4.0 % 1.0-7. 0 Not Available [facility] (Lab) [address] [place], [address], 11/30/2021 09:40:37 12/01/19 22 11/30/2021 CBC/C OMPLE TE BLD COUNT W/DIF F basophils 1.3 % 0.0-2. 0 Not Available [facility] (Lab) [address] [place], [address], 11/30/2021 09:40:37 12/01/19 22 11/30/2021 CBC/C OMPLE TE BLD COUNT W/DIF F neutrophils, absolute count 3.35 x10'3 /uL 1.5-8. 0 Not Available [facility] (Lab) [address] [place], [address], 11/30/2021 09:40:37 12/01/19 22 11/30/2021 CBC/C OMPLE TE BLD COUNT W/DIF F lymphocytes, absolute count 1.42 x10'3 /uL 1.07-3 .43 Not Available [facility] (Lab) [address] [facility] [place] [place], [address], 11/30/2021 09:40:37 12/01/19 22 11/30/2021 CBC/C OMPLE TE BLD COUNT W/DIF F monocytes, absolute count 0.45 x10'3 /uL 0.29-0 .99 Not Available [facility] (Lab) [address] [place], [address], 11/30/2021 09:40:37 12/01/19 22 11/30/2021 CBC/C OMPLE TE BLD COUNT W/DIF F eosinophils, absolute count 0.22 x10'3 /uL 0.02-0 .53 Not Available [facility] (Lab) [address] [place], [address], 11/30/2021 09:40:37 12/01/19 22 11/30/2021 CBC/C OMPLE TE BLD COUNT W/DIF F basophils, absolute count 0.07 x10'3 /uL 0.01-0 .08 Not Available [facility] (Lab) [address] [place], [address], 11/30/2021 09:40:37 12/01/19 22 11/30/2021 CBC/C OMPLE TE BLD COUNT W/DIF F immature granulocytes ,absolute 0.01 x10'3 /uL 0.00-0 .05 Not Available [facility] (Lab) [address] [place], [address], 11/30/2021 09:40:37 12/01/19 22 11/30/2021 CBC/C OMPLE TE BLD COUNT W/DIF F nucleated red blood cells 0.0 % -0 Not Available [facility] (Lab) [address] [place], [address], 11/30/2021 09:40:37 12/01/19 22 11/30/2021 CBC/C OMPLE TE BLD COUNT W/DIF F NRBC# 0.00 x10'3 /uL Not Available [facility] (Lab) [address] [place], [address], 11/30/2021 09:40:37 12/11/19 22 12/10/2021 SARS- COV-2 [...] provi ders and patie nts at the [facility] charles: https ://ww w.fda .gov/ media /1363 12/do wnloa d https ://ww w.fda .gov/ media /1363 13/do wnloa d https ://ww w.fda .gov/ media /1421 92/do wnloa d https ://ww w.fda .gov/ media /1421 91/do wnloa d Metho dolog y: Real- Time RT-PC R Not Available [facility] (Lab) [address] [place], [address], 12/10/2021 11:35:31 10/1112/11/2021 GLUCO SE (POIN T OF CARE) glucose (point of care) 103 mg/dL 74-99 high Not Available [facility] (Lab) [address] [place], [address], 12/11/2021 16:08:49 12/12/19 22 12/11/2021 GLUCO SE (POIN T OF CARE) glucose (point of care) 138 mg/dL 74-99 high Not Available [facility] (Lab) [address] [place], [address], 12/11/2021 09:35:04 12/13/1912/12/2021 BASIC METAB OLIC PANEL chloride 104 mmol/ L 98-107 Not Available [facility] (Lab) [address] [place], [address], 12/12/2021 08:27:46 12/13/1912/12/2021 BASIC METAB OLIC PANEL creatinine 0.71 mg/dL 0.66-1 .25 Not Available [facility] (Lab) [address] [place], [address], 12/12/2021 08:27:46 12/13/1912/12/2021 BASIC METAB OLIC PANEL GFR >60 Refer ence Range : Downey ge GFR Healt hy Adult : >60 [...] s/kdo qi/gf r_cal culat or Not Available [facility] (Lab) [address] [place], [address], 12/12/2021 08:27:46 12/13/1912/12/2021 BASIC METAB OLIC PANEL calcium 8.4 mg/dL 8.4-10 .2 Not Available [facility] (Lab) [address] [place], [address], 12/12/2021 08:27:46 12/13/19 22 12/12/2021 BASIC METAB OLIC PANEL sodium 132 mmol/ L 137-14 5 low Not Available [facility] (Lab) [address] [place], [address], 12/12/2021 08:27:46 12/13/19 22 12/12/2021 BASIC METAB OLIC PANEL potassium 4.6 mmol/ L 3.5-5. 1 Not Available [facility] (Lab) [address] [place], [address], 12/12/2021 08:27:46 12/13/19 22 12/12/2021 BASIC METAB OLIC PANEL carbon dioxide 28 mmol/ L 22-30 Not Available [facility] (Lab) [address] [place], [address], 12/12/2021 08:27:46 12/13/19 22 12/12/2021 BASIC METAB OLIC PANEL anion gap 4.6 mmol/ L 14-22 low Not Available [facility] (Lab) [address] [place], [address], 12/12/2021 08:27:46 12/13/1912/12/2021 BASIC METAB OLIC PANEL glucose 198 mg/dL 70-99 high Not Available [facility] (Lab) [address] [place], [address], 12/12/2021 08:27:46 12/13/1912/12/2021 BASIC METAB OLIC PANEL BUN 15 mg/dL 8-19 Not Available [facility] (Lab) [address] [place], [address], 12/12/2021 08:27:46 12/13/1912/12/2021 CBC W/O DIFFE RENTI AL platelets 235 x10'3 /uL 150-40 0 Not Available [facility] (Lab) [address] [place], [address], 12/12/2021 07:51:59 12/13/1912/12/2021 CBC W/O DIFFE RENTI AL white blood cells 6.4 x10'3 /uL 4.2-10 .8 Not Available [facility] (Lab) [address] [place], [address], 12/12/2021 07:51:59 12/13/1912/12/2021 CBC W/O DIFFE RENTI AL red blood cells 3.40 x10'6 /uL 3.80-5 .20 low Not Available [facility] (Lab) [address] [place], [address], 12/12/2021 07:51:59 12/13/1912/12/2021 CBC W/O DIFFE RENTI AL hemoglobin 9.3 g/dL 12.0-1 5.6 low Not Available [facility] (Lab) [address] [place], [address], 12/12/2021 07:51:59 12/13/1912/12/2021 CBC W/O DIFFE RENTI AL hematocrit 30.2 % 35.7-4 5.7 low Not Available [facility] (Lab) [address] [place], [address], 12/12/2021 07:51:59 12/13/1912/12/2021 CBC W/O DIFFE RENTI AL mean red cell volume 88.8 fL 82.0-9 9.0 Not Available [facility] (Lab) [address] [place], [address], 12/12/2021 07:51:59 12/13/1912/12/2021 CBC W/O DIFFE RENTI AL mean red cell hemoglobin 27.4 pg 27.0-3 3.0 Not Available [facility] (Lab) [address] [place], [address], 12/12/2021 07:51:59 12/13/1912/12/2021 CBC W/O DIFFE RENTI AL mean RBC HGB concentratio n 30.8 g/dL 31.0-3 6.0 low Not Available [facility] (Lab) [address] [place], [address], 12/12/2021 07:51:59 12/13/1912/12/2021 CBC W/O DIFFE RENTI AL red cell distribution width 13.3 % 11.8-1 5.5 Not Available [facility] (Lab) [address] [place], [address], 12/12/2021 07:51:59 12/13/1912/12/2021 CBC W/O DIFFE RENTI AL mean platelet volume 11.5 fL 9.0-12 .4 Not Available [facility] (Lab) [address] [place], [address], 12/12/2021 07:51:59 09/30/20 22 11/30/2021 XR, chest , [facility] [address], [place] [address] Araceli esteban Name: GAUTAM GEORGE Access ion #: [id number] Sex: F : 1950 0 Locati [...] bony thorax . Page 1 of 2 [facility] Araceli t Name: GAUTAM GEORGE Access ion #: [id number] Sex: F : 1950 0 Exam [...] 8:50 AM (CT) Page 2 of 2 [id number] [facility] (Imaging) [address] [place], [address], 05/01/2022 03:10:56 12/12/19 22 12/11/2021 XR, knee, 1 or 2 view [facility] [address] [place] [address] [phone] Patien t Name: GAUTAM GEORGE Access ion #: [id number] Sex: F : 1950 8 Locati [...] compli cation . Page 1 of 2 [facility] Patien t Name: GAUTAM GEORGE Access ion #: [id number] Sex: F : 1950 8 Exam Date: 2021 8:56 AM Exam Name: XR KNEE LT 2V Admitt ing Diagno sis(es ): Create d and electr onical ly signed by: Lev cali MD Signed Date: 2021 4:05 PM (CT) Dictat ed by: Lev cali MD DD: 2021 4:05 PM (CT) DT: 2021 4:05 PM (CT) Page 2 of 2 [id number] [facility] (Imaging) [address] [place], [address], 05/01/2022 03:10:56 12/12/1912/11/2021 XR, knee, 3 view No observ ation record ed. [id number] [facility] Add On Lab Orders [address] [place], [address], 05/01/2022 03:10:56 01/24/20 XR, knee No observ ation record ed. [id number] [facility] [place] [address], [place], [address], 05/01/2022 03:10:56 12/10/19 XR, knee No observ ation record ed. [facility] [place] [address], [place], [address], 12/09/2022 14:55:58 Result Notes None recorded. Problems Name Problem SNOMED Code Status Onset Date Resolution Date Notes Provider Name and Address Organization Details Recorded Time Acute abdominal pain 791633547 Completed Not Available [facility] 3 02:56:57 Disorder of shoulder 623708840 Completed Not Available [facility] 3 02:56:57 Pain in throat 588995563 Completed Not Available [facility] 3 02:56:58 Partial thickness rotator cuff tear 176862159 Active Not Available [facility] 3 02:56:58 Spasm of back muscles 952607988 Completed Not Available [facility] 3 02:56:58 Abdominal pain 21428609 Completed Not Available [facility] 3 02:56:58 Abdominal distensio n, gaseous 165489765 Completed Not Available [facility] 3 02:56:58 Tendernes s over frontal sinus 060513470 Completed Not Available [facility] 3 02:56:58 Vitamin D deficienc y 84198738 Active Not Available [facility] 3 02:56:58 Depressiv e disorder 27438162 Active Not Available [facility] 3 02:56:58 Lesion of ulnar nerve 902920898 Active Not Available [facility] 3 02:56:58 Sinusitis 19123345 Completed Not Available [facility] 3 02:56:58 Arthritis 6532848 Active Not Available [facility] 3 02:56:59 Disorder of vitamin D 015093878 Completed Not Available [facility] 3 02:56:59 Osteoarth ritis 284658100 Active Not Available [facility] 3 02:56:59 Loose stool 291194557 Completed Not Available [facility] 3 02:56:59 Type 2 diabetes mellitus 08976746 Active Not Available [facility] 3 02:56:59 Seasonal allergy 977518169 Active Not Available [facility] 3 02:56:59 Pain of left knee joint 32225402706 4107 Active 2021 Not Available [facility] 3 02:56:59 Foot pain 97874185 Completed Not Available [facility] 3 02:57:00 Upper respirato ry infection 30583539 Completed Not Available [facility] 3 02:57:00 Carpal tunnel syndrome 28475539 Active Not Available [facility] 3 02:57:00 Essential hypertens ion 61547315 Active Not Available [facility] 3 02:57:00 Diabetes mellitus 15119476 Completed 201608/28/2020 Not [address] [facility] 3 02:57:00 Sleep apnea 62895681 Active 2019 Not Available [facility] 3 02:57:00 Posterior rhinorrhe a 01903239 Completed Not Available [facility] 3 02:57:00 Epigastri c pain 53123177 Completed Not Available [facility] 3 02:57:01 Fatigue 66075343 Active Not Available [facility] 3 02:57:01 Weight gain 5150705 Completed Not Available [facility] 3 02:57:01 Problem Notes None recorded. Procedures Surgical History Date Name Laterality Status Provider Name and Address Organization Details Recorded Time 09/18/19 22 bone density scan completed Not Available [facility] 05/01/2022 02:46:36 04/13/19 21 Date of Last Colonoscopy completed Not Available [facility] 05/01/2022 02:46:31 04/13/19 21 Colonoscopy completed Not Available [facility] 05/02/19 23 02:46:36 09/20/19 20 Most Recent Mammogram completed Not Available [facility] 05/01/2022 02:46:31 01/21/20 14 Date of Last Pap Smear completed Not Available [facility] 05/01/2022 02:46:31 03/03/18 90 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, [place], [address], 05/01/2022 03:10:56 11/30/2021 XR, chest, 2 view completed [id number] [facility] (Imaging) [address] [place], [address], 05/01/2022 03:10:56 12/11/2021 XR, knee, 1 or 2 view completed [id number] [facility] (Imaging) [address] [place], [address], 05/01/2022 03:10:56 12/11/2021 XR, knee, 3 view completed [id number] [facility] On Lab Orders [address], [place], [address], 05/01/2022 03:10:56 12/09/2022 XR, knee completed [facility] [place] [address], [place], [address], 12/09/2022 14:55:58 Procedure Notes None recorded. Medical Equipment None Reported. Allergies Allergen ID Allergen Name Allergen Category Reaction Reaction Severity Criticality Documentation Date Start Date Code Code System Note Provider Name and Address Organization Details Recorded Time 5367 Arthrotec medicatio n nausea Not available Not available 05/01/2022 73394 UNK Not Available [facility] 03:10:22 Medications Name Sig Start Date Stop [...] administ ered by the provider 09/05 completed [facility]: [id number] 06-20 Not Available Not Available Not [...] completed Not Available Not Available Not Available [employer] Ultra2 Meter kit USE DIRECTED 12/02 completed [...] Updated DateTime 12/09/2022 163.83 cm 27.9 kg/m2 47246.74 g Violeta SUJEY Ibrahim [facility] [employer] [facility] 12/09/2022 14:28:20 Date Recorded Body mass index (BMI) Body height Oxygen saturation Oxygen saturation in Arterial blood by Pulse oximetry Heart rate Body temperature Body weight Systolic blood pressure Diastolic blood pressure Provider Name and Address Organization Details Last Updated DateTime 3 27.1 kg/m2 162.56 cm 98 % 98 % 101 /min 97.1 [degF] 08493.5 9 g 148 mm[Hg] 86 mm[Hg] Not Available [facility] 3 02:52:47 Date Recorded Body height Provider Name an d Address Organization Details Last Updated DateTime 12/24/2021 162.56 cm Not Available [facility] 3 02:52:50 Date Recorded Body height Provider Name an d Address Organization Details Last Updated DateTime 01/09/2022 162.56 cm Not Available [facility] 3 02:52:50 Date Recorded Body height Provider Name an d Address Organization Details Last Updated DateTime 01/23/2022 162.56 cm Not Available [facility] 3 02:52:50 Social History Question Answer Notes LastModified by Organizat ion Details LastModified Time Tobacco Smoking Status [facility] [employer] [facility] 12/09/2022 14:09:15 Do You Have An Advance Directive? No [id number] Information not available 05/01/2022 What Is Your Level Of Alcohol Consumption? Occasional [id number] Information not available 05/01/2022 Are You Blind Or Do You Have Difficulty Seeing? No [email or web address] Information not available 12/09/2022 What Is Your Level Of Caffeine Consumption? Moderate [id number] Information not available 05/01/2022 In The 14 Days Before Symptom Onset, Have You Had Close Contact With A Laboratory-confir med COVID-19 While That Case Was Ill? No [email or web address] Information not available 12/09/2022 In The 14 Days Before Symptom Onset, Have You Had Close Contact With A Person Who Is Under Investigation For COVID-19 While That Person Was Ill? No [email or web address] Information not available 12/09/2022 Are You Deaf Or Do You Have Serious Difficulty Hearing? No [email or web address] Information not available 12/09/2022 What Type Of Diet Are You Following? REGULAR [id number] Information not available 05/01/2022 Which Illicit Or Recreational Drugs Have You Used? 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 No [email or web address] Information no t available 12/09/2022 What Is The Fluoride Status Of Your Home? Unknown [email or web address] Information not available 12/09/2022 Do You Use Insect Repellent Routinely? Yes [email or web address] Information not available 12/09/2022 Where Do You Live? SingleLevelHouse [email or web address] Information not available 12/09/2022 Do You Have A Medical Power Of Precipitator? No [email or web address] Information not available 12/09/2022 What Was The Date Of Your Most Recent Tobacco Screening? 09/04/2021 [email or web address] Information not available 12/09/2022 Do You Use Your Seat Belt Or Car Seat Routinely? Yes [email or web address] Information not available 12/09/2022 Do You Have Smoke And Carbon Monoxide Detectors In Your Home? Yes [email or web address] Information not available 12/09/2022 Do You Feel Stressed (tense, Restless, Nervous, Or Anxious, Or Unable To Sleep At Night)? [id number] [email or web address] Information not available 12/09/2022 Do You Use Sunscreen Routinely? Yes [email or web address] Information not available 12/09/2022 Has Tobacco Cessation Counseling Been Provided? No Information not available 12/09/2022 Do You Have Any Dietary Restrictions? No [email or web address] Information not available 12/09/2022 Do You Or Have You Ever Used Any Other Forms Of Tobacco Or Nicotine? No [email or web address] Information not available 12/09/2022 Sex: Unknown Functional Status Question Answer Note LastModified by Organizat ion Details LastModified Time Do you have difficulty walking or climbing stairs? No [email or web address] Information not available 12/09/2022 Do you have transportation difficulties? No [email or web address] Information not available 12/09/2022 Are you able to walk? YESWOREST [email or web address] Information not available 12/09/2022 Do you have difficulty doing errands alone? No [email or web address] Information not available 12/09/2022 Are you able to care for yourself? Yes Information n ot available 12/09/2022 Do you have difficulty dressing or bathing? No Information not available 12/09/2022 What is your exercise level? Moderate walks [id number] Information not available 05/01/2022 Mental Status Question Answer Note LastModified by Organization D etails LastModified Time Do you have difficulty concentrating, remembering or making decisions? No [email or web address] Information no t available 12/09/2022 Family History Relationship Description Onset Age of this Age Resolved Age Notes LastModified by Organization Details LastModified Time Mother Malignant tumor of cervix Not available 12/09 14:09:14 Mother Heart disease [id number] Not available 05/01/2022 02:46:43 Mother Hypertensive disorder [id number].401 [id number] Not available 05/01/2022 02:46:43 Mother Diabetes mellitus [id number].732 [id number] Not available 05/01/2022 02:46:43 Daughter Malignant tumor of cervix [email or web address] Not available 12/09 14:09:14 Sister Malignant tumor of breast Not available 12/09 14:09:14 Father Heart disease MIGRATION.156 [id number] Not available 05/01/2022 02:46:43 Father Diabetes mellitus [id number].710 [id number] Not available 05/01/2022 02:46:43 Notes:no new Medical History Condition Response BLINDNESS N KIDNEY STONES N MRSA N CARPAL TUNNEL SYNDROME N LUNG DISEASE/DISORDER N HISTORY OF DRUG ABUSE N RADIATION / CHEMOTHERAPY N COPD N SPORTS INJURY N ANKLE PAIN N BLOOD DISEASES N SCHIZOPHRENIA N SHINGLES N SHOULDER PAIN N BOWEL PROBLEMS N DEPRESSION (INCLUDING POST ) N STROKE/TIA N ULCERS Y KNEE PAIN [...] HAVE YOU BEEN HOSPITALIZED OR SEEN IN [place] IN THE PAST YEAR ? N BURSITIS [...] 50 mcg/0.25mL dose 1 completed Not Available [facility] 05/01/2022 03:10:01 COVID-19, mRNA, LNP-S, PF, 100 mcg/0.5mL dose or 50 mcg/0.25mL dose 2 completed Not Available [facility] 05/01/2022 03:10:01 Tdap 9 completed Not Available [facility] 05/01/2022 03:10:01 pneumococcal, unspecified formulation 8 completed Not Available [facility] 05/01/2022 03:10:01 Influenza, high-dose, quadrivalent, PF 1 completed Not Available [facility] 05/01/2022 03:10:01 Influenza, high-dose, trivalent, PF 0 completed Not Available [facility] 05/01/2022 03:10:01 Pneumococcal conjugate PCV 13 0 completed Not Available [facility] 05/01/2022 03:10:02 zoster live 4 completed Not Available [facility] 05/01/2022 03:10:02 Past Encounters Encounter ID Performer Location Encounter Start Date Encounter Closed Date Diagnosis/Indication Diagnosis SNOMED-CT Code Diagnosis ICD10 Code Diagnosis Note [id number] _DANIEL_M IGRATION_ DEFAULT_1 _1 , 05/30/2020 00:00:00 05/30/2020 10:54:49 [id number] [facility] [place] [address] 06/20/2020 00:00:00 06/20/2020 13:49:30 [id number] [facility] Grover abe [facility] [place] [address] [address] [address] 09/12/2020 00:00:00 09/12/2020 10:15:47 [id number] [facility] [place] [address] [place] [address] 09/22/2020 00:00:00 09/22/2020 16:27:24 [id number] [facility] [place] [address] [place] [address] 12/20/2020 00:00:00 12/21/2020 12:54:23 [id number] [facility] [place] [address] [place] [address] 02/14/2021 00:00:00 02/14/2021 10:16:24 [id number] [facility] Jose llkarely [facility] [place] [address] [address] [address] 03/12/2021 00:00:00 03/12/2021 08:19:14 [id number] [facility] [place] [address] [place] [address] 07/12/2021 00:00:00 07/12/2021 10:35:49 [id number] [facility] [address] [facility] y Rojas Sorensen [place] [address] 09/05/2021 00:00:00 09/05/2021 15:14:47 [id number] [facility] [place] [address] [place] [address] 10/24/2021 00:00:00 10/30/2021 16:41:50 [id number] [facility] [place] [address] [place] [address] 12/24/2021 00:00:00 12/24/2021 14:51:46 [id number] [facility] [place] [address] [facility] [address] [place] [address] 01/09/2022 00:00:00 01/09/2022 11:39:55 [id number] [facility] [place] [address] [facility] [address] [place] [address] 01/23/2022 00:00:00 01/23/2022 12:43:57 [id number] [facility] [address] [place] [address] 03/15/2022 00:00:00 03/15/2022 09:40:53 [id number] MIKHAIL Montez [facility] [place] [address] [facility] [address] [place] [address] 12/09/2022 14:06:53 12/09/2022 15:04:56 History of left total knee replacement [id number] Z96.652 Health Concerns Section Related Observation LastModified by Organization Detai ls LastModified Time None Recorded Concern Status LastModified by Organization Details LastModified Time None Recorded Advance Directives Directive N: Payers Encounter Date Sequence Insurance Name Policy Number Policy Deal Covered Member ID Deal Member ID Guarantor Name 12/09/2022 1 [facility] (MEDICARE REPLACEMENT HMO) [id number] Gautam Lao [id number] Gautam Lao OBGyn Episode No OBEpisode recorded.
--- OUTSIDE RECORDS SUMMARY | 2024-06-14 09:07 | XMS_ITS | Referral Summary ---
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
--- OUTSIDE RECORDS SUMMARY | 2024-06-14 09:07 | XMS_ITS | Clinical Summary ---
Author Organization [facility] Address [address] [address] Phone Care Team Providers Care Press Manager Name Role Phone Sylvie Olea Radha CHRISTENSEN Primary Care Provider [phone] Leonel Garcia DO Unavailable [phone] Allergies No known active allergies Medications [...] 10 mg by mouth every evening. Active [place]-3 Fatty Acids (OMEGA-3 FISH OIL PO) Take [...] Recently Relevant to Health Maintenance Insurance MEDICARE [facility] Care Teams Press Manager Relationship Specialty Start Date End Date Sylvie Olae APRN PCP - General Advanced Practice Nurse 01/22/16 Leonel Garcia DO Gastroenterology 02/05/16
--- OUTSIDE RECORDS SUMMARY | 2024-06-14 09:07 | XMS_ITS | Clinical Summary ---
Author Organization [facility] Address [address] [facility] [place] [address] Phone Care Team Providers Care Tool Setter Apprentice Name Role Phone Maty Valladares MD Primary Care Provider [phone] Allergies Active Allergy Reactions Criticality Noted Date [...] OSTEOPOROSIS SCREENING Completed 09/20/2019 Insurance Care Teams Tool Setter Apprentice Relationship Specialty Start Date End Date Maty Valladares MD PCP - General Family Practice 11/06/22
--- OUTSIDE RECORDS SUMMARY | 2024-06-14 09:07 | XMS_ITS | Clinical Summary ---
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
== END 2024-06-14 08:46 | disposition home or self-care (01) ==
LOC: ANHIMG 08:46
PROVIDERS: PCP Family Medicine; Visit Provider Family Medicine
DX: Z12.31 Encounter for screening mammogram for malignant neoplasm of breast (principal)
CPT/HCPCS: 77063; 77067

== ENCOUNTER 2024-06-22 15:00 | Outpatient (CLI) | payer MEDICARE, SELFPAY ==
--- NOTE | ~2024-06-22 | XR_ITS ---
Left Hand Technique: PA, oblique, and lateral views were obtained. Clinical History: Fracture COMPARISON: 06/04/2024 Findings: Status post orthopedic fixation of fracture of the fifth proximal phalanx with [address] Cast overlying the ulnar aspect of the hand obscures fine bony detail. Probable advan marko degenerative change of the first CMC joint. Probable prior trapezium resection. Soft tissues are unremarkable. Impression: Status post interval orthopedic fixation of fifth proximal phalangeal fracture, as detailed above. Reviewed, dictated and finalized at location M. Impression: Status post interval orthopedic fixation of fifth proximal phalangeal fracture, as detailed above.
--- OUTSIDE RECORDS SUMMARY | 2024-06-22 13:53 | XMS_ITS | Clinical Summary ---
Author Organization [facility] Address [address] [place] [address] Care Team Providers Care Office Aide Name Role Phone Unavailable Primary Care Provider [...] 1 - Tdap) 1968 Mammogram Screening 1989 Pneumococcal Vaccine: 50+ Ye ars (1 of 1 - PCV) 10/21/1999 Zoster Vaccines (1 of 2) 10/21/1999 Dexa Scan (General) 2014 COVID-19 Vaccine ( - 2023-2 5 [...]
--- OUTSIDE RECORDS SUMMARY | 2024-06-22 13:53 | XMS_ITS | Clinical Summary ---
Author Organization [facility] Address [address] [facility] [place] [address] Phone Care Team Providers Care Plasma Table Operator Name Role Phone Maty Valladares MD Primary Care Provider [phone] Allergies Active Allergy Reactions Criticality Noted Date [...] - 2023-2 5 season) 2023 06/18/2020, 05/21/2020 OSTEOPOROSIS SCREENING 09/19/2024 09/20/2019 RSV VACCINE (60+ or ) (1 - 1-dose 75+ series) 2024 Insurance Care Teams Plasma Table Operator Relationship Specialty Start Date End Date Maty Valladares MD PCP - General Family Practice 11/06/22
--- OUTSIDE RECORDS SUMMARY | 2024-06-22 13:53 | XMS_ITS | CONTINUITY OF CARE DOCUMENT ---
Author Name gustavo gustavo Address Unknown Organization [facility] Address [address] [place] [address] [address] [place] [address] Phone [phone] Care Team Providers Care Signal Inspector Name Role Phone Angy KING, Kenan Unavailable DEBBIE MARCIAL MD Unavailable DEBBIE MARCIAL MD Unavailable INSURANCE PROVIDERS Payer name Policy type / Coverage type [place] red republican ID [employer] Commercial insurance compan y [place] Medicare [id number]
--- OUTSIDE RECORDS SUMMARY | 2024-06-22 13:54 | XMS_ITS | Clinical Summary ---
Author Organization [facility] Address [address] [address] Phone Care Team Providers Care Coil Repair Technician Name Role Phone Sylvei Olea Radha CHRISTENSEN Primary Care Provider [phone] Leonel Garcia DO Unavailable [phone] Allergies No known active allergies Medications [...] 10 mg by mouth every evening. Active [place]-3 Fatty Acids (OMEGA-3 FISH OIL PO) Take [...] Recently Relevant to Health Maintenance Insurance MEDICARE [facility] [address] Care Teams Coil Repair Technician Relationship Specialty Start Date End Date Sylvie Olea APRN PCP - General Advanced Practice Nurse 01/22/16 Leonel Garcia DO Gastroenterology 02/05/16
--- OUTSIDE RECORDS SUMMARY | 2024-06-22 13:54 | XMS_ITS | Clinical Summary ---
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
--- OUTSIDE RECORDS SUMMARY | 2024-06-22 13:54 | XMS_ITS | Referral Summary ---
Author Organization [facility] Address [address] [place] [address] Care Team Providers Care Partner Cco Name Role Phone Sylvie Olea NP Primary Care Provider [phone] Allergies Active Allergy Reactions Criticality Noted Date [...] on file Legal Sex Female 3:[address] Gender Identity Female 11/07/2017 10:37 AM CDT [...] MEDICARE MEDICARE AETNA SENIOR SUPPLEMENT Care Teams Partner Cco Relationship Specialty Start Date End Date Sylvie Olea NP PCP - General Nurse Practitioner 10/31/17
[2024-06-22 16:07] LABS: Toxigenic C. Diff NEGATIVE (NEGATIVE)
--- OUTSIDE RECORDS SUMMARY | 2024-06-22 17:17 | XMS_ITS | Clinical Summary ---
Author Organization [facility] Address [address] [facility] [place] [address] Phone Care Team Providers Care Licensed Tax Consultant Name Role Phone Maty Valladares MD Primary Care Provider [phone] Allergies Active Allergy Reactions Criticality Noted Date [...] 1-dose 75+ series) 2024 Insurance Care Teams Licensed Tax Consultant Relationship Specialty Start Date End Date Maty Valladares MD PCP - General Family Practice 11/06/22
--- OUTSIDE RECORDS SUMMARY | 2024-06-22 17:17 | XMS_ITS | Clinical Summary ---
Author Organization [facility] Address [address] [place] [address] Care Team Providers Care Ball Rolling Machine Operator Name Role Phone Unavailable Primary Care Provider [...]
--- OUTSIDE RECORDS SUMMARY | 2024-06-22 17:18 | XMS_ITS | Clinical Summary ---
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
--- OUTSIDE RECORDS SUMMARY | 2024-06-22 17:18 | XMS_ITS | Clinical Summary ---
Author Organization [facility] Address [address] [address] Phone Care Team Providers Care Real Estate Legal Secretary Name Role Phone Sylvie Olea Radha CHRISTENSEN Primary Care Provider [phone] Leonel Garcia DO Unavailable [phone] Allergies No known active allergies Medications [...] 10 mg by mouth every evening. Active [place]-3 Fatty Acids (OMEGA-3 FISH OIL PO) Take [...] Recently Relevant to Health Maintenance Insurance MEDICARE [facility] Care Teams Real Estate Legal Secretary Relationship Specialty Start Date End Date Sylvie Olea APRN PCP - General Advanced Practice Nurse 01/22/16 Leonel Garcia DO Gastroenterology 02/05/16
--- OUTSIDE RECORDS SUMMARY | 2024-06-22 17:18 | XMS_ITS | Referral Summary ---
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
--- OUTSIDE RECORDS SUMMARY | 2024-06-22 17:18 | XMS_ITS | CONTINUITY OF CARE DOCUMENT ---
Author Name gustavo gustavo Address Unknown Organization [facility] Address [address] [place] [address] [address] [place] [address] Phone [phone] Care Team Providers Care Extrusion Press Supervisor Name Role Phone Angy KING, Kenan Unavailable DEBBIE MARCIAL MD Unavailable [phone] DEBBIE MARCIAL MD Unavailable INSURANCE PROVIDERS Payer name Policy type / Coverage type [place] red democrat ID [id number] Commercial insurance compan y [place] MED[place] Medicare [id number]
== END 2024-06-22 15:01 | disposition home or self-care (01) ==
PROVIDERS: Nurse Practitioner; PCP Family Medicine; Visit Provider Physician Assistant Surgical
DX: S62.617A Displaced fracture of proximal phalanx of left little finger, initial encounter for closed fracture (principal); K58.0 Irritable bowel syndrome with diarrhea; Z98.890 Other specified postprocedural states; X58.XXXA Exposure to other specified factors, initial encounter
CPT/HCPCS: 73130; 87493

== ENCOUNTER 2024-07-10 12:43 | Emergency (ER) | payer MEDICARE, SELFPAY ==
[2024-07-10 12:54] VITALS: BP 148/117; PULSE 82; RESP 20; TEMP 36.6; O2SAT 96
--- NOTE | 2024-07-10 12:54 | ED_ITS ---
HPI - URI/Sore Throat General Chief Complaint: Upper Respiratory Infection Stated Complaint: Sinus Source: patient, RN notes reviewed and old records reviewed Mode of arrival: ambulatory Limitations: no limitations History of Present Illness HPI Narrative: 73-year-old female presents to the [facility] with 3-4 day history of sinus congestion, nose be last night. Reports that she has had a cough. Reports a nose bleed last night. Fever of 101 last night. Has taken Alla D with no improvement Related Data Home Medications ?Medication ?Instructions ?Recorded ?Confirmed ?Last Taken ?Type Adult One Daily Multivitamin 1 tablet PO DAILY 03/23/20 06/22/24 06/08/24 History calcium carbonate 1,200 mg PO DAILY 08/01/20 06/22/24 06/08/24 History aspirin 81 mg tablet 81 mg PO DAILY 08/25/20 06/22/24 06/10/24 History metformin 500 mg tablet 500 mg PO BID 08/18/23 06/22/24 06/10/24 History acetaminophen 500 mg tablet 1,000 mg PO Q6H PRN pain 06/09/24 06/22/24 Unknown History (Tylenol Extra Strength) ferrous sulfate 325 mg (65 mg mg 07/10/24 Unknown History iron) tablet Allergies Allergy/AdvReac Type Severity Reaction Status Date / Time doxycycline AdvReac Vomiting Verified 07/10/24 12:44 Review of Systems Review of Systems: All systems reviewed & are unremarkable except as noted in HPI and below Constitutional: Constitutional: Reports no additional constitutional complaints ENT: Reports as per HPI Cardiovascular: Cardiovascular: Reports no additional cardiovascular c omplaints, Denies chest pain and Denies dyspnea Respiratory: Respiratory: Reports as per HPI, Denies chest congestion, Reports cough and Denies dyspnea Musculoskeletal: Musculoskeletal: Reports no additional musculoskeletal complaints Integumentary/Breasts: Skin/Breast: Reports system reviewed and no additional complaints, except as docu PMFSH Past Medical History Medical History Right bundle branch block Heart murmur Abdominal bruit Decrease in appetite Early satiety Mid back pain Postprandial epigastric pain NIC (iron deficiency anemia) Irregular heart rhythm Hx of gastric ulcer Overweight (BMI 25.0-29.9) Diabetes Osteoarthritis Chronic GERD KULDEEP (obstructive sleep apnea) HTN (hypertension) Surgical History Surgical History History of hysterectomy History of total right knee replacement History of Fifi fundoplication History of appendectomy History of cholecystectomy Family History Family History Other Diabetes mellitus Heart disease Hypertension Social History Social History Social History: Smoking packs per day: 1 Smoking cigarettes per day: 20.0 Years smoked: 22 Smoking pack-years: 22.00 Smoking status: Former smoker Tobacco type: cigarettes Second hand tobacco smoke exposure: No Smoking end date: 03/03/99 Alcohol intake: current Alcohol use details: 1 per few months Substance use: never Substance use type: does not use Do You Feel Safe in your Home?: Yes Lack of Transportation: No Lack of Food: Never True Current Housing: I Have Housing Concerned About Future Housing: No Difficulty Paying Gas/Electric Bills: No Difficulty Paying for Meds: No Currently Unemployed: No Education: High School Diploma/GED Difficulty w/ Childcare or Family Care: No Living arrangements: with family Additional living arrangements comments: Occupation/Education: retired Gender identity (if verbalized by the patient): Female Sexual Orientation (if Verbalized by the Patient): Straight or Heterosexual Spiritual care concerns: No Comments At the time of my signature, I reviewed and agree with the nursing past medical, surgical, social, and family history. There is no relevant family history pertinent to the patient complaint. Exam Const: General: cooperative, healthy appearing, comfortable, no acute distress, well developed, alert and well nourished Nutritional Appearance: well nourished Orientation/consciousness: patient oriented x3 Limitations: no limitations HENMT: Head: normal to inspection Ears: hearing grossly normal bilaterally, external ears normal, TM's normal bilaterally, EAC's normal, mastoids normal and no periauricular adenopathy Face/Nose/Sinus: Normal external nose present, No nasal discharge present, face symmetric and Facial tenderness on exam of face and sinuses Face and sinus: normal facial exam, face symmetric and sinus tenderness Mouth: Yes Normal oral and palatal mucosa present, Yes lip normal, Yes tongue normal and Yes moist mucous membranes Throat: posterior oropharynx normal, uvula midline and no uvular edema Eyes: General: appearance normal, both eyes and all related structures Alignment and Position: alignment normal Neck: Neck: normal visual inspection, full ROM, no lymphadenopathy and no meningeal signs Chest: Chest palpation & inspection: normal inspection of the chest Resp: Effort & Inspection: normal respiratory effort and able to speak in complete sentences Auscultation: clear to auscultation bilaterally, no crackles, no rales, no rhonchi and no wheezes Cardio: Rate: regular rate Skin: General skin exam: normal color and no rashes or lesions noted Neuro: General: patient oriented x3, gait normal, moves all extremities and no meningeal signs Cognition (Neuro): normal cognition Speech: normal speech Gait exam (Neuro): Normal gait present Extrem: General: normal to inspection, full ROM, capillary refill normal and normal gait Psych: Appearance: grossly normal and well kempt Mental Status: mental status grossly normal Speech and movement: Normal speech and movement present and Clear speech present Affect: normal affect Attitude: cooperative Course Course Level of Care: Express Care Visit Vital Signs Vital signs: Vital Signs Temperature 97.8 F 07/10/24 12:54 Pulse Rate 82 07/10/24 12:54 Respiratory Rate 20 07/10/24 12:54 Blood Pressure 148/117 H 07/10/24 12:54 Pulse Oximetry 96 07/10/24 12:54 Oxygen Delivery Room Air 07/10/24 12:54 Temperature 97.8 F 07/10/24 12:54 Pulse Rate 82 07/10/24 12:54 Respiratory Rate 20 07/10/24 12:54 Blood Pressure 148/117 H 07/10/24 12:54 Pulse Oximetry 96 07/10/24 12:54 Oxygen Delivery Room Air 07/10/24 12:54 Reviewed MDM - URI/Sore Throat MDM Narrative Medical decision making narrative: Patient sitting in exam room. Nontoxic, vitals stable. Patient with concerns for a sinus infection, cough, congestion. Due to patient's age, past medical history will cover with an antibiotic but most likely viral, attempted to explain this to patient. Patient appropriate for outpatient treatment with close follow-up Patient's flu and COVID negative Discharge instructions reviewed with patient, as well as provided in writing per nursing staff. The instructions also include specific and strict return/GO TO THE ER as well as f/u information. All questions have been answered, and the patient deny any further questions with discharge and discharge plan. Some parts of this dictation were generated by voice recognition software and may contain typographical and/or grammatical inaccuracies. Differential Diagnosis Differential diagnosis: Likely upper respiratory infection, otitis media, sinusitis, viral infection, bronchitis, influenza and pharyngitis Lab Data Labs: Lab Results 07/10/24 Range/Units 13:00 POC Influenza A Ag Negative (Negative) POC Influenza B Ag Negative (Negative) POC SARS CoV-2 Ag Negative (Negative) Reviewed Critical Care Time Critical Care Time Critical Care Time: No Discharge Plan Discharge Clinical Impression: Sinusitis Qualifiers: Sinusitis location: pansinusitis Chronicity: acute Recurrence: not specified as recurrent Qualified Code(s): J01.40 - Acute pansinusitis, unspecified Patient Disposition: Home Condition: Stable Instructions: Antibiotic Form, Sinusitis (ED) Additional Instructions: Your rapid COVID test were negative Your rapid flu test was negative Typically viral infections last 7-10 days, can linger for couple of weeks. It is very important to treat your symptoms. Drink plenty of water, Gatorade, Pedialyte, ice pops or Jell-O. -Alternate Tylenol and Motrin per package directions for fever or pain. You can alternate every 4 hours -Antihistamine medication such as Zyrtec/Claritin/Alla during the day can help improve symptoms. -doing daily nasal irrigations can help relieve pressure your sinuses. Things like a Neti pot -Use Flonase twice a day for 5 days then daily to help reduce the inflammation and dry up your sinuses. -You can also use Coricidin HBP or Mucinex. Be sure to drink plenty of water with this medication at least 8 ounces with every dose and it is important to drink 8 to 10 glasses of water per day. Water is a natural decongestant -Eat and drink things that are easy to swallow, like tea or soup, or popsicles. -Oral rinses such as: Salt water gargles and/or may use topical anesthetic (eg. Chloraseptic spray) or lozenges to relieve dryness or throat pain). -Frequent hand washing or hand improvement coordinator is one of the best ways to prevent spread of infection. -Using a vaporizer or humidifier at night will also help thin secretions and help with coughing up phlegm. -Follow up with primary care provider in 7-10 days if condition is not improving - For new or worsening symptoms go directly to the nearest ER Patient Language: Iraqi Prescriptions: New amoxicillin-pot clavulanate 875-125 mg tablet 1 tablet PO Q12H Qty: 14 0RF No Action ferrous sulfate 325 mg (65 mg iron) tablet aspirin 81 mg Tablet 81 mg PO DAILY pantoprazole 40 mg tablet,delayed release (DR/EC) 40 mg PO QAM Qty: 90 3RF acetaminophen [Tylenol Extra Strength] 500 mg tablet 1,000 mg PO Q6H PRN (Reason: pain) oxycodone-acetaminophen 5-325 mg tablet 1 tablet PO Q6H PRN (Reason: pain) Qty: 10 0RF Adult One Daily Multivitamin 1 tablet PO DAILY calcium carbonate 600 mg calcium (1,500 mg) Tablet 1,200 mg PO DAILY metformin 500 mg tablet 500 mg PO BID (DME) blood-glucose meter [OneTouch Ultra2 Meter] [facility] See Rx Instructions .Route Qty: 1 0RF Rx Instructions: use to check blood sugar once a day (DME) OneTouch Ultra Test Strip See Rx Instructions .Route Qty: 100 0RF Rx Instructions: use to check blood sugar once a day colestipol 1 gram tablet See Rx Instructions .ROUTE .COMPLEX Qty: 180 1RF Dose Instruction: TAKE 1 TABLET BY MOUTH TWICE DAILY Rx Instructions: TAKE 1 TABLET BY MOUTH TWICE DAILY azelastine 137 mcg (0.1 %) spray,non-aerosol See Rx Instructions .ROUTE .COMPLEX Qty: 30 2RF Dose Instruction: ADMINISTER 1 SPRAY IN EACH NOSTRIL EVERY 12 HOURS DIRECTED Rx Instructions: ADMINISTER 1 SPRAY IN EACH NOSTRIL EVERY 12 HOURS DIRECTED irbesartan 300 mg tablet See Rx Instructions .ROUTE .COMPLEX Qty: 90 2RF Dose Instruction: TAKE 1 TABLET BY MOUTH EVERY DAY Rx Instructions: TAKE 1 TABLET BY MOUTH EVERY DAY Follow-up/Referrals: Stefano Ortega MD [Primary Care Provider[facility]148[facility]117[facility] Time of Disposition: 13:16
[2024-07-10 13:27] LABS: EDCOVIDSCREEN Negative (Negative); EDINFLUASCREEN Negative (Negative); EDINFLUBSCREEN Negative (Negative)
== END 2024-07-10 13:30 | disposition home or self-care (01) ==
PROVIDERS: Emergency Provider Nurse Practitioner; PCP Family Medicine
DX: J01.40 Acute pansinusitis, unspecified (principal); Z20.822 Contact with and (suspected) exposure to COVID-19; Z87.891 Personal history of nicotine dependence; R01.1 Cardiac murmur, unspecified; E11.9 Type 2 diabetes mellitus without complications; Z79.84 Long term (current) use of oral hypoglycemic drugs; M19.90 Unspecified osteoarthritis, unspecified site; K21.9 Gastro-esophageal reflux disease without esophagitis; I10 Essential (primary) hypertension; Z96.651 Presence of right artificial knee joint; Z79.82 Long term (current) use of aspirin
CPT/HCPCS: 87426; 87804; 99213; G0463

== ENCOUNTER 2024-07-14 11:49 | Outpatient (CLI) | payer MEDICARE, SELFPAY ==
--- NOTE | ~2024-07-14 | XR_ITS ---
XR hand LT min 3V Ordering provider: Jany Montoya PA-C History: . S62.617A - Displaced fracture of proximal phalanx of left... . Comparison: July 14, 2024 FINDINGS/impression: BONES: Fracture in the proximal phalanx of the left little finger with no change in alignment. Status post removal of the cast and K wires. Other appearances are unchanged. Proximal and distal interphalangeal joints osteoarthritic changes with osteoarthritic changes of the first carpometacarpal joint. 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 Reviewed, dictated and finalized at location A.
--- OUTSIDE RECORDS SUMMARY | 2024-07-14 11:53 | XMS_ITS | Clinical Summary ---
Author Organization [facility] Address [address] [address] Phone Care Team Providers Care Petroleum Sampler Name Role Phone Sylvie Olea Radha CHRISTENSEN Primary Care Provider [phone] Leonel Garcia DO Unavailable [phone] Allergies No known active allergies Medications losartan [...] 10 mg by mouth every evening. Active Homeland-3 Fatty Acids (OMEGA-3 FISH OIL PO) Take [...] Recently Relevant to Health Maintenance Results * [facility] COLONOSCOPY (04/13/2020) Leonel Garcia DO PROCEDURE/MINOR SURGICAL ORDERA BLES Final Result from Last 3 Months or Most Recently Relevant to Health Maintenance Insurance MEDICARE [facility] [place] [id number] [facility] Care Teams Petroleum Sampler Relationship Specialty Start Date End Date Sylvie Olea APRN PCP - General Advanced Practice Nurse 01/22/16 Leonel Garcia DO Gastroenterology 02/05/16
--- OUTSIDE RECORDS SUMMARY | 2024-07-14 11:53 | XMS_ITS | Clinical Summary ---
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
--- OUTSIDE RECORDS SUMMARY | 2024-07-14 11:53 | XMS_ITS | Clinical Summary ---
Author Organization [facility] Address [address] [place] [id number] Care Team Providers Care Muck Miner Blasting Name Role Phone Unavailable Primary Care Provider [...]
--- OUTSIDE RECORDS SUMMARY | 2024-07-14 11:53 | XMS_ITS | Referral Summary ---
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
--- OUTSIDE RECORDS SUMMARY | 2024-07-14 11:53 | XMS_ITS | Clinical Summary ---
Author Organization [facility] Address [address] [facility] [place] [address] Phone Care Team Providers Care Sheet Metal Worker Name Role Phone Maty Valladares MD Primary Care Provider [phone] Allergies Active Allergy Reactions Criticality Noted Date [...] 1-dose 75+ series) 2024 Insurance Care Teams Sheet Metal Worker Relationship Specialty Start Date End Date Maty Valladares MD PCP - General Family Practice 11/06/22
--- OUTSIDE RECORDS SUMMARY | 2024-07-14 11:53 | XMS_ITS | CONTINUITY OF CARE DOCUMENT ---
Author Name gustavo gustavo Address Unknown Organization [facility] Address [address] [place] [address] [address] [place] [address] Phone [phone] Care Team Providers Care Honing Machine Set Up Operator Name Role Phone Angy KING, Kenan Unavailable DEBBIE MARCIAL MD Unavailable [phone] DEBBIE MARCIAL MD Unavailable INSURANCE PROVIDERS Payer name Policy type / Coverage type [place] [employer] party ID [employer] Commercial insurance compan y [place] [id number]
--- OUTSIDE RECORDS SUMMARY | 2024-07-14 11:53 | XMS_ITS | Data Portability ---
Author Organization [place] [facility], Main Office Address [address] [place] [address] Care Team Providers Care Photographic Process Attendant Name Role Phone GÓMEZ OBRIEN Primary Care Provider GÓMEZ OBRIEN Referring Provider [phone] Assessment Encounter Date Assessment Date Assessment LastModified [...] patient more than half of this in sctm-[id number] conversation Not available 12/09/2022 15:00:01 Plan of Treatment Reminders Order Date Submit Date Provider Last Modified By Organization Details Last Modified Time Details Appointments None record ed. Lab None record ed. Referral None record ed. Procedures None record ed. Surgeries None record ed. Imaging XR, knee 023 12/10/19 23 [email or web address] [facility] [place], [facility] [facility] [address], [place], [address], 15:04:57 Medication Orders None record ed. Patient TargetsNo targets recorded. Patient InstructionsNo instructions recorded. Reason for Referral None Reported. Results Created Date Observation Date Name Description Value Unit Range Abnormal Flag Note LastModifiedBy Organization Detail LastModifiedTime 12/01/19 22 11/30/2021 TYPE AND SCREE N patient ABO group and Rh O positi ve Not Available [facility] (Lab) [address] [place], [address], 11/30/2021 12:39:01 12/01/19 22 11/30/2021 TYPE AND SCREE N patient antibody screen negati ve Not Available [facility] (Lab) [address] [place], [address], 11/30/2021 12:39:01 12/01/19 22 11/30/2021 HEMOG LOBIN A1C HA1C 6.3 % 4.0-6. 0 high Diabe charles Scree tiffany Crite humza: <5.7% Consi stent with absen ce of diabe charles 5.7-6 .4% Consi stent with incre ased risk for diabe charles (pred iabet es) >OR=6 .5% Consi stent with diabe charles REFER ENCE: Diabe charles Care 2016, 39(Foss ppl.1 ):s13 -s22 Not Available [facility] (Lab) [address] [place], [address], 11/30/2021 11:08:52 12/01/1911/30/2021 BASIC METAB OLIC PANEL carbon dioxide 29 mmol/ L Not Available [facility] (Lab) [address] [place], [address], 11/30/2021 09:58:53 12/01/1911/30/2021 BASIC METAB OLIC PANEL GFR >60 Refer ence Range : Low [place] ge GFR Healt hy Adult : >60 [...] or ethni c subgr oups, such as Hismo nics. Outsi de the valid ated crystal [...] s/kdo qi/gf r_cal culat or Not Available [facility] (Lab) [address] [place], [address], 11/30/2021 09:58:53 12/01/1911/3011/30/2021 BASIC METAB OLIC PANEL calcium 9.9 mg/dL 8.4-10 .2 Not Available [facility] (Lab) [address] [place], [address], 11/30/2021 09:58:53 12/01/19 22 11/30/2021 BASIC METAB OLIC PANEL sodium 137 mmol/ L 137-14 5 Not Available [facility] (Lab) [address] [place], [address], 11/30/2021 09:58:53 12/01/19 22 11/30/2021 BASIC METAB OLIC PANEL potassium 5.1 mmol/ L 3.5-5. 1 Not Available [facility] (Lab) [address] [place], [address], 11/30/2021 09:58:53 12/01/19 22 11/30/2021 BASIC METAB OLIC PANEL chloride 101 mmol/ L 98-107 Not Available [facility] (Lab) [address] [place], [address], 11/30/2021 09:58:53 12/01/19 22 11/30/2021 BASIC METAB OLIC PANEL anion gap 12.1 mmol/ L 14-22 low Not Available [facility] (Lab) [address] [place], [address], 11/30/2021 09:58:53 12/01/19 22 11/30/2021 BASIC METAB OLIC PANEL glucose 154 mg/dL 70-99 high Not Available [facility] (Lab) [address] [place], [address], 11/30/2021 09:58:53 12/01/19 22 11/30/2021 BASIC METAB OLIC PANEL BUN 20 mg/dL 8-19 high Not Available [facility] (Lab) [address] [place], [address], 11/30/2021 09:58:53 12/01/19 22 11/30/2021 BASIC METAB OLIC PANEL creatinine 0.87 mg/dL 0.66-1 .25 Not Available [facility] (Lab) [address] [place], [address], 11/30/2021 09:58:53 12/01/19 22 11/30/2021 CBC/C OMPLE TE BLD COUNT W/DIF F mean red cell volume 88.1 fL 82.0-9 9.0 Not Available [facility] (Lab) [address] [place], [address], 11/30/2021 09:40:37 12/01/19 22 11/30/2021 CBC/C OMPLE TE BLD COUNT W/DIF F white blood cells 5.5 x10'3 /uL 4.2-10 .8 Not Available [facility] (Lab) [address] [place], [address], 11/30/2021 09:40:37 12/01/19 22 11/30/2021 CBC/C OMPLE TE BLD COUNT W/DIF F red blood cells 4.55 x10'6 /uL 3.80-5 .20 Not Available [facility] (Lab) [address] [place], [address], 11/30/2021 09:40:37 12/01/19 22 11/30/2021 CBC/C OMPLE TE BLD COUNT W/DIF F hemoglobin 12.6 g/dL 12.0-1 5.6 Not Available [facility] (Lab) [address] [place], [address], 11/30/2021 09:40:37 12/01/19 22 11/30/2021 CBC/C OMPLE TE BLD COUNT W/DIF F hematocrit 40.1 % 35.7-4 5.7 Not Available [facility] (Lab) [address] [place], [address], 11/30/2021 09:40:37 12/01/19 22 11/30/2021 CBC/C OMPLE TE BLD COUNT W/DIF F mean red cell hemoglobin 27.7 pg 27.0-3 3.0 Not Available [facility] (Lab) [address] [place], [address], 11/30/2021 09:40:37 12/01/19 22 11/30/2021 CBC/C OMPLE TE BLD COUNT W/DIF F mean RBC HGB concentratio n 31.4 g/dL 31.0-3 6.0 Not Available [facility] (Lab) [address] [place], [address], 11/30/2021 09:40:37 12/01/19 22 11/30/2021 CBC/C OMPLE TE BLD COUNT W/DIF F red cell distribution width 13.4 % 11.8-1 5.5 Not Available [facility] (Lab) [address] [place], [address], 11/30/2021 09:40:37 12/01/19 22 11/30/2021 CBC/C OMPLE TE BLD COUNT W/DIF F platelets 318 x10'3 /uL 150-40 0 Not Available [facility] (Lab) [address] [place], [address], 11/30/2021 09:40:37 12/01/19 22 11/30/2021 CBC/C OMPLE TE BLD COUNT W/DIF F mean platelet volume 10.3 fL 9.0-12 .4 Not Available [facility] (Lab) [address] [place], [address], 11/30/2021 09:40:37 12/01/19 22 11/30/2021 CBC/C OMPLE TE BLD COUNT W/DIF F neutrophils 60.6 % 39.0-7 2.0 Not Available [facility] (Lab) [address] [place], [address], 11/30/2021 09:40:37 12/01/19 22 11/30/2021 CBC/C OMPLE TE BLD COUNT W/DIF F lymphocytes 25.7 % 16.0-4 7.0 Not Available [facility] (Lab) [address] [place], [address], 11/30/2021 09:40:37 12/01/19 22 11/30/2021 CBC/C OMPLE TE BLD COUNT W/DIF F immature granulocytes 0.2 % 0.00-0 .50 Not Available [facility] (Lab) [address] [place], [address], 11/30/2021 09:40:37 12/01/19 22 11/30/2021 CBC/C OMPLE TE BLD COUNT W/DIF F monocytes 8.2 % 5.0-12 .0 Not Available [facility] (Lab) [address] [place], [address], 11/30/2021 09:40:37 12/01/19 22 11/30/2021 CBC/C OMPLE TE BLD COUNT W/DIF F eosinophils 4.0 % 1.0-7. 0 Not Available [facility] (Lab) [address] [place], [address], 11/30/2021 09:40:37 12/01/19 22 11/30/2021 CBC/C OMPLE TE BLD COUNT W/DIF F basophils 1.3 % 0.0-2. 0 Not Available [facility] (Lab) [address] [place], [address], 11/30/2021 09:40:37 12/01/19 22 11/30/2021 CBC/C OMPLE TE BLD COUNT W/DIF F neutrophils, absolute count 3.35 x10'3 /uL 1.5-8. 0 Not Available [facility] (Lab) [address] [place], [address], 11/30/2021 09:40:37 12/01/19 22 11/30/2021 CBC/C OMPLE TE BLD COUNT W/DIF F lymphocytes, absolute count 1.42 x10'3 /uL 1.07-3 .43 Not Available [facility] (Lab) [address] [place], [address], 11/30/2021 09:40:37 12/01/19 22 11/30/2021 CBC/C OMPLE TE BLD COUNT W/DIF F monocytes, absolute count 0.45 x10'3 /uL 0.29-0 .99 Not Available [facility] (Lab) [address] [place], [address], 11/30/2021 09:40:37 12/01/19 22 11/30/2021 CBC/C OMPLE TE BLD COUNT W/DIF F eosinophils, absolute count 0.22 x10'3 /uL 0.02-0 .53 Not Available [facility] (Lab) [address] [place], [address], 11/30/2021 09:40:37 12/01/19 22 11/30/2021 CBC/C OMPLE TE BLD COUNT W/DIF F basophils, absolute count 0.07 x10'3 /uL 0.01-0 .08 Not Available [facility] (Lab) [address] [place], [address], 11/30/2021 09:40:37 12/01/19 22 11/30/2021 CBC/C OMPLE TE BLD COUNT W/DIF F immature granulocytes ,absolute 0.01 x10'3 /uL 0.00-0 .05 Not Available [facility] (Lab) [address] [place], [address], 11/30/2021 09:40:37 12/01/19 22 11/30/2021 CBC/C OMPLE TE BLD COUNT W/DIF F nucleated red blood cells 0.0 % -0 Not Available [facility] (Lab) [address] [place], [address], 11/30/2021 09:40:37 12/01/19 22 11/30/2021 CBC/C OMPLE TE BLD COUNT W/DIF F NRBC# 0.00 x10'3 /uL Not Available [facility] (Lab) [address] [place], [address], 11/30/2021 09:40:37 12/11/19 22 12/10/2021 SARS- COV-2 [...] ders and patie nts at the [facility]: https ://ww w.fda .gov/ media /1363 12/do wnloa d https ://ww w.fda .gov/ media /1363 13/do wnloa d https ://ww w.fda .gov/ media /1421 92/do wnloa d https ://ww w.fda .gov/ media /1421 91/do wnloa d Metho dolog y: Real- Time RT-PC R Not Available [facility] (Lab) [address] [place], [address], 12/10/2021 11:35:31 10/01/20 2212/11/2021 GLUCO SE (POIN T OF CARE) glucose (point of care) 103 mg/dL 74-99 high Not Available [facility] (Lab) [address] [place], [address], 12/11/2021 16:08:49 12/12/1912/11/2021 GLUCO SE (POIN T OF CARE) glucose (point of care) 138 mg/dL 74-99 high Not Available [facility] (Lab) [address] [place], [address], 12/11/2021 09:35:04 12/13/1912/12/2021 BASIC METAB OLIC PANEL chloride 104 mmol/ L 98-107 Not Available [facility] (Lab) [address] [place], [address], 12/12/2021 08:27:46 12/13/1912/12/2021 BASIC METAB OLIC PANEL creatinine 0.71 mg/dL 0.66-1 .25 Not Available [facility] (Lab) [address] [place], [address], 12/12/2021 08:27:46 12/13/1912/12/2021 BASIC METAB OLIC PANEL GFR >60 Refer ence Range : Low [place] GFR Healt hy Adult : >60 [...] the F websi te: https ://jose w.no sofia.o rg/pr ofess ional s/kdo qi/gf r_cal culat or Not Available [facility] (Lab) [address] [place], [address], 12/12/2021 08:27:46 12/13/1912/12/2021 BASIC METAB OLIC PANEL calcium 8.4 mg/dL 8.4-10 .2 Not Available [facility] (Lab) [address] [place], [address], 12/12/2021 08:27:46 12/13/19 22 12/12/2021 BASIC METAB OLIC PANEL sodium 132 mmol/ L 137-14 5 low Not Available [facility] (Lab) [address] [place], [address], 12/12/2021 08:27:46 12/13/19 22 12/12/2021 BASIC METAB OLIC PANEL potassium 4.6 mmol/ L 3.5-5. 1 Not Available [facility] (Lab) [address] [place], [address], 12/12/2021 08:27:46 12/13/19 22 12/12/2021 BASIC METAB OLIC PANEL carbon dioxide 28 mmol/ L 22-30 Not Available [facility] (Lab) [address] [place], [address], 12/12/2021 08:27:46 12/13/19 22 12/12/2021 BASIC METAB OLIC PANEL anion gap 4.6 mmol/ L 14-22 low Not Available [facility] (Lab) [address] [place], [address], 12/12/2021 08:27:46 12/13/1912/12/2021 BASIC METAB OLIC PANEL glucose 198 mg/dL 70-99 high Not Available [facility] (Lab) [address] [place], [address], 12/12/2021 08:27:46 12/13/19 22 12/12/2021 BASIC METAB OLIC PANEL BUN 15 mg/dL 8-19 Not Available [facility] (Lab) [address] [place], [address], 12/12/2021 08:27:46 12/13/19 22 12/12/2021 CBC W/O DIFFE RENTI AL platelets 235 x10'3 /uL 150-40 0 Not Available [facility] (Lab) [address] [place], [address], 12/12/2021 07:51:59 12/13/1912/12/2021 CBC W/O DIFFE RENTI AL white blood cells 6.4 x10'3 /uL 4.2-10 .8 Not Available [facility] (Lab) [address] [place], [address], 12/12/2021 07:51:59 12/13/1912/12/2021 CBC W/O DIFFE RENTI AL red blood cells 3.40 x10'6 /uL 3.80-5 .20 low Not Available [facility] (Lab) [address] [place], [address], 12/12/2021 07:51:59 12/13/1912/12/2021 CBC W/O DIFFE RENTI AL hemoglobin 9.3 g/dL 12.0-1 5.6 low Not Available [facility] (Lab) [address] [place], [address], 12/12/2021 07:51:59 12/13/1912/12/2021 CBC W/O DIFFE RENTI AL hematocrit 30.2 % 35.7-4 5.7 low Not Available [facility] (Lab) [address] [place], [address], 12/12/2021 07:51:59 12/13/1912/12/2021 CBC W/O DIFFE RENTI AL mean red cell volume 88.8 fL 82.0-9 9.0 Not Available [facility] (Lab) [address] [place], [address], 12/12/2021 07:51:59 12/13/1912/12/2021 CBC W/O DIFFE RENTI AL mean red cell hemoglobin 27.4 pg 27.0-3 3.0 Not Available [facility] (Lab) [address] [place], [address], 12/12/2021 07:51:59 12/13/1912/12/2021 CBC W/O DIFFE RENTI AL mean RBC HGB concentratio n 30.8 g/dL 31.0-3 6.0 low Not Available [facility] (Lab) [address] [place], [address], 12/12/2021 07:51:59 12/13/1912/12/2021 CBC W/O DIFFE RENTI AL red cell distribution width 13.3 % 11.8-1 5.5 Not Available [facility] (Lab) [address] [place], [address], 12/12/2021 07:51:59 12/13/1912/12/2021 CBC W/O DIFFE RENTI AL mean platelet volume 11.5 fL 9.0-12 .4 Not Available [facility] (Lab) [address] [place], [address], 12/12/2021 07:51:59 12/01/19 22 11/30/2021 XR, chest , 2 view [facility] [address], [place] [address] [phone] Araceli esteban Name: GAUTAM GEORGE Access ion #: [id number] Sex: F : 1950 0 Locati [...] bony thorax . Page 1 of 2 [facility] Araceli t Name: GAUTAM GEORGE Access ion #: [id number] Sex: F : 1950 0 Exam [...] 8:50 AM (CT) Page 2 of 2 [id number] [facility] (Imaging) [address] [place], [address], 05/01/2022 03:10:56 12/12/19 22 12/11/2021 XR, knee, 1 or 2 view [facility] [address] [place] [address] Patien t Name: GAUTAM GEORGE Access ion #: [id number] Sex: F : 1950 8 Locati [...] compli cation . Page 1 of 2 [facility] Patien t Name: GAUTAM GEORGE Access ion #: [id number] Sex: F : 1950 8 Exam Date: 2021 8:56 AM Exam Name: XR KNEE LT 2V Admitt ing Diagno sis(es ): Create d and electr onical ly signed by: Lev cali MD Signed Date: 2021 4:05 PM (CT) Dictat ed by: Lev cali MD DD: 2021 4:05 PM (CT) DT: 2021 4:05 PM (CT) Page 2 of 2 [id number] [facility] (Imaging) [address] [place], [address], 05/01/2022 03:10:56 12/12/1912/11/2021 XR, knee, 3 view No observ ation record ed. [id number] [facility] Add On Lab Orders [address] [place], [address], 05/01/2022 03:10:56 01/24/20 XR, knee No observ ation record ed. [id number] [facility] [place] [address] [facility] [address], [place], [address], 05/01/2022 03:10:56 12/10/19 XR, knee No observ ation record ed. [facility] [place] [address] [facility] [address], [place], [address], 12/09/2022 14:55:58 Result Notes None recorded. Problems Name Problem SNOMED Code Status Onset Date Resolution Date Notes Provider Name and Address Organization Details Recorded Time Acute abdominal pain 890991905 Completed Not Available [facility] 3 02:56:57 Disorder of shoulder 416107437 Completed Not Available [facility] 3 02:56:57 Pain in throat 546187526 Completed Not Available [facility] 3 02:56:58 Partial thickness rotator cuff tear 510533670 Active Not Available [facility] 3 02:56:58 Spasm of back muscles 305660234 Completed Not Available [facility] 3 02:56:58 Abdominal pain 41002360 Completed Not Available [facility] 3 02:56:58 Abdominal distensio n, gaseous 190055692 Completed Not Available [facility] 3 02:56:58 Tendernes s over frontal sinus 848398597 Completed Not Available [facility] 3 02:56:58 Vitamin D deficienc y 34174838 Active Not Available [facility] 3 02:56:58 Depressiv e disorder 60746887 Active Not Available [facility] 3 02:56:58 Lesion of ulnar nerve 352978363 Active Not Available [facility] 3 02:56:58 Sinusitis 73778334 Completed Not Available [facility] 3 02:56:58 Arthritis 8108251 Active Not Available [facility] 3 02:56:59 Disorder of vitamin D 965994460 Completed Not Available [facility] 3 02:56:59 Osteoarth ritis 651147667 Active Not Available [facility] 3 02:56:59 Loose stool 219744092 Completed Not Available [facility] 3 02:56:59 Type 2 diabetes mellitus 39392303 Active Not Available [facility] 3 02:56:59 Seasonal allergy 665686714 Active Not Available [facility] 3 02:56:59 Pain of left knee joint 58494760320 4107 Active 2021 Not Available [facility] 3 02:56:59 Foot pain 78286055 Completed Not Available [facility] 3 02:57:00 Upper respirato ry infection 90980954 Completed Not Available [facility] 3 02:57:00 Carpal tunnel syndrome 72146969 Active Not Available [facility] 3 02:57:00 Essential hypertens ion 56012913 Active Not Available [facility] 3 02:57:00 Diabetes mellitus 92425074 Completed 201608/28/2020 Not Available [facility] 3 02:57:00 Sleep apnea 98979110 Active 2019 Not Available [facility] 3 02:57:00 Posterior rhinorrhe a 24620946 Completed Not Available [facility] 3 02:57:00 Epigastri c pain 63178468 Completed Not Available [facility] 3 02:57:01 Fatigue 56408359 Active Not Available [facility] 3 02:57:01 Weight gain 5835220 Completed Not Available [facility] 3 02:57:01 Problem Notes None recorded. Procedures Surgical History Date Name Laterality Status Provider Name and Address Organization Details Recorded Time 09/18/19 22 bone density scan completed Not Available [facility] 05/01/2022 02:46:36 04/13/19 21 Date of Last Colonoscopy completed Not Available [facility] 05/01/2022 02:46:31 04/13/19 21 Colonoscopy completed Not Available [facility] 05/02/19 23 02:46:36 09/20/19 20 Most Recent Mammogram completed Not Available [facility] 05/01/2022 02:46:31 01/21/20 14 Date of Last Pap Smear completed Not Available [facility] 05/01/2022 02:46:31 03/03/18 90 [employer] Surgery completed Not Available [facility] 05/02/19 02:46:36 Imaging Results Imaging Date Name Status LastModified by Organiz ation Details LastModified Time 01/23/2022 XR, knee completed [id number] 26 [facility] [place] [address], [place], [address], 05/01/2022 03:10:56 11/30/2021 XR, chest, 2 view completed [id number] [facility] (Imaging) [address] [place], [address], 05/01/2022 03:10:56 12/11/2021 XR, knee, 1 or 2 view completed [id number] 26 [facility] (Imaging) [address] [place], [address], 05/01/2022 03:10:56 12/11/2021 XR, knee, 3 view completed [id number] 26 [facility] Add On Lab Orders [address], [place], [address], 05/01/2022 03:10:56 12/09/2022 XR, knee completed [facility] [address], [place], [address], 12/09/2022 14:55:58 Procedure Notes None recorded. Medical Equipment None Reported. Allergies Allergen ID Allergen Name Allergen Category Reaction Reaction Severity Criticality Documentation Date Start Date Code Code System Note Provider Name and Address Organization Details Recorded Time 5387 [employer] medicatio n nausea Not available Not available 05/01/2022 15308 UNK Not Available [facility] 03:10:22 Medications Name Sig Start Date Stop [...] Not Available prednison e 20 mg tablet [id number]||2024-07-14 16:36:00|XR_ITS|[facility]|Imaging|[id number]|"XR hand LT min 3V Ordering provider: Jany Montoya PA-C History: . S62.619A - Displaced fracture of proximal phalanx of unsp... . Comparison: June 22, 2024 FINDINGS: BONES: Fracture with postoperative changes in the proximal phalanx of the little finger unchanged fro m previous examination. Surrounding cast is seen. JOINT SPACES: Osteoarthritic changes of the first carpometacarpal joint. SOFT TISSUES: Unremarkable. IMPRESSION: Fracture in the proximal phalanx of the little finger with postoperative changes unchanged from previ ous examination. Reviewed, dictated and finalized at location A. IMPRESSION: Fracture in the proximal phalanx of the little finger with postoperative change s unchanged from previous examination. "
== END 2024-07-14 11:50 | disposition home or self-care (01) ==
PROVIDERS: PCP Family Medicine; Visit Provider Physician Assistant Surgical
DX: S62.617D Displaced fracture of proximal phalanx of left little finger, subsequent encounter for fracture with routine healing (principal); X58.XXXD Exposure to other specified factors, subsequent encounter; M19.042 Primary osteoarthritis, left hand
CPT/HCPCS: 73130

== ENCOUNTER 2024-09-06 11:18 | Outpatient (CLI) | payer MEDICARE, SELFPAY ==
--- NOTE | ~2024-09-06 | XR_ITS ---
XR thoracic spine 2V 09/06/2024 11:59 Indication: Back pain Procedure: 3 views thoracic spine Comparison: No prior studies for comparison. Findings: Mildly low scoliosis of the lower thoracic spine. Mild multilevel thoracic spondylosis. No paraspinal soft tissue abnormality. Pedicles intact. No fracture, subluxation or dislocation. Cervico thoracic junction not well visualized on the lateral view. Lung parenchyma is unremarkable. Impression: 1: Mild thoracic spondylosis. Reviewed, dictated and finalized at location A. Impression: 1: Mild thoracic spondylosis.
--- OUTSIDE RECORDS SUMMARY | 2024-09-06 11:31 | XMS_ITS | Clinical Summary ---
Author Organization [employer] [place] Address [address] [facility] [address] [place] [address] Phone Care Team Providers Care Senior Living Sales Counselor Name Role Phone Maty Valladares MD Primary Care Provider [phone] Allergies Active Allergy Reactions Criticality Noted Date [...] of upper lobe of left lung 12/09/2017 Family History Medical History Relation Name Comments [...] 10:28 AM CDT Height 165.1 cm (5' 5) 11/06/2022 9:11 AM CDT Body Mass Index [...] history exists BREAST CANCER SCREENING 09/19/2020 09/20/2019 COVID-19 Vaccine (3 - 2023-2 5 season) 2023 06/18/2020, 05/21/2020 OSTEOPOROSIS SCREENING 09/19/2024 09/20/2019 INFLUENZA VACCINE (#1) 2024 04/01/2019 RSV VACCINE (60+ or ) (1 - 1-dose 75+ series) 2024 Insurance PPO MCR Care Teams Senior Living Sales Counselor Relationship Specialty Start Date End Date Maty Valladares MD PCP - General Family Practice 11/06/22
--- OUTSIDE RECORDS SUMMARY | 2024-09-06 11:31 | XMS_ITS | Clinical Summary ---
Author Organization [facility] Address [address] [place] [id number] Care Team Providers Care Aquatics Specialist Name Role Phone Unavailable Primary Care Provider [...]
--- OUTSIDE RECORDS SUMMARY | 2024-09-06 11:31 | XMS_ITS | Clinical Summary ---
Author Organization [facility] Address [address] [address] Phone Care Team Providers Care Party Planner Name Role Phone Sylvie Olea Radha CHRISTENSEN Primary Care Provider [phone] Leonel Garcia DO Unavailable [phone] Allergies No known active allergies Medications [...] 10 mg by mouth every evening. Active [place]-3 Fatty Acids (OMEGA-3 FISH OIL PO) Take [...] Health Maintenance Due Date Last Done Comments Hepatitis C Virus (HCV) Screening 1950 Cologuard 1994 Immunochemical Fecal Occult Blood 1994 Zoster Immunization (2 of 3) 11/18/2013 09/23/2013 Pneumococcal Immunization (50+ years) (2 of 2 - PPSV23) 03/25/2020 03/25/2019, 02/01/2008 SARS-COV-2 Immunization ( season) 2023 03/12/2021, 06/18/2020, 05/21/2020, Additional history exists Respiratory Syncytial Virus (RSV) Immunization (Adult) (1 - 1-dose 75+ series) 2024 Influenza Immunization (#1) 2024 03/25/2019 Colonoscopy 04/13/2025 04/13/2020, 12/26/2011 Colorectal Cancer Screening 04/13/2025 DTaP/Tdap/Td Immunization Discontinued 03/11/2018, 09/2015 TdaP Immunization Completed 03/11/2018, 06/08/2015 Pneumococcal Immunization Combined Discontinued 03/25/2019, 02/01/2008 Hepatitis B Immunization Aged Out No longer eligible based on patient's age to complete this topic Human Papillomavirus (HPV) Immunization Aged Out No longer eligible based [...] Recently Relevant to Health Maintenance Insurance MEDICARE [facility] Care Teams Party Planner Relationship Specialty Start Date End Date Sylvie Olea APRN PCP - General Advanced Practice Nurse 01/22/16 Leonel Garcia DO Gastroenterology 02/05/16
--- OUTSIDE RECORDS SUMMARY | 2024-09-06 11:32 | XMS_ITS | Data Portability ---
Author Organization [place] [facility], Main Office Address [address] [place] [address] Care Team Providers Care Leave Manager Name Role Phone GÓMEZ OBRIEN Primary Care [...] patient more than half of this in [id number] conversation Not available 12/09/2022 15:00:01 Plan of Treatment Reminders Order Date Submit Date Provider Last Modified By Organization Details Last Modified Time Details Appointments None record ed. Lab None record ed. Referral None record ed. Procedures None record ed. Surgeries None record ed. Imaging XR, knee 023 12/10/19 23 [email or web address] [facility], [facility] [address], [place], [address], 15:04:57 Medication Orders None record ed. Patient TargetsNo targets recorded. Patient InstructionsNo instructions recorded. Reason for Referral None Reported. Results Created Date Observation Date Name Description Value Unit Range Abnormal Flag Note LastModifiedBy Organization Detail LastModifiedTime 12/01/19 22 11/30/2021 TYPE AND SCREE N patient ABO group and Rh O positi ve Not Available [facility] (Lab) [address] [place], [address], 11/30/2021 12:39:01 12/01/19 22 11/30/2021 TYPE AND SCREE N patient antibody screen negati ve Not Available [facility] (Lab) [address] [place], [address], 11/30/2021 12:39:01 12/01/19 22 11/30/2021 HEMOG LOBIN [...] ppl.1 ):s13 -s22 Not Available [facility] (Lab) [address] [place], [address], 11/30/2021 11:08:52 12/01/19 22 11/30/2021 BASIC METAB OLIC PANEL carbon dioxide 29 mmol/ L -30 Not Available [facility] (Lab) [address] [place], [address], 11/30/2021 09:58:53 12/01/1911/30/2021 BASIC METAB OLIC PANEL GFR >60 Refer ence Range : Tichnor ge GFR Healt hy Adult : >60 [...] or ethni c subgr oups, such as Hisco nics. Outsi de the valid ated crystal [...] calcu lator is avail able on the [facility] websi te: https ://jose black.kadie rg/pr ofess ional s/kdo qi/gf r_cal culat or Not Available [facility] (Lab) [address] [place], [address], 11/30/2021 09:58:53 12/01/19 22 11/30/2021 BASIC METAB OLIC PANEL calcium 9.9 mg/dL 8.4-10 .2 Not Available [facility] (Lab) [address] [place], [address], 11/30/2021 09:58:53 12/01/19 22 11/30/2021 BASIC METAB OLIC PANEL sodium 137 mmol/ L 137-14 5 Not Available [facility] (Lab) [address] [place], [address], 11/30/2021 09:58:53 12/01/19 22 11/30/2021 BASIC METAB OLIC PANEL potassium 5.1 mmol/ L 3.5-5. 1 Not Available [facility] (Lab) [address] [place], [address], 11/30/2021 09:58:53 12/01/19 22 11/30/2021 BASIC METAB OLIC PANEL chloride 101 mmol/ L 98-107 Not Available [facility] (Lab) [address] [place], [address], 11/30/2021 09:58:53 12/01/19 22 11/30/2021 BASIC METAB OLIC PANEL anion gap 12.1 mmol/ L 14-22 low Not Available [facility] (Lab) [address] [place], [address], 11/30/2021 09:58:53 12/01/19 22 11/30/2021 BASIC METAB OLIC PANEL glucose 154 mg/dL 70-99 high Not Available [facility] (Lab) [address] [place], [address], 11/30/2021 09:58:53 12/01/19 22 11/30/2021 BASIC METAB OLIC PANEL BUN 20 mg/dL 8-19 high Not Available [facility] (Lab) [address] [place], [address], 11/30/2021 09:58:53 12/01/19 22 11/30/2021 BASIC METAB OLIC PANEL creatinine 0.87 mg/dL 0.66-1 .25 Not Available [facility] (Lab) [address] [place], [address], 11/30/2021 09:58:53 12/01/19 22 11/30/2021 CBC/C OMPLE TE BLD COUNT W/DIF F mean red cell volume 88.1 fL 82.0-9 9.0 Not Available [facility] (Lab) [address] [place], [address], 11/30/2021 09:40:37 12/01/19 22 11/30/2021 CBC/C OMPLE TE BLD COUNT W/DIF F white blood cells 5.5 x10'3 /uL 4.2-10 .8 Not Available [facility] (Lab) [address] [place], [address], 11/30/2021 09:40:37 12/01/19 22 11/30/2021 CBC/C OMPLE TE BLD COUNT W/DIF F red blood cells 4.55 x10'6 /uL 3.80-5 .20 Not Available [facility] (Lab) [address] [place], [address], 11/30/2021 09:40:37 12/01/19 22 11/30/2021 CBC/C OMPLE TE BLD COUNT W/DIF F hemoglobin 12.6 g/dL 12.0-1 5.6 Not Available [facility] (Lab) [address] [place], [address], 11/30/2021 09:40:37 12/01/19 22 11/30/2021 CBC/C OMPLE TE BLD COUNT W/DIF F hematocrit 40.1 % 35.7-4 5.7 Not Available [facility] (Lab) [address] [place], [address], 11/30/2021 09:40:37 12/01/19 22 11/30/2021 CBC/C OMPLE TE BLD COUNT W/DIF F mean red cell hemoglobin 27.7 pg 27.0-3 3.0 Not Available [facility] (Lab) [address] [place], [address], 11/30/2021 09:40:37 12/01/19 22 11/30/2021 CBC/C OMPLE TE BLD COUNT W/DIF F mean RBC HGB concentratio n 31.4 g/dL 31.0-3 6.0 Not Available [facility] (Lab) [address] [place], [address], 11/30/2021 09:40:37 12/01/19 22 11/30/2021 CBC/C OMPLE TE BLD COUNT W/DIF F red cell distribution width 13.4 % 11.8-1 5.5 Not Available [facility] (Lab) [address] [place], [address], 11/30/2021 09:40:37 12/01/19 22 11/30/2021 CBC/C OMPLE TE BLD COUNT W/DIF F platelets 318 x10'3 /uL 150-40 0 Not Available [facility] (Lab) [address] [place], [address], 11/30/2021 09:40:37 12/01/19 22 11/30/2021 CBC/C OMPLE TE BLD COUNT W/DIF F mean platelet volume 10.3 fL 9.0-12 .4 Not Available [facility] (Lab) [address] [place], [address], 11/30/2021 09:40:37 12/01/19 22 11/30/2021 CBC/C OMPLE TE BLD COUNT W/DIF F neutrophils 60.6 % 39.0-7 2.0 Not Available [facility] (Lab) [address] [place], [address], 11/30/2021 09:40:37 12/01/19 22 11/30/2021 CBC/C OMPLE TE BLD COUNT W/DIF F lymphocytes 25.7 % 16.0-4 7.0 Not Available [facility] (Lab) [address] [place], [address], 11/30/2021 09:40:37 12/01/19 22 11/30/2021 CBC/C OMPLE TE BLD COUNT W/DIF F immature granulocytes 0.2 % 0.00-0 .50 Not Available [facility] (Lab) [address] [place], [address], 11/30/2021 09:40:37 12/01/19 22 11/30/2021 CBC/C OMPLE TE BLD COUNT W/DIF F monocytes 8.2 % 5.0-12 .0 Not Available [facility] (Lab) [address] [place], [address], 11/30/2021 09:40:37 12/01/19 22 11/30/2021 CBC/C OMPLE TE BLD COUNT W/DIF F eosinophils 4.0 % 1.0-7. 0 Not Available [facility] (Lab) [address] [place], [address], 11/30/2021 09:40:37 12/01/19 22 11/30/2021 CBC/C OMPLE TE BLD COUNT W/DIF F basophils 1.3 % 0.0-2. 0 Not Available [facility] (Lab) [address] [place], [address], 11/30/2021 09:40:37 12/01/19 22 11/30/2021 CBC/C OMPLE TE BLD COUNT W/DIF F neutrophils, absolute count 3.35 x10'3 /uL 1.5-8. 0 Not Available [facility] (Lab) [address] [place], [address], 11/30/2021 09:40:37 12/01/19 22 11/30/2021 CBC/C OMPLE TE BLD COUNT W/DIF F lymphocytes, absolute count 1.42 x10'3 /uL 1.07-3 .43 Not Available [facility] (Lab) [address] [place], [address], 11/30/2021 09:40:37 12/01/19 22 11/30/2021 CBC/C OMPLE TE BLD COUNT W/DIF F monocytes, absolute count 0.45 x10'3 /uL 0.29-0 .99 Not Available [facility] (Lab) [address] [place], [address], 11/30/2021 09:40:37 12/01/19 22 11/30/2021 CBC/C OMPLE TE BLD COUNT W/DIF F eosinophils, absolute count 0.22 x10'3 /uL 0.02-0 .53 Not Available [facility] (Lab) [address] [place], [address], 11/30/2021 09:40:37 12/01/19 22 11/30/2021 CBC/C OMPLE TE BLD COUNT W/DIF F basophils, absolute count 0.07 x10'3 /uL 0.01-0 .08 Not Available [facility] (Lab) [address] [place], [address], 11/30/2021 09:40:37 12/01/19 22 11/30/2021 CBC/C OMPLE TE BLD COUNT W/DIF F immature granulocytes ,absolute 0.01 x10'3 /uL 0.00-0 .05 Not Available [facility] (Lab) [address] [place], [address], 11/30/2021 09:40:37 12/01/19 22 11/30/2021 CBC/C OMPLE TE BLD COUNT W/DIF F nucleated red blood cells 0.0 % -0 Not Available [facility] (Lab) [address] [place], [address], 11/30/2021 09:40:37 12/01/19 22 11/30/2021 CBC/C OMPLE TE BLD COUNT W/DIF F NRBC# 0.00 x10'3 /uL Not Available [facility] (Lab) [address] [place], [address], 11/30/2021 09:40:37 12/11/19 22 12/10/2021 SARS- COV-2 [...] provi ders and patie nts at the [facility] charles: https ://ww w.fda .gov/ media /1363 12/do wnloa d https ://ww w.fda .gov/ media /1363 13/do wnloa d https ://ww w.fda .gov/ media /1421 92/do wnloa d https ://ww w.fda .gov/ media /1421 91/do wnloa d Metho dolog y: Real- Time RT-PC R Not Available [facility] (Lab) [address] [place], [address], 12/10/2021 11:35:31 12/12/19 22 12/11/2021 GLUCO SE (POIN T OF CARE) glucose (point of care) 103 mg/dL 74-99 high Not Available [facility] (Lab) [address] [place], [address], 12/11/2021 16:08:49 12/12/19 22 12/11/2021 GLUCO SE (POIN T OF CARE) glucose (point of care) 138 mg/dL 74-99 high Not Available [facility] (Lab) [address] [place], [address], 12/11/2021 09:35:04 12/13/1912/12/2021 BASIC METAB OLIC PANEL chloride 104 mmol/ L 98-107 Not Available [facility] (Lab) [address] [place], [address], 12/12/2021 08:27:46 12/13/1912/12/2021 BASIC METAB OLIC PANEL creatinine 0.71 mg/dL 0.66-1 .25 Not Available [facility] (Lab) [address] [place], [address], 12/12/2021 08:27:46 12/13/1912/12/2021 BASIC METAB OLIC PANEL GFR >60 Refer ence Range : Tichnor ge GFR Healt hy Adult : >60 [...] calcu lator is avail able on the [facility] websi te: https ://jose w.no benitezy.o rg/pr ofess ional s/kdo qi/gf r_cal culat or Not Available [facility] (Lab) [address] [place], [address], 12/12/2021 08:27:46 12/13/1912/12/2021 BASIC METAB OLIC PANEL calcium 8.4 mg/dL 8.4-10 .2 Not Available [facility] (Lab) [address] [place], [address], 12/12/2021 08:27:46 12/13/19 22 12/12/2021 BASIC METAB OLIC PANEL sodium 132 mmol/ L 137-14 5 low Not Available [facility] (Lab) [address] [place], [address], 12/12/2021 08:27:46 12/13/19 22 12/12/2021 BASIC METAB OLIC PANEL potassium 4.6 mmol/ L 3.5-5. 1 Not Available [facility] (Lab) [address] [place], [address], 12/12/2021 08:27:46 12/13/19 22 12/12/2021 BASIC METAB OLIC PANEL carbon dioxide 28 mmol/ L 22-30 Not Available [facility] (Lab) [address] [place], [address], 12/12/2021 08:27:46 12/13/19 22 12/12/2021 BASIC METAB OLIC PANEL anion gap 4.6 mmol/ L 14-22 low Not Available [facility] (Lab) [address] [place], [address], 12/12/2021 08:27:46 12/13/19 22 12/12/2021 BASIC METAB OLIC PANEL glucose 198 mg/dL 70-99 high Not Available [facility] (Lab) [address] [place], [address], 12/12/2021 08:27:46 12/13/19 22 12/12/2021 BASIC METAB OLIC PANEL BUN 15 mg/dL 8-19 Not Available [facility] (Lab) [address] [place], [address], 12/12/2021 08:27:46 12/13/19 22 12/12/2021 CBC W/O DIFFE RENTI AL platelets 235 x10'3 /uL 150-40 0 Not Available [facility] (Lab) [address] [place], [address], 12/12/2021 07:51:59 12/13/19 22 12/12/2021 CBC W/O DIFFE RENTI AL white blood cells 6.4 x10'3 /uL 4.2-10 .8 Not Available [facility] (Lab) [address] [place], [address], 12/12/2021 07:51:59 12/13/19 22 12/12/2021 CBC W/O DIFFE RENTI AL red blood cells 3.40 x10'6 /uL 3.80-5 .20 low Not Available [facility] (Lab) [address] [place], [address], 12/12/2021 07:51:59 12/13/19 22 12/12/2021 CBC W/O DIFFE RENTI AL hemoglobin 9.3 g/dL 12.0-1 5.6 low Not Available [facility] (Lab) [address] [place], [address], 12/12/2021 07:51:59 12/13/19 22 12/12/2021 CBC W/O DIFFE RENTI AL hematocrit 30.2 % 35.7-4 5.7 low Not Available [facility] (Lab) [address] [place], [address], 12/12/2021 07:51:59 12/13/1912/12/2021 CBC W/O DIFFE RENTI AL mean red cell volume 88.8 fL 82.0-9 9.0 Not Available [facility] (Lab) [address] [facility] [place], [address], 12/12/2021 07:51:59 12/13/1912/12/2021 CBC W/O DIFFE RENTI AL mean red cell hemoglobin 27.4 pg 27.0-3 3.0 Not Available [facility] (Lab) [address] [place], [address], 12/12/2021 07:51:59 12/13/1912/12/2021 CBC W/O DIFFE RENTI AL mean RBC HGB concentratio n 30.8 g/dL 31.0-3 6.0 low Not Available [facility] (Lab) [address] [place], [address], 12/12/2021 07:51:59 12/13/1912/12/2021 CBC W/O DIFFE RENTI AL red cell distribution width 13.3 % 11.8-1 5.5 Not Available [facility] (Lab) [address] [place], [address], 12/12/2021 07:51:59 12/13/1912/12/2021 CBC W/O DIFFE RENTI AL mean platelet volume 11.5 fL 9.0-12 .4 Not Available [facility] (Lab) [address] [place], [address], 12/12/2021 07:51:59 12/01/19 22 11/30/2021 XR, chest , 2 [facility] [address], [place] [address] [phone] Araceli esteban Name: GAUTAM GEORGE Access ion #: [id number] Sex: F : 1950 0 Locati on: PAT Attend ing Physic tee: JC MARTIN Orderi ng Physic tee: JC MARTIN Exam Date: 022 8:17 AM Exam [...] bony thorax . Page 1 of 2 [facility] Araceli t Name: GAUTAM GEORGE Access ion #: [id number] Sex: F : 1950 0 Exam [...] 8:50 AM (CT) Page 2 of 2 [id number] [facility] (Imaging) [address] [place], [address], 05/01/2022 03:10:56 12/12/19 22 12/11/2021 XR, knee, 1 or 2 view [facility] [address] [place] [address] Patien t Name: GAUTAM GEORGE [employer] [place] Access ion #: [id number] Sex: F : 1950 8 Locati on: Attend ing Physic tee: JC MARTIN [facility] Physic tee: JC MARTIN Exam Date: 2021 8:56 AM Exam [...] compli cation . Page 1 of 2 [facility] Patien t Name: GAUTAM GEORGE Access ion #: [id number] Sex: F : 1950 8 Exam Date: 2021 8:56 AM Exam Name: XR KNEE LT 2V Admitt ing Diagno sis(es ): Create d and electr onical ly signed by: Lev cali MD Signed Date: 2021 4:05 PM (CT) Dictat ed by: Lev cali MD DD: 2021 4:05 PM (CT) DT: 2021 4:05 PM (CT) Page 2 of 2 [id number] [facility] (Imaging) [address] [place], [address], 05/01/2022 03:10:56 12/12/1912/11/2021 XR, knee, 3 view No observ ation record ed. [id number] [facility] Add On Lab Orders [address] [place], [address], 05/01/2022 03:10:56 01/24/20 XR, knee No observ ation record ed. [id number] [facility] [address], [place], [address], 05/01/2022 03:10:56 12/10/19 XR, knee No observ ation record ed. [facility] [address], [place], [address], 12/09/2022 14:55:58 Result Notes None recorded. Problems Name Problem SNOMED Code Status Onset Date Resolution Date Notes Provider Name and Address Organization Details Recorded Time Acute abdominal pain 749494291 Completed Not Available [facility] 3 02:56:57 Disorder of shoulder 419713463 Completed Not Available [facility] 3 02:56:57 Pain in throat 160493872 Completed Not Available [facility] 3 02:56:58 Partial thickness rotator cuff tear 630988159 Active Not Available [facility] 3 02:56:58 Spasm of back muscles Completed Not Available [facility] 3 02:56:58 Abdominal pain 35357582 Completed Not Available [facility] 3 02:56:58 Abdominal distensio n, gaseous 593627816 Completed Not Available [facility] 3 02:56:58 Tendernes s over frontal sinus 792264623 Completed Not Available [facility] 3 02:56:58 Vitamin D deficienc y 41438613 Active Not Available [facility] 3 02:56:58 Depressiv e disorder 40510065 Active Not Available [facility] 3 02:56:58 Lesion of ulnar nerve 804834010 Active Not Available [facility] 3 02:56:58 Sinusitis 72725113 Completed Not Available [facility] 3 02:56:58 Arthritis 8033504 Active Not Available [facility] 3 02:56:59 Disorder of vitamin D 199556806 Completed Not Available [facility] 3 02:56:59 Osteoarth ritis 073892586 Active Not Available [facility] 3 02:56:59 Loose stool 653254934 Completed Not Available [facility] 3 02:56:59 Type 2 diabetes mellitus 15434752 Active Not Available [facility] 3 02:56:59 Seasonal allergy 072822175 Active Not Available [facility] 3 02:56:59 Pain of left knee joint 12187827130 4107 Active 2021 Not Available [facility] 3 02:56:59 Foot pain 77209336 Completed Not Available [facility] 3 02:57:00 Upper respirato ry infection 71780032 Completed Not Available [facility] 3 02:57:00 Carpal tunnel syndrome 02762841 Active Not Available [facility] 3 02:57:00 Essential hypertens ion 10442623 Active Not Available [facility] 3 02:57:00 Diabetes mellitus 33221715 Completed 201608/28/2020 Not Available [facility] 3 02:57:00 Sleep apnea 87750822 Active 2019 Not Available [facility] 3 02:57:00 Posterior rhinorrhe a 42156644 Completed Not Available [facility] 3 02:57:00 Epigastri c pain 29141600 Completed Not Available [facility] 3 02:57:01 Fatigue 39420100 Active Not Available [facility] 3 02:57:01 Weight gain 2349325 Completed Not Available [facility] 3 02:57:01 Problem Notes None recorded. Procedures Surgical History Date Name Laterality Status Provider Name and Address Organization Details Recorded Time 09/18/19 22 bone density scan completed Not Available [facility] 05/01/2022 02:46:36 04/13/19 21 Date of Last Colonoscopy completed Not Available [facility] 05/01/2022 02:46:31 04/13/19 21 Colonoscopy completed Not Available [facility] 05/02/19 23 02:46:36 09/20/19 20 Most Recent Mammogram completed Not Available [facility] 05/01/2022 02:46:31 01/21/20 14 Date of Last Pap Smear completed Not Available [facility] 05/01/2022 02:46:31 03/03/18 90 ANESTHESIOLOGIST ASSISTANT CERTIFIED Surgery completed Not Available [facility] 05/02/19 23 02:46:36 Imaging Results None recorded. Procedure Notes None recorded. Medical Equipment None Reported. Allergies Allergen ID Allergen Name Allergen Category Reaction Reaction Severity Criticality Documentation Date Start Date Code Code System Note Provider Name and Address Organization Details Recorded Time 5367 Arthrotec medicatio n nausea Not available Not available 05/01/2022 37617 UNK Not Available [facility] 3 03:10:22 Medications Name Sig Start Date Stop [...] administ ered by the provider 09/05 completed ND: [id number] 4-20 Not Available Not Available Not Available hydrocodo [...] Not Available Not Available Not Available OneTouch Ultra2 Meter kit USE DIRECTED 12/02 completed Not Available Not Available Not Available lidocaine (PF) 10 mg/mL (1 %) injection solution In office injectio n administ ered by the provider 07/12 completed [facility]: 0409-427 08-17 Not Available Not Available Not Available metformin [...] Available Not Available Vitals Date Recorded Body mass index (BMI) Body height Oxygen saturation Oxygen saturation in Arterial blood by Pulse oximetry Heart rate Body temperature Body weight Systolic And Diastolic Provider Name and Address Organization Details Last Updated DateTime 3 27.1 kg/m2 162.56 cm 98 % 98 % 101 /min 97.1 [degF] 00553.5 9 g 148/86 mm[Hg] Not Available [facility] 3 02:52:47 Date Recorded Body height Body mass index (BMI) Body weight Provider Name and Address Organization Details Last Updated DateTime 12/09/2022 163.83 cm 27.9 kg/m2 41467.74 g SUJEY Head [employer] 12/09/2022 14:28:20 Date Recorded Body height Provider Name an d Address Organization Details Last Updated DateTime 12/24/2021 162.56 cm Not Available [facility] 3 02:52:50 Date Recorded Body height Provider Name an d Address Organization Details Last Updated DateTime 01/09/2022 162.56 cm Not Available [facility] 3 02:52:50 Date Recorded Body height Provider Name an d Address Organization Details Last Updated DateTime 01/23/2022 162.56 cm Not Available [facility] 3 02:52:50 Social History Question Answer Notes LastModified by Organizat ion Details LastModified Time Tobacco Smoking Status Former Smoker Shelby lopez, [employer] 12/09/2022 14:09:15 Do You Have An Advance Directive? No [id number] Information not available 05/01/2022 Are You Blind Or Do You Have Difficulty Seeing? No [email or web address] Information not available 12/09/2022 What Is Your Level Of Caffeine Consumption? Moderate [id number] Information not available 05/01/2022 In The 14 Days Before Symptom Onset, Have You Had Close Contact With A Laboratory-confir med COVID-19 While That Case Was Ill? No [email or web address] Information not available 12/09/2022 In The 14 Days Before Symptom Onset, Have You Had Close Contact With A Person Who Is Under Investigation For COVID-19 While That Person Was Ill? No [email or web address] Information not available 12/09/2022 Are You Deaf Or Do You Have Serious Difficulty Hearing? No Information not available 12/09/2022 What Type Of Diet Are You Following? REGULAR [id number] Information not available 05/01/2022 Which Illicit Or Recreational Drugs Have You Used? None [email or web address] Information not available 12/09/2022 Have There Been Any Changes To Your Family Or Social Situation? No [email or web address] Information no t available 12/09/2022 What Is The Fluoride Status Of Your Home? Unknown [email or web address] Information not available 12/09/2022 Do You Use Insect Repellent Routinely? Yes [email or web address] Information not available 12/09/2022 Where Do You Live? SingleLevelHouse [email or web address] Information not available 12/09/2022 Do You Have A Medical Power Of Disulfurizer Tender? No [email or web address] Information not available 12/09/2022 What Was The Date Of Your Most Recent Tobacco Screening? 09/04/2021 [email or web address] Information not available 12/09/2022 Do You Use Your Seat Belt Or Car Seat Routinely? Yes [email or web address] Information not available 12/09/2022 Do You Have Smoke And Carbon Monoxide Detectors In Your Home? Yes [email or web address] Information not available 12/09/2022 Do You Use Sunscreen Routinely? Yes [email or web address] Information not available 12/09/2022 Has Tobacco Cessation Counseling Been Provided? No [email or web address] Information not available 12/09/2022 Do You Have Difficulty Walking Or Climbing Stairs? No Information not available 12/09/2022 Do You Have Any Dietary Restrictions? No [email or web address] Information not available 12/09/2022 Sex: Unknown Functional Status Question Answer Note LastModified by Organizat ion Details LastModified Time Do you or have you ever used any other forms of tobacco or nicotine? No [email or web address] Information not available 12/09/2022 What is your level of alcohol consumption? Occasional [id number] Information not available 05/01/2022 Do you have transportation difficulties? No [email or web address] Information not available 12/09/2022 Are you able to walk? YESWOREST Information not available 12/09/2022 Do you have difficulty doing errands alone? No [email or web address] Information not available 12/09/2022 Are you able to care for yourself? Yes [email or web address] Information n ot available 12/09/2022 What is your occupation? [employer] [email or web address] Information not available 12/09/2022 Do you have difficulty dressing or bathing? No [email or web address] Information not available 12/09/2022 What is your exercise level? Moderate walks [id number] Information not available 05/01/2022 Mental Status Question Answer Note LastModified by Organizat ion Details LastModified Time Do you feel stressed (tense, restless, nervous, or anxious, or unable to sleep at night)? [id number] [email or web address] Information not available 12/09/2022 Do you have difficulty concentrating, remembering or making decisions? No [email or web address] Information no t available 12/09/2022 Family History Relationship Description Onset Age of this Age Resolved Age Notes LastModified by Organization Details LastModified Time Mother Malignant tumor of cervix [email or web address] Not available 12/09 14:09:14 Mother Heart disease [id number] Not available 05/01/2022 02:46:43 Mother Hypertensive disorder [id number] Not available 05/01/2022 02:46:43 Mother Diabetes mellitus [id number] Not available 05/01/2022 02:46:43 Daughter Malignant tumor of cervix Not available 12/09 14:09:14 Sister Malignant tumor of breast [email or web address] Not available 12/09 14:09:14 Father Heart disease [email or web address].485 [id number] Not available 05/01/2022 02:46:43 Father Diabetes mellitus [email or web address] [id number] Not available 05/01/2022 02:46:43 Notes:no new Medical [...] HAVE YOU BEEN HOSPITALIZED OR SEEN IN [facility] IN THE PAST YEAR ? [...] dose 1 completed Not Available [facility] 05/01/2022 03:10:01 COVID-19, mRNA, LNP-S, PF, 100 mcg/0.5mL dose or 50 mcg/0.25mL dose 2 completed Not Available [facility] 05/01/2022 03:10:01 Tdap 9 completed Not Available [facility] 05/01/2022 03:10:01 pneumococcal, unspecified formulation 8 completed Not Available [facility] 05/01/2022 03:10:01 Influenza, high-dose, quadrivalent, PF 1 completed Not Available [facility] 05/01/2022 03:10:01 Influenza, high-dose, trivalent, PF 0 completed Not Available [facility] 05/01/2022 03:10:01 Pneumococcal conjugate PCV 13 0 completed Not Available [facility] 05/01/2022 03:10:02 zoster live 4 completed Not Available [facility] 05/01/2022 03:10:02 Past Encounters Encounter ID Performer Location Encounter Start Date Encounter Closed Date Diagnosis/Indication Diagnosis SNOMED-CT Code Diagnosis ICD10 Code Diagnosis Note [id number] [facility]M [facility]_ DEFAULT_1 _1 , 05/30/2020 00:00:00 05/30/2020 10:54:49 [id number] S[facility] [address] [place] [address] 06/20/2020 00:00:00 06/20/2020 13:49:30 [id number] [facility] [address] [place] [address] 09/12/2020 00:00:00 09/12/2020 10:15:47 [id number] Jc Styles MD [facility] [place] [address] [place] [address] 09/22/2020 00:00:00 09/22/2020 16:27:24 [id number] Aren Shore MD [facility] [place] [address] [facility] y , [place] [address] 12/20/2020 00:00:00 12/21/2020 12:54:23 [id number] Jc Styles MD [facility] [place] [address] [place] [address] 02/14/2021 00:00:00 02/14/2021 10:16:24 [id number] [facility] [place] [address] [facility] y , [place] [address] 03/12/2021 00:00:00 03/12/2021 08:19:14 [id number] Jc Styles MD [facility] [address] [address] 07/12/2021 00:00:00 07/12/2021 10:35:49 [id number] Aren Shore MD [facility] [address] [place] [address] y , [place] [address] 09/05/2021 00:00:00 09/05/2021 15:14:47 [id number] Jc Styles MD [facility] [place] [address] [place] [address] 10/24/2021 00:00:00 10/30/2021 16:41:50 [id number] Jc Styles MD [facility] [place] [address] [place] [address] 12/24/2021 00:00:00 12/24/2021 14:51:46 [id number] Jc Styles MD [facility] [place] [address] [place] [address] 01/09/2022 00:00:00 01/09/2022 11:39:55 [id number] Jc Styles MD [facility] [place] [address] [place] [address] 01/23/2022 00:00:00 01/23/2022 12:43:57 [id number] [facility] [place] [address] [facility] [address] [place] [address] 03/15/2022 00:00:00 03/15/2022 09:40:53 [id number] Jc Styles MD [facility] [place] [address] [place] [address] 12/09/2022 14:06:53 12/09/2022 15:04:56 History of left total knee replacement [id number] Z96.652 Health Concerns Section Related Observation LastModified by Organization Detai ls LastModified Time None Recorded Concern Status LastModified by Organization Details LastModified Time None Recorded Advance Directives Directive N: Payers Insurance Date Sequence Insurance Name Policy Number Policy Deal Covered Member ID Deal Member ID Guarantor Name 12/09/2022 1 [facility] (MEDICARE REPLACEMENT HMO) [id number] Gautam Lao [id number] Gautam Lao 12/08/2022 1 [facility] (MEDICARE REPLACEMENT/AD VANTAGE - HMO) [id number] Gautam Lao [id number] Gautam Lao OBGyn Episode No OBEpisode recorded.
== END 2024-09-06 11:19 | disposition home or self-care (01) ==
PROVIDERS: PCP Family Medicine
DX: M47.894 Other spondylosis, thoracic region (principal)
CPT/HCPCS: 72070

== ENCOUNTER 2024-11-19 09:17 | Emergency (ER) | payer MEDICARE, SELFPAY ==
--- NOTE | ~2024-11-19 | CT_ITS ---
CTA CHEST CLINICAL HISTORY: cp, ddimer . COMPARISON: Chest x-ray today TECHNIQUE: Helical CTA performed from thoracic inlet to upper abdomen IV contrast information not listed in PACS Coronal, sagittal reformats. Multiplanar MIPS CT images acquired with automatic exposure control for dose reduction DLP: 224 mGy-cm FINDINGS: Pulmonary arteries: No PE. Thoracic Aorta: No dissection or aneurysm. Mild atherosclerotic disease. Heart/pericardium: Unremarkable. RV/LV ratio: Normal. Lungs/Pleura: 13 mm nodule left upper lobe. Tracheobronchial tree: Patent. Nodes: No enlarged nodes. Bones: No acute bony abnormality. Soft tissues: Unremarkable. Visualized upper abdomen: Hepatomegaly, with steatosis. Cholecystectomy. Small hiatal hernia. Proximal duodenal diverticulum. IMPRESSION: 1. 13 mm nodule left upper lobe. Recommend PET/CT and/or biopsy. 2. No PE or other acute cardiopulmonary findings. Reviewed, dictated and finalized at location R.
--- NOTE | ~2024-11-19 | XR_ITS ---
EXAMINATION: XR chest 2V, 11/19/2024 10:25 CDT HISTORY: chest pain COMPARISON: No comparisons available. Technique: 2 views obtained. Findings: The lungs are clear, no effusion. No pneumothorax. Heart is normal size. Mediastinal and hilar contours are within normal limits. Bony thorax no acute abnormality. Impression: No acute cardiopulmonary abnormality. Reviewed, dictated and finalized at location A. Impression: No acute cardiopulmonary abnormality.
--- NOTE | 2024-11-19 09:18 | ECG_ITS ---
Test Date: 2024-11-19 09:23:53 Measurements Intervals [place] Rate: 63 P: 56 MI: 139 QRS: 70 QRSD: 134 T: 47 QT: 399 QTc: 411 Interpretive Statements SINUS RHYTHM WITH SINUS ARRHYTHMIA POSSIBLE LEFT ATRIAL ENLARGEMENT [-0.1mV P-WAVE IN V1/V2] RIGHT BUNDLE BRANCH BLOCK [120+ ms QRS DURATION, UPRIGHT V1, 40+ ms S IN I/aVL/V4/V5/V6] ABNORMAL ECG Compared to ECG 06/10/2024 08:53:48 Right bundle-branch block now present Incomplete right bundle-branch block no longer present Electronically Signed On 11-19-2024 13:04:55 CDT by August Hopkins M.D.
--- OUTSIDE RECORDS SUMMARY | 2024-11-19 09:20 | XMS_ITS | Clinical Summary ---
Author Organization [facility] Address [address] [facility] [place] [address] Phone Care Team Providers Care Resident Engineer Name Role Phone Maty Valladares MD Primary Care Provider [phone] Allergies Active Allergy Reactions Criticality Noted Date [...] MONTHS 06/08/20202019, 08/12/2019, 03/26/2019, Additional history exists OSTEOPOROSIS SCREENING 09/19/2024 09/20/2019 INFLUENZA VACCINE (#1) 2024 04/01/2019 RSV VACCINE (60+ or ) (1 - 1-dose 75+ series) 2024 COVID-19 Vaccine (3 - 2024-2 6 season) 2024 06/18/2020, 05/21/2020 Insurance [facility] P[facility] MCR Care Teams Resident Engineer Relationship Specialty Start Date End Date Maty Valladares MD PCP - General Family Practice 11/06/22
--- OUTSIDE RECORDS SUMMARY | 2024-11-19 09:20 | XMS_ITS | Clinical Summary ---
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 Gender Identity Female 11/07/2017 10:37 AM CDT [...] 9:30 AM CDT Height 165.1 cm (5' 5) 11/14/2017 9:30 AM CDT Body Mass Index 30.29 11/14/2017 9:30 AM CDT Plan of Treatment Health Maintenance Due Date Last Done Comments Albumin Creatinine Ratio, Urine 1950 Colon Cancer Screening-Colonoscopy 1950 Depression Screening [...] Visit 65+ 2014 Covid-19 Vaccine (3 - 2024- season) 2024, 05/21/2020 Influenza Vaccine (#1) 2024 DTaP/Tdap/Td Vaccine (2 - Td or Tdap) 06/07/202509/2015 Insurance CHOICE PLUS [facility] H[facility]/PPO Address: [address] [address] [place] [address] MEDICARE MEDICARE [employer] SENIOR SUPPLEMENT Care Teams Profiling Machine Setup Operator Relationship Specialty Start Date End Date Sylvie Olea NP PCP - General Nurse Practitioner 10/31/17
--- OUTSIDE RECORDS SUMMARY | 2024-11-19 09:20 | XMS_ITS | Clinical Summary ---
Author Organization [facility] Address [address] [address] Phone Care Team Providers Care Mixing Machine Tender Name Role Phone Sylvie Olea Radha CHRISTENSEN Primary Care Provider [phone] Leonel Garcia DO Unavailable [phone] Allergies No known active allergies Medications [...] 10 mg by mouth every evening. Active [place]-3 Fatty Acids (OMEGA-3 FISH OIL PO) Take [...] Immunization (50+ years) (2 of 2 - PCV20 or PCV21) 03/25/2020 03/25/2019, 02/01/2008 SARS-COV-2 Immunization ( season) [...] Recently Relevant to Health Maintenance [facility] Care Teams Mixing Machine Tender Relationship Specialty Start Date End Date Sylvie Olea APRN PCP - General Advanced Practice Nurse 01/22/16 Leonel Garcia DO Gastroenterology 02/05/16
--- OUTSIDE RECORDS SUMMARY | 2024-11-19 09:20 | XMS_ITS | Clinical Summary ---
Author Organization [facility] Address [address] [place] [address] Care Team Providers Care Cert Occupational Therapy Asst Name Role Phone Unavailable Primary Care Provider [...] Td Vaccines ( 1 - Tdap) 1968 Pneumococcal Vaccine: 50+ Ye ars (1 of 1 - PCV) 10/21/1999 Zoster Vaccines (1 of 2) 10/21/1999 Dexa Scan (General) 2014 RSV Immunization or 60+ Years (1 - 1-dose 75+ series) 2024 COVID-19 Vaccine ( - 2023-2 5 season) 2024 Meningococcal B Vaccine Aged Out No l onger eligible based on patient's age to complete this topic Meningococcal Vaccine Aged Out No ludwin renata eligible based on patient's age to complete this topic RSV Immunizations Under 20 Months Aged Out No longer eligible based on patient's age to complete this topic
--- OUTSIDE RECORDS SUMMARY | 2024-11-19 09:44 | XMS_ITS | Clinical Summary ---
Author Organization [facility] Address [address] [place] [address] Care Team Providers Care Drill Press Operator Helper Name Role Phone Unavailable Primary Care Provider [...]
--- OUTSIDE RECORDS SUMMARY | 2024-11-19 09:44 | XMS_ITS | Clinical Summary ---
Author Organization [employer] [facility] Address [address] [facility] [place] [address] Phone Care Team Providers Care Milling Machine Tender Name Role Phone Maty Valladares MD Primary Care Provider [phone] Allergies Active Allergy Reactions Criticality Noted Date [...] [facility] M[facility] Care Teams Milling Machine Tender Relationship Specialty Start Date End Date Maty Valladares MD PCP - General Family Practice 11/06/22
--- OUTSIDE RECORDS SUMMARY | 2024-11-19 09:44 | XMS_ITS | Clinical Summary ---
Author Organization [facility] Address [address] [address] Phone Care Team Providers Care Salesperson [employer] Name Role Phone Sylvie Olea Radha CHRISTENSEN Primary Care Provider [phone] Leonel Garcia DO Unavailable [phone] Allergies No known active allergies Medications [...] 10 mg by mouth every evening. Active [place]-3 Fatty Acids (OMEGA-3 FISH OIL PO) Take [...] Recently Relevant to Health Maintenance [facility] Care Teams Salesperson [employer] Relationship Specialty Start Date End Date Sylvie Olea APRN PCP - General Advanced Practice Nurse 01/22/16 Leonel Garcia DO Gastroenterology 02/05/16
--- OUTSIDE RECORDS SUMMARY | 2024-11-19 09:44 | XMS_ITS | Clinical Summary ---
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
[2024-11-19 09:48] VITALS: BP 139/65; PULSE 72; RESP 18; TEMP 36.6; O2SAT 97
[2024-11-19 09:55] LABS: Hematocrit 38.7 % (37.0-47.0); Hemoglobin 12.8 g/dL (12.0-15.0); Immature Granulocyte Percent A 0.4 % (0-0.5); Lymphocytes Absolute Auto 1.41 K/mm3 (0.9-3.2); Mean Corpuscular HGB Conc 33.1 g/dl (32-36); Mean Corpuscular Hemoglobin 29.4 pg (26-34); Mean Corpuscular Volume 88.8 fl (80-100); Nucleated Red Blood Cells Absolute Auto 0.000 K/mm3 (0.0-0.012); Nucleated Red Blood Cells Perc 0.0 % (0.0-0.2); Platelet Count Result 401 k/mm3 (150-375); Red Blood Count 4.36 M/mm3 (4.2-5.4); White Blood Count 9.0 K/mm3 (4.5-10.0)
[2024-11-19 09:56] VITALS: PULSE 84
--- NOTE | 2024-11-19 09:58 | ED.GENADULT ---
HPI - General Adult General Chief complaint: Chest Pain Stated complaint: abnormal EKG Time Seen by Provider: 11/19/24 09:35 History of Present Illness HPI narrative: 74-year-old female presents to the emergency department for evaluation for intermittent epigastric pain. Patient states pain has been going on for the last 2 weeks but not daily. Patient reports epigastric abdominal pain. Patient does have a history of GERD with a Fifi fundoplasty. Patient denies any prior history of PA. patient states the pain occurs with exertion and with rest. Patient is unsure of anything specifically that causes it or helps the pain. Patient denies any radiation of the pain currently but states that a few days ago she did have some pain that radiated into her right arm. Related Data Home Medications ?Medication ?Instructions ?Recorded ?Confirmed ?Last Taken ?Type Adult One Daily Multivitamin 1 tablet PO DAILY 03/23/20 11/19/24 06/08/24 History aspirin 81 mg tablet 81 mg PO DAILY 08/25/20 11/19/24 06/10/24 History metformin 500 mg tablet 500 mg PO BID 08/18/23 11/19/24 06/10/24 History acetaminophen 500 mg tablet 1,000 mg PO Q6H PRN pain 06/09/24 11/19/24 Unknown History (Tylenol Extra Strength) ferrous sulfate 325 mg (65 mg mg 07/10/24 11/19/24 Unknown History iron) tablet Allergies Allergy/AdvReac Type Severity Reaction Status Date / Time doxycycline AdvReac Vomiting Verified 11/19/24 08:06 Review of Systems Review of Systems: All systems reviewed & are unremarkable except as noted in HPI and below PMFSH Past Medical History Medical History Right bundle branch block Heart murmur Abdominal bruit Decrease in appetite Early satiety Mid back pain Postprandial epigastric pain NIC (iron deficiency anemia) Irregular heart rhythm Hx of gastric ulcer Overweight (BMI 25.0-29.9) Diabetes Osteoarthritis Chronic GERD KULDEEP (obstructive sleep apnea) HTN (hypertension) Surgical History Surgical History History of hysterectomy History of total right knee replacement History of Fifi fundoplication History of appendectomy History of cholecystectomy Family History Family History Mother Cerebrovascular accident Other Diabetes mellitus Heart disease Hypertension Social History Social History Social History: Smoking packs per day: 1 Smoking cigarettes per day: 20.0 Years smoked: 22 Smoking pack-years: 22.00 Smoking status: Former smoker Tobacco type: cigarettes Second hand tobacco smoke exposure: No Smoking end date: 03/03/99 Alcohol intake: current Alcohol use details: 1 per few months Substance use: never Substance use type: does not use Current Housing: Decline to Answer Concerned About Future Housing: Decline to Answer Difficulty Paying Gas/Electric Bills: Decline to Answer Difficulty Paying for Meds: Decline to Answer Currently Unemployed: Decline to Answer Education: Decline to Answer Difficulty w/ Childcare or Family Care: Decline to Answer Living arrangements: with family Additional living arrangements comments: Occupation/Education: retired Gender identity (if verbalized by the patient): Female Sexual Orientation (if Verbalized by the Patient): Straight or Heterosexual Spiritual care concerns: No Exam Narrative: APPEARANCE: Well appearing, no pain, no distress, well-nourished. HEAD: normocephalic, atraumatic. EYES: PERRLA/EOMI, conjunctivae clear. NOSE: Normal no drainage EARS:TMS clear with good light reflex. THROAT: Pharynx clear, no exudate. NECK: Supple. No adenopathy, no masses. RESPIRATORY: Airway patent, respirations nonlabored. Clear to auscultation bilaterally, no rales, rhonchi, wheezing. CARDIOVASCULAR: Regular rate and rhythm without murmurs rubs or gallops. ABDOMINAL: Mild epigastric tenderness to palpation MUSCULOSKELETAL: Moves all extremities. Strength/ROM intact, No edema, No calf tenderness. NEURO: Alert. Cranial nerves II through XII intact. Good gait. Good coordination SKIN: Warm, dry. Normal Color Course Vital Signs Vital signs: Vital Signs Temperature 97.8 F 11/19/24 09:48 Pulse Rate 72 11/19/24 09:48 Respiratory Rate 18 11/19/24 09:48 Blood Pressure 139/65 11/19/24 09:48 Pulse Oximetry 97 11/19/24 09:48 Oxygen Delivery Room Air 11/19/24 09:48 Temperature 97.8 F 11/19/24 15:00 Pulse Rate 69 11/19/24 15:00 Respiratory Rate 14 11/19/24 15:00 Blood Pressure 138/54 L 11/19/24 15:00 Pulse Oximetry 95 11/19/24 15:00 Oxygen Delivery Room Air 11/19/24 10:09 Medical Decision Making MDM Narrative Medical decision making narrative: 74-year-old female presents emergency department for epigastric pain. Patient reports pain was resolved with a GI cocktail. Patient was also treated with IV Protonix. Patient later or [facility] that Tylenol for underlying headache. Patient is currently afebrile with no leukocytosis hemoglobin of 12.8. Patient has an INR 0.9. Patient's D-dimer was elevated at 2.15. CTA was ordered to evaluate for pulmonary embolism this was negative. CT scan does show evidence of a 13 mm nodule left upper lobe and PET/CT was recommended for follow-up. Patient had negative serial troponins negative serial EKGs. On re-evaluation patient does feel improved. Patient was updated on the results of her CT scan recommendation for additional outpatient follow-up with primary care physician for additional cardiac workup and follow-up for the CT scan. Patient states she was aware of the pulmonary nodule but will have close follow-up with her primary care physician. Differential Diagnosis Differential Diagnosis: Pneumonia, pneumothorax, pulmonary embolism, ACS Vital Signs Vital Signs: Vital Signs Temperature 97.8 F 11/19/24 09:48 Pulse Rate 72 11/19/24 09:48 Respiratory Rate 18 11/19/24 09:48 Blood Pressure 139/65 11/19/24 09:48 Pulse Oximetry 97 11/19/24 09:48 Oxygen Delivery Room Air 11/19/24 09:48 Temperature 97.8 F 11/19/24 15:00 Pulse Rate 69 11/19/24 15:00 Respiratory Rate 14 11/19/24 15:00 Blood Pressure 138/54 L 11/19/24 15:00 Pulse Oximetry 95 11/19/24 15:00 Oxygen Delivery Room Air 11/19/24 10:09 Lab Data Lab results reviewed: Yes I reviewed the patient's lab results. 11/19/24 09:45 11/19/24 09:45 Labs: Lab Results 11/19/24 11/19/24 Range/Units 09:45 13:59 WBC 9.0 (4.5-10.0) K/mm3 RBC 4.36 (4.2-5.4) M/mm3 Hgb 12.8 (12.0-15.0) g/dL Hct 38.7 (37.0-47.0) % MCV 88.8 (80-100) fl MCH 29.4 (26-34) pg MCHC 33.1 (32-36) g/dl RDW 12.5 (11.5-14.5) % Plt Count 401 H (150-375) k/mm3 MPV 9.6 (7.4-10.4) fl Immature Gran % (Auto) 0.4 (0-0.5) % Neut % (Auto) 76.2 H (45.5-73.1) % Lymph % (Auto) 15.6 L (18.3-44.2) % [place] % (Auto) 6.9 (2.6-8.5) % Eos % (Auto) 0.3 (0-4.4) % Baso % (Auto) 0.6 (0.2-1.2) % Lymph # (Auto) 1.41 (0.9-3.2) K/mm3 [place] # (Auto) 0.6 (0.1-0.6) K/mm3 Eos # (Auto) 0.0 (0-0.3) K/mm3 Baso # (Auto) 0.1 (0.0-0.1) K/mm3 Abs Immat Gran (auto) 0.04 H (0.00-0.031) K/mm3 Absolute Neuts (auto) 6.9 H (1.3-6.7) K/mm3 Absolute Nucleated RBC 0.000 (0.0-0.012) K/mm3 Nucleated RBC % 0.0 (0.0-0.2) % PT 12.3 (11.1-14.7) Seconds INR 0.9 APTT 31.0 (22.3-36.8) Seconds D-Dimer 2.15 H (<0.48) ug/mL Sodium 134 L (137-145) mmol/L Potassium 4.5 (3.4-5.0) mmol/L Chloride 100 (98-107) mmol/L Carbon Dioxide 25 (22-30) mmol/L Anion Gap 9 (4-12) mmol/L BUN 23 H (7-17) mg/dL Creatinine 0.84 (0.7-1.0) mg/dL Estim Creat Clear Calc 52 ml/min Estimated GFR > 60 (59 - ) Glucose 164 H (65-110) mg/dL Calcium 9.8 (8.4-10.2) mg/dL Total Bilirubin 0.6 (0.2-1.3) mg/dL AST 23 (14-36) U/L ALT 17 (6-35) U/L Alkaline Phosphatase 93 (38-126) U/L Troponin I < 0.012 < 0.012 (0.000-0.034) ng/mL Total Protein 7.8 (6.3-8.2) g/dL Albumin 4.5 (3.5-5.1) g/dL Lipase 36 (23-300) U/L Imaging Data Radiologist's impression: Impressions Chest X-Ray 11/19/24 10:31 Impression: No acute cardiopulmonary abnormality. Chest CTA 11/19/24 12:47 IMPRESSION: 1. 13 mm nodule left upper lobe. Recommend PET/CT and/or biopsy. 2. No PE or other acute cardiopulmonary findings. ECG Data EKG #1: EKG Interpretation: normal rate, sinus rhythm, no ectopy, non-specific ST changes, normal QRS, normal QT and NL axis Discharge Plan Discharge Clinical Impression: Abdominal pain, epigastric Patient Disposition: Home Condition: Stable Instructions: Antibiotic Form, Chest Pain (ED) Additional Instructions: Start taking omeprazole daily for the next 14 days. Have close follow-up with your primary care physician for additional outpatient cardiac testing. Have follow-up with GI for evaluation for possible gastritis. Your CT scan did show evidence of a pulmonary nodule that will need follow-up. Follow-up with your primary care physician to have an outpatient PET or CT scan or biopsy. Patient Language: Guinean Prescriptions: New omeprazole 20 mg capsule,delayed release(DR/EC) 20 mg PO DAILY 14 Days Qty: 14 0RF No Action ferrous sulfate 325 mg (65 mg iron) tablet aspirin 81 mg Tablet 81 mg PO DAILY amlodipine 10 mg tablet 10 mg PO DAILY Qty: 30 2RF diclofenac sodium 75 mg tablet,delayed release (DR/EC) 75 mg PO BID Qty: 60 2RF prednisone 10 mg tablet 10 mg PO BID 10 Days Qty: 20 0RF acetaminophen [Tylenol Extra Strength] 500 mg tablet 1,000 mg PO Q6H PRN (Reason: pain) Adult One Daily Multivitamin 1 tablet PO DAILY metformin 500 mg tablet 500 mg PO BID (DME) blood-glucose meter [OneTouch Ultra2 Meter] [facility] See Rx Instructions .Route Qty: 1 0RF Rx Instructions: use to check blood sugar once a day (DME) OneTouch Ultra Test Strip See Rx Instructions .Route Qty: 100 0RF Rx Instructions: use to check blood sugar once a day azelastine 137 mcg (0.1 %) spray,non-aerosol See Rx Instructions .ROUTE .COMPLEX Qty: 30 2RF Dose Instruction: ADMINISTER 1 SPRAY IN EACH NOSTRIL EVERY 12 HOURS DIRECTED Rx Instructions: ADMINISTER 1 SPRAY IN EACH NOSTRIL EVERY 12 HOURS DIRECTED irbesartan 300 mg tablet See Rx Instructions .ROUTE .COMPLEX Qty: 90 2RF Dose Instruction: TAKE 1 TABLET BY MOUTH EVERY DAY Rx Instructions: TAKE 1 TABLET BY MOUTH EVERY DAY colestipol 1 gram tablet See Rx Instructions .ROUTE .COMPLEX Qty: 180 1RF Dose Instruction: TAKE 1 TABLET BY MOUTH TWICE DAILY Rx Instructions: TAKE 1 TABLET BY MOUTH TWICE DAILY pantoprazole 40 mg tablet,delayed release (DR/EC) See Rx Instructions .ROUTE .COMPLEX Qty: 90 3RF Dose Instruction: TAKE 1 TABLET BY MOUTH EVERY DAY IN THE MORNING Rx Instructions: TAKE 1 TABLET BY MOUTH EVERY DAY IN THE MORNING Follow-up/Referrals: Stefano Ortega MD [Primary Care Provider, Family Practice] Ezequiel Duke MD [Physician, Gastroenterology] Quality HEART score for chest pain patients History: slightly suspicious ECG: normal Age: > or = to 65 years Risk factors: 1 or 2 risk factors Troponin: < or = to 1x normal limit Heart score: 3
[2024-11-19 10:07] LABS: INR 0.9; Partial Thromboplastin Time 31.0 Seconds (22.3-36.8); Prothrombin Time 12.3 Seconds (11.1-14.7)
[2024-11-19 10:19] LABS: Alanine Aminotransferase 17 U/L (6-35); Albumin Level 4.5 g/dL (3.5-5.1); Alkaline Phosphatase 93 U/L (38-126); Anion Gap 9 mmol/L (4-12); Aspartate Amino Transferase 23 U/L (14-36); Bilirubin,Total 0.6 mg/dL (0.2-1.3); Blood Urea Nitrogen 23 mg/dL (7-17); Calcium 9.8 mg/dL (8.4-10.2); Carbon Dioxide 25 mmol/L (22-30); Chloride 100 mmol/L (98-107); Estimated CRCL calculation 52 ml/min; Estimated Glomerular Filt Rate > 60; Glucose 164 mg/dL (65-110); Lipase 36 U/L (23-300); Potassium 4.5 mmol/L (3.4-5.0); Sodium 134 mmol/L (137-145); Total Protein 7.8 g/dL (6.3-8.2)
[2024-11-19 10:30] LABS: Troponin I < 0.012 ng/mL (0.000-0.034)
[2024-11-19] MEDS: PANTOPRAZOLE SODIUM IV 40 MG VIAL IV PUSH (11:28)
[2024-11-19] MEDS: ASPIRIN 81 MG CHEWABLE TABLET 324 MG PO (11:28)
[2024-11-19] MEDS: BELLADONNA ALK/PHENOB ELIX 10 ML, MAG HYDROX/ALUMINUM HYD/SIMETH 30 ML, LIDOCAINE 2% VI... PO (11:29)
[2024-11-19 11:45] VITALS: BP 179/69; PULSE 64; RESP 18; O2SAT 98
[2024-11-19 13:00] VITALS: BP 144/64; PULSE 73; RESP 18; O2SAT 98
[2024-11-19] MEDS: ACETAMINOPHEN 500 MG TABLET 1000 MG PO (13:18)
[2024-11-19 13:45] VITALS: BP 147/75; PULSE 67; RESP 17; O2SAT 98
--- NOTE | 2024-11-19 13:54 | ECG_ITS ---
Test Date: 2024-11-19 14:09:51 Measurements Intervals [place] Rate: 71 P: 55 NV: 146 QRS: 70 QRSD: 129 T: 41 QT: 388 QTc: 422 Interpretive Statements SINUS RHYTHM RIGHT BUNDLE BRANCH BLOCK [120+ ms QRS DURATION, UPRIGHT V1, 40+ ms S IN I/aVL/V4/V5/V6]+ ABNORMAL ECG Compared to ECG 11/19/2024 09:23:53 NO DIFFERENCE Electronically Signed On 11-20-2024 08:28:09 CDT by Jay Block M.D.
[2024-11-19 14:33] LABS: Troponin I < 0.012 ng/mL (0.000-0.034)
[2024-11-19 15:00] VITALS: BP 138/54; PULSE 69; RESP 14; TEMP 36.6; O2SAT 95
== END 2024-11-19 15:03 | disposition home or self-care (01) ==
PROVIDERS: Emergency Provider Emergency Medicine; PCP Family Medicine
DX: R10.13 Epigastric pain (principal); I10 Essential (primary) hypertension; E11.9 Type 2 diabetes mellitus without complications; K21.9 Gastro-esophageal reflux disease without esophagitis; G47.33 Obstructive sleep apnea (adult) (pediatric); D50.9 Iron deficiency anemia, unspecified; M19.90 Unspecified osteoarthritis, unspecified site; Z96.651 Presence of right artificial knee joint; Z90.710 Acquired absence of both cervix and uterus; Z90.49 Acquired absence of other specified parts of digestive tract; Z87.891 Personal history of nicotine dependence; R91.1 Solitary pulmonary nodule; Z79.82 Long term (current) use of aspirin; Z79.84 Long term (current) use of oral hypoglycemic drugs; Z79.899 Other long term (current) drug therapy; I45.10 Unspecified right bundle-branch block; R94.31 Abnormal electrocardiogram [ECG] [EKG]
CPT/HCPCS: 36415; 71046; 71275; 80053; 83690; 84484; 85025; 85380; 85610; 85730; 93005; 96374; 99284; A9270; J2470; Q9967

== ENCOUNTER 2024-12-14 09:08 | Outpatient (CLI) | payer MEDICARE, SELFPAY ==
--- NOTE | ~2024-12-14 | XR_ITS ---
EXAMINATION: XR UGIAC w kub DATE: 12/14/2024 10:17 INDICATION: Chest pain. Unspecified abdominal pain. TECHNIQUE: 2 overhead handle lathe operator radiograph of the abdomen and pelvis were obtained. The patient drank thick barium, gas-producing crystals, and thin barium. A total of 914 fluoroscopic images of the esophagus, stomach, and proximal small bowel were obtained. Fluoroscopy exposure time was 2.7 minutes. Total DAP was 29.983 Gycm^2. COMPARISON: CT dated 07/01/2023 FINDINGS: The esophagus is normal without mass or stricture. 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 There is a small collection of contrast separate from the main body the stomach near the gastroesophageal junction which likely extends into an intraluminal fold of the stomach resulting from a prior Fifi fundoplication which is better appreciated on prior CT. There was no gastroesophageal reflux with provocative maneuvers. Gas and con trast extends into a 3.7 x 1.9 cm duodenal diverticulum which appears to arise from near the junction of the third portions of the duodenum. The stomach and proximal small bowel are otherwise normal. Cholecystectomy clips in right upper quadrant. IMPRESSION: 1. Postoperative change of prior Fifi fundoplication with no gastroesophageal reflux with provocative maneuvers. 2. 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 3. Prominent duodenal diverticulum. Reviewed, dictated and finalized at location A. IMPRESSION: 1. Postoperative change of prior Fifi fundoplication with no gastroesophageal reflux with provocative maneuvers. 2. Likely presbyesophagus with weakening and poor progression of the primary an d secondary peristaltic waves resulting in esophageal pooling of contrast in th e prone position. 3. Prominent duodenal diverticulum.
--- NOTE | ~2024-12-14 | US_ITS ---
US abdomen limited Indication: R07.9 - Chest pain, unspecified Comparison: None Technique: Wetzel-scale and color Doppler images were obtained. Findings: LIVER: Unremarkable, liver contours intact, no lesions. Normal echogenicity. . The liver measures 16.8 cm. GALLBLADDER/BILIARY: Post cholecystectomy. CBD 5.5 mm. [place] sign negative. PANCREAS: Pancreas limited by bowel gas. Right Kidney: Visualized right kidney unremarkable. Impression: No acute abnormality. Reviewed, dictated and finalized at location P. Impression: No acute abnormality.
--- OUTSIDE RECORDS SUMMARY | 2024-12-14 10:04 | XMS_ITS | Clinical Summary ---
Author Organization [facility] Address [address] [place] [address] Care Team Providers Care Visual Design Lead Name Role Phone Sylvie Olea NP Primary Care Provider [phone] Allergies Active Allergy Reactions Criticality Noted Date [...] wrist 04/26/2015 Chronic infection of sinus 09/11/2010 Encounters Date Type Department Care Team Description 12/09/2024 2:00 PM CDT Ancillary Procedure [facility] [address] [place] [id number] Chest pain, unspecified type; Essential (primary) hypertension from Last 3 Months Surgical History Surgery Date Site/Laterality Comments APPENDECTOMY [...] 0.6 oz pur e alcohol) Rare social Comments Unknown Sex and Gender Information Value Date Recorded Sex Assigned at Not on file Legal Sex Female 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 Gender Identity Female 11/07/2017 10:37 AM CDT [...] Lipid Panel 1950 Hepatitis B Screening 10/21/1967 Zoster Vaccine (2 of 3) 11/18/2013 09/23/2013 Well Visit 65+ 2014 Pneumococcal vaccine 65+ (2 of 2 - PPSV23, PCV20, or PCV21) 05/20/2019 03/25/2019, 02/01/2008 Covid-19 Vaccine (4 - season) 2024 03/12/2021, 06/18/2020, 05/21/2020 Influenza Vaccine (#1) 2024 03/25/2019 DTaP/Tdap/Td Vaccine (3 - Td or Tdap) 03/11/202811/2018, 06/08/2015 Procedures Procedure Name Priority Date/Time Associated Diagnosis Comments STRESS TEST ONLY TREADMILL Routine 12/09/2024 2:00 PM CDT Chest pain, unspecified type Essential (primary) hypertension from Last 3 Months Results * Stress Treadmill Test (12/09/2024 2:00 PM CDT) Anatomical Region Laterality Modality Nuclear Medicine Narrative 12/09/2024 4:12 PM CDT TREADMILL STRESS TEST Patient Name: Diann Lao Date of : 1950 Primary Physician: Dr. Ortega Requesting Physician: Dr. Ortega Type of stress test: Treadmill stress test Indication: Chest pain Quality of the study: Good Interpretation: Baseline 12 lead EKG showed sinus rhythm, can not rule out inferior infarction, incomplete right bundle-branch block, right axis deviation. Abnormal EKG. After obtaining baseline 12 lead EKG and blood pressure, patient exercised on treadmill using standard Thien protocol for 4 minutes 35 seconds, achieving a cardiac workload of 7 METS. Patient stopped exercise due to hip pain. Baseline blood pressure 132/72 mmHg, baseline heart rate 81 beats per minute, maximum blood pressure 170/64 mmHg, maximal heart rate 146 beats per minute which is 101 percent of maximum age predicted heart rate. Stress EKG: Negative for ischemia Arrhythmias: None Blood pressure response to exercise: Normal Heart rate recovery: Normal Conclusions: Treadmill stress test is negative for ischemia by EKG criteria at 101% of maximum age predicted heart rate. Average exercise capacity for patient's age. No exercise-induced chest pain Voice recognition software was used to complete this document. August Hopkins MD, [facility] Stefano Ortega MD CV STRESS PROCEDURES Fi nal Result from Last 3 Months Insurance [facility] CHOICE PLUS MEDICARE [facility] Address: [address] [address] [place] [address] T SENIOR SUPPLEMENT [employer] MEDICARE GOLD Care Teams Visual Design Lead Relationship Specialty Start Date End Date Sylvie Olea NP PCP - General Nurse Practitioner 10/31/17
--- OUTSIDE RECORDS SUMMARY | 2024-12-14 10:04 | XMS_ITS | Clinical Summary ---
Author Organization [facility] Address [address] [address] Phone Care Team Providers Care Carton Forming Machine Helper Name Role Phone Sylvie Olea Radha CHRISTENSEN Primary Care Provider [phone] Leonel Garcia DO Unavailable [phone] Allergies No known active allergies Medications [...] 10 mg by mouth every evening. Active [place]-3 Fatty Acids (OMEGA-3 FISH OIL PO) Take [...] Zoster Immunization (2 of 3) 11/18/2013 09/23/2013 Medicare Initial AWV [id number] 01/02/2016 Pneumococcal Immunization (50+ years) (2 of 2 - PCV20 or PCV21) 03/25/2020 03/25/2019, 02/01/2008 Respiratory Syncytial Virus (RSV) Immunization (Adult) (1 - 1-dose 75+ series) 2024 Influenza Immunization (#1) 2024 03/25/2019 SARS-COV-2 Immunization ( season) 2024 03/12/2021, 06/18/2020, 05/21/2020, Additional history exists Colonoscopy 04/13/2025 04/13/2020, 12/26/2011 Colorectal Cancer Screening [...] Recently Relevant to Health Maintenance Insurance MEDICARE [facility] Care Teams Carton Forming Machine Helper Relationship Specialty Start Date End Date Sylvie Olea APRN PCP - General Advanced Practice Nurse 01/22/16 Leonel Garcia DO Gastroenterology 02/05/16
--- OUTSIDE RECORDS SUMMARY | 2024-12-14 10:04 | XMS_ITS | Clinical Summary ---
Author Organization [employer] [facility] [place] Address [address] [facility] [address] [place] [address] Phone Care Team Providers Care Air Bag Curer Name Role Phone Maty Valladares MD Primary Care Provider [phone] Allergies Active Allergy Reactions Criticality Noted Date [...] 2024-2 6 season) 2024 06/18/2020, 05/21/[address] [facility] PPO MCR Care Teams Air Bag Curer Relationship Specialty Start Date End Date Maty Valladares MD PCP - General Family Practice 11/06/22
== END 2024-12-14 09:09 | disposition home or self-care (01) ==
PROVIDERS: PCP Family Medicine; Visit Provider Nurse Practitioner
DX: K57.10 Diverticulosis of small intestine without perforation or abscess without bleeding (principal); K21.9 Gastro-esophageal reflux disease without esophagitis; Z98.890 Other specified postprocedural states
CPT/HCPCS: 74246; 76705

== ENCOUNTER 2025-02-18 02:18 | Day surgery (SDC) | payer MEDICARE, SELFPAY ==
[2025-02-08 15:39] VITALS: BMI 26.4
--- OUTSIDE RECORDS SUMMARY | 2025-02-18 02:21 | XMS_ITS | Data Portability ---
Author Organization [place] [facility], Main Office Address [address] [place] [address] Care Team Providers Care Data Operations Leader Name Role Phone GÓMEZ OBRIEN Primary Care Provider GÓMEZ OBRIEN Referring Provider [phone] Assessment Encounter Date Assessment Date Assessment LastModified [...] patient more than half of this in [email or web address]-ad-[email or web address] conversation Not available 12/09/2022 15:00:01 Plan of Treatment Reminders Order Date Submit Date Provider Last Modified By Organization Details Last Modified Time Details Appointments None record ed. Lab None record ed. Referral None record ed. Procedures None record ed. Surgeries None record ed. Imaging XR, knee 023 12/10/19 23 [email or web address] [email or web address] [address], [place], [address], 15:04:57 Medication Orders None record ed. Patient TargetsNo targets recorded. Patient InstructionsNo instructions recorded. Reason for Referral None Reported. Results Created Date Observation Date Name Description Value Unit Range Abnormal Flag Note LastModifiedBy Organization Detail LastModifiedTime 12/01/19 22 11/30/2021 TYPE AND SCREE N patient ABO group and Rh O positi ve Not Available [facility] (Lab) [address] [place], [address], 11/30/2021 12:39:01 12/01/19 22 11/30/2021 TYPE AND SCREE N patient antibody screen negati ve Not Available [facility] (Lab) [address] [place], [address], 11/30/2021 12:39:01 12/01/19 22 11/30/2021 HEMOG LOBIN A1C HA1C 6.3 % 4.0-6. 0 high Diabe charles Scree tiffany Crite humza: <5.7% Consi stent with absen ce of diabe charles 5.7-6 .4% Consi stent with incre ased risk for diabe charles (pred iabet es) >OR=6 .5% Consi stent with diabe charles REFER ENCE: Diabe charles Care 2016, 39(Foss ppl.1 ):s13 -s22 Not Available [facility] (Lab) [address] [place], [address], 11/30/2021 11:08:52 12/01/19 22 11/30/2021 BASIC METAB OLIC PANEL carbon dioxide 29 mmol/ L -30 Not Available [facility] (Lab) [address] [place], [address], 11/30/2021 09:58:53 12/01/1911/30/2021 BASIC METAB OLIC PANEL GFR >60 Refer ence Range : Ashley ge GFR Healt hy Adult : >60 [...] or ethni c subgr oups, such as Hiswi nics. Outsi de the valid ated crystal [...] calcu lator is avail able on the [facility] websi te: https ://jose black.kadie rg/pr ofess ional s/kdo qi/gf r_cal culat or Not Available [facility] (Lab) [address] [place], [address], 11/30/2021 09:58:53 12/01/19 22 11/30/2021 BASIC METAB OLIC PANEL calcium 9.9 mg/dL 8.4-10 .2 Not Available [facility] (Lab) [address] [place], [address], 11/30/2021 09:58:53 12/01/19 22 11/30/2021 BASIC METAB OLIC PANEL sodium 137 mmol/ L 137-14 5 Not Available [facility] (Lab) [address] [place], [address], 11/30/2021 09:58:53 12/01/19 22 11/30/2021 BASIC METAB OLIC PANEL potassium 5.1 mmol/ L 3.5-5. 1 Not Available [facility] (Lab) [address] [place], [address], 11/30/2021 09:58:53 12/01/19 22 11/30/2021 BASIC METAB OLIC PANEL chloride 101 mmol/ L 98-107 Not Available [facility] (Lab) [address] [place], [address], 11/30/2021 09:58:53 12/01/19 22 11/30/2021 BASIC METAB OLIC PANEL anion gap 12.1 mmol/ L 14-22 low Not Available [facility] (Lab) [address] [place], [address], 11/30/2021 09:58:53 12/01/19 22 11/30/2021 BASIC METAB OLIC PANEL glucose 154 mg/dL 70-99 high Not Available [facility] (Lab) [address] [place], [address], 11/30/2021 09:58:53 12/01/19 22 11/30/2021 BASIC METAB OLIC PANEL BUN 20 mg/dL 8-19 high Not Available [facility] (Lab) [address] [place], [address], 11/30/2021 09:58:53 12/01/19 22 11/30/2021 BASIC METAB OLIC PANEL creatinine 0.87 mg/dL 0.66-1 .25 Not Available [facility] (Lab) [address] [place], [address], 11/30/2021 09:58:53 12/01/19 22 11/30/2021 CBC/C OMPLE TE BLD COUNT W/DIF F mean red cell volume 88.1 fL 82.0-9 9.0 Not Available [facility] (Lab) [address] [place], [address], 11/30/2021 09:40:37 12/01/19 22 11/30/2021 CBC/C OMPLE TE BLD COUNT W/DIF F white blood cells 5.5 x10'3 /uL 4.2-10 .8 Not Available [facility] (Lab) [address] [place], [address], 11/30/2021 09:40:37 12/01/19 22 11/30/2021 CBC/C OMPLE TE BLD COUNT W/DIF F red blood cells 4.55 x10'6 /uL 3.80-5 .20 Not Available [facility] (Lab) [address] [place], [address], 11/30/2021 09:40:37 12/01/19 22 11/30/2021 CBC/C OMPLE TE BLD COUNT W/DIF F hemoglobin 12.6 g/dL 12.0-1 5.6 Not Available [facility] (Lab) [address] [place], [address], 11/30/2021 09:40:37 12/01/19 22 11/30/2021 CBC/C OMPLE TE BLD COUNT W/DIF F hematocrit 40.1 % 35.7-4 5.7 Not Available [facility] (Lab) [address] [place], [address], 11/30/2021 09:40:37 12/01/19 22 11/30/2021 CBC/C OMPLE TE BLD COUNT W/DIF F mean red cell hemoglobin 27.7 pg 27.0-3 3.0 Not Available [facility] (Lab) [address] [place], [address], 11/30/2021 09:40:37 12/01/19 22 11/30/2021 CBC/C OMPLE TE BLD COUNT W/DIF F mean RBC HGB concentratio n 31.4 g/dL 31.0-3 6.0 Not Available [facility] (Lab) [address] [place], [address], 11/30/2021 09:40:37 12/01/19 22 11/30/2021 CBC/C OMPLE TE BLD COUNT W/DIF F red cell distribution width 13.4 % 11.8-1 5.5 Not Available [facility] (Lab) [address] [place], [address], 11/30/2021 09:40:37 12/01/19 22 11/30/2021 CBC/C OMPLE TE BLD COUNT W/DIF F platelets 318 x10'3 /uL 150-40 0 Not Available [facility] (Lab) [address] [place], [address], 11/30/2021 09:40:37 12/01/19 22 11/30/2021 CBC/C OMPLE TE BLD COUNT W/DIF F mean platelet volume 10.3 fL 9.0-12 .4 Not Available [facility] (Lab) [address] [place], [address], 11/30/2021 09:40:37 12/01/19 22 11/30/2021 CBC/C OMPLE TE BLD COUNT W/DIF F neutrophils 60.6 % 39.0-7 2.0 Not Available [facility] (Lab) [address] [place], [address], 11/30/2021 09:40:37 12/01/19 22 11/30/2021 CBC/C OMPLE TE BLD COUNT W/DIF F lymphocytes 25.7 % 16.0-4 7.0 Not Available [facility] (Lab) [address] [place], [address], 11/30/2021 09:40:37 12/01/19 22 11/30/2021 CBC/C OMPLE TE BLD COUNT W/DIF F immature granulocytes 0.2 % 0.00-0 .50 Not Available [facility] (Lab) [address] [place], [address], 11/30/2021 09:40:37 12/01/19 22 11/30/2021 CBC/C OMPLE TE BLD COUNT W/DIF F monocytes 8.2 % 5.0-12 .0 Not Available [facility] (Lab) [address] [place], [address], 11/30/2021 09:40:37 12/01/19 22 11/30/2021 CBC/C OMPLE TE BLD COUNT W/DIF F eosinophils 4.0 % 1.0-7. 0 Not Available [facility] (Lab) [address] [place], [address], 11/30/2021 09:40:37 12/01/19 22 11/30/2021 CBC/C OMPLE TE BLD COUNT W/DIF F basophils 1.3 % 0.0-2. 0 Not Available [facility] (Lab) [address] [place], [address], 11/30/2021 09:40:37 12/01/19 22 11/30/2021 CBC/C OMPLE TE BLD COUNT W/DIF F neutrophils, absolute count 3.35 x10'3 /uL 1.5-8. 0 Not Available [facility] (Lab) [address] [place], [address], 11/30/2021 09:40:37 12/01/19 22 11/30/2021 CBC/C OMPLE TE BLD COUNT W/DIF F lymphocytes, absolute count 1.42 x10'3 /uL 1.07-3 .43 Not Available [facility] (Lab) [address] [place], [address], 11/30/2021 09:40:37 12/01/19 22 11/30/2021 CBC/C OMPLE TE BLD COUNT W/DIF F monocytes, absolute count 0.45 x10'3 /uL 0.29-0 .99 Not Available [facility] (Lab) [address] [place], [address], 11/30/2021 09:40:37 12/01/19 22 11/30/2021 CBC/C OMPLE TE BLD COUNT W/DIF F eosinophils, absolute count 0.22 x10'3 /uL 0.02-0 .53 Not Available [facility] (Lab) [address] [place], [address], 11/30/2021 09:40:37 12/01/19 22 11/30/2021 CBC/C OMPLE TE BLD COUNT W/DIF F basophils, absolute count 0.07 x10'3 /uL 0.01-0 .08 Not Available [facility] (Lab) [address] [place], [address], 11/30/2021 09:40:37 12/01/19 22 11/30/2021 CBC/C OMPLE TE BLD COUNT W/DIF F immature granulocytes ,absolute 0.01 x10'3 /uL 0.00-0 .05 Not Available [facility] (Lab) [address] [place], [address], 11/30/2021 09:40:37 12/01/19 22 11/30/2021 CBC/C OMPLE TE BLD COUNT W/DIF F nucleated red blood cells 0.0 % -0 Not Available [facility] (Lab) [address] [place], [address], 11/30/2021 09:40:37 12/01/19 22 11/30/2021 CBC/C OMPLE TE BLD COUNT W/DIF F NRBC# 0.00 x10'3 /uL Not Available [facility] (Lab) [address] [place], [address], 11/30/2021 09:40:37 12/11/19 22 12/10/2021 SARS- COV-2 [...] provi ders and patie nts at the [facility] charles: https ://ww w.fda .gov/ media /1363 12/do wnloa d https ://ww w.fda .gov/ media /1363 13/do wnloa d https ://ww w.fda .gov/ media /1421 92/do wnloa d https ://ww w.fda .gov/ media /1421 91/do wnloa d Metho dolog y: Real- Time RT-PC R Not Available [facility] (Lab) [address] [place], [address], 12/10/2021 11:35:31 12/12/19 22 12/11/2021 GLUCO SE (POIN T OF CARE) glucose (point of care) 103 mg/dL 74-99 high Not Available [facility] (Lab) [address] [place], [address], 12/11/2021 16:08:49 12/12/19 22 12/11/2021 GLUCO SE (POIN T OF CARE) glucose (point of care) 138 mg/dL 74-99 high Not Available [facility] (Lab) [address] [place], [address], 12/11/2021 09:35:04 12/13/1912/12/2021 BASIC METAB OLIC PANEL chloride 104 mmol/ L 98-107 Not Available [facility] (Lab) [address] [place], [address], 12/12/2021 08:27:46 12/13/1912/12/2021 BASIC METAB OLIC PANEL creatinine 0.71 mg/dL 0.66-1 .25 Not Available [facility] (Lab) [address] [place], [address], 12/12/2021 08:27:46 12/13/1912/12/2021 BASIC METAB OLIC PANEL GFR >60 Refer ence Range : Ashley ge GFR Healt hy Adult : >60 [...] calcu lator is avail able on the [facility] websi te: https ://jose w.no benitezy.o rg/pr ofess ional s/kdo qi/gf r_cal culat or Not Available [facility] (Lab) [address] [place], [address], 12/12/2021 08:27:46 12/13/1912/12/2021 BASIC METAB OLIC PANEL calcium 8.4 mg/dL 8.4-10 .2 Not Available [facility] (Lab) [address] [place], [address], 12/12/2021 08:27:46 12/13/19 22 12/12/2021 BASIC METAB OLIC PANEL sodium 132 mmol/ L 137-14 5 low Not Available [facility] (Lab) [address] [place], [address], 12/12/2021 08:27:46 12/13/19 22 12/12/2021 BASIC METAB OLIC PANEL potassium 4.6 mmol/ L 3.5-5. 1 Not Available [facility] (Lab) [address] [place], [address], 12/12/2021 08:27:46 12/13/19 22 12/12/2021 BASIC METAB OLIC PANEL carbon dioxide 28 mmol/ L 22-30 Not Available [facility] (Lab) [address] [place], [address], 12/12/2021 08:27:46 12/13/19 22 12/12/2021 BASIC METAB OLIC PANEL anion gap 4.6 mmol/ L 14-22 low Not Available [facility] (Lab) [address] [place], [address], 12/12/2021 08:27:46 12/13/19 22 12/12/2021 BASIC METAB OLIC PANEL glucose 198 mg/dL 70-99 high Not Available [facility] (Lab) [address] [place], [address], 12/12/2021 08:27:46 12/13/19 22 12/12/2021 BASIC METAB OLIC PANEL BUN 15 mg/dL 8-19 Not Available [facility] (Lab) [address] [place], [address], 12/12/2021 08:27:46 12/13/19 22 12/12/2021 CBC W/O DIFFE RENTI AL platelets 235 x10'3 /uL 150-40 0 Not Available [facility] (Lab) [address] [place], [address], 12/12/2021 07:51:59 12/13/19 22 12/12/2021 CBC W/O DIFFE RENTI AL white blood cells 6.4 x10'3 /uL 4.2-10 .8 Not Available [facility] (Lab) [address] [place], [address], 12/12/2021 07:51:59 12/13/19 22 12/12/2021 CBC W/O DIFFE RENTI AL red blood cells 3.40 x10'6 /uL 3.80-5 .20 low Not Available [facility] (Lab) [address] [place], [address], 12/12/2021 07:51:59 12/13/19 22 12/12/2021 CBC W/O DIFFE RENTI AL hemoglobin 9.3 g/dL 12.0-1 5.6 low Not Available [facility] (Lab) [address] [place], [address], 12/12/2021 07:51:59 12/13/19 22 12/12/2021 CBC W/O DIFFE RENTI AL hematocrit 30.2 % 35.7-4 5.7 low Not Available [facility] (Lab) [address] [place], [address], 12/12/2021 07:51:59 12/13/1912/12/2021 CBC W/O DIFFE RENTI AL mean red cell volume 88.8 fL 82.0-9 9.0 Not Available [facility] (Lab) [address] [place], [address], 12/12/2021 07:51:59 12/13/1912/12/2021 CBC W/O DIFFE RENTI AL mean red cell hemoglobin 27.4 pg 27.0-3 3.0 Not Available [facility] (Lab) [address] [place], [address], 12/12/2021 07:51:59 12/13/1912/12/2021 CBC W/O DIFFE RENTI AL mean RBC HGB concentratio n 30.8 g/dL 31.0-3 6.0 low Not Available [facility] (Lab) [address] [place], [address], 12/12/2021 07:51:59 12/13/1912/12/2021 CBC W/O DIFFE RENTI AL red cell distribution width 13.3 % 11.8-1 5.5 Not Available [facility] (Lab) [address] [place], [address], 12/12/2021 07:51:59 12/13/1912/12/2021 CBC W/O DIFFE RENTI AL mean platelet volume 11.5 fL 9.0-12 .4 Not Available [facility] (Lab) [address] [place], [address], 12/12/2021 07:51:59 12/01/19 22 11/30/2021 XR, chest , 2 view [facility] [address], [place] [address] [phone] Araceli esteban Name: GAUTAM GEORGE Access ion #: [id number] Sex: F : 1950 0 Locati [...] bony thorax . Page 1 of 2 [facility] Araceli t Name: GAUTAM GEORGE Access ion #: [id number] Sex: F : 1950 0 Exam [...] 8:50 AM (CT) Page 2 of 2 [id number] [facility] (Imaging) [address] [place], [address], 05/01/2022 03:10:56 12/12/19 22 12/11/2021 XR, knee, 1 or 2 view [facility] [address] [place] [address] [phone] Patien t Name: GAUTAM GEORGE Ideal Me Access ion #: [id number] Sex: F : 1950 8 Locati on: Attend ing Physic tee: J[facility] MARTIN [facility] Physic tee: J[facility] MARTIN Exam Date: 2021 [...] compli cation . Page 1 of 2 [facility] Patien t Name: GAUTAM GEORGE Access ion #: [id number] Sex: F : 1950 8 Exam Date: 2021 8:56 AM Exam Name: XR KNEE LT 2V Admitt ing Diagno sis(es ): Create d and electr onical ly signed by: Lev cali MD Signed Date: 2021 4:05 PM (CT) Dictat ed by: Lev cali MD DD: 2021 4:05 PM (CT) DT: 2021 4:05 PM (CT) Page 2 of 2 [id number] [facility] (Imaging) [address] [place], [address], 05/01/2022 03:10:56 12/12/1912/11/2021 XR, knee, 3 view No observ ation record ed. [id number] [facility] Add On Lab Orders [address] [place], [address], 05/01/2022 03:10:56 01/24/20 XR, knee No observ ation record ed. [id number] [facility] [address], [place], [address], 05/01/2022 03:10:56 12/10/19 XR, knee No observ ation record ed. [facility] [address] [facility] [address], [place], [address], 12/09/2022 14:55:58 Result Notes None recorded. Problems Name Problem SNOMED Code Status Onset Date Resolution Date Notes Provider Name and Address Organization Details Recorded Time Acute abdominal pain 638273786 Completed Not Available [facility] 3 02:56:57 Disorder of shoulder 411125470 Completed Not Available [facility] 3 02:56:57 Pain in throat 688930099 Completed Not Available [facility] 3 02:56:58 Partial thickness rotator cuff tear 955275601 Active Not Available [facility] 3 02:56:58 Spasm of back muscles Completed Not Available [facility] 3 02:56:58 Abdominal pain 68075940 Completed Not Available [facility] 3 02:56:58 Distensio n of abdomen caused by intestina l gas 631415826 Completed Not Available [facility] 3 02:56:58 Tendernes s over frontal sinus 583052088 Completed Not Available [facility] 3 02:56:58 Vitamin D deficienc y 93498277 Active Not Available [facility] 3 02:56:58 Depressiv e disorder 85348160 Active Not Available [facility] 3 02:56:58 Lesion of ulnar nerve 073902133 Active Not Available [facility] 3 02:56:58 Sinusitis 30270450 Completed Not Available [facility] 3 02:56:58 Arthritis 9702705 Active Not Available [facility] 3 02:56:59 Disorder of vitamin D 976780534 Completed Not Available [facility] 3 02:56:59 Osteoarth ritis 988803790 Active Not Available [facility] 3 02:56:59 Loose stool 841067272 Completed Not Available [facility] 3 02:56:59 Type 2 diabetes mellitus 83765830 Active Not Available [facility] 3 02:56:59 Seasonal allergy 116739483 Active Not Available [facility] 3 02:56:59 Foot pain 78988148 Completed Not Available [facility] 3 02:57:00 Upper respirato ry infection 02928664 Completed Not Available [facility] 3 02:57:00 Carpal tunnel syndrome 84440638 Active Not Available [facility] 3 02:57:00 Essential hypertens ion 46496802 Active Not Available [facility] 3 02:57:00 Posterior rhinorrhe a 06879666 Completed Not Available [facility] 3 02:57:00 Epigastri c pain 97911181 Completed Not Available [facility] 3 02:57:01 Fatigue 57206632 Active Not Available [facility] 3 02:57:01 Weight gain 1801948 Completed Not Available [facility] 3 02:57:01 Diabetes mellitus 59646292 Completed 201608/28/2020 Not Available [facility] 3 02:57:00 Sleep apnea 31169557 Active 2019 Not Available [facility] 3 02:57:00 Pain of left knee joint 67398776663 4107 Active 2021 Not Available [facility] 3 02:56:59 Problem Notes None recorded. Procedures Surgical History Date Name Laterality Status Provider Name and Address Organization Details Recorded Time 09/18/19 22 bone density scan completed Not Available [facility] 05/01/2022 02:46:36 04/13/19 21 Date of Last Colonoscopy completed Not Available [facility] 05/01/2022 02:46:31 04/13/19 21 Colonoscopy completed Not Available [facility] 05/02/19 23 02:46:36 09/20/19 20 Most Recent Mammogram completed Not Available [facility] 05/01/2022 02:46:31 01/21/20 14 Date of Last Pap Smear completed Not Available [facility] 05/01/2022 02:46:31 03/03/18 90 NOTE TAKER Surgery completed Not Available [facility] 05/02/19 23 02:46:36 Imaging Results None recorded. Procedure Notes None recorded. Medical Equipment None Reported. Allergies Allergen ID Allergen Name Allergen Category Reaction Reaction Severity Criticality Documentation Date Start Date Code Code System Note Provider Name and Address Organization Details Recorded Time 5367 Arthrotec medicatio n nausea Not available Not available 05/01/2022 Not Available [facility] 3 03:10:22 Medications Name Sig Start Date [...] administ ered by the provider 07/12 completed [facility]: 0409-427 08-17 Not Available Not Available Not [...] mass index (BMI) Body height Oxygen saturation Heart rate Body temperature Body weight Systolic And Diastolic Provider Name and Address Organization Details Last Updated DateTime 3 27.1 kg/m2 162.56 cm 98 % 101 /min 97.1 [degF] 61285.5 9 g 148/86 mm[Hg] Not Available [facility] 3 02:52:47 Date Recorded Body height Body mass index (BMI) Body weight Provider Name and Address Organization Details Last Updated DateTime 12/09/2022 163.83 cm 27.9 kg/m2 68246.74 [address] [facility] 12/09/2022 14:28:20 Date Recorded Body height Provider Name an d Address Organization Details Last Updated DateTime 12/24/2021 162.56 cm Not Available [facility] 3 02:52:50 Date Recorded Body height Provider Name an d Address Organization Details Last Updated DateTime 01/09/2022 162.56 cm Not Available [facility] 3 02:52:50 Date Recorded Body height Provider Name an d Address Organization Details Last Updated DateTime 01/23/2022 162.56 cm Not Available [facility] 3 02:52:50 Social History Question Answer Notes LastModified by Organizat ion Details LastModified Time Tobacco Smoking Status Former Smoker Shelby lopez, [facility] 12/09/2022 14:09:15 Do You Have An Advance Directive? No [id number] Information not available 05/01/2022 Are You Blind Or Do You Have Difficulty Seeing? No [email or web address] Information not available 12/09/2022 What Is Your Level Of Caffeine Consumption? Moderate [id number] Information not available 05/01/2022 In The 14 Days Before Symptom Onset, Have You Had Close Contact With A Laboratory-confir med COVID-19 While That Case Was Ill? No [email or web address] Information not available 12/09/2022 In The 14 Days Before Symptom Onset, Have You Had Close Contact With A Person Who Is Under Investigation For COVID-19 While That Person Was Ill? No [email or web address] Information not available 12/09/2022 Are You Deaf Or Do You Have Serious Difficulty Hearing? No [email or web address] Information not available 12/09/2022 What Type Of Diet Are You Following? REGULAR [id number] Information not available 05/01/2022 Which Illicit Or Recreational Drugs Have You Used? None [email or web address] Information not available 12/09/2022 Have There Been Any Changes To Your Family Or Social Situation? No [email or web address] Information no t available 12/09/2022 What Is The Fluoride Status Of Your Home? Unknown [email or web address] Information not available 12/09/2022 Do You Use Insect Repellent Routinely? Yes [email or web address] Information not available 12/09/2022 [facility] [email or web address] Information not available 12/09/2022 Do You Have A Medical Power Of Shop Coordinator? No [email or web address] Information not available 12/09/2022 What Was The Date Of Your Most Recent Tobacco Screening? 09/04/2021 [email or web address] Information not available 12/09/2022 Do You Use Your Seat Belt Or Car Seat Routinely? Yes [email or web address] Information not available 12/09/2022 Do You Have Smoke And Carbon Monoxide Detectors In Your Home? Yes [email or web address] Information not available 12/09/2022 Do You Use Sunscreen Routinely? Yes Information not available 12/09/2022 Has Tobacco Cessation Counseling Been Provided? No [email or web address] Information not available 12/09/2022 Do You Have Difficulty Walking Or Climbing Stairs? No [email or web address] Information not available 12/09/2022 Do You Have Any Dietary Restrictions? No [email or web address] Information not available 12/09/2022 Sex: Unknown Functional Status Question Answer Note LastModified by Organizat ion Details LastModified Time Do you or have you ever used any other forms of tobacco or nicotine? No [email or web address] Information not available 12/09/2022 What is your level of alcohol consumption? Occasional [id number] Information not available 05/01/2022 Do you have transportation difficulties? No Information not available 12/09/2022 Are you able to walk independently without assistance or assistive devices? YESWOREST [email or web address] Information not available 12/09/2022 Do you have difficulty doing errands alone? No [email or web address] Information not available 12/09/2022 Are you able to care for yourself independently? 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 No [email or web address] Information not available 12/09/2022 What is your exercise level? Moderate walks [id number] Information not available 05/01/2022 Mental Status Question Answer Note LastModified by Organizat ion Details LastModified Time Do you feel stressed (tense, restless, nervous, or anxious, or unable to sleep at night)? [id number] [email or web address] Information not available 12/09/2022 Do you have difficulty concentrating, remembering or making decisions? No [email or web address] Information no t available 12/09/2022 Family History Relationship Description Onset Age of this Age Resolved Age Notes LastModified by Organization Details LastModified Time Mother Malignant neoplasm of cervix uteri [email or web address] Not available 14:09:14 Mother Heart disease [id number] Not available 05/01/2022 02:46:43 Mother Hypertensive disorder [id number] Not available 05/01/2022 02:46:43 Mother Diabetes mellitus [id number] Not available 05/01/2022 02:46:43 Daughter Malignant neoplasm of cervix uteri [email or web address] Not available 14:09:14 Sister Malignant neoplasm of breast [email or web address] Not available 12/09 14:09:14 Father Heart disease [id number] Not available 05/01/2022 02:46:43 Father Diabetes mellitus [id number] Not available 05/01/2022 02:46:43 Notes:no new Medical [...] HAVE YOU BEEN HOSPITALIZED OR SEEN IN [facility] IN THE PAST YEAR ? N [...] 50 mcg/0.25mL dose 1 completed Not Available [facility] 05/01/2022 03:10:01 COVID-19, mRNA, LNP-S, PF, 100 mcg/0.5mL dose or 50 mcg/0.25mL dose 2 completed Not Available [facility] 05/01/2022 03:10:01 Tdap 9 completed Not Available [facility] 05/01/2022 03:10:01 pneumococcal, unspecified formulation 8 completed Not Available [facility] 05/01/2022 03:10:01 Influenza, high-dose, quadrivalent, PF 1 completed Not Available [facility] 05/01/2022 03:10:01 Influenza, high-dose, trivalent, PF 0 completed Not Available [facility] 05/01/2022 03:10:01 Pneumococcal conjugate PCV 13 0 completed Not Available [facility] 05/01/2022 03:10:02 zoster live 4 completed Not Available [facility] 05/01/2022 03:10:02 Past Encounters Encounter ID Performer Location Encounter Start Date Encounter Closed Date Diagnosis/Indication Diagnosis SNOMED-CT Code Diagnosis ICD10 Code Diagnosis IMO Codes [id number]GR[facility]_ DEFAULT_1 _1 , 05/30/2020 00:00:00 05/30/2020 10:54:49 [id number] [facility] [address] [place] [address] 06/20/2020 00:00:00 06/20/2020 13:49:30 [id number] Aren Shore MD [address] [place] [address] 09/12/2020 00:00:00 09/12/2020 10:15:47 [id number] Jc Styles MD [facility] [place] [address] [place] [address] 09/22/2020 00:00:00 09/22/2020 16:27:24 [id number] Aren Shore MD [facility] [address] [facility] [place] [address] 12/20/2020 00:00:00 12/21/2020 12:54:23 [id number] Jc Styles MD [facility] [place] [address] [place] [address] 02/14/2021 00:00:00 02/14/2021 10:16:24 [id number] Aren Shore MD [facility] [address] [place] [address] [place] [address] 03/12/2021 00:00:00 03/12/2021 08:19:14 [id number] Jc Styles MD [facility]_[address], [address] [address] 07/12/2021 00:00:00 07/12/2021 10:35:49 [id number] Aren Shore MD [facility] [address] [place] [address] [place] [address] 09/05/2021 00:00:00 09/05/2021 15:14:47 [id number] Jc Styles MD [facility] [place] [address] [place] [address] 10/24/2021 00:00:00 10/30/2021 16:41:50 [id number] Jc Styles MD [facility] [place] [address] [place] [address] 12/24/2021 00:00:00 12/24/2021 14:51:46 [id number] Jc Styles MD [facility] [place] [address] [place] [address] 01/09/2022 00:00:00 01/09/2022 11:39:55 [id number] Jc Styles MD [facility] [place] [address] [place] [address] 01/23/2022 00:00:00 01/23/2022 12:43:57 [id number] MIKHAIL Rockwell [facility]G Primary Care [facility] [address] [facility] [address] [place] [address] 03/15/2022 00:00:00 03/15/2022 09:40:53 [id number] Jc Styles MD [facility] [place] [address] [place] [address] 12/09/2022 14:06:53 12/09/2022 15:04:56 History of left total knee replacement [id number] Z96.652 Health Concerns Section Related Observation LastModified by Organization Detai ls LastModified Time None Recorded Concern Status LastModified by Organization Details LastModified Time None Recorded Advance Directives Directive N: Payers Insurance Date Sequence Insurance Name Policy Number Policy Deal Covered Member ID Deal Member ID Guarantor Name 12/09/2022 1 [facility] (MEDICARE REPLACEMENT HMO) [id number] Gautam Lao [id number] Gautam Lao 12/08/2022 1 [facility] (MEDICARE REPLACEMENT/AD VANTAGE - HMO) [id number] Gautam Lao [id number] Gautam Lao OBGyn Episode No OBEpisode recorded.
--- OUTSIDE RECORDS SUMMARY | 2025-02-18 02:21 | XMS_ITS | Clinical Summary ---
Author Organization [facility] Address [address] [place] [address] Care Team Providers Care [employer] Spanish Teacher Name Role Phone Adele Gao MD Primary Care Provider [phone] Source Comments [facility],non-owned Affiliates and Associated Physician Practices is amultiple site organization consisting of ambulatory clinics and hospital sitesin [place], [place], [place] and [place]. This disclosure is being madepursuant to the Care Everywhere program and may not contain all information available regarding this patient. 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 Gender Identity Not on file Sexual Orientation Not on file Plan of Treatment Upcoming Encounters Date Type Department Care Team (Latest Contact Info) Description 02/21/2025 11:00 AM HEAT TREATER APPRENTICE Hospital Encounter [facility] [address] [place] [address] Surgery General 02/21/2025 11:00 AM HEAT TREATER APPRENTICE - 02/21/2025 12:30 PM HEAT TREATER APPRENTICE Surgery [facility] [address] [place] [address] Procedure, Nursing G_I GASTRIC MOTILITY STUDY Scheduled Procedures Name Priority Associated Diagnoses Date/Ti me GASTRIC MOTILITY STUDY Gastroesophageal reflux disease, unspecified whether esophagitis present Atypical chest pain Dyskinesia of esophagus 02/21/2025 11:00 AM HEAT TREATER APPRENTICE ESOPHAGUS/GASTROESOPHAGEA L REFLUX TEST Gastroesophageal reflux disease, unspecified whether esophagitis present Atypical chest pain Dyskinesia of esophagus 02/21/2025 11:00 AM HEAT TREATER APPRENTICE Health Maintenance Due Date Last Done Comments BONE DENSITY TESTING 1949 COLOGUARD (AGES 45-75) - COL ON CA SCREENING 1949 COLON MONITORING 1949 COLONOSCOPY - COLON CA SCREENING 1949 CT COLONOGRAPHY - COLON CA SCREENING 1950 Colorectal Cancer Screening 1949 FIT - COLON CA SCREENING 1949 FLEX SIG - COLON CA SCREENING 1949 LIPID TESTING 1949 MAMMOGRAM 1949 HEPATITIS C SCREENING 10/16/1967 DTAP/TDAP/TD VACCINES (1 - Tdap) 1968 PNEUMOCOCCAL VACCINE 50+ (1 of 1 - PCV) 10/21/1999 ZOSTER VACCINE (1 of 2) 10/21/1999 DEPRESSION SCREENING 03/03/2024 MEDICARE AWV CALENDAR YEAR 2024 Respiratory Syncytial Virus (RSV) Vaccine Pt: or over 60 yrs (1 - 1-dose 75+ series) 2024 COVID-19 VACCINE (3 - 2024-2 6 season) 2024 06/18/2020, 05/21/2020 INFLUENZA VACCINE (#1) 2024 HEPATITIS B VACCINE Aged Out No longe r eligible based on patient's age to complete this topic HIB VACCINE Aged Out No longer eligi ble based on patient's age to complete this topic HPV VACCINE Aged Out No longer eligi ble based on patient's age to complete this topic MENINGOCOCCAL (Group B) VACCINE SHARED DECISION-MAKING Aged Out No longer eligible based on patient's age to complete this topic MENINGOCOCCAL GROUPS A/C/Y/W VACCINE Aged Out No longer eligible b ased on patient's age to complete this topic Insurance MEDICARE [facility] Member Subscriber Plan / Payer (Ef fective 2015-Present) Name:Diann Lao Relation to Subscriber:Self Name:DIANN LAO Payer ID:[id number] ([facility]) Type:HMO Address: [facility] [address] [place] [address] Member Subscriber Plan / Payer (Ef fective 2022-Present) Name:Diann Lao Relation to Subscriber:Self Name:Diann Lao Payer ID:[id number] ([facility]) Type:Medicare-Managed Care Address: [address] [address] [employer] Member Subscriber Plan / Payer (Ef fective for All Dates) Name:Diann Lao Relation to Subscriber:Self Name:Diann Lao Payer ID:[id number] ([facility]) Type:Medicare-Managed Care Address: [facility] [address] [place] [phone] * Guarantor: TASHIA,DIANN Account Type Relation to Patient Date of Phone Billing Address Personal/Family [address] [phone] SELF PAY NO INSURANCE Member Subscriber Plan / Payer (Ef fective for All Dates) Name:Diann Lao Member ID:Not on file Relation to Subscriber:Not on file Name:DIANN LAO Subscriber ID:Not on file Address: [address] [place] [address] Payer ID:Not on file Group ID:Not on file Type:Self Pay Address: [place], [place] MEDICARE [employer] MEDICARE ADV * Guarantor: DIANN LAO Account Type Relation to Patient Date of Phone Billing Address Personal/Family [address] [place] [phone] [facility] MEDICARE ADV PPO SELF PAY NO INSURANCE Member Subscriber Plan / Payer (Ef fective for All Dates) Name:Diann Lao Member ID:Not on file Relation to Subscriber:Not on file Name:DIANN LAO Subscriber ID:Not on file Address: [address] [address] Payer ID:Not on file Group ID:Not on file Type:Self Pay Address: [place], [place] * Guarantor: DIANN LAO Account Type Relation to Patient Date of Phone Billing Address Personal/Family [address] [address] [employer] MED[employer] ADV PPO SELF PAY NO INSURANCE Member Subscriber Plan / Payer (Ef fective for All Dates) Name:Diann Lao Member ID:Not on file Relation to Subscriber:Not on file Name:TASHIADIANN Subscriber ID:Not on file Address: [address] [place] [address] Payer ID:Not on file Group ID:Not on file Type:Self Pay Address: [place], [place] Care Teams Middle [employer] Spanish Teacher Relationship Specialty Start Date End Date Adele Gao MD [address] [place] [address] [address] [place] [address] PCP - General 02/16/08
--- OUTSIDE RECORDS SUMMARY | 2025-02-18 02:21 | XMS_ITS | Clinical Summary ---
Author Organization [facility] Address [address] [address] Phone Care Team Providers Care Clinical Research Nurse Name Role Phone Sylvie Olea Radha CHRISTENSEN Primary Care Provider [phone] Leonel Garcia DO Unavailable [phone] Allergies No known active allergies Medications [...] 10 mg by mouth every evening. Active [place]-3 Fatty Acids (OMEGA-3 FISH OIL PO) Take [...] Recently Relevant to Health Maintenance Insurance MEDICARE [facility] Care Teams Clinical Research Nurse Relationship Specialty Start Date End Date Sylvie Olea APRN PCP - General Advanced Practice Nurse 01/22/16 Leonel Garcia DO Gastroenterology 02/05/16
--- OUTSIDE RECORDS SUMMARY | 2025-02-18 02:21 | XMS_ITS | Clinical Summary ---
Author Organization [facility] Address [address] [facility] [place] [address] Phone Care Team Providers Care General Agent Name Role Phone Maty Valladares MD Primary Care Provider [phone] Allergies Active Allergy Reactions Criticality Noted Date [...] 2024-2 6 season) 2024 06/18/2020, 05/21/2020 Insurance [facility] PPO MCR Care Teams General Agent Relationship Specialty Start Date End Date Maty Valladares MD PCP - General Family Practice 11/06/22
--- OUTSIDE RECORDS SUMMARY | 2025-02-18 02:21 | XMS_ITS | Clinical Summary ---
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 August Hopkins MD, [facility] Stefano Ortega MD CV STRESS PROCEDURES Fi nal Result from Last 3 Months Insurance [facility] CHOICE [facility] HMO/PPO Address: [address] [address] [place] [address] MEDICARE [facility] Address: [address] [address] [place] [address] [facility] [employer] MEDICARE GOLD Care Teams Leather Whitener Relationship Specialty Start Date End Date Sylvie Olea NP PCP - General Nurse Practitioner 10/31/17
[2025-02-18 10:02] VITALS: BP 175/72; PULSE 79; RESP 14; TEMP 36.4; O2SAT 98
[2025-02-18] MEDS: LACTATED RINGERS 1,000 ML 150 ML IV CONT (10:14)
--- NOTE | 2025-02-18 10:45 | PM.HPGS ---
History of Present Illness History of Present Illness Consent: Risks, benefits, and alternatives have been discussed and questions answered. Patient agrees to proceed with procedure. Chief complaint: Gastro-esophageal reflux disease without esophagit Narrative: Diann Lao is a 74 year old female with abdominal pain despite ppi, remote h/o fifi, also EPI. Recent UGI showed Postoperative change of prior Fifi fundoplication with no gastroesophageal reflux with provocative maneuvers. 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 Prominent duodenal diverticulum. GES no gastroparesis. Review of Systems Review of Systems: All systems reviewed & are unremarkable except as noted in HPI and below PMFSH Past Medical History Medical History Right bundle branch block Heart murmur Abdominal bruit Decrease in appetite Early satiety Mid back pain Postprandial epigastric pain NIC (iron deficiency anemia) Irregular heart rhythm Hx of gastric ulcer Overweight (BMI 25.0-29.9) Diabetes Osteoarthritis Chronic GERD KULDEEP (obstructive sleep apnea) HTN (hypertension) Surgical History Surgical History History of hysterectomy History of total right knee replacement History of Fifi fundoplication History of appendectomy History of cholecystectomy Family History Family History Mother Cerebrovascular accident Other Diabetes mellitus Heart disease Hypertension Social History Social History Social History: Smoking packs per day: 1 Smoking cigarettes per day: 20.0 Years smoked: 22 Smoking pack-years: 22.00 Smoking status: Former smoker Tobacco type: cigarettes Second hand tobacco smoke exposure: No Smoking end date: 03/03/99 Alcohol intake: current Alcohol use details: 1 per few months Substance use: never Substance use type: does not use Current Housing: Decline to Answer Concerned About Future Housing: Decline to Answer Difficulty Paying Gas/Electric Bills: Decline to Answer Difficulty Paying for Meds: Decline to Answer Currently Unemployed: Decline to Answer Education: Decline to Answer Difficulty w/ Childcare or Family Care: Decline to Answer Living arrangements: with family Additional living arrangements comments: Occupation/Education: retired Gender identity (if verbalized by the patient): Female Sexual Orientation (if Verbalized by the Patient): Straight or Heterosexual Spiritual care concerns: No Meds Home Medications and Allergies Home Medications ?Medication ?Instructions ?Recorded ?Confirmed ?Type Adult One Daily Multivitamin 1 tablet PO DAILY 03/23/20 02/18/25 History aspirin 81 mg tablet 81 mg PO DAILY 08/25/20 02/18/25 History blood sugar diagnostic (OneTouch #100 ea 04/16/23 01/17/25 Rx Ultra Test strips) blood-glucose meter (OneTouch #1 ea 04/16/23 01/17/25 Rx Ultra2 Meter) metformin 500 mg tablet 500 mg PO BID 08/18/23 02/18/25 History azelastine 137 mcg (0.1 %) nasal See Rx Instructions .Route 04/20/24 02/18/25 Rx spray .COMPLEX #30 mL irbesartan 300 mg tablet See Rx Instructions .Route 05/25/24 02/18/25 Rx .COMPLEX #90 tabs acetaminophen 500 mg tablet 1,000 mg PO Q6H PRN pain 06/09/24 02/08/25 History (Tylenol Extra Strength) ferrous sulfate 325 mg (65 mg 325 mg PO DAILY 07/10/24 02/18/25 History iron) tablet colestipol 1 gram tablet See Rx Instructions .Route 08/13/24 02/18/25 Rx .COMPLEX #180 tabs amlodipine 10 mg tablet See Rx Instructions .Route 12/23/24 02/18/25 Rx .COMPLEX #90 tabs isosorbide dinitrate 5 mg tablet 5 mg PO TID PRN chest pain #20 tabs 01/06/25 02/08/25 Rx sgexzm-vjhprmtc-ybslkqw(pork) 1 cap PO QID #300 caps 01/06/25 02/18/25 Rx 60k-189,600-252,600 unit capsule,del rel (Zenpep) jownwx-qjomxtcx-wjsjsvr(pork) 60,000-189,600- 252,600 unit 01/06/25 02/18/25 Sample 60k-189,600-252,600 unit Capsule,Delayed Release(Dr/Ec)#7 capsule,del rel (Zenpep) Samples pantoprazole 40 mg tablet,delayed 40 mg PO BID #180 tabs 01/06/25 02/18/25 Rx release bgfarz-nikyqnxc-kmbpnwu 2 cap PO QID #300 caps 01/13/25 02/18/25 Rx (pork)36,000-114,000-180k unit capsule,del rel (Creon) Allergies Allergy/AdvReac Type Severity Reaction Status Date / Time doxycycline AdvReac Vomiting Verified 02/18/25 09:59 Vital Signs Vital Signs - 24 hr 02/18/25 10:02 Temperature 97.5 F L Pulse Rate 79 Respiratory Rate 14 Blood Pressure 175/72 H Pulse Oximetry 98 Oxygen Delivery Room Air Exam Const: General: comfortable and no acute distress HENMT: Face/Nose/Sinus: Normal nares present Eyes: General: appearance normal, both eyes and all related structures Neck: Neck: no JVD Resp: Auscultation: clear to auscultation bilaterally Cardio: Rate: regular rate Rhythm: regular rhythm GI: Inspection: non-distended GI Palp: Yes Soft to palpation Skin: General skin exam: normal color Assessment and Plan Assessment and plan (1) Chronic GERD: Code(s): K21.9 - Gastro-esophageal reflux disease without esophagitis Status: Acute Assessment and Plan: egd to reassess she was already referred to complete esophagal manometry at another institution
--- NOTE | 2025-02-18 10:47 | WPDANESEPPF ---
Anes - Initial Pre Proc Eval Procedure: Operation Date: 02/18/25 13:15 Proposed Procedures p Esophagogastroduodenoscopy - Ezequiel Duke MD Date/Time: 02/18/25 10:47 Surgeon: Ezequiel Duke MD Pre Op Diagnosis: Gastro-esophageal reflux disease without esophagit Patient Data Age: 74 Gender: F Height: 1.65 m Weight: 73.5 kg Last Vital Signs Temp 36.4 C L 02/18/25 10:02 Pulse 79 02/18/25 10:02 Resp 14 02/18/25 10:02 BP 175/72 H 02/18/25 10:02 Pulse Ox 98 02/18/25 10:02 O2 Del Method Room Air 02/18/25 10:02 Allergies Allergy/AdvReac Type Severity Reaction Status Date / Time doxycycline AdvReac Vomiting Verified 02/18/25 09:59 Home Medications ?Medication ?Instructions ?Recorded ?Confirmed ?Type Adult One Daily Multivitamin 1 tablet PO DAILY 03/23/20 02/18/25 History aspirin 81 mg tablet 81 mg PO DAILY 08/25/20 02/18/25 History blood sugar diagnostic (OneTouch #100 ea 04/16/23 01/17/25 Rx Ultra Test strips) blood-glucose meter (OneTouch #1 ea 04/16/23 01/17/25 Rx Ultra2 Meter) metformin 500 mg tablet 500 mg PO BID 08/18/23 02/18/25 History azelastine 137 mcg (0.1 %) nasal See Rx Instructions .Route 04/20/24 02/18/25 Rx spray .COMPLEX #30 mL irbesartan 300 mg tablet See Rx Instructions .Route 05/25/24 02/18/25 Rx .COMPLEX #90 tabs acetaminophen 500 mg tablet 1,000 mg PO Q6H PRN pain 06/09/24 02/08/25 History (Tylenol Extra Strength) ferrous sulfate 325 mg (65 mg 325 mg PO DAILY 07/10/24 02/18/25 History iron) tablet colestipol 1 gram tablet See Rx Instructions .Route 08/13/24 02/18/25 Rx .COMPLEX #180 tabs amlodipine 10 mg tablet See Rx Instructions .Route 12/23/24 02/18/25 Rx .COMPLEX #90 tabs isosorbide dinitrate 5 mg tablet 5 mg PO TID PRN chest pain #20 tabs 01/06/25 02/08/25 Rx wbqmap-owqiywqm-cvuyndq(pork) 1 cap PO QID #300 caps 01/06/25 02/18/25 Rx 60k-189,600-252,600 unit capsule,del rel (Zenpep) bhxwkw-pcybrpbc-kcamjie(pork) 60,000-189,600- 252,600 unit 01/06/25 02/18/25 Sample 60k-189,600-252,600 unit Capsule,Delayed Release(Dr/Ec)#7 capsule,del rel (Zenpep) Samples pantoprazole 40 mg tablet,delayed 40 mg PO BID #180 tabs 01/06/25 02/18/25 Rx release ynrxtw-yykbclaz-erojqld 2 cap PO QID #300 caps 01/13/25 02/18/25 Rx (pork)36,000-114,000-180k unit capsule,del rel (Creon) Laboratory Tests 02/18/25 10:13 POC Capillary Glucose 131 H mg/dl (65-105) Patient hx anesthesia problems: none Family hx anesthesia problems: none Results Review: All pre-operative results and documents have been reviewed as part of the pre-operative evaluation. [facility] Past Medical History Medical History Right bundle branch block Heart murmur Abdominal bruit Decrease in appetite Early satiety Mid back pain Postprandial epigastric pain NIC (iron deficiency anemia) Irregular heart rhythm Hx of gastric ulcer Overweight (BMI 25.0-29.9) Diabetes Osteoarthritis Chronic GERD KULDEEP (obstructive sleep apnea) HTN (hypertension) Surgical History Surgical History History of hysterectomy History of total right knee replacement History of Fifi fundoplication History of appendectomy History of cholecystectomy Family History Family History Mother Cerebrovascular accident Other Diabetes mellitus Heart disease Hypertension Social History Social History Social History: Smoking packs per day: 1 Smoking cigarettes per day: 20.0 Years smoked: 22 Smoking pack-years: 22.00 Smoking status: Former smoker Tobacco type: cigarettes Second hand tobacco smoke exposure: No Smoking end date: 03/03/99 Alcohol intake: current Alcohol use details: 1 per few months Substance use: never Substance use type: does not use Current Housing: Decline to Answer Concerned About Future Housing: Decline to Answer Difficulty Paying Gas/Electric Bills: Decline to Answer Difficulty Paying for Meds: Decline to Answer Currently Unemployed: Decline to Answer Education: Decline to Answer Difficulty w/ Childcare or Family Care: Decline to Answer Living arrangements: with family Additional living arrangements comments: Occupation/Education: retired Gender identity (if verbalized by the patient): Female Sexual Orientation (if Verbalized by the Patient): Straight or Heterosexual Spiritual care concerns: No Anes - Eval Final PreProcedure Day of Procedure 02/18/25 10:47 Patient weight: overweight Heart: regular rate and rhythm Lungs: clear to auscultation Airway: Mallampati scale class II Neurological: alert and oriented Last oral intake: >/= 8 hours ASA classification: III Emergent: no Anesthetic plan: proceed Anesthesia type and monitoring: general GIVS and standard monitoring Results Review: All pre-operative results and documents have been reviewed as part of the pre-operative evaluation. Informed Consent: The patient's anesthetic plan and its attendant risks and benefits were discussed with the patient/family/POA. Questions were solicited and answers provided to the satisfaction of the patient/family/POA.
--- NOTE | 2025-02-18 10:58 | S_PTH ---
PATIENT: Diann Lao LOC: [facility] Cheung#:[id number] AGE/SX: 74/F ROOM: RE02/18/[address]: Ezequiel Duke MD : 1950 BED: DIS: 02/18/2025 SPEC #: [id number] RECD: 02/18/25 11:44 STATUS: JACKI REEvaristo #: [id number] DANITZA: 02/18/25 10:[address]: Ezequiel Duke DEPT: [facility] Surgical RECD BY: Evelin Mckeon ENTERED: 02/18/25 11:46 SP TYPE: Surgical OTHR DR: Stefano Ortega MD Tissues: A - Small Bowel Bx B - Gastric Biopsy C - Esophageal Biopsy Procedures: Hematoxylin and Eosin Stain Gross and Microscopic Level 4
[2025-02-18 11:04] VITALS: BP 108/65; PULSE 66; RESP 18; O2SAT 100
[2025-02-18 11:14] VITALS: BP 135/55; PULSE 63; RESP 14; O2SAT 100
[2025-02-18 11:24] VITALS: BP 172/68; PULSE 65; RESP 16; O2SAT 100
== END 2025-02-18 11:34 | disposition home or self-care (01) ==
PROVIDERS: PCP Family Medicine; Referring Provider Nurse Practitioner; Visit Provider Internal Medicine Gastroenterology
PROC: 0DJ08ZZ Inspection of Upper Intestinal Tract, Via Natural or Artificial Opening Endoscopic (ICD-10-PCS; CPT 43239; principal; 2025-02-18 13:15)
DX: K22.70 Barrett's esophagus without dysplasia (principal); K21.9 Gastro-esophageal reflux disease without esophagitis; K29.70 Gastritis, unspecified, without bleeding; I10 Essential (primary) hypertension; E11.9 Type 2 diabetes mellitus without complications; G47.33 Obstructive sleep apnea (adult) (pediatric); D50.9 Iron deficiency anemia, unspecified; I49.9 Cardiac arrhythmia, unspecified; I45.10 Unspecified right bundle-branch block; M19.90 Unspecified osteoarthritis, unspecified site; Z79.82 Long term (current) use of aspirin; Z79.84 Long term (current) use of oral hypoglycemic drugs; Z98.890 Other specified postprocedural states; Z90.49 Acquired absence of other specified parts of digestive tract; Z87.11 Personal history of peptic ulcer disease; Z87.891 Personal history of nicotine dependence; Z82.49 Family history of ischemic heart disease and other diseases of the circulatory system
CPT/HCPCS: 43239; 82948; 88305; A9270; J2003; J2704; J7120